=== PATIENT | male | born 1955 | race Caucasian/White ===

== ENCOUNTER 2016-11-15 16:51 | Emergency (ER) | payer BC ==
[~2016-11-15] VITALS: Ht 175.3 cm; Wt 104.4 kg
[~2016-11-15 16:51] MED LIST: ALPR0.25 PO; ASPI81TA28 PO; CLOP1TAB5 PO; DICY10CA12 PO; DILT120C99 PO; METO25TA3 PO; MULT-506 PO; PANT40TA PO; PRVC/40 PO; SERT25TA PO
[2016-11-15 16:53] VITALS: TEMP 36.8
--- NOTE | 2016-11-15 17:10 | EMERGENCY ROOM VISIT NOTE ---
History Report prepared by Natalie: Virgie Tao Under the Supervision of: Dr. Shaw Vásquez M.D. First contact with patient: 16:55 Chief Complaint: COUGH Stated Complaint: COUGH,CHEST PAIN,TROUBLE BREATHING Nursing Triage Summary: Pt c/o cold symptoms and trouble with breathing over the last few days. Patient states he's been coughing and he now has chest pain from cough. Left chest pain when he coughs. Productive History of Present Illness The patient is a 61 year old male who presents to the Emergency Room with complaints of a persistent productive cough over the last three days. The patient states that over the last year he has intermittently been experiencing breathing problems. He states that he is not on any current inhalers or antibiotics, noting that he was last on antibiotics 1 month ago. The patient associates left sided chest pain with his symptoms secondary to his cough. He additionally notes that he has been short of breath. The patient notes a history of two cardiac stents. He states that he had the stents placed one year ago. Source of History: patient Onset: last three days Position: other (global) Quality: other (cough) Timing: other (persistent) Associated Symptoms: + SOB, + chest pain (left sided) Review of Systems See HPI for pertinent positives & negatives. A total of 10 systems reviewed and were otherwise negative. Past Medical & Surgical Medical Problems: (1) Anxiety (2) CAD S/P percutaneous coronary angioplasty (3) Dyslipidemia (4) GERD (gastroesophageal reflux disease) (5) Steatohepatitis Surgical Problems: (1) History of angioplasty Family History Cancer Heart disease FATHER (IN s/p cabg) MOTHER (IN in 50's) Hypertension Social History Smoking Status: Never Smoker Alcohol Use: none Marital Status: Housing Status: lives with family Occupation Status: employed Current/Historical Medications Scheduled Alirocumab (Praluent), 75 MG SC Q2 WEEK Alprazolam (Xanax), 0.25 MG PO QAM Aspirin (Aspirin Ec), 81 MG PO HS Clopidogrel Bisulfate (Plavix), 75 MG PO HS Diltiazem Hcl Coated Beads (Diltiazem Cd), 120 MG PO HS Doxycycline Monohydrate (Monodox), 100 MG PO BID Multivitamin (Multivitamin), 1 TAB PO QAM Pantoprazole (Protonix), 40 MG PO QAM Prednisone (Prednisone Tab), 0 PO DAILY Sertraline (Zoloft), 25 MG PO HS Scheduled PRN Hydrocodone W/ Homatropine (Hycodan 5/1.5MG 5 Ml), 5 ML PO HS PRN for Cough Allergies Coded Allergies: Rosuvastatin (Verified Allergy, Intermediate, ELEVATED ALT, 11/10/15) Simvastatin (Verified Allergy, Unknown, QUESTIONABLE ALLERGY PER DR CHRISTOPHER , 11/10/15) Physical Exam Vital Signs Date Time Temp Pulse Resp B/P Pulse Ox O2 Delivery O2 Flow Rate FiO2 11/15/16 18:56 107 20 133/77 96 Room Air 11/15/16 17:56 104 20 136/85 100 Nebulizer 11/15/16 17:39 97 11/15/16 17:14 100 Diffusion Mask 10.0 11/15/16 17:14 100 Room Air 10.0 11/15/16 16:56 97 Room Air 11/15/16 16:53 36.8 94 18 142/83 97 Physical Exam GENERAL: Patient is a healthy-appearing well-nourished HEAD: Normocephalic atraumatic EYES: Ocular movements intact pupils equal and react to light OROPHARYNX mucous membranes are moist no exudates present no erythema or edema present NECK: Supple no nuchal rigidity CHEST: Good equal expansion LUNGS: Clear and equal to auscultation CARDIAC: Normal S1 and S2 ABDOMEN: Soft nontender no guarding BACK: No CVA tenderness EXTREMITIES: No pain upon palpation normal muscle strength in all groups no clubbing cyanosis or edema NEURO: Patient is following commands is answering questions appropriately. Alert and oriented x3 Cranial Nerves 2-12 grossly intact Medical Decision & Procedures ER Provider Diagnostic Interpretation: X-ray results as stated below per interpretation by me and the radiologist: SINGLE VIEW CHEST CLINICAL HISTORY: Cough. FINDINGS: An AP, portable, upright chest radiograph is compared to study dated 11/12/2015 and correlated with chest CT dated 11/10/2015. The examination is degraded by portable technique and patient rotation. The cardiomediastinal silhouette is unremarkable. The lungs and pleural spaces are clear. No pneumothorax is seen. The bony thorax is grossly intact. IMPRESSION: No active disease in the chest. Electronically signed by: Jaime Raza M.D. 11/15/2016 5:55 PM Dictated Date/Time: 11/15/2016 5:54 PM Laboratory Results 11/15/16 17:20 Red Blood Count 5.03, Mean Corpuscular Volume 90.1, Mean Corpuscular Hemoglobin 33.4, Mean Corpuscular Hemoglobin Concent 37.1, Mean Platelet Volume 8.8, Neutrophils (%) (Auto) 62.1, Lymphocytes (%) (Auto) 24.6, Monocytes (%) (Auto) 11.3, Eosinophils (%) (Auto) 1.1, Basophils (%) (Auto) 0.1, Neutrophils # (Auto ) 4.40, Lymphocytes # (Auto) 1.75, Monocytes # (Auto) 0.80, Eosinophils # (Auto ) 0.08, Basophils # (Auto) 0.01 11/15/16 17:20 Test 11/15/16 17:20 11/15/16 17:21 11/15/16 17:45 White Blood Count 7.10 K/uL (4.8-10.8) Red Blood Count 5.03 M/uL (4.7-6.1) Hemoglobin 16.8 g/dL (14.0-18.0) Hematocrit 45.3 % (42-52) Mean Corpuscular Volume 90.1 fL (80-100) Mean Corpuscular Hemoglobin 33.4 pg (25-34) Mean Corpuscular Hemoglobin Concent 37.1 g/dl (32-36) Platelet Count 180 K/uL (130-400) Mean Platelet Volume 8.8 fL (7.4-10.4) Neutrophils (%) (Auto) 62.1 % Lymphocytes (%) (Auto) 24.6 % Monocytes (%) (Auto) 11.3 % Eosinophils (%) (Auto) 1.1 % Basophils (%) (Auto) 0.1 % Neutrophils # (Auto) 4.40 K/uL (1.4-6.5) Lymphocytes # (Auto) 1.75 K/uL (1.2-3.4) Monocytes # (Auto) 0.80 K/uL (0.11-0.59) Eosinophils # (Auto) 0.08 K/uL (0-0.5) Basophils # (Auto) 0.01 K/uL (0-0.2) RDW Standard Deviation 41.0 fL (36.4-46.3) RDW Coefficient of Variation 12.6 % (11.5-14.5) Immature Granulocyte % (Auto) 0.8 % Immature Granulocyte # (Auto) 0.06 K/uL (0.00-0.02) Anion Gap 6.0 mmol/L (3-11) Est Creatinine Clear Calc Drug Dose 78.9 ml/min Estimated GFR () 76.3 Estimated GFR (Non- 65.8 BUN/Creatinine Ratio 13.1 (10-20) Calcium Level 8.7 mg/dl (8.5-10.1) Total Bilirubin 0.8 mg/dl (0.2-1) Aspartate Amino Transf (AST/SGOT) 77 U/L (15-37) Alanine Aminotransferase (ALT/SGPT) 140 U/L (12-78) Alkaline Phosphatase 84 U/L (45-117) Total Creatine Kinase 98 U/L (39-308) Creatine Kinase MB < 0.5 ng/ml (0.5-3.6) Creatine Kinase MB Ratio (0-3.0) Troponin I < 0.015 ng/ml (0-0.045) Total Protein 7.4 gm/dl (6.4-8.2) Albumin 4.2 gm/dl (3.4-5.0) Globulin 3.2 gm/dl (2.5-4.0) Albumin/Globulin Ratio 1.3 (0.9-2) Influenza Type A (RT-PCR) Neg for Influ A (NEG) Influenza Type A Antigen Neg for Influ A (NEG) Influenza Type B Antigen Neg for Influ B (NEG) Influenza Type B (RT-PCR) Neg for Influ B (NEG) Urine Color DK YELLOW Urine Appearance CLEAR (CLEAR) Urine pH 6.5 (4.5-7.5) Urine Specific [place] 1.025 (1.000-1.030) Urine Protein NEG (NEG) Urine Glucose (UA) NEG (NEG) Urine Ketones TRACE (NEG) Urine Occult Blood NEG (NEG) Urine Nitrite NEG (NEG) Urine Bilirubin NEG (NEG) Urine Urobilinogen NEG (NEG) Urine Leukocyte Esterase NEG (NEG) Labs reviewed by ED physician. Medications Administered Medications (Trade) Dose Ordered Sig/Ankur Route Start Time Stop Time Status Last Admin Dose Admin Albuterol/ Ipratropium (Duoneb) 12 ml ONE ONCE INH 11/15/16 17:15 11/15/16 17:16 DC 11/15/16 17:13 12 ML Methylprednisolone Sodium Succinate (Solu-Medrol IV) 60 mg NOW STAT IV 11/15/16 17:59 11/15/16 18:01 DC 11/15/16 17:59 60 MG Doxycycline Hyclate 100 mg 100 mg ONE STAT PO 11/15/16 17:59 11/15/16 18:01 DC 11/15/16 17:59 100 MG Sodium Chloride (Nss 1000ml) 1,000 ml @ 999 mls/hr Q1H1M STAT IV 11/15/16 17:59 11/15/16 18:59 DC 11/15/16 17:59 999 MLS/HR Hydrocodone Bit/ Homatropine Methylb (Hycodan Syrup) 5 ml NOW ONCE PO 11/15/16 18:15 11/15/16 18:16 DC 11/15/16 18:15 5 ML Albuterol (Ventolin Hfa Inhaler) 2 puffs NOW STAT INH 11/15/16 19:12 11/15/16 19:13 DC 11/15/16 19:12 2 PUFFS ECG Indication: chest pain, SOB/dyspnea Rate (beats per minute): 89 Rhythm: normal sinus Findings: no acute ischemic change, no ectopy ED Course 1700: Past medical records reviewed. The patient was evaluated in room C3. A complete history and physical examination was performed. 1715: Ordered Duoneb 12 ml INH. 175: Ordered Sodium Chloride 1000 ml @ 999 mls/hr IV, Vibramycin Cap 100 mg PO , Solu-Medrol IV 60 mg IV. 1814: Ordered Hycodan Syrup 5 ml PO. 1900: I reevaluate the patient and he is resting comfortably. I discussed the exam findings with him and I discussed the treatment plan. He verbalized complete understanding and agreement. He is ready to go home. 1911: Albuterol 2 puffs INH. Medical Decision Differential diagnosis: Etiologies such as infections, reactive airway disease, pneumonia, pneumothorax , COPD, CHF, cardiac ischemia, pulmonary embolism, musculoskeletal, gastrointestinal, as well as others were entertained. This is a 61-year-old male who presents emergency department complaining of cough. The patient is not hypoxic upon arrival to emergency department and does not appear to be in any acute distress. He does have a history of cardiac issues however his EKG here is normal and the patient reports this chest pain is different from his chest pain when he had cardiac ischemia. He has a normal CK-MB troponin function. He was given an hour-long breathing treatment in the emergency department along with Solu-Medrol and doxycycline. Chest x-ray does not show any evidence of pneumonia however I will place patient on doxycycline as this about has been ongoing for the past month. I recommended that the patient follow-up with a historian dramatic arts and I referred him to one in the [facility] system. Patient was in agreement with the treatment plan. Impression Primary Impression: Acute bronchitis Scribe Attestation The scribe's documentation has been prepared under my direction and personally reviewed by me in its entirety. I confirm that the note above accurately reflects all work, treatment, procedures, and medical decision making performed by me. Departure Information Dispostion Home / Self-Care Prescriptions Hydrocodone W/ Homatropine (HYCODAN 5/1.5MG 5 ML) 1 Syp Syp 5 ML PO HS Y for Cough, #120 ML Prov: Shaw Vásquez MD 11/15/16 Doxycycline Monohydrate (Monodox) 100 Mg Cap 100 MG PO BID for 10 Days, #20 CAP Prov: Shaw Vásquez MD 11/15/16 Prednisone (Prednisone Tab) 20 Mg Tab 0 PO DAILY, #7 TAB 2 TABS DAILY FOR 2 DAYS, THEN 1 TAB DAILY FOR 2 DAYS, THEN 1/2 TAB DAILY FOR 2 DAYS. Prov: Shaw Vásquez MD 11/15/16 Referrals No Doctor, Assigned (PCP) Yovani Fountain M.D. Sulman, Scott A., D.Monica. Forms HOME CARE DOCUMENTATION FORM, IMPORTANT VISIT INFORMATION, School Instructions, Work Instructions Patient Instructions ED Bronchitis Abx Tx, My [facility] Additional Instructions Follow up with DR Fountain's office Take 2 puffs every 6 hours of albuterol You have been examined and treated today on an emergency basis only. This is not a substitute for, or an effort to provide, complete comprehensive medical care. It is impossible to recognize and treat all injuries or illnesses in a single emergency department visit. It is therefore important that you follow up closely with Dr Clancy. Call as soon as possible for an appointment. Thank you for your time and consideration. I look forward to speaking with you again soon. Please don't hesitate to call us if you have any questions. Problem Qualifiers Primary Impression: Acute bronchitis Bronchitis organism: unspecified organism Qualified Codes: J20.9 - Acute bronchitis, unspecified
[2016-11-15 17:14] VITALS: O2SAT 100; Ht 175.3 cm; Wt 104.4 kg
[2016-11-15] MEDS ORDERED: ALBUT/IPRATROP 3MG/0.5MG NEB 3 ML VIAL INH ONE (17:15)
[2016-11-15 17:31] LABS: BASO % 0.1 %; BASO ABS # 0.01 K/uL (0-0.2); COMPLETE YES; EOS % 1.1 %; HEMATOCRIT 45.3 % (42-52); IG% 0.8 %; LYMPH % 24.6 %; LYMPH ABS # 1.75 K/uL (1.2-3.4); MEAN CELL VOLUME 90.1 fL (80-100); MEAN CORPUSCULAR HEMOGLOBIN 33.4 pg (25-34); MEAN CORPUSCULAR HGB CONC 37.1 g/dl (32-36); MEAN PLATELET VOLUME 8.8 fL (7.4-10.4); MONO % 11.3 %; NEUT % 62.1 %; PLATELET COUNT 180 K/uL (130-400); RED BLOOD COUNT 5.03 M/uL (4.7-6.1)
[2016-11-15] MEDS ORDERED: ALIR1INJ SC (17:39)
--- NOTE | 2016-11-15 17:56 | DIAGNOSTIC IMAGING REPORT ---
SINGLE VIEW CHEST CLINICAL HISTORY: Cough. FINDINGS: An AP, portable, upright chest radiograph is compared to study dated 11/12/2015 and correlated with chest CT dated 11/10/2015. The examination is degraded by portable technique and patient rotation. The cardiomediastinal silhouette is unremarkable. The lungs and pleural spaces are clear. No pneumothorax is seen. The bony thorax is grossly intact. IMPRESSION: No active disease in the chest. Electronically signed by: Jaime Raza M.D. 11/15/2016 5:55 PM Dictated Date/Time: 11/15/2016 5:54 PM
[2016-11-15] MEDS ORDERED: METHYLPREDNISOLONE 125 MG VIAL IV STA (17:59)
[2016-11-15] MEDS ORDERED: SODIUM CHLORIDE 0.9% 1000ML 1,000 ML IV STA (17:59)
[2016-11-15] MEDS ORDERED: DOXYCYCLINE HYCLATE 100 MG CAP PO STA (17:59)
[2016-11-15] MEDS ORDERED: HYDROCODONE/HOMATROPINE 1.5/5MG TAB PO STA (17:59)
[2016-11-15 18:05] LABS: MANUAL MICROSCOPIC REQUIRED? NO; REVIEW REQ? NO; URINE APPEARANCE CLEAR (CLEAR); URINE BILIRUBIN NEG (NEG); URINE COLOR DK YELLOW; URINE NITRITE NEG (NEG); URINE PH 6.5 (4.5-7.5); URINE SPECIFIC GRAVITY 1.025 (1.000-1.030); UROBILINOGEN NEG (NEG)
[2016-11-15 18:12] LABS: POTASSIUM 4.1 mmol/L (3.5-5.1); SODIUM 142 mmol/L (136-145)
[2016-11-15] MEDS ORDERED: HYDROCODONE/HOMATROPINE SYRUP 5MG/1.5MG 5ML UDP PO ONE (18:15)
[2016-11-15 18:21] LABS: AST/SGOT 77 U/L (15-37)
[2016-11-15 18:39] LABS: ALB/GLOB RATIO 1.3 (0.9-2); ALKALINE PHOSPHATASE 84 U/L (45-117); ALT/SGPT 140 U/L (12-78); BLOOD UREA NITROGEN 16 mg/dl (7-18); BUN/CREATININE RATIO 13.1 (10-20); CALCIUM 8.7 mg/dl (8.5-10.1); CARBON DIOXIDE 27 mmol/L (21-32); CHLORIDE 109 mmol/L (98-107); GLUCOSE 96 mg/dl (70-99)
[2016-11-15 18:56] VITALS: BP 133/77; PULSE 107; O2SAT 96
[2016-11-15] MEDS ORDERED: ALBUTEROL HFA 8 GM INHALER INH STA (19:12)
[2016-11-15] MEDS ORDERED: PRED20TA2 PO (19:15)
[2016-11-15] MEDS ORDERED: DOXY100C76 PO (19:17)
[2016-11-15] MEDS ORDERED: HYDR5SYP11 PO (19:21)
[2016-11-15 19:37] LABS: INFLUENZA A PCR Neg for Influ A (NEG); INFLUENZA B PCR Neg for Influ B (NEG)
== END 2016-11-15 19:30 | disposition home or self-care (01) ==
LOC: C.EDB 16:52 → C.EDC 19:30
DX: J20.9 Acute bronchitis, unspecified (principal); Z95.5 Presence of coronary angioplasty implant and graft; F41.9 Anxiety disorder, unspecified; I25.10 Atherosclerotic heart disease of native coronary artery without angina pectoris; E78.5 Hyperlipidemia, unspecified; K21.9 Gastro-esophageal reflux disease without esophagitis; Z80.9 Family history of malignant neoplasm, unspecified; Z82.49 Family history of ischemic heart disease and other diseases of the circulatory system; Z79.82 Long term (current) use of aspirin; Z79.899 Other long term (current) drug therapy

== ENCOUNTER → 2018-02-02 | Day surgery (SDC) | payer BC ==
[2018-01-26 10:41] VITALS: Ht 176.5 cm; Wt 100.0 kg
[~2018-02-02] VITALS: Ht 176.5 cm; Wt 100.0 kg
[~2018-02-02] MED LIST changes: +ALIR1INJ SC; -DICY10CA12 PO; +DICY10CA55 PO; +ISOS30TA3 PO; +LIDOCAINE HCL 2% 2 ML VIAL (20MG/ML) ONE; -METO25TA3 PO; +NTRGSL/4 UT; +PROPOFOL IV EMULSION 10 MG/ML 20 ML VIAL ONE; -PRVC/40 PO; +SODIUM CHLORIDE 0.9% 500ML 500 ML IV ONE; +UMEC1AER INH
--- NOTE | 2018-02-02 09:15 | Endo History and Physical ---
History & Physical Date of Service: Feb 02, 2018. Chief Complaint: History of polyps, dark stools Referring Physician: Dr. Clancy History of Present Illness Dark stools, history of colon polyps, on Plavix and ASA Past Medical History Angioplasty/Stent, Anxiety, Reflux Past Surgical History Hx Cardiac Surgery: Yes (HEART CATH X4, 2 STENTS) Hx Internal Defibrillator: No Hx Pacemaker: No Hx Abdominal Surgery: No Hx of Implantable Prosthesis: No Hx Post-Op Nausea and Vomiting: No Hx Cancer Surgery: No Hx Thoracic Surgery: No Hx Orthopedic: Yes (R KNEE ARTHROSCOPY X2) Hx Urinary Tract Surgery: No Family History None Social History Smoking Status: Never Smoker Hx Substance Use: No Hx Alcohol Use: No Allergies Coded Allergies: Rosuvastatin (Verified Allergy, Intermediate, ELEVATED ALT, 02/02/18) Simvastatin (Verified Allergy, Unknown, QUESTIONABLE ALLERGY PER DR CHRISTOPHER , 02/02/18) Current Medications Reported Home Medications Medications Dose Route/Sig Max Daily Dose Days Date Category Dose Instructions Nitrostat (Nitroglycerin) 0.4 Mg Tab 0.4 Mg UT PRN 01/26/18 Reported Anoro Ellipta 62.5-25 Mcg/INH (Umeclidinium-Vilanterol) 1 Aer Aer 1 Puff INH QAM 01/26/18 Reported Imdur Ext Rel (Isosorbide Mononitrate) 30 Mg Ertab 30 Mg PO QAM 01/26/18 Reported Bentyl (Dicyclomine Hcl) 10 Mg Cap 10 Mg PO QAM 01/26/18 Reported Praluent (Alirocumab) 75 Mg/Ml Inj 75 Mg SC Q2 WEEK 11/15/16 Reported ADMINISTER THIS MEDICATION EVERY OTHER WEEK ON TUESDAY Zoloft (Sertraline HCl) 25 Mg Tab 25 Mg PO HS 11/10/15 Reported Aspirin Ec (Aspirin) 81 Mg Tab 81 Mg PO HS 11/10/15 Reported Plavix (Clopidogrel Bisulfate) 75 Mg Tab 75 Mg PO HS 06/12/12 Reported Xanax (Alprazolam) 0.25 Mg Tab 0.25 Mg PO QAM 06/12/12 Reported Diltiazem Cd (Diltiazem Hcl Coated Beads) 120 Mg Cap 120 Mg PO QAM 06/12/12 Reported Protonix (Pantoprazole Sodium) 40 Mg Tab 40 Mg PO QAM 11/20/07 Reported Multivitamin (Multivitamins) Tab 1 Tab PO QAM 01/21/07 Reported Vital Signs Weight (Kilograms): 100 Height (Feet): 5 Height (Inches): 9.5 Physical Exam General Appearance: WD/WN, no apparent distress Respiratory/Chest: Auscultation: breath sounds normal, no wheezing Cardiovascular: Heart Auscultation: RRR, no murmurs Abdomen: Bowel Sounds: normal Inspection & Palpation: no tenderness, guarding & rebound Assessment and Plan EGD and colonoscopy today.
[2018-02-02 09:22] VITALS: TEMP 36.6
--- NOTE | 2018-02-02 09:47 | GI REPORT ---
Patient Name: Mario Burnett Procedure Date: 02/02/2018 9:20 AM Date of : 1955 Admit Type: Outpatient Age: 62 Gender: Male Attending MD: Mario Gutierrez MD Procedure: Upper GI endoscopy Providers: Mario Gutierrez MD Referring MD: Renee Daniels NP, Jean Clancy Indications: Epigastric abdominal pain, Suspected upper gastrointestinal bleeding Medicines: Propofol per Anesthesia Complications: No immediate complications. Estimated blood loss: None. Estimated Blood Loss: Estimated blood loss: none. Procedure: Pre-Anesthesia Assessment: - Prior to the procedure, a History and Physical was performed, and patient medications, allergies and sensitivities were reviewed. The patient's tolerance of previous anesthesia was reviewed. - ASA Grade Assessment: III - A patient with severe systemic disease. After obtaining informed consent, the endoscope was passed under direct vision. Throughout the procedure, the patient's blood pressure, pulse, and oxygen saturations were monitored continuously. The scope was introduced through the mouth, and advanced to the third part of duodenum. The upper GI endoscopy was accomplished with ease. The patient tolerated the procedure well. Findings: The upper third of the esophagus, middle third of the esophagus and lower third of the esophagus were normal. The Z-line was regular and was found 39 cm from the incisors. Striped moderately erythematous mucosa without bleeding was found in the gastric antrum. Biopsies were taken with a cold forceps for Helicobacter pylori testing. The examined duodenum was normal. Impression: - Normal upper third of esophagus, middle third of esophagus and lower third of esophagus. - Z-line regular, 39 cm from the incisors. - Erythematous mucosa in the antrum. Biopsied. - Normal examined duodenum. Recommendation: - Await pathology results. - Perform a colonoscopy today. Mario Gutierrez M.D. Mario Gutierrez MD 02/02/2018 9:47:19 AM This report has been signed electronically. Note Initiated On: 02/02/2018 9:20 AM Number of Addenda: 0 I attest to the content of the Intraoperative Record and orders documented therein, exceptions below {[id number]}
--- NOTE | 2018-02-02 10:20 | GI REPORT ---
Patient Name: Mario Burnett Procedure Date: 02/02/2018 9:20 AM Date of : 1955 Admit Type: Outpatient Age: 62 Gender: Male Attending MD: Mario Gutierrez MD Procedure: Colonoscopy Providers: Mario Gutierrez MD Referring MD: Renee Daniels NP, Jean Clancy Indications: High risk colon cancer surveillance: Personal history of colonic polyps, Last colonoscopy: September 2014 Medicines: Propofol per Anesthesia Complications: No immediate complications. Estimated blood loss: None. Estimated Blood Loss: Estimated blood loss: none. Procedure: Pre-Anesthesia Assessment: - Prior to the procedure, a History and Physical was performed, and patient medications, allergies and sensitivities were reviewed. The patient's tolerance of previous anesthesia was reviewed. - ASA Grade Assessment: III - A patient with severe systemic disease. After I obtained informed consent, the scope was passed under direct vision. Throughout the procedure, the patient's blood pressure, pulse, and oxygen saturations were monitored continuously. The Scope was introduced through the anus and advanced to the cecum, identified by appendiceal orifice and ileocecal valve. The colonoscopy was performed without difficulty. The patient tolerated the procedure well. The quality of the bowel preparation was excellent. The bowel preparation used was split dose MIralax. Findings: A few diverticula were found in the sigmoid colon. Impression: - Diverticulosis in the sigmoid colon. - No specimens collected. - The colon was otherwise normal to the cecum with retroflexed views of the ascending colon and rectum. Recommendation: - Repeat colonoscopy in 5 years for surveillance. - Discharge patient to home (with escort). Mario Gutierrez M.D. Mario Gutierrez MD 02/02/2018 10:20:15 AM This report has been signed electronically. Note Initiated On: 02/02/2018 9:20 AM Number of Addenda: 0 I attest to the content of the Intraoperative Record and orders documented therein, exceptions below {[id number]}
--- NOTE | 2018-02-02 10:23 | Discharge Instructions ---
Endoscopy Patient Instructions Date / Procedure(s) Performed Feb 02, 2018. Colonoscopy, EGD Allergy Information Coded Allergies: Rosuvastatin (Verified Allergy, Intermediate, ELEVATED ALT, 02/02/18) Simvastatin (Verified Allergy, Unknown, QUESTIONABLE ALLERGY PER DR CHRISTOPHER , 02/02/18) Discharge Date / Findings Feb 02, 2018. Mild irritation in the stomach without ulcers; diverticulosis. Medication Instructions Stopped Medication(s): ASA PLAVIX Restart Stopped Medication(s): Restart all medications today including aspirin and Plavix. Provider Instructions Activity Restrictions - No exercising or heavy lifting for 24 hours. - Do not drink alcohol the day of the procedure. - Do not drive a car or operate machinery until the day after the procedure. - Do not make any important decisions or sign important papers in 24 hours after the procedure. Following Day: - Return to full activity which may include returning to work/school. Diet Start your diet with liquids and light foods (jello, soup, juice, toast). Then eat your usual diet if not nauseated. Treatment For Common After Affects For mild abdominal pain, bloating, or excessive gas: - Rest - Eat lightly - Lie on right side Follow-Up Information Follow-up with DR. STOVALL as scheduled Anesthesia Information What You Should Know You have had a procedure that required some medicine to reduce anxiety and discomfort. This treatment is called moderate sedation. After receiving the treatment, you may be sleepy, but you will be able to breathe on your own. The effects of the treatment may last for several hours. Follow these instructions along with Activity/Diet recommendations noted above: * Do NOT do anything where dizziness or clumsiness would be dangerous. * Rest quietly at home today, then you can be up and about tomorrow. * Have a responsible person stay with you the rest of today. * You may have had an I.V. today. If so, you may take the dressing off later today. Recommendations Call your doctor if: * Trouble breathing * Continuous vomiting for more than 24 hours * Temperature above 101 degrees * Severe abdominal pain or bloating * Pain not relieved by pain medicine ordered * There is increased drainage or redness from any incision * A large amount of rectal bleeding greater than 2-3 tablespoons. (If you had a polyp/s removed or have hemorrhoids, a small amount of blood - from the rectum is to be expected.) * You have any unanswered questions or concerns. IN THE EVENT OF A SERIOUS EMERGENCY, GO TO THE NEAREST EMERGENCY ROOM Your discharge instructions were prepared by provider Mario Gutierrez. Patient Instructions Signature Page Mario Burnett Patient (or Guardian) Signature/Date: I have read and understand the instructions given to me by my caregivers. Caregiver/RN/Doctor Signature/Date: The above-named patient and/or guardian has received patient instructions on this date. + Original Patient Signature Page (only) stays with chart. Please make copy for patient.
[2018-02-02 10:48] VITALS: BP 123/80; PULSE 68; O2SAT 96
--- NOTE | 2018-02-02 10:53 | Anesthesiology Progress Note ---
Anesthesia Post Op Note Date & Time Feb 02, 2018 at 10:52 Vital Signs Pain Intensity: 0 Vital Signs Past 12 Hours Date Time Temp Pulse Resp B/P (MAP) Pulse Ox O2 Delivery O2 Flow Rate FiO2 02/02/18 10:33 67 18 123/70 (87) 94 Room Air 02/02/18 10:18 70 16 117/84 (95) 93 Room Air 02/02/18 09:22 36.6 84 16 135/78 (97) 97 Room Air Notes Mental Status: alert / awake / arousable, participated in evaluation Pt Amnestic to Procedure: Yes Nausea / Vomiting: adequately controlled Pain: adequately controlled Airway Patency, RR, SpO2: stable & adequate BP & HR: stable & adequate Hydration State: stable & adequate Anesthetic Complications: no major complications apparent
== END | disposition home or self-care (01) ==
LOC: C.GI 08:12
PROVIDERS: ATTEND Internal Medicine Gastroenterology
DX: Z12.11 Encounter for screening for malignant neoplasm of colon (principal); K57.30 Diverticulosis of large intestine without perforation or abscess without bleeding; Z86.010 Personal history of colon polyps; J44.9 Chronic obstructive pulmonary disease, unspecified; G47.33 Obstructive sleep apnea (adult) (pediatric); I10 Essential (primary) hypertension; I25.10 Atherosclerotic heart disease of native coronary artery without angina pectoris

== ENCOUNTER 2022-10-13 19:05 | Observation (INO) ==
--- NOTE | 2022-10-13 19:25 | Emergency Department Note ---
Impression & Plan Hypertensive urgency, CAD S/P percutaneous coronary angioplasty, Atypical chest pain ED Provider Note NAME: RAFITA LOVE AGE: 67 SEX: M : 1955 ARRIVES VIA: Walk-In INFORMANT: Patient, ED PROVIDER(S): Logan Cowart MD CHIEF COMPLAINT: Chest pain MEDICAL DECISION MAKING: Patient presents due to concern for chest pain. IV was established blood work was obtained along with an EKG troponin chest x- ray. The patient was ordered 324 of aspirin as well as Nitropaste. Patient has normal white count H&H and platelet count. Kidney function is unremarkable. Glucose is 93. The patient does have mild transaminitis with a bilirubin 1.2 AST 59 and ALT 101. Other LFTs unremarkable. COVID-negative. Chest x-ray does not show any active disease. Patient does have a moderate risk heart score. Given the patient's atypical chest pain, moderate risk heart score, and cardiac history do the patient would benefit from continued observation and treatment. Do believe the patient may have associated hypertensive urgency. I did speak with the on-call hospital service Dr. Estrada and the patient was admitted to the medicine service Prior /Outside records reviewed: I did review Dr. Troy's note from [facility] cardiology from May 2022. Patient does have a known history of atherosclerotic CAD s/p prior PTCA and stenting of left anterior descending in January 2008 with a drug-eluting stent. Patient will did also did have a drug- eluting stent in November 2015 to the right RCA. Patient also had stent to the proxi mal left anterior descending for 95% lesion in May 2018. Patient has a known history of hypertension sleep apnea on CPAP stage IIIa CKD. Patient's most recent stress echo reported in this note was August 20, 2020 which was negative for inducible ischemia at the LVEF is 55 to 59% LV diastolic function mildly abnormal grade 1. No significant valvular disease noted. Differential diagnosis: Cardiac ischemia, aortic dissection, pulmonary embolism, pneumothorax, pneumonia, pericarditis, myocarditis, esophageal rupture, GERD, cholecystitis, pancreatitis, musculoskeletal, as well as other pathologies. Diagnostics, as interpreted by me: ECG: Normal sinus rhythm, rate of 89, normal intervals, left axis deviation, no ST elevations T wave flattening noted in lead III but not in contiguous leads. Cardiac monitoring: An order was placed for continuous cardiac monitoring. The monitor shows a rate of 88 with sinus rhythm. Patient was placed on pulse oximetry Medical decision rules: HEART score Imaging studies: See below I informally interpreted the patient's chest x-ray no evidence of obvious pleural effusion or pneumothorax HPI: Patient presents due to concern for chest pain. The patient states that his pain began around 5:00 as he was sitting at the computer. The patient states that it was left-sided pressure and did radiate down his left arm. The patient states it was somewhat similar to when he required prior stents as he NIzza has a known history of CAD. No cough or fever. Total duration of the episode was approximate 30 minutes. Patient does not take anything for it. Patient Nuys any cough fever shortness of breath leg swelling or calf pain. The patient believes he took his morning meds but states that he recently retired and that his routine has been different. The patient does note that he took his medications yesterday. No falls or trauma. No recent surgeries procedures hospitalizations. No recent prolonged car plane travel. Patient states he has no active chest pain currently. The patient did walk up stairs and states that he not have significant change in his chest pain. The patient denies any diaphoresis or nausea. Patient states that when he went up into the kitchen area his checked his blood pressure was noted to be elevated. PAST MEDICAL HISTORY: See Below PAST SURGICAL HISTORY: See Below SOCIAL HISTORY: See Below HOME MEDICATIONS: See Below ALLERGIES: See Below VITALS: See Below PHYSICAL EXAMINATION: GENERAL: NAD, wearing a mask, non-toxic. Wearing glasses. EYE EXAM: Normal conjunctiva. PERRL, no anisocoria and EOM's grossly intact w/o pain. NECK: Supple, no nuchal rigidity, no adenopathy, non-tender. No signs of meningismus. FROM of the neck with good chin to chest and neck extension. No str idor. Chest: No reproducible chest wall pain. LUNGS: Clear to auscultation. Normal chest wall mechanics. HEART: NSR, no MRG. ABDOMEN: Abdomen soft, non-tender, no masses, no rebound or guarding. BACK: No CVA TTP. SKIN: No rashes and no bruising. UPPER EXTREMITIES: Upper extremities are grossly normal. LOWER EXTREMITIES: Grossly normal, no edema. Negative Homans' sign bilaterally. NEURO EXAM: A&O x3, cranial nerves II-XII grossly intact, normal speech, moves all 4 extremities. Past Med/Surg History Medical History (Updated 10/13/22 @ 21:57 by Logan Cowart MD) Anxiety CAD S/P percutaneous coronary angioplasty Dyslipidemia GERD (gastroesophageal reflux disease) Steatohepatitis Surgical History H/O colonoscopy History of angioplasty S/P tonsillectomy and adenoidectomy Social History Smoking Status: Never smoker Preferred Language: Danish Feels Safe at Home: Yes Allergies Allergies Allergy/AdvReac Type Severity Reaction Status Date / Time nitroglycerin AdvReac Intermediate TACHYCARDIA Verified 10/13/22 20:38 [From Nitrostat] WITH PILLS ONLY, PASTE IS OKAY. rosuvastatin AdvReac Intermediate ELEVATED Verified 10/13/22 20:38 ALT simvastatin AdvReac Intermediate ELEVATED Verified 10/13/22 20:38 ALT Home Meds Home Medications Medication Instructions Recorded Confirmed alprazolam 0.25 mg tablet 0.25 mg PO TID PRN Anxiety 11/05/18 10/13/22 aspirin 81 mg tablet,delayed 81 mg PO QAM 11/05/18 10/13/22 release clopidogrel 75 mg tablet 75 mg PO QPM 11/05/18 10/13/22 dicyclomine 10 mg capsule 10 mg PO BID PRN ABD PAIN/CRAMPING 11/05/18 10/13/22 diltiazem HCl 180 mg 180 mg PO QAM 11/05/18 10/13/22 capsule,extended release 24 hr isosorbide mononitrate 30 mg 30 mg PO QAM 11/05/18 10/13/22 tablet,extended release 24 hr pantoprazole 40 mg tablet,delayed 40 mg PO QAM 11/05/18 10/13/22 release Bifidobacterium infantis 4 mg 4 mg PO Q OTHER DAY 10/13/22 10/13/22 capsule (Align) albuterol sulfate 2.5 mg/3 mL 2.5 mg inhalation DIRECTED PRN 10/13/22 10/13/22 (0.083 %) solution for nebulization Shortness Of Breath Or Wheezing evolocumab 140 mg/mL subcutaneous 140 mg subcut .BIMONTHLY 10/13/22 10/13/22 pen injector (Chet Goyal) gabapentin 300 mg capsule 300 mg PO HS 10/13/22 10/13/22 hydrocortisone 2.5 % topical cream 1 applic topical BID PRN Rash 10/13/22 10/13/22 levothyroxine 50 mcg tablet 50 mcg PO DAILYBB 10/13/22 10/13/22 Results & Data (ED) Vital Signs Vital Signs - 24 hr 10/13/22 19:15 10/13/22 19:27 10/13/22 19:48 Temperature 36.5 C Temperature Source Temporal Artery Scan Pulse Rate 92 H 91 H Pulse Rate [Finger] 84 Respiratory Rate 18 20 Respiratory Effort / Characteristics Non-Labored Spontaneous Respiratory Depth Normal Normal Blood Pressure 152/100 H Blood Pressure [Left Arm] 188/118 H Blood Pressure Mean 117 Blood Pressure Mean [Left Arm] 141 Pulse Oximetry 97 98 Oxygen Delivery Method Room Air Sepsis Recent Fever Within 48 Hours No Sepsis New/Unexplained Change in Mental Status No Sepsis Action Taken by Nursing No Action Required 10/13/22 19:49 10/13/22 21:12 Temperature Temperature Source Pulse Rate Pulse Rate [Finger] 80 Respiratory Rate 16 Respiratory Effort / Characteristics Non-Labored Spontaneous Respiratory Depth Normal Blood Pressure Blood Pressure [Left Arm] 166/99 H Blood Pressure Mean Blood Pressure Mean [Left Arm] 121 Pulse Oximetry 98 97 Oxygen Delivery Method Room Air Room Air Sepsis Recent Fever Within 48 Hours Sepsis New/Unexplained Change in Mental Status Sepsis Action Taken by [facility] Medications Current Medication List: was personally reviewed by me Laboratory Data Attestation: I reviewed the patient's lab results. 10/13/22 19:48 10/13/22 19:48 Lab Results 10/13/22 10/13/22 10/13/22 Range/Units 19:48 19:48 19:48 WBC 6.41 (4.8-10.8) K/ul RBC 5.34 (4.70-6.10) M/uL Hgb 17.4 (14.0-18.0) g/dl Hct 47.2 (42.0-52.0) % MCV 88.4 (80.0-100.0) fL MCH 32.6 (25.0-34.0) pg MCHC 36.9 H (32.0-36.0) g/dL RDW Std Deviation 40.2 (36.4-46.3) fL RDW Coeff of [place] 12.4 (11.5-14.5) % Plt Count 176 (130-400) K/uL MPV 8.7 L (9.4-12.4) fL Immature Gran % (Auto) 0.8 % Neut % (Auto) 54.9 % Lymph % (Auto) 33.9 % Tyrrell % (Auto) 8.6 % Eos % (Auto) 1.2 % Baso % (Auto) 0.6 % Neut # (Auto) 3.52 (1.40-6.50) K/uL Lymph # (Auto) 2.17 (1.2-3.4) K/uL Tyrrell # (Auto) 0.55 (0.11-0.59) K/uL Eos # (Auto) 0.08 (0-0.50) K/uL Baso # (Auto) 0.04 (0-0.2) K/uL Immature Gran # (Auto) 0.05 (0.01-0.20) K/uL PT 11.1 (9.0-12.0) Seconds INR 1.0 (0.9-1.1) APTT 27.3 (21.0-31.0) Seconds PTT Ratio 1.0 Sodium 138 (136-145) mmol/L Potassium 4.2 (3.5-5.1) mmol/L Chloride 107 (98-107) mmol/L Carbon Dioxide 22 (21-32) mmol/L Anion Gap 9 (3-11) BUN 16 (6-23) mg/dl Creatinine 1.28 (0.6-1.4) mg/dl Est Cr Clr Drug Dosing 72.3 ml/min Est GFR ( Amer) 67.6 ml/min Est GFR (Non-Af Amer) 58.3 ml/min BUN/Creatinine Ratio 12.5 (10-20) Glucose 93 (70-99(Fasting)) mg/dl Calcium 9.3 (8.6-10.3) mg/dl Total Bilirubin 1.2 H (0.2-1.0) mg/dl AST 59 H (13-39) U/L ALT 101 H (7-52) U/L Alkaline Phosphatase 95 (34-104) U/L Troponin I High Sens 4.5 (0-20) pg/ml Total Protein 7.6 (6.0-8.3) gm/dl Albumin 4.7 (3.4-5.0) gm/dl Globulin 2.9 (2.5-4.0) gm/dl Albumin/Globulin Ratio 1.6 (0.9-2) Lipase 28 (11-82) U/L SARS-CoV-2, RNA, NAAT (NEGATIVE) 10/13/22 Range/Units 19:56 WBC (4.8-10.8) K/ul RBC (4.70-6.10) M/uL Hgb (14.0-18.0) g/dl Hct (42.0-52.0) % MCV (80.0-100.0) fL MCH (25.0-34.0) pg MCHC (32.0-36.0) g/dL RDW Std Deviation (36.4-46.3) fL RDW Coeff of [place] (11.5-14.5) % Plt Count (130-400) K/uL MPV (9.4-12.4) fL Immature Gran % (Auto) % Neut % (Auto) % Lymph % (Auto) % Tyrrell % (Auto) % Eos % (Auto) % Baso % (Auto) % Neut # (Auto) (1.40-6.50) K/uL Lymph # (Auto) (1.2-3.4) K/uL Tyrrell # (Auto) (0.11-0.59) K/uL Eos # (Auto) (0-0.50) K/uL Baso # (Auto) (0-0.2) K/uL Immature Gran # (Auto) (0.01-0.20) K/uL PT (9.0-12.0) Seconds INR (0.9-1.1) APTT (21.0-31.0) Seconds PTT Ratio Sodium (136-145) mmol/L Potassium (3.5-5.1) mmol/L Chloride (98-107) mmol/L Carbon Dioxide (21-32) mmol/L Anion Gap (3-11) BUN (6-23) mg/dl Creatinine (0.6-1.4) mg/dl Est Cr Clr Drug Dosing ml/min Est GFR ( Amer) ml/min Est GFR (Non-Af Amer) ml/min BUN/Creatinine Ratio (10-20) Glucose (70-99(Fasting)) mg/dl Calcium (8.6-10.3) mg/dl Total Bilirubin (0.2-1.0) mg/dl AST (13-39) U/L ALT (7-52) U/L Alkaline Phosphatase (34-104) U/L Troponin I High Sens (0-20) pg/ml Total Protein (6.0-8.3) gm/dl Albumin (3.4-5.0) gm/dl Globulin (2.5-4.0) gm/dl Albumin/Globulin Ratio (0.9-2) Lipase (11-82) U/L SARS-CoV-2, RNA, NAAT NEGATIVE (NEGATIVE) Administered Medications Discontinued Medications Aspirin (Aspirin Chew 324 Mg) 324 mg PO NOW STA Stop: 10/13/22 19:32 Last Admin: 10/13/22 19:43 Dose: 324 mg Documented By: Heparin Sodium (Porcine) (Heparin Sod (Porcine) 1000 Unit/Ml) Confirm Administered Dose 1,000 units .ROUTE .SpotRight ONE Stop: 10/13/22 21:22 Last Admin: 10/13/22 21:23 Dose: Not Given Documented By: ASW Heparin Sodium/Dextrose (Heparin Iv Adult Wt-Based Low-Dose With Bolus Protocol) 1 each IV NOW STA; Protocol Stop: 10/13/22 21:12 Last Admin: 10/13/22 21:23 Dose: Not Given Documented By: ASW Nitroglycerin (Nitroglycerin 2% Ointment 30gm Tube) 0.5 inch EXT NOW STA Stop: 10/13/22 19:32 Last Admin: 10/13/22 19:42 Dose: 0.5 inch Documented By: Imaging Data Radiologist's Impression: Chest X-Ray 10/13/22 19:31 SINGLE VIEW CHEST CLINICAL HISTORY: Atypical chest pain FINDINGS: An AP, portable, upright chest radiograph is compared to study dated 11/05/2018. The examination is degraded by portable technique and apical lordotic positioning. The cardiomediastinal silhouette is unremarkable. The lungs and pleural spaces are clear. No pneumothorax is seen. The bony thorax is grossly intact. IMPRESSION: No active disease in the chest. ACT 112: Negative or not required by law. Electronically signed by: Jaime Raza M.D. 10/13/2022 7:43 PM Discharge Plan Visit Data Chief Complaint: Chest Pain Stated Complaint: CHEST PAIN,HBP,ARM PAIN,HEARTBURN ED Provider: Logan Cowart Discharge Problem: Hypertensive urgency, CAD S/P percutaneous coronary angioplasty, Atypical chest pain Forms Stand Alone Forms: [facility] [employer] Prescriptions Prescriptions: No Action diltiazem HCl 180 mg capsule,extended release 24hr 180 mg PO QAM isosorbide mononitrate 30 mg tablet extended release 24 hr 30 mg PO QAM clopidogrel 75 mg tablet 75 mg PO QPM aspirin 81 mg Tablet,Delayed Release (Dr/Ec) 81 mg PO QAM alprazolam 0.25 mg tablet 0.25 mg PO TID PRN (Reason: Anxiety) pantoprazole 40 mg tablet,delayed release (DR/EC) 40 mg PO QAM dicyclomine 10 mg Capsule 10 mg PO BID PRN (Reason: ABD PAIN/CRAMPING) albuterol sulfate [Proventil] 2.5 mg /3 mL (0.083 %) Solution For Nebulization 2.5 mg INHALATION DIRECTED PRN (Reason: Shortness Of Breath Or Wheezing) levothyroxine 50 mcg tablet 50 mcg PO DAILYBB gabapentin 300 mg capsule 300 mg PO HS hydrocortisone 2.5 % Cream 1 applic TOPICAL BID PRN (Reason: Rash) Align 4 mg Capsule 4 mg PO Q OTHER DAY Repatha SureClick 140 mg/mL pen injector 140 mg SUBCUT .BIMONTHLY Rx Instructions: TAKES ON THE & OF THE MONTH Referrals Referrals: Jean Clancy DO [Physician] -
[2022-10-13] MEDS ORDERED: NITROGLYCERIN 2% OINTMENT 30GM TUBE EXT STA (19:31)
[2022-10-13] MEDS ORDERED: ASPIRIN CHEW 324 MG PO STA (19:31)
--- NOTE | 2022-10-13 19:45 | XRay Report ---
SINGLE VIEW CHEST CLINICAL HISTORY: Atypical chest pain FINDINGS: An AP, portable, upright chest radiograph is compared to study dated 11/05/2018. The examinat ion is degraded by portable technique and apical lordotic positioning. The cardiomediastinal silhouet te is unremarkable. The lungs and pleural spaces are clear. No pneumothorax is seen. The bony thorax is grossly intact. IMPRESSION: No active disease in the chest. ACT 112: Negative or not required by law. Electronically signed by: Jaime Raaz M.D. 10/13/2022 7:43 PM
[2022-10-13 20:09] LABS: Basophils # (auto) 0.04 K/uL (0-0.2); Basophils % (auto) 0.6 %; Eosinophils # (auto) 0.08 K/uL (0-0.50); Eosinophils % (auto) 1.2 %; Hematocrit (blood only) 47.2 % (42.0-52.0); Hemoglobin 17.4 g/dl (14.0-18.0); Immature Granulocytes # (auto) 0.05 K/uL (0.01-0.20); Immature Granulocytes % (auto) 0.8 %; Lymphocytes # (auto) 2.17 K/uL (1.2-3.4); Lymphocytes % (auto) 33.9 %; Mean Corpuscular Hemoglobin 32.6 pg (25.0-34.0); Mean Corpuscular Hgb Conc 36.9 g/dL (32.0-36.0); Mean Corpuscular Volume 88.4 fL (80.0-100.0); Mean Platelet Volume 8.7 fL (9.4-12.4); Monocytes # (auto) 0.55 K/uL (0.11-0.59); Monocytes % (auto) 8.6 %; Neutrophils # (auto) 3.52 K/uL (1.40-6.50); Neutrophils % (auto) 54.9 %; Platelet Count 176 K/uL (130-400); RDW Coefficient of Variation 12.4 % (11.5-14.5); RDW Standard Deviation 40.2 fL (36.4-46.3); Red Blood Count 5.34 M/uL (4.70-6.10); White Blood Count 6.41 K/ul (4.8-10.8)
[2022-10-13 20:24] LABS: Albumin Globulin Ratio 1.6 (0.9-2); Albumin Level 4.7 gm/dl (3.4-5.0); BUN Creatinine Ratio 12.5 (10-20); Bilirubin,Total 1.2 mg/dl (0.2-1.0); Calcium 9.3 mg/dl (8.6-10.3); Creatinine Clr Calc Pharmacy 72.3 ml/min; Est GFR (African American) 67.6 ml/min; Est GFR (Non-African American) 58.3 ml/min; Globulin 2.9 gm/dl (2.5-4.0); Potassium 4.2 mmol/L (3.5-5.1); Total Protein 7.6 gm/dl (6.0-8.3)
[2022-10-13 20:29] LABS: Troponin I High Sensitivity 4.5 pg/ml (0-20)
[2022-10-13 20:38] LABS: Partial Thromboplastin Time 27.3 Seconds (21.0-31.0); Prothrombin Time 11.1 Seconds (9.0-12.0)
[2022-10-13] MEDS ORDERED: Heparin IV Adult Wt-Based Low-Dose WITH Bolus Protocol IV STA (21:11)
[2022-10-13] MEDS ORDERED: HEPARIN SOD (PORCINE) 1000 UNIT/ML ONE (21:21)
[2022-10-13] MEDS ORDERED: HEPARIN SODIUM/DEXTROSE 25,000 UNITS/500 ML BAG IV SCH (21:30)
[2022-10-13] MEDS ORDERED: LABETALOL HCL IV 5 MG/ML 20ML IV ONE (23:16)
[2022-10-14] MEDS ORDERED: ACETAMINOPHEN 325 MG TAB PO PRN (00:44)
[2022-10-14] MEDS ORDERED: HYDROCORTISONE 2.5% CR 30 GM TUBE EXT PRN (00:44)
[2022-10-14] MEDS ORDERED: POLYETHYLENE (MIRALAX) 17 GM PACK PO PRN (00:44)
[2022-10-14] MEDS ORDERED: NITROGLYCERIN SL 0.4 MG/TAB TAB SL PRN (00:44)
[2022-10-14] MEDS ORDERED: ALBUTEROL 0.083% NEBU SOLN 3 ML VIAL INH PRN (00:44)
[2022-10-14] MEDS ORDERED: DICYCLOMINE HCL 10 MG CAP PO PRN (00:44)
[2022-10-14] MEDS ORDERED: LABETALOL HCL IV 5 MG/ML 20ML IV PRN (00:44)
[2022-10-14] MEDS: ALPRAZolam 0.25 MG TABLET PO PRN ×2 (01:14→09:24)
[2022-10-14] MEDS: NITROGLYCERIN 2% OINTMENT 30GM TUBE EXT SCH ×3 (01:14→15:26)
--- NOTE | 2022-10-14 04:46 | History and Physical Report ---
DATE OF ADMISSION: 10/13/2022. CHIEF COMPLAINT: Chest pain, hypertensive urgency. 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 Presents with chest pain. The patient says since last one year, he is having on and off chest pains. It mostly comes in the evening and when he sleeps and wakes up in the morning, the chest pain is gone, but today when he was at the computer, he felt chest discomfort radiating to the left arm as usual, but when he checked the blood pressure, blood pressure was running high, that is the reason he came here. In ER blood pressure was running high, sometimes in the 200s. He was placed on Nitro paste. Currently, he is resting and does not have any chest pain. Has mild headache, thinks from the nitro. He says he does not feel good but no chest pain .. Denies any dizziness, no sweating. He has chronic cough. He says he has chronic shortness of breath. While walking or any activities, he does not feel short of breath, only he is short of breath is when he starts to work with his hands. Appetite is okay. No fevers, no blurred visions, no earache, no runny nose. ALLERGIES: NITROSTAT, HE HAS TACHYCARDIA WITH PILLS, HE IS OKAY WITH PASTE, ROSUVASTATIN, SIMVASTATIN. PAST MEDICAL HISTORY: As mentioned above. PAST SURGICAL HISTORY: Cardiac catheterization and stent placements, colonoscopy with biopsy, EGDs, cyst drained of lumbar area in the ER, right knee scope, tonsillectomy and adenoidectomy. MEDICATIONS: The patient is on albuterol 2.5 mg inhalation q. 4 hours p.r.n., alprazolam 0.5 mg p.o. t.i.d. p.r.n., aspirin 81 mg p.o. daily, Plavix 75 mg p.o. daily, dicyclomine 10 mg p.o. b.i.d. p.r.n. for abdominal cramping, diltiazem 180 mg p.o. a.m., Repatha 140 mg subcutaneous bimonthly, gabapentin 300 mg p.o. at bedtime, hydrocortisone topical b.i.d. p.r.n., isosorbide mononitrate 30 mg p.o. daily, levothyroxine 50 mcg p.o. daily, Protonix 40 mg p.o. daily. FAMILY HISTORY: Significant for father had colon polyps, heart bypass surgery; mother had bypass surgery at age 44; sister has heart disorder; paternal grandfather had mental disorder. SOCIAL HISTORY: , no smoking, no alcohol, no drug use. REVIEW OF SYSTEMS: As per HPI. Rest of the review of systems is negative. PHYSICAL EXAMINATION: GENERAL: The patient is of moderate build, not in acute distress. VITAL SIGNS: Temperature 36.5, pulse 72, respiratory rate 19, blood pressure 183/92, oxygen 96% on room air. HEENT: Pupils equal, round, and reactive to light. Oral mucosa moist. NECK: No JVD, no neck masses. CARDIOVASCULAR: S1 and S2 heard. Regular rate and rhythm. No murmur, no gallop. RESPIRATORY SYSTEM: Normal AP diameter. No accessory muscle use. No wheezing, no crackles. ABDOMEN: Soft, bowel sounds present, nontender, no distention. CENTRAL NERVOUS SYSTEM: Cranial nerves II-XII grossly intact, nonfocal. EXTREMITIES: No edema, no erythema. LABORATORY DATA: WBC 6.4, hemoglobin 17.4, hematocrit 47.2, platelets 176. PT 11.1, INR 1, APTT 27.3. Sodium 138, potassium 4.2, chloride 107, bicarbonate 22, BUN 16, creatinine 1.2, serum glucose 93, calcium 9.3, total bilirubin 1.2, AST 59, ALT 101, alkaline phosphatase 95. Troponin I high sensitivity 4.5, lipase 28. SARS-CoV-2 rapid test negative. IMAGING DATA: Chest x-ray, no active disease in the chest. EKG: Normal sinus rhythm at a rate of 78, no significant change was found. ASSESSMENT AND PLAN: This 67-year-old male presents with chest pain, also hypertensive urgency. 1. Chest pain: Rule out acute coronary syndrome. The patient had three cardiac stents, the last one was in 2018. He says since last 1 year , he is getting chest pains on and off in the evenings and while resting it resolves, but today his blood pressure was still also high, that is the reason he came in here. Initial workup is negative. Will follow serial cardiac enzymes, repeat EKG. Keep n.p.o. Monitor in the tele floor. Consult cardiology in the a.m. 2. Hypertensive urgency: Continue his home medications of Imdur and diltiazem. Placed him on nitropatch and IV labetalol p.r.n. Will monitor the blood pressure. Follow his echocardiogram. Monitor in the tele floor. 3. Hyperlipidemia: Seems to be not tolerant to statins.On repatha 4. History of persistent asthma, granulomatous lung disease: Inhalers as needed. 5. Anxiety: On Ativan p.r.n. 6. Hypothyroidism: On Synthroid. 7. Gastroesophageal reflux disease: On omeprazole. 8. Deep venous thrombosis prophylaxis: Sequential compression devices for now. DISPOSITION: Closely monitor in the tele floor. Level 1 full code. Expect to discharge home and follow with family doctor. Job ID[facility] [id number] [facility]
[2022-10-14 06:06] LABS: Bilirubin Direct 0.2 mg/dl (0-0.2); Bilirubin,Total 1.1 mg/dl (0.2-1.0); Calcium 8.6 mg/dl (8.6-10.3); Creatinine Clr Calc Pharmacy 80.1 ml/min; Est GFR (African American) 77.8 ml/min; Est GFR (Non-African American) 67.1 ml/min; Magnesium 1.9 mg/dl (1.7-2.4); Potassium 3.8 mmol/L (3.5-5.1); Total Protein 6.3 gm/dl (6.0-8.3)
[2022-10-14 06:13] LABS: Troponin I High Sensitivity 6.6 pg/ml (0-20)
[2022-10-14] MEDS ORDERED: LEVOTHYROXINE SODIUM 50 MCG TABLET PO SCH (06:30)
[2022-10-14 07:21] LABS: Hematocrit (blood only) 42.1 % (42.0-52.0); Hemoglobin 15.5 g/dl (14.0-18.0); Mean Corpuscular Hemoglobin 32.6 pg (25.0-34.0); Mean Corpuscular Hgb Conc 36.8 g/dL (32.0-36.0); Mean Corpuscular Volume 88.4 fL (80.0-100.0); Platelet Count 154 K/uL (130-400); RDW Coefficient of Variation 12.3 % (11.5-14.5); RDW Standard Deviation 39.8 fL (36.4-46.3); Red Blood Count 4.76 M/uL (4.70-6.10); White Blood Count 6.83 K/ul (4.8-10.8)
[2022-10-14 07:26] LABS: Basophils # (auto) 0.03 K/uL (0-0.2); Basophils % (auto) 0.4 %; Eosinophils # (auto) 0.12 K/uL (0-0.50); Eosinophils % (auto) 1.8 %; Immature Granulocytes # (auto) 0.05 K/uL (0.01-0.20); Immature Granulocytes % (auto) 0.7 %; Lymphocytes # (auto) 2.84 K/uL (1.2-3.4); Lymphocytes % (auto) 41.6 %; Monocytes # (auto) 0.67 K/uL (0.11-0.59); Monocytes % (auto) 9.8 %; Neutrophils # (auto) 3.12 K/uL (1.40-6.50); Neutrophils % (auto) 45.7 %; RBC Morphology Unremarkable
[2022-10-14] MEDS ORDERED: ASPIRIN 81 MG ECTAB PO SCH (09:00)
[2022-10-14] MEDS ORDERED: PANTOprazole 40 MG TAB PO SCH (09:00)
[2022-10-14] MEDS ORDERED: dilTIAZem HCL 180 MG CAPCR PO SCH (09:00)
[2022-10-14] MEDS ORDERED: ADVANCED PROBIOTIC 1250 MG CAPSULE PO SCH (09:00)
[2022-10-14] MEDS ORDERED: ISOSORBIDE MONO EXTENDED REL 30 MG TABCR PO SCH (09:00)
--- NOTE | 2022-10-14 11:06 | Cardiology Consultation ---
Date of Consultation October 14, 2022 Assessment & Plan (1) Atypical chest pain: (2) Hypertensive urgency: (3) CAD S/P percutaneous coronary angioplasty: (4) Dyslipidemia: Plan 67-year-old patient presents the emergency department with atypical chest discomfort and hypertensive urgency. Blood pressure improved this morning. Cardiac enzymes undetectable, normal ECG. Preliminary review of bedside 2D transthoracic echocardiogram reveals preserved LV systolic function with normal wall motion. No significant valvular pathology. Recommend exercise stress echocardiography for further evaluation. Consider titration of Cardizem ER to 240 mg daily pending review of stress test. History of Present Illness Reason for Consultation: chest pain, hypertensive urgency Requesting Physician: Dr. Estrada Attending Physician: Lopez Stone MD History of Present Illness 57-year-old patient presented emergency department with chest pain. Describes discomfort at rest radiating to his left arm. Discomfort has waxed and waned over the past 6 to 12 months. Symptoms typically occur in the evening while resting. Last night, blood pressure elevated which prompted him to proceed to the emergency room. Denies any exertional chest pain or unusual shortness of breath. No orthopnea, PND, or lower extremity edema. Denies palpitations, lightheadedness, dizziness, syncope, or near syncope. Patient is followed in the cardiology clinic and treated for stable, class I-II angina with calcium channel celso therapy and long-acting nitrates. Complex cardiac history noted below. Cardiac history: 1. Atherosclerotic coronary disease, chronic, status post prior PTCA and stenting of the left anterior descending January 2008 with drug-eluting stent. 2. Coronary intervention November 2015 receiving drug-eluting stent to the mid right coronary artery with residual moderate narrowing of 50% in the mid left anterior descending, not obstructively significant by FFR. 3. Coronary intervention on June 02, 2018, receiving 1 drug-eluting stent to the proximal left anterior descending coronary artery for 95% lesion, widely patent right coronary artery 4. Lower HDL dyslipidemia. 5. Poor statin tolerance of multiple statin trials. Praluent therapy. 6. Hypertension. Allergies Allergy/AdvReac Type Severity Reaction Status Date / Time nitroglycerin AdvReac Intermediate TACHYCARDIA Verified 10/13/22 20:38 [From Nitrostat] WITH PILLS ONLY, PASTE IS OKAY. rosuvastatin AdvReac Intermediate ELEVATED Verified 10/13/22 20:38 ALT simvastatin AdvReac Intermediate ELEVATED Verified 10/13/22 20:38 ALT Home Medications Medication Instructions Recorded Confirmed Type alprazolam 0.25 mg tablet 0.25 mg PO TID PRN Anxiety 11/05/18 10/13/22 History aspirin 81 mg tablet,delayed 81 mg PO QAM 11/05/18 10/13/22 History release clopidogrel 75 mg tablet 75 mg PO QPM 11/05/18 10/13/22 History dicyclomine 10 mg capsule 10 mg PO BID PRN ABD PAIN/CRAMPING 11/05/18 10/13/22 History diltiazem HCl 180 mg 180 mg PO QAM 11/05/18 10/13/22 History capsule,extended release 24 hr pantoprazole 40 mg tablet,delayed 40 mg PO QAM 11/05/18 10/13/22 History release Bifidobacterium infantis 4 mg 4 mg PO Q OTHER DAY 10/13/22 10/13/22 History capsule (Align) albuterol sulfate 2.5 mg/3 mL 2.5 mg inhalation DIRECTED PRN 10/13/22 10/13/22 History (0.083 %) solution for nebulization Shortness Of Breath Or Wheezing evolocumab 140 mg/mL subcutaneous 140 mg subcut .BIMONTHLY 10/13/22 10/13/22 History pen injector (Chet Goyal) gabapentin 300 mg capsule 300 mg PO HS 10/13/22 10/13/22 History hydrocortisone 2.5 % topical cream 1 applic topical BID PRN Rash 10/13/22 10/13/22 History levothyroxine 50 mcg tablet 50 mcg PO DAILYBB 10/13/22 10/13/22 History isosorbide mononitrate 60 mg 60 mg PO QAM #30 tabs 10/14/22 Rx tablet,extended release 24 hr Patient History Medical History Anxiety CAD S/P percutaneous coronary angioplasty Dyslipidemia GERD (gastroesophageal reflux disease) Steatohepatitis Surgical History H/O colonoscopy History of angioplasty S/P tonsillectomy and adenoidectomy Social History Smoking Status: Never smoker Second Hand Exposure: No; Do You Dip or Chew Tobacco: No; Tobacco Cessation Education Requested by Patient: No Hx Alcohol Use: Yes Alcohol type: wine Hx Substance Use: No Preferred Language: Polish Communication Ability: Effective 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 Beliefs That Will Affect Care: None Current Living Situation: Spouse Other Information That Helps Us Care for You: No Feels Safe at Home: Yes Safety Concerns: Feels Safe At This Time Assistive Devices: CPAP Review of Systems Review of Systems: All systems reviewed & are unremarkable except as noted in Subjective Physical Exam Constitutional: + obese; no acute distress Respiratory: no respiratory distress, no labored breathing and no retractions Auscultation: no crackles, no rales, no rhonchi and no wheezes Cardiovascular: Rate/Rhythm: regular rate and regular rhythm Heart Sounds: normal S1 and normal S2; no murmur Vessels: no JVD, no carotid bruit and + radial pulses abnormal Gastrointestinal (Abdomen): Inspection/Auscultation: normal bowel sounds; abdomen not distended Neurologic: CN's II-XI intact bilaterally and moves all extremities; no focal motor deficits Psychiatric: A+Ox3, euthymic affect Results & Data Vital Signs (Past 12 Hours) Vital Signs Temp Pulse Pulse Resp BP Pulse Ox O2 Del Method 10/14/22 09:15 Room Air 10/14/22 05:59 74 10/14/22 07:43 36.4 C L 73 18 130/84 95 Room Air 10/14/22 02:25 75 16 98 10/14/22 01:40 CPAP 10/14/22 01:07 90 157/94 H 10/14/22 01:04 85 10/14/22 00:54 36.7 C 78 15 160/94 H 98 Room Air 10/14/22 00:27 71 19 141/99 H 96 Room Air 10/13/22 23:30 76 10/13/22 23:34 72 183/92 H 96 Room Air 10/13/22 23:20 70 155/100 H 98 Room Air
--- NOTE | 2022-10-14 15:24 | Cardiology Progress Note ---
Date of Service October 14, 2022 Assessment & Plan (1) Atypical chest pain: (2) Hypertensive urgency: (3) CAD S/P percutaneous coronary angioplasty: (4) Dyslipidemia: Plan -Serial EKG tracings performed yesterday and this morning without ischemic changes. -High-sensitivity troponin within normal limits x3 measurements. -Chest discomfort symptoms somewhat atypical for angina, not occurring with aerobic exertion, but often at rest with noted left chest/left arm pain. -Patient went on to have an exercise stress echocardiogram supervised in person by the undersigned. The heart rate response was adequate, but mildly attenuated due to chronic treatment with diltiazem. -The test was terminated due to fatigue, shortness of breath, and specifically leg fatigue. Presenting symptoms of chest discomfort and left arm pain were not reproduced. -After the test, the patient stated that overall he felt better than before the test place. -The stress EKG response was negative for ischemia. Echocardiographic response to exercise was normal with normal increase in the overall left ventricular systolic function, and no stress-induced regional wall motion abnormalities. -Options discussed with patient. He notes having had a negative stress test in January,, and then having cardiac catheterization in May, with complex LAD intervention performed at that time. I am not certain if the stress test failed to detect ischemia, or if there had been actual progression of his coronary heart disease in the interim time as there was over a year between the stress test and the cardiac catheterization. -Per review of his outpatient chart, blood pressure has been relatively well controlled. -- At present I recommend transfer back to the telemetry unit with plans to increase his isosorbide mononitrate from 30 mg daily to 60 mg daily. -Depend upon how he feels after having lunch, will determine with treatment. Admission and Anticipated Discharge Date Admission Date: October 13, 2022 Subjective Patient seen in cardiology follow-up with initial consultation having been performed by Dr. Wayne. Patient has been feeling well throughout the day. Blood pressure improved compared to last evening. Results & Data Vital Signs (Past 12 Hours) Vital Signs Temp Pulse Pulse Resp BP Pulse Ox O2 Del Method 10/14/22 11:33 36.5 C 74 18 119/81 97 Room Air 10/14/22 09:15 Room Air 10/14/22 05:59 74 10/14/22 07:43 36.4 C L 73 18 130/84 95 Room Air
--- NOTE | 2022-10-14 16:53 | Communication Note ---
Date of Service: October 14, 2022 Pt seen in reassessment. Feels well. Discussed test results with pt and his spouse. Stable for discharge on Imdur 60 rather than 30 mg daily. Keep cardio follow up visit as scheduled in a month.
--- NOTE | 2022-10-14 18:06 | Discharge Summary ---
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 Presents with chest pain. The patient says since last one year, he is having on and off chest p ains. It mostly comes in the evening and when he sleeps and wakes up in the morning, the chest pain is gone, but today when he was at the computer, he felt chest discomfort radiating to the left arm as usual, but when he checked the blood pressure, blood pressure was running high, that is the reason he came here. In ER blood pressure was running high, sometimes in the 200s. He was placed on Nitro paste. Currently, he is resting and does not have any chest pain. Has mild headache, thinks from the nitro. He says he does not feel good but no chest pain .. Denies any dizziness, no sweating. He has chronic cough. He says he has chronic shortness of breath. While walking or any activities, he does not feel short of breath, only he is short of breath is when he starts to work with his hands. Appetite is okay. No fevers, no blurred visions, no earache, no runny nose. Admission Exam Per Admitting Provider GENERAL: The patient is of moderate build, not in acute distress. VITAL SIGNS: Temperature 36.5, pulse 72, respiratory rate 19, blood pressure 183/92, oxygen 96% on room air. HEENT: Pupils equal, round, and reactive to light. Oral mucosa moist. NECK: No JVD, no neck masses. CARDIOVASCULAR: S1 and S2 heard. Regular rate and rhythm. No murmur, no gallop. RESPIRATORY SYSTEM: Normal AP diameter. No accessory muscle use. No wheezing, no crackles. ABDOMEN: Soft, bowel sounds present, nontender, no distention. CENTRAL NERVOUS SYSTEM: Cranial nerves II-XII grossly intact, nonfocal. EXTREMITIES: No edema, no erythema. Principal Diagnosis Atypical chest pain Hypertensive urgency Hx of CAD Discharge Exam GENERAL: The patient is of moderate build, not in acute distress. HEENT: NC/AT. EOMI. Pupils equal, round, and reactive to light. Oral mucosa moist. NECK: No JVD, no neck masses. CARDIOVASCULAR: S1 and S2 heard. Regular rate and rhythm. No murmur. RESPIRATORY: Normal AP diameter. No accessory muscle use. No wheezing, no crackles. ABDOMEN: Soft, bowel sounds present, nontender, no distention, obese NEURO: awake, alert, oriented, answers appropriately, speech fluent, moves extremities EXTREMITIES: No edema, no erythema Discharge Data Allergies Allergy/AdvReac Type Severity Reaction Status Date / Time nitroglycerin AdvReac Intermediate TACHYCARDIA Verified 10/13/22 20:38 [From Nitrostat] WITH PILLS ONLY, PASTE IS OKAY. rosuvastatin AdvReac Intermediate ELEVATED Verified 10/13/22 20:38 ALT simvastatin AdvReac Intermediate ELEVATED Verified 10/13/22 20:38 ALT Consultations 10/13/22 21:20 ED Decision to Admit Stat 10/14/22 08:00 Consult Cardiology Routine Hospital Course (1) Atypical chest pain: (2) Hypertensive urgency: (3) CAD S/P percutaneous coronary angioplasty: Plan 67-year-old male presents with chest pain, and hypertensive urgency. 1. Chest pain: Hx of CAD - The patient had three cardiac stents, the last one was in 2018. He says since last 1 year , he is getting chest pains on and off in the evenings and while resting it resolves, but today his blood pressure was still also high, that is the reason he came in here. Initial workup negative. - serial cardiac enzymes obtained, repeat EKG.Monitored on tele floor. Cardiology consulted Echo and stress echo obtained Echo -LV systolic function is normal. EF 60 to 65%. Mild concentric LVH. Grade 1 diastolic dysfunction. There is trace mitral regurg Stress echo -normal exercise stress echo. No echo or EKG evidence of myocardial ischemia having achieved heart rate adequate for diagnostic purposes Plan to increase imdur to 60 mg from 30mg. Follow up w/ PCP and with cardiology. 2. Hypertensive urgency: Continue his home medications of Imdur and diltiazem, however increase Imdur to 60 mg daily, as above. 3. Hyperlipidemia: Seems to be not tolerant to statins.On repatha 4. History of persistent asthma, granulomatous lung disease: Inhalers as needed. 5. Anxiety: On Ativan p.r.n. 6. Hypothyroidism: On Synthroid. 7. Gastroesophageal reflux disease: On omeprazole. Total Time Total Time Spent Total Time Spent (In Minutes): 40 Discharge Plan Discharge Items Patient Disposition: Home - Self-Care Reason For Visit: CHEST PAIN, HT URGENCY Discharge Diagnosis: Atypical chest pain Hypertensive urgency Hx of CAD Activity: Per Instructions section Non-emergency contact: Primary Care Provider and Job Site Superintendent Call non-emergency contact if: you have any medication questions and your symp toms worsen Follow-up/Referrals: Blanca Luciano, [Primary Care Provider] - Diet: Heart Healthy Addtl Attending Provider Instructions: Follow-up with primary care doctor within 1 week. Monitor blood pressure at home if you can, and write down your numbers. 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 Follow-up with cardiology in a month as scheduled. Your Imdur dose was increased to 60 mg from 30 mg daily. Pending Studies at Discharge: No Stand-Alone Forms: My [facility] [employer], Smoking Cessation Medications and DC Order Prescriptions: New isosorbide mononitrate 60 mg Tablet Extended Release 24 Hr 60 mg PO QAM Qty: 30 0RF Continued diltiazem HCl 180 mg capsule,extended release 24hr 180 mg PO QAM clopidogrel 75 mg tablet 75 mg PO QPM aspirin 81 mg Tablet,Delayed Release (Dr/Ec) 81 mg PO QAM alprazolam 0.25 mg tablet 0.25 mg PO TID PRN (Reason: Anxiety) pantoprazole 40 mg tablet,delayed release (DR/EC) 40 mg PO QAM dicyclomine 10 mg Capsule 10 mg PO BID PRN (Reason: ABD PAIN/CRAMPING) albuterol sulfate [Proventil] 2.5 mg /3 mL (0.083 %) Solution For Nebulization 2.5 mg INHALATION DIRECTED PRN (Reason: Shortness Of Breath Or Wheezing) levothyroxine 50 mcg tablet 50 mcg PO DAILYBB gabapentin 300 mg capsule 300 mg PO HS hydrocortisone 2.5 % Cream 1 applic TOPICAL BID PRN (Reason: Rash) Align 4 mg Capsule 4 mg PO Q OTHER DAY Repatha SureClick 140 mg/mL pen injector 140 mg SUBCUT .BIMONTHLY Rx Instructions: TAKES ON THE 15 & 30 OF THE MONTH Discontinued isosorbide mononitrate 30 mg tablet extended release 24 hr 30 mg PO QAM Discharge Orders: Discharge Order (Routine); Ordered 10/14/22 Ordered By: Lopez Stone Admission Data Admit Date/Time: 10/13/22 23:31 Attending Provider: Lopez Stone Admit Provider: Aniceto Estrada Primary Care Provider: Blanca Luciano Other Providers: Aster Clark ; Oliver Reagan ; Joselito Mace ; Baldev Troy ; Lenny Wayne ; Gabriel Marino ; Chai Houston ; Ngoc Huitron ; Betzy Sutherland ; Aster Archibald ; Javad Vaz ; Tamara Zarate ; Aniceto Estrada
[2022-10-14] MEDS ORDERED: CLOPIDOGREL BISULFATE 75 MG TAB PO SCH (21:00)
[2022-10-14] MEDS ORDERED: GABAPENTIN 300 MG CAP PO SCH (21:00)
[2022-10-15] MEDS ORDERED: ISOSORBIDE MONO EXTENDED REL 60 MG TABCR PO SCH (09:00)
--- NOTE | 2022-10-15 19:11 | Electrocardiogram Report ---
Test Reason : Blood Pressure : / mmHG Vent. Rate : 089 BPM Atrial Rate : 089 BPM P-R Int : 160 ms QRS Dur : 086 ms QT Int : 360 ms P-R-T Axes : 044 -18 034 degrees QTc Int : 438 ms Normal sinus rhythm Normal ECG When compared with ECG of 05-NOV-2018 14:26, No significant change was found Confirmed by Rafael Rincon ([id number]) on 10/15/2022 7:11:15 PM Referred By: REFERRED SELF Confirmed By:Rafael Rincon
--- NOTE | 2022-10-15 19:17 | Electrocardiogram Report ---
Test Reason : Blood Pressure : / mmHG Vent. Rate : 078 BPM Atrial Rate : 078 BPM P-R Int : 164 ms QRS Dur : 086 ms QT Int : 378 ms P-R-T Axes : 043 -13 039 degrees QTc Int : 430 ms Normal sinus rhythm Normal ECG When compared with ECG of 13-OCT-2022 19:25, No significant change was found Confirmed by Rafael Rincon ([id number]) on 10/15/2022 7:17:43 PM Referred By: REFERRED SELF Confirmed By:Rafael Rincon
--- NOTE | 2022-10-15 21:25 | Electrocardiogram Report ---
Test Reason : Blood Pressure : / mmHG Vent. Rate : 073 BPM Atrial Rate : 073 BPM P-R Int : 170 ms QRS Dur : 096 ms QT Int : 402 ms P-R-T Axes : 047 -16 033 degrees QTc Int : 442 ms Normal sinus rhythm with sinus arrhythmia Normal ECG When compared with ECG of 13-OCT-2022 23:11, No significant change was found Confirmed by Rafael iRncon ([id number]) on 10/15/2022 9:25:22 PM Referred By: REFERRED SELF Confirmed By:Rafael Rincon
== END 2022-10-14 18:29 | disposition home or self-care (01) ==
LOC: ED 19:05 → INTOOBSV 23:31 → 2S 23:31

== ENCOUNTER 2023-08-18 17:53 | Observation (INO) ==
[2023-08-18 18:32] LABS: Basophils # (auto) 0.03 K/uL (0.00-0.20); Basophils % (auto) 0.4 %; Eosinophils # (auto) 0.12 K/uL (0.00-0.50); Eosinophils % (auto) 1.7 %; Hematocrit (blood only) 46.4 % (42.0-52.0); Hemoglobin 16.6 g/dl (14.0-18.0); Immature Granulocytes # (auto) 0.05 K/uL (0.01-0.20); Immature Granulocytes % (auto) 0.7 %; Lymphocytes # (auto) 2.58 K/uL (1.20-3.40); Lymphocytes % (auto) 35.6 %; Mean Corpuscular Hemoglobin 31.8 pg (25.0-34.0); Mean Corpuscular Hgb Conc 35.8 g/dL (32.0-36.0); Mean Corpuscular Volume 88.9 fL (80.0-100.0); Mean Platelet Volume 8.5 fL (9.4-12.4); Monocytes # (auto) 0.65 K/uL (0.11-0.59); Neutrophils # (auto) 3.82 K/uL (1.40-6.50); Neutrophils % (auto) 52.6 %; Platelet Count 165 K/uL (130-400); RDW Coefficient of Variation 12.7 % (11.5-14.5); RDW Standard Deviation 41.1 fL (36.4-46.3); Red Blood Count 5.22 M/uL (4.70-6.10); White Blood Count 7.25 K/ul (4.8-10.8)
[2023-08-18 18:57] LABS: Albumin Globulin Ratio 1.7 (0.9-2); Albumin Level 4.5 gm/dl (3.4-5.0); BUN Creatinine Ratio 14.8 (10-20); Bilirubin,Total 1.1 mg/dl (0.2-1.0); Calcium 9.2 mg/dl (8.6-10.3); Creatinine Clr Calc Pharmacy 59.3 ml/min; Est GFR (African American) 55.9 ml/min; Est GFR (Non-African American) 48.2 ml/min; Globulin 2.7 gm/dl (2.5-4.0); Potassium 4.2 mmol/L (3.5-5.1); Total Protein 7.2 gm/dl (6.0-8.3)
[2023-08-18 19:03] LABS: Troponin I High Sensitivity 4.8 pg/ml (0-20)
[2023-08-18 19:05] LABS: Partial Thromboplastin Time 29 Seconds (21-31); Prothrombin Time 11.3 Seconds (9.0-12.0)
--- NOTE | 2023-08-18 19:27 | XRay Report ---
SINGLE VIEW CHEST CLINICAL HISTORY: Atypical chest pain FINDINGS: A PA chest radiograph is compared to study dated 10/13/2022. The cardiomediastinal silhouett e is unremarkable. The lungs and pleural spaces are clear. No pneumothorax is seen. The bony thorax i s grossly intact. IMPRESSION: No active disease in the chest. ACT 112: Negative or not required by law. Electronically signed by: Jaime Raza M.D. 08/18/2023 7:26 PM
--- NOTE | 2023-08-18 23:35 | History & Physical Report ---
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 Patient is having on and off chest pain radiating to left arm for sometime mostly happens before going to sleep and when he wakes up the pain is generally resolved. He is having his roof repaired. He was helping the contractor with carrying stuff up stairs. When he noticed chest pain dull aching type radiating to left arm 6/10 in severity today afternoon around 2 PM which lasted for 2 hours. Today's pain was more than his usual on and off chest pains. Also had some nausea and shortness of breath. Currently pain is resolved. Resting comfortably. Denies any headache. Has some dry cough. No fevers. No abdominal pain. Having dark stools but attributes to his irritable bowel syndrome. Afebrile. Hemodynamics are stable. Chest pain History of CAD s/p stents 3 times Initial EKG and troponin unremarkable Currently chest pain-free Will follow serial cardiac enzymes and repeat EKG and echo Monitoring telemetry floor Consult cardiology in a.m. for further recommendations History of CAD S/p stents 3 times On aspirin, Plavix and Imdur History of paroxysmal supraventricular tachycardia On diltiazem History of sleep apnea CPAP nightly Stage III chronic kidney disease Baseline creatinine 1.3-1.4 Will follow the labs Hyperlipidemia On Repatha Hypertension On diltiazem, Imdur and losartan Will monitor Anxiety On Ativan as needed DVT prophylaxis SCDs Disposition Observe in med/tele Full code History of Present Illness Chief Complaint: Chest pain Primary Care Provider: Albert Ballard 68-year-old male with past medical history significant for hyperlipidemia, 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 Patient is having on and off chest pain radiating to left arm for sometime mostly happens before going to sleep and when he wakes up the pain is generally resolved. He is having his roof repaired. He was helping the contractor with carrying stuff up stairs. When he noticed chest pain dull aching type radiating to left arm 6/10 in severity today afternoon around 2 PM which lasted for 2 hours. Today's pain was more than his usual on and off chest pains. Also had some nausea and shortness of breath. Currently pain is resolved. Resting comfortably. Denies any headache. Has some dry cough. No fevers. No abdominal pain. Having dark stools but attributes to his irritable bowel syndrome. Afebrile. Hemodynamics are stable. Past medical history. As mentioned above Past surgical history. Cardiac cath and stent placement. Colonoscopy with biopsy. EGD. Right knee arthroscopy. Cyst drained of lumbar area. Tonsillectomy and adenoidectomy. Social history. No smoking. No alcohol use. No drug use. Family history. Father had colon polyps. Bypass surgery in his 60s. Mother had coronary bypass at age 44. Sister had PTCA and stenting of age 41 Allergies Allergy/AdvReac Type Severity Reaction Status Date / Time nitroglycerin AdvReac Intermediate TACHYCARDIA Verified 10/13/22 20:38 [From Nitrostat] WITH PILLS ONLY, PASTE IS OKAY. rosuvastatin AdvReac Intermediate ELEVATED Verified 10/13/22 20:38 ALT simvastatin AdvReac Intermediate ELEVATED Verified 10/13/22 20:38 ALT Home Medications Medication Instructions Recorded Confirmed Type alprazolam 0.25 mg tablet 0.25 mg PO TID PRN Anxiety 08/18/23 08/18/23 History aspirin 81 mg tablet,delayed 81 mg PO DAILY 08/18/23 08/18/23 History release clopidogrel 75 mg tablet 75 mg PO DAILY 08/18/23 08/18/23 History dicyclomine 10 mg capsule 10 mg PO BID PRN Abdominal Pain 08/18/23 08/18/23 History diltiazem HCl 180 mg 180 mg PO DAILY 08/18/23 08/18/23 History capsule,extended release 24 hr evolocumab 140 mg/mL subcutaneous 140 mg subcut UD 08/18/23 08/18/23 History pen injector (Repatha MarioClick) gabapentin 300 mg capsule 300 mg PO HS 08/18/23 08/18/23 History isosorbide mononitrate 30 mg 30 mg PO DAILY 08/18/23 08/18/23 History tablet,extended release 24 hr levothyroxine 50 mcg tablet 50 mcg PO DAILY 08/18/23 08/18/23 History losartan 25 mg tablet 12.5 mg PO DAILY 08/18/23 08/18/23 History pantoprazole 40 mg tablet,delayed 40 mg PO DAILY 08/18/23 08/18/23 History release sodium bicarbonate 650 mg tablet 650 mg PO DAILY 08/18/23 08/18/23 History Past Med/Surg History Medical History (Updated 08/19/23 @ 00:23 by Willard Cooper MD) GERD (gastroesophageal reflux disease) Steatohepatitis Dyslipidemia Anxiety CAD S/P percutaneous coronary angioplasty Surgical History H/O colonoscopy S/P tonsillectomy and adenoidectomy History of angioplasty Family History (Updated 08/19/23 @ 01:35 by Cherelle Figueroa RN) Mother Hx of CABG Father Hx of CABG Pancreatic cancer Other Pancreatic cancer metastasized to intra-abdominal lymph node Social History Smoking Status: Never smoker Second Hand Exposure: No; Do You Dip or Chew Tobacco: No; Tobacco Cessation Education Requested by Patient: No Hx Alcohol Use: No Hx Substance Use: No Preferred Language: Maori Communication Ability: Effective Traffic Worker Required: No Beliefs That Will Affect Care: None Current Living Situation: Spouse and Family Other Information That Helps Us Care for You: No Feels Safe at Home: Yes Safety Concerns: Feels Safe At This Time Assistive Devices: Glasses Review of Systems Review of Systems: All systems reviewed & are unremarkable except as noted in HPI & below Physical Exam Physical Exam: General- Not in distress Head- atraumatic Eyes- PERRL. ENT- oropharynx clear Neck- supple, no JVD. Lungs- clear to auscultation no wheezing or crackles. Heart- regular rhythm; no murmur, no gallop. Abdomen- normal bowel sounds, soft, nontender, no distension. Extremities- no pretibial edema, no erythema seen. Neuro- alert, oriented x 3; PERRL, no facial palsy; no dysarthria; moves extremities. Skin- warm & dry Results & Data Results & Data Vital Signs (Past 12 Hours) Vital Signs Temp Pulse Pulse Resp BP BP Pulse Ox 08/18/23 21:56 96 08/18/23 21:30 72 20 148/94 H 96 08/18/23 21:13 84 18 97 08/18/23 21:12 73 16 08/18/23 21:12 70 08/18/23 20:15 78 18 132/86 95 08/18/23 17:59 36.7 C 79 18 149/97 H 96 O2 Del Method 08/18/23 21:56 Room Air 08/18/23 21:30 08/18/23 21:13 08/18/23 21:12 08/18/23 21:12 08/18/23 20:15 Room Air 08/18/23 17:59 Room Air Diagnostic Findings Laboratory Results WBC 7.25 K/ul (4.8-10.8) 08/18/23 18:10 RBC 5.22 M/uL (4.70-6.10) 08/18/23 18:10 Hgb 16.6 g/dl (14.0-18.0) 08/18/23 18:10 Hct 46.4 % (42.0-52.0) 08/18/23 18:10 MCV 88.9 fL (80.0-100.0) 08/18/23 18:10 MCH 31.8 pg (25.0-34.0) 08/18/23 18:10 MCHC 35.8 g/dL (32.0-36.0) 08/18/23 18:10 RDW Std Deviation 41.1 fL (36.4-46.3) 08/18/23 18:10 RDW Coeff of [place] 12.7 % (11.5-14.5) 08/18/23 18:10 Plt Count 165 K/uL (130-400) 08/18/23 18:10 MPV 8.5 fL (9.4-12.4) L 08/18/23 18:10 Immature Gran % (Auto) 0.7 % 08/18/23 18:10 Neut % (Auto) 52.6 % 08/18/23 18:10 Lymph % (Auto) 35.6 % 08/18/23 18:10 [place] % (Auto) 9.0 % 08/18/23 18:10 Eos % (Auto) 1.7 % 08/18/23 18:10 Baso % (Auto) 0.4 % 08/18/23 18:10 Neut # (Auto) 3.82 K/uL (1.40-6.50) 08/18/23 18:10 Lymph # (Auto) 2.58 K/uL (1.20-3.40) 08/18/23 18:10 [place] # (Auto) 0.65 K/uL (0.11-0.59) H 08/18/23 18:10 Eos # (Auto) 0.12 K/uL (0.00-0.50) 08/18/23 18:10 Baso # (Auto) 0.03 K/uL (0.00-0.20) 08/18/23 18:10 Immature Gran # (Auto) 0.05 K/uL (0.01-0.20) 08/18/23 18:10 PT 11.3 Seconds (9.0-12.0) 08/18/23 18:10 INR 1.0 (0.9-1.1) 08/18/23 18:10 APTT 29 Seconds (21-31) 08/18/23 18:10 PTT Ratio 1.0 08/18/23 18:10 Sodium 138 mmol/L (136-145) 08/18/23 18:10 Potassium 4.2 mmol/L (3.5-5.1) 08/18/23 18:10 Chloride 105 mmol/L (98-107) 08/18/23 18:10 Carbon Dioxide 25 mmol/L (21-32) 08/18/23 18:10 Anion Gap 8 (3-11) 08/18/23 18:10 BUN 22 mg/dl (6-23) 08/18/23 18:10 Creatinine 1.49 mg/dl (0.6-1.4) H 08/18/23 18:10 Est Cr Clr Drug Dosing 59.3 ml/min 08/18/23 18:10 Est GFR ( Amer) 55.9 ml/min 08/18/23 18:10 Est GFR (Non-Af Amer) 48.2 ml/min 08/18/23 18:10 BUN/Creatinine Ratio 14.8 (10-20) 08/18/23 18:10 Glucose 89 mg/dl (70-99(Fasting)) 08/18/23 18:10 Calcium 9.2 mg/dl (8.6-10.3) 08/18/23 18:10 Total Bilirubin 1.1 mg/dl (0.2-1.0) H 08/18/23 18:10 AST 37 U/L (13-39) 08/18/23 18:10 ALT 69 U/L (7-52) H 08/18/23 18:10 Alkaline Phosphatase 95 U/L (34-104) 08/18/23 18:10 Troponin I High Sens 4.8 pg/ml (0-20) 08/18/23 18:10 Total Protein 7.2 gm/dl (6.0-8.3) 08/18/23 18:10 Albumin 4.5 gm/dl (3.4-5.0) 08/18/23 18:10 Globulin 2.7 gm/dl (2.5-4.0) 08/18/23 18:10 Albumin/Globulin Ratio 1.7 (0.9-2) 08/18/23 18:10 Impressions Chest X-Ray 08/18/23 18:03 SINGLE VIEW CHEST CLINICAL HISTORY: Atypical chest pain FINDINGS: A PA chest radiograph is compared to study dated 10/13/2022. The cardiomediastinal silhouette is unremarkable. The lungs and pleural spaces are clear. No pneumothorax is seen. The bony thorax is grossly intact. IMPRESSION: No active disease in the chest. ACT 112: Negative or not required by law. Electronically signed by: Jaime Raza M.D. 08/18/2023 7:26 PM ECG Additional Comments: ECG. Normal sinus rhythm with rate of 77. No significant change was found. Code Status & VTE Plan VTE Prophylaxis Plan VTE Prophylaxis will be ordered: Yes
--- NOTE | 2023-08-19 00:21 | Emergency Department Note ---
History of Present Illness General Chief Complaint: Cardiac Assessment Stated Complaint: CHEST PAIN, LT ARM PAIN , SOB, HEADACHE, NAUSEA Time Seen by Provider: 08/18/23 20:34 History of Present Illness Provider Complaint: chest pain Time: 14:00 Duration: now resolved Onset: during exertion (After walking upstairs with [place]) Pain Location: substernal and left chest Pain Radiation: LUE Severity: moderate Maximum Pain Intensity: 7 Current Pain Intensity: 0 Quality: + tightness and + dull Relieved By: + rest Exacerbated By: + exertion Context: no recent illness, no recent surgery, no recent immobilization, no recent travel, no trauma/injury, no new medications or no history of DVT/PE Associated symptoms: no nausea, no vomiting, no diaphoresis, no dyspnea, no syncope, no palpitations, no fever, no cough or no leg swelling Home Medications Medication Instructions Recorded Confirmed Type alprazolam 0.25 mg tablet 0.25 mg PO TID PRN Anxiety 08/18/23 08/18/23 History aspirin 81 mg tablet,delayed 81 mg PO DAILY 08/18/23 08/18/23 History release clopidogrel 75 mg tablet 75 mg PO DAILY 08/18/23 08/18/23 History dicyclomine 10 mg capsule 10 mg PO BID PRN Abdominal Pain 08/18/23 08/18/23 History diltiazem HCl 180 mg 180 mg PO DAILY 08/18/23 08/18/23 History capsule,extended release 24 hr evolocumab 140 mg/mL subcutaneous 140 mg subcut UD 08/18/23 08/18/23 History pen injector (Chet Goyal) gabapentin 300 mg capsule 300 mg PO HS 08/18/23 08/18/23 History isosorbide mononitrate 30 mg 30 mg PO DAILY 08/18/23 08/18/23 History tablet,extended release 24 hr levothyroxine 50 mcg tablet 50 mcg PO DAILY 08/18/23 08/18/23 History losartan 25 mg tablet 12.5 mg PO DAILY 08/18/23 08/18/23 History pantoprazole 40 mg tablet,delayed 40 mg PO DAILY 08/18/23 08/18/23 History release sodium bicarbonate 650 mg tablet 650 mg PO DAILY 08/18/23 08/18/23 History Allergies Allergy/AdvReac Type Severity Reaction Status Date / Time nitroglycerin AdvReac Intermediate TACHYCARDIA Verified 10/13/22 20:38 [From Nitrostat] WITH PILLS ONLY, PASTE IS OKAY. rosuvastatin AdvReac Intermediate ELEVATED Verified 10/13/22 20:38 ALT simvastatin AdvReac Intermediate ELEVATED Verified 10/13/22 20:38 ALT Past Med/Surg History Medical History (Updated 08/19/23 @ 00:23 by Willard Cooper MD) GERD (gastroesophageal reflux disease) Steatohepatitis Dyslipidemia Anxiety CAD S/P percutaneous coronary angioplasty Surgical History H/O colonoscopy S/P tonsillectomy and adenoidectomy History of angioplasty Social History Smoking Status: Never smoker Second Hand Exposure: No; Do You Dip or Chew Tobacco: No; Hx Alcohol Use: Yes Alcohol type: wine Hx Substance Use: No Preferred Language: Arabic Communication Ability: Effective Nut Tightener Required: No Beliefs That Will Affect Care: None Current Living Situation: Spouse Feels Safe at Home: Yes Assistive Devices: CPAP Physical Exam Vital Signs Vital Signs - 24 hr 08/18/23 17:59 08/18/23 18:02 08/18/23 20:15 Temperature 36.7 C Temperature Source Temporal Artery Scan Pulse Rate 79 Pulse Rate [Finger] 78 Pulse Rate from SpO2 Sensor Respiratory Rate 18 18 Respiratory Effort / Characteristics Non-Labored Spontaneous Short of Breath SOB on Exertion Respiratory Depth Normal Respiratory Pattern Regular Blood Pressure 149/97 H Blood Pressure [Right Arm] 132/86 Blood Pressure Mean 114 Blood Pressure Mean [Right Arm] 101 Blood Pressure Position Sitting Pulse Oximetry 96 95 Oxygen Delivery Method Room Air Room Air Sepsis Recent Fever Within 48 Hours No Sepsis New/Unexplained Change in Mental Status N/A Sepsis Action Taken by Nursing No Action Required 08/18/23 21:12 08/18/23 21:12 08/18/23 21:13 Temperature Temperature Source Pulse Rate 70 73 84 Pulse Rate [Finger] Pulse Rate from SpO2 Sensor 75 Respiratory Rate 16 18 Respiratory Effort / Characteristics Respiratory Depth Respiratory Pattern Blood Pressure Blood Pressure [Right Arm] Blood Pressure Mean Blood Pressure Mean [Right Arm] Blood Pressure Position Pulse Oximetry 97 Oxygen Delivery Method Sepsis Recent Fever Within 48 Hours Sepsis New/Unexplained Change in Mental Status Sepsis Action Taken by Nursing 08/18/23 21:30 08/18/23 21:56 Temperature Temperature Source Pulse Rate 72 Pulse Rate [Finger] Pulse Rate from SpO2 Sensor 72 Respiratory Rate 20 Respiratory Effort / Characteristics Respiratory Depth Respiratory Pattern Blood Pressure 148/94 H Blood Pressure [Right Arm] Blood Pressure Mean 112 Blood Pressure Mean [Right Arm] Blood Pressure Position Pulse Oximetry 96 96 Oxygen Delivery Method Room Air Sepsis Recent Fever Within 48 Hours Sepsis New/Unexplained Change in Mental Status Sepsis Action Taken by Nursing Physical Exam GENERAL: oriented to person, place, and time. appears well-developed and well- nourished. HENT: Exam performed. - Head: Normocephalic and atraumatic. EYES: Conjunctivae and EOM are normal. Right eye exhibits no discharge. Left eye exhibits no discharge. No scleral icterus. NECK: Normal range of motion. Neck supple. No JVD present. CV: Normal rate, regular rhythm, normal heart sounds and intact distal pulses. There is no peripheral edema. Palpable radial pulses bue. PULM/CHEST: Effort normal and breath sounds normal. No respiratory distress. No stridor. no wheezes. no rales. ABD: The abdomen is soft. There is no tenderness. NEURO: Motor and sensation grossly intact. SKIN: Skin is warm and dry. He is not diaphoretic. PSYCH: normal mood and affect. Behavior is normal. Judgment and thought content normal. Course Course 2033: The patient was evaluated in room B12. A complete history and physical exam was performed Medical Decision Making Laboratory Data Attestation: I reviewed the patient's lab results. 08/18/23 18:10 08/18/23 18:10 Labs: Lab Results 08/18/23 Range/Units 18:10 WBC 7.25 (4.8-10.8) K/ul RBC 5.22 (4.70-6.10) M/uL Hgb 16.6 (14.0-18.0) g/dl Hct 46.4 (42.0-52.0) % MCV 88.9 (80.0-100.0) fL MCH 31.8 (25.0-34.0) pg MCHC 35.8 (32.0-36.0) g/dL RDW Std Deviation 41.1 (36.4-46.3) fL RDW Coeff of [place] 12.7 (11.5-14.5) % Plt Count 165 (130-400) K/uL MPV 8.5 L (9.4-12.4) fL Immature Gran % (Auto) 0.7 % Neut % (Auto) 52.6 % Lymph % (Auto) 35.6 % [place] % (Auto) 9.0 % Eos % (Auto) 1.7 % Baso % (Auto) 0.4 % Neut # (Auto) 3.82 (1.40-6.50) K/uL Lymph # (Auto) 2.58 (1.20-3.40) K/uL [place] # (Auto) 0.65 H (0.11-0.59) K/uL Eos # (Auto) 0.12 (0.00-0.50) K/uL Baso # (Auto) 0.03 (0.00-0.20) K/uL Immature Gran # (Auto) 0.05 (0.01-0.20) K/uL PT 11.3 (9.0-12.0) Seconds INR 1.0 (0.9-1.1) APTT 29 (21-31) Seconds PTT Ratio 1.0 Sodium 138 (136-145) mmol/L Potassium 4.2 (3.5-5.1) mmol/L Chloride 105 (98-107) mmol/L Carbon Dioxide 25 (21-32) mmol/L Anion Gap 8 (3-11) BUN 22 (6-23) mg/dl Creatinine 1.49 H (0.6-1.4) mg/dl Est Cr Clr Drug Dosing 59.3 ml/min Est GFR ( Amer) 55.9 ml/min Est GFR (Non-Af Amer) 48.2 ml/min BUN/Creatinine Ratio 14.8 (10-20) Glucose 89 (70-99(Fasting)) mg/dl Calcium 9.2 (8.6-10.3) mg/dl Total Bilirubin 1.1 H (0.2-1.0) mg/dl AST 37 (13-39) U/L ALT 69 H (7-52) U/L Alkaline Phosphatase 95 (34-104) U/L Troponin I High Sens 4.8 (0-20) pg/ml Total Protein 7.2 (6.0-8.3) gm/dl Albumin 4.5 (3.4-5.0) gm/dl Globulin 2.7 (2.5-4.0) gm/dl Albumin/Globulin Ratio 1.7 (0.9-2) Imaging Data Chest x-ray: Attestation: I personally reviewed and interpreted this imaging study as follows: My impression: Chest x-ray negative. Airway clear. No pneumothorax. No consolidation. No cardiomegaly or cephalization.. No free air under the diaphragm. No fractures of the skeletal structures. Radiologist's impression: Chest X-Ray 08/18/23 18:03 SINGLE VIEW CHEST CLINICAL HISTORY: Atypical chest pain FINDINGS: A PA chest radiograph is compared to study dated 10/13/2022. The cardiomediastinal silhouette is unremarkable. The lungs and pleural spaces are clear. No pneumothorax is seen. The bony thorax is grossly intact. IMPRESSION: No active disease in the chest. ACT 112: Negative or not required by law. Electronically signed by: Jaime Raza M.D. 08/18/2023 7:26 PM ECG Data Attestation: I personally reviewed and interpreted this ECG as follows: Indication: chest pain Rate (beats per minute): 77 Rhythm: normal sinus Findings: no ST depression, no ST elevation or no prolonged QT MDM Narrative Cardiac monitoring: An order was placed for continuous cardiac monitoring. The monitor shows a rate of 80 with sinus rhythm interpreted by me Patient was seen during a time of extreme volume and extreme acuity. Nursing triage protocols were initiated labs and imaging was conducted by protocol in the triage area. Labs and imaging within normal limits. Patient has significant cardiac history and given his exertional chest pain patient will be admitted for chest pain rule out ACS. [facility] who states he will evaluate the patient for admission. Impression & Plan Chest pain Discharge Plan Visit Data Chief Complaint: Cardiac Assessment Stated Complaint: CHEST PAIN, LT ARM PAIN , SOB, HEADACHE, NAUSEA ED Provider: Willard Cooper Discharge Problem: Chest pain Patient Disposition: Admitted As Inpatient Forms Stand Alone Forms: [facility] Prescriptions Prescriptions: No Action diltiazem HCl 180 mg capsule,extended release 24hr 180 mg PO DAILY isosorbide mononitrate 30 mg tablet extended release 24 hr 30 mg PO DAILY clopidogrel 75 mg tablet 75 mg PO DAILY alprazolam 0.25 mg tablet 0.25 mg PO TID PRN (Reason: Anxiety) sodium bicarbonate 650 mg tablet 650 mg PO DAILY levothyroxine 50 mcg tablet 50 mcg PO DAILY pantoprazole 40 mg tablet,delayed release (DR/EC) 40 mg PO DAILY losartan 25 mg tablet 12.5 mg PO DAILY gabapentin 300 mg capsule 300 mg PO HS dicyclomine 10 mg capsule 10 mg PO BID PRN (Reason: Abdominal Pain) Repatha SureClick 140 mg/mL pen injector 140 mg SUBCUT UD Rx Instructions: every 14days aspirin 81 mg Tablet,Delayed Release (Dr/Ec) 81 mg PO DAILY Referrals Referrals: Albert Ballard M.D. [Primary Care Provider] - Discharge Problem: Chest pain Qualifiers: Chest pain type: unspecified Qualified Code(s): R07.9 - Chest pain, unspecified
[2023-08-19] MEDS ORDERED: POLYETHYLENE (MIRALAX) 17 GM PACK PO PRN (02:15)
[2023-08-19] MEDS ORDERED: DICYCLOMINE HCL 10 MG CAP PO PRN (02:15)
[2023-08-19] MEDS ORDERED: NITROGLYCERIN SL 0.4 MG/TAB TAB SL PRN (02:15)
[2023-08-19] MEDS: LEVOTHYROXINE SODIUM 50 MCG TABLET PO SCH (05:49)
[2023-08-19 05:58] LABS: Basophils # (auto) 0.06 K/uL (0.00-0.20); Basophils % (auto) 0.8 %; Eosinophils # (auto) 0.17 K/uL (0.00-0.50); Eosinophils % (auto) 2.3 %; Hematocrit (blood only) 43.8 % (42.0-52.0); Immature Granulocytes # (auto) 0.05 K/uL (0.01-0.20); Immature Granulocytes % (auto) 0.7 %; Lymphocytes # (auto) 3.34 K/uL (1.20-3.40); Lymphocytes % (auto) 44.8 %; Mean Corpuscular Hemoglobin 32.4 pg (25.0-34.0); Mean Corpuscular Hgb Conc 36.5 g/dL (32.0-36.0); Mean Corpuscular Volume 88.7 fL (80.0-100.0); Mean Platelet Volume 8.7 fL (9.4-12.4); Monocytes # (auto) 0.58 K/uL (0.11-0.59); Monocytes % (auto) 7.8 %; Neutrophils # (auto) 3.26 K/uL (1.40-6.50); Neutrophils % (auto) 43.6 %; Platelet Count 149 K/uL (130-400); RDW Coefficient of Variation 12.6 % (11.5-14.5); RDW Standard Deviation 41.1 fL (36.4-46.3); Red Blood Count 4.94 M/uL (4.70-6.10); White Blood Count 7.46 K/ul (4.8-10.8)
[2023-08-19 06:06] LABS: Calcium 9.4 mg/dl (8.6-10.3); Magnesium 2.1 mg/dl (1.7-2.4); Potassium 4.2 mmol/L (3.5-5.1)
[2023-08-19 06:11] LABS: BUN Creatinine Ratio 14.8 (10-20); Creatinine Clr Calc Pharmacy 65.8 ml/min; Est GFR (Non-African American) 54.3 ml/min
[2023-08-19 06:17] LABS: Troponin I High Sensitivity 3.6 pg/ml (0-20)
[2023-08-19] MEDS: ASPIRIN 81 MG ECTAB PO SCH (08:24)
[2023-08-19] MEDS: ISOSORBIDE MONO EXTENDED REL 30 MG TABCR PO SCH (08:25)
[2023-08-19] MEDS: LOSARTAN POTASSIUM 25 MG TAB PO SCH (08:25)
[2023-08-19] MEDS: dilTIAZem HCL 180 MG CAPCR PO SCH (08:25)
[2023-08-19] MEDS: PANTOprazole 40 MG TAB PO SCH (08:26)
[2023-08-19] MEDS: CLOPIDOGREL BISULFATE 75 MG TAB PO SCH (08:26)
[2023-08-19] MEDS: SODIUM BICARBONATE 650 MG TAB PO SCH (08:26)
[2023-08-19] MEDS: ALPRAZolam 0.25 MG TABLET PO PRN (08:32)
--- NOTE | 2023-08-19 08:54 | Cardiology Consultation ---
Date of Consultation August 19, 2023 Assessment & Plan (1) Chest pain: (2) CAD S/P percutaneous coronary angioplasty: (3) Dyslipidemia: Plan Patient is a 68-year-old male with known coronary artery disease prior coronary interventions, 2015, 2017 for significant coronary artery disease. Last intervention performed on high-grade 95% proximal LAD stenosis for symptoms. Stress nuclear imaging normal prior to event Patient presents now noting change in overall exercise capacity x 1 to 2 months with recent worsening symptoms yesterday with at moderate level work load. Blood pressures were mildly elevated on presentation. Initial EKGs and enzymes unrevealing. Heart function preserved on echocardiogram Discussed options of management in detail with patient. Concerning symptoms present but without overt ischemia. Prior stress testing falsely normal. Will proceed with diagnostic cardiac catheterization later today. Procedure and risks explained in detail with the patient History of Present Illness Reason for Consultation: Chest pain Attending Physician: Sagar Edwards MD History of Present Illness Patient is a 68-year-old male with underlying cardiac issues 1. Atherosclerotic coronary disease, chronic, status post prior PTCA and stenting of the left anterior descending January 2008 with drug-eluting stent. 2. Coronary intervention November 2015 receiving drug-eluting stent to the mid right coronary artery with residual moderate narrowing of 50% in the mid left anterior descending, not obstructively significant by FFR. 3. Coronary intervention on June 02, 2018, receiving 1 drug-eluting stent to the proximal left anterior descending coronary artery for 95% lesion, widely pa tent right coronary artery 4. Lower HDL dyslipidemia. 5. Poor statin tolerance of multiple statin trials. Praluent therapy. 6. Hypertension. 7. Obstructive sleep apnea with CPAP supplementation Patient presents this admission noting decline in overall exercise tolerance and increasing chest tightness and left shoulder pain over the past several months. 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 Mild breathlessness with exertion. No tachypalpitations syncope or near syncope. No fevers chills or unexplained infections. No bleeding difficulties. Weight stable. Does have some sleep disruption but uses CPAP at night No difficulties with current medications. Allergies Allergy/AdvReac Type Severity Reaction Status Date / Time nitroglycerin AdvReac Intermediate TACHYCARDIA Verified 10/13/22 20:38 [From Nitrostat] WITH PILLS ONLY, PASTE IS OKAY. rosuvastatin AdvReac Intermediate ELEVATED Verified 10/13/22 20:38 ALT simvastatin AdvReac Intermediate ELEVATED Verified 10/13/22 20:38 ALT Home Medications Medication Instructions Recorded Confirmed Type alprazolam 0.25 mg tablet 0.25 mg PO TID PRN Anxiety 08/18/23 08/18/23 History aspirin 81 mg tablet,delayed 81 mg PO DAILY 08/18/23 08/18/23 History release clopidogrel 75 mg tablet 75 mg PO DAILY 08/18/23 08/18/23 History dicyclomine 10 mg capsule 10 mg PO BID PRN Abdominal Pain 08/18/23 08/18/23 History diltiazem HCl 180 mg 180 mg PO DAILY 08/18/23 08/18/23 History capsule,extended release 24 hr evolocumab 140 mg/mL subcutaneous 140 mg subcut UD 08/18/23 08/18/23 History pen injector (Chet Goyal) gabapentin 300 mg capsule 300 mg PO HS 08/18/23 08/18/23 History isosorbide mononitrate 30 mg 30 mg PO DAILY 08/18/23 08/18/23 History tablet,extended release 24 hr levothyroxine 50 mcg tablet 50 mcg PO DAILY 08/18/23 08/18/23 History losartan 25 mg tablet 12.5 mg PO DAILY 08/18/23 08/18/23 History pantoprazole 40 mg tablet,delayed 40 mg PO DAILY 08/18/23 08/18/23 History release sodium bicarbonate 650 mg tablet 650 mg PO DAILY 08/18/23 08/18/23 History Patient History Medical History (Updated 08/19/23 @ 00:23 by Willard Cooper MD) GERD (gastroesophageal reflux disease) Steatohepatitis Dyslipidemia Anxiety CAD S/P percutaneous coronary angioplasty Surgical History H/O colonoscopy S/P tonsillectomy and adenoidectomy History of angioplasty Family History (Updated 08/19/23 @ 01:35 by Cherelle Figueroa RN) Mother Hx of CABG Father Hx of CABG Pancreatic cancer Other Pancreatic cancer metastasized to intra-abdominal lymph node Social History Smoking Status: Never smoker Second Hand Exposure: No; Do You Dip or Chew Tobacco: No; Tobacco Cessation Education Requested by Patient: No Hx Alcohol Use: No Hx Substance Use: No Preferred Language: [place] Islander Communication Ability: Effective Maintenance Trainer Required: No Beliefs That Will Affect Care: None Current Living Situation: Spouse and Family Other Information That Helps Us Care for You: No Feels Safe at Home: Yes Safety Concerns: Feels Safe At This Time Assistive Devices: CPAP Review of Systems Review of Systems: All systems reviewed & are unremarkable except as noted in HPI & below Physical Exam Constitutional: WD/WN, vitals as above + obese; no acute distress Eyes: PERRL, conjunctivae normal, anicteric sclerae ENMT: external ear and nose normal, oropharynx normal Neck: trachea midline, no thyromegaly Respiratory: normal respiratory effort, lungs clear to auscultation Cardiovascular: Rate/Rhythm: regular rate and regular rhythm Heart Sounds: normal S1 and normal S2; no gallop and no murmur Palpation: normal PMI Vessels: normal carotid upstroke and radial pulses present; no JVD and no carotid bruit Extremities: no edema Gastrointestinal (Abdomen): normal bowel sounds, soft, nontender, no hepatosplenomegaly Musculoskeletal: no cyanosis or clubbing, extremities motor strength 5/5 Skin: no rashes, warm and dry Neurologic: PERRL, EOMI, accommodation nl, no face palsy, no dysarthria Psychiatric: A+Ox3, euthymic affect Results & Data Vital Signs (Past 12 Hours) Vital Signs Temp Pulse Pulse Resp BP BP Pulse Ox 08/19/23 08:09 36.4 C L 69 16 138/77 97 08/19/23 07:14 58 L 08/19/23 04:44 36.9 C 59 L 18 143/81 H 96 08/19/23 02:15 37 C 71 17 147/91 H 96 08/19/23 01:36 70 08/19/23 01:23 37 C 67 17 147/91 H 97 08/19/23 01:08 47 L 08/19/23 00:00 55 L 16 138/86 94 08/18/23 21:56 96 08/18/23 21:30 72 20 148/94 H 96 08/18/23 21:13 84 18 97 08/18/23 21:12 73 16 08/18/23 21:12 70 O2 Del Method 08/19/23 08:09 Room Air 08/19/23 07:14 02/16/24 04:44 Room Air 08/19/23 02:15 Room Air 08/19/23 01:36 08/19/23 01:23 Room Air 08/19/23 01:08 08/19/23 00:00 Room Air 08/18/23 21:56 Room Air 08/18/23 21:30 08/18/23 21:13 08/18/23 21:12 08/18/23 21:12 Laboratory Results Laboratory Results - last 24 hr 08/18/23 08/19/23 18:10 05:21 WBC 7.25 7.46 RBC 5.22 4.94 Hgb 16.6 16.0 Hct 46.4 43.8 MCV 88.9 88.7 MCH 31.8 32.4 MCHC 35.8 36.5 H RDW Std Deviation 41.1 41.1 RDW Coeff of [place] 12.7 12.6 Plt Count 165 149 MPV 8.5 L 8.7 L Immature Gran % (Auto) 0.7 0.7 Neut % (Auto) 52.6 43.6 Lymph % (Auto) 35.6 44.8 [place] % (Auto) 9.0 7.8 Eos % (Auto) 1.7 2.3 Baso % (Auto) 0.4 0.8 Neut # (Auto) 3.82 3.26 Lymph # (Auto) 2.58 3.34 [place] # (Auto) 0.65 H 0.58 Eos # (Auto) 0.12 0.17 Baso # (Auto) 0.03 0.06 Immature Gran # (Auto) 0.05 0.05 PT 11.3 INR 1.0 APTT 29 PTT Ratio 1.0 Sodium 138 138 Potassium 4.2 4.2 Chloride 105 107 Carbon Dioxide 25 23 Anion Gap 8 8 BUN 22 20 Creatinine 1.49 H 1.35 Est Cr Clr Drug Dosing 59.3 65.8 Est GFR ( Amer) 55.9 63.0 Est GFR (Non-Af Amer) 48.2 54.3 BUN/Creatinine Ratio 14.8 14.8 Glucose 89 100 H Calcium 9.2 9.4 Magnesium 2.1 Total Bilirubin 1.1 H AST 37 ALT 69 H Alkaline Phosphatase 95 Troponin I High Sens 4.8 3.6 Total Protein 7.2 Albumin 4.5 Globulin 2.7 Albumin/Globulin Ratio 1.7 (1) Chest pain Chest pain type: unspecified Qualified Code(s): R07.9 - Chest pain, unspecified
--- OUTSIDE RECORDS SUMMARY | 2023-08-19 10:15 | External Medical Summary | Summary of Care ---
Author Name Unknown Organization [facility] Address [address] [facility] [address] Phone [phone] Care Team Providers Care Lawn Service Manager Name Role Phone Unavailable Primary Care Provider Unavailabl e Reason for Visit * Reason Onset Date Comments Medication Refill 08/16/2023 Encounter Details Date Type Department Care Team (Late st Contact Info) Description 08/16/2023 Refill Cardiology, [facility] [address] [facility] [place] [address] Oliver Reagan, DO [address] [address] Dyslipidemia, goal LDL below 70* Allergies Active Allergy Reactions Criticality Noted Date Comments Nitroglycerin Tachycardia 11/12/2020 Applies to NTG SL tablets only. Not Nitro paste. Not Imdur. Rosuvastatin Medium 11/05/2018 Other reaction(s): ELEVATED ALT Simvastatin 11/05/2018 Other reaction(s): Unknown Simvastatin 02/02/2007 Elevated ALT documented as of this encounter (statuses as of 08/16/2023) Medications Medication Sig Dispensed Refills Start Date End Date Status ASPIRIN 81 MG PO CHEW Take 1 Tablet by mouth in the morning. 0 10/20/2007 Active CPAP 7 cm every night at bedtime . 0 Active Hydrocortisone 2.5 % External Cream Apply topically to affected area 2 times a day. Apply to armpit until clear then as needed. 20 g 2 01/19/2021 Active Additional Information Patient not taking.Reported on 02/09/2023 Align 4 MG Oral Capsule Take 1 Capsule by mouth every other day. 0 Active Ketoconazole 2 % External Cream APPLY TOPICALLY TO AFFECTED AREA TWO TIMES A DAY FOR 42 DAYS - APPLY TO ARMPIT RASH 30 g 1 02/10/2021 Active Additional Information Patient not taking.Reported on 06/03/2023 Gabapentin 300 MG Oral Capsule (Neurontin) Take 1 Capsule by mouth at bedtime. 0 Active Isosorbide Mononitrate ER 30 MG Oral Tablet Extended Release 24 Hour (Imdur)Indication s:S/P right coronary artery (RCA) stent placement,Coronar y artery disease involving tribe heart without angina pectoris, unspecified vessel or lesion type Take 1 Tablet by mouth in the morning. 90 Tablet 3 11/22/2022 Active Sodium Bicarbonate 650 MG Oral Tablet Take 1 Tablet by mouth daily. 90 Tablet 3 02/21/2023 Active Additional Information Patient not taking.Reported on 05/25/2023 Clopidogrel Bisulfate 75 MG Oral Tablet (pLAVix)Indicatio ns:S/P angioplasty with stent TAKE ONE TABLET BY MOUTH EVERY DAY 90 Tablet 3 05/02/2023 Active Dicyclomine HCl 10 MG Oral Capsule (Bentyl)Indicatio ns:LLQ abdominal pain TAKE ONE CAPSULE BY MOUTH TWICE A DAY NEEDED FOR LOWER ABDOMEN PAIN /CRAMPING 180 Capsule 1 2023 Active dilTIAZem HCl ER Coated Beads 180 MG Oral Capsule Extended Release 24 Hour (Cardizem CD)Indications:Co ronary artery disease of tribe artery of tribe heart with stable angina pectoris (HCC),Chronic ischemic heart disease TAKE ONE CAPSULE BY MOUTH EVERY DAY 90 Capsule 3 06/16/2023 Active Pantoprazole Sodium 40 MG Oral Tablet Delayed Release (Protonix) TAKE ONE TABLET BY MOUTH EVERY MORNING 90 Tablet 1 2023 Active Losartan Potassium 25 MG Oral Tablet (Cozaar) Take 0.5 Tablets by mouth in the morning. 45 Tablet 3 06/16/2023 Active ALPRAZolam 0.25 MG Oral Tablet (xaNAX)Indication s:Anxiety state Only take for panic. Reduce dose for safety. TAKE ONE TABLET BY MOUTH THREE TIMES A DAY (MORNING, NOON, EVENING) NEEDED FOR ANXIETY 90 Tablet 0 06/22/2023 Active Levothyroxine Sodium 50 MCG Oral Tablet (Levoxyl)Indicati ons:Hypothyroidis m, unspecified type TAKE ONE TABLET BY MOUTH EVERY MORNING AT LEAST 30 MINUTES PRIOR TO BREAKFAST OR OTHER MEDS 90 Tablet 2 08/08/2023 Active Repatha SureClick 140 MG/ML Subcutaneous Solution Auto-injector (evolocumab)Indic ations:Dyslipidem ia, goal LDL below 70 Inject 140 mg under the skin every 14 days. Remove from refrigerator 30 minutes prior to injection. 2 Each 11 08/16/2023 Active Repatha SureClick 140 MG/ML Subcutaneous Solution Auto-injector (evolocumab) Inject 140 mg under the skin every 14 days. Remove from refrigerator 30 minutes prior to injection. 2 Each 07/01/2022 4 Discontinu ed(Refill) Hospital, Clinic, or Other Facility Administered Medication Ordered Dose Route Frequency Start Date End Date Status albuterol sulfate (PROVENTIL) (2.5 MG/3ML) 0.083% inhalation solution 2.5 mgIndications:COPD, mild (HCC) 2.5 mg NEBULIZER Q4H PRN 03/22/2019 Active documented as of this encounter (statuses as of 08/16/2023) Active Problems Problem Noted Date Diagnosed Date COPD, group B, by GOLD 2017 classification 01/26 Granulomatous lung disease 01/20/2022 CAD S/P percutaneous coronary angioplasty 2020 Stage 3a chronic kidney disease 05/12/2020 Overview: Per CKD protocol - Per CKD protocol Sensorineural hearing loss ( SNHL) of left ear with unrestricted hearing of right ear 12/18/2018 Moderate persistent asthma without complication 12/11/2018 JUAN ANTONIO (generalized anxiety disorder) 11/02/2018 History of placement of stent in LAD coronary ar kalyan 06/14/2018 Overview: 06/05/2018 [place] 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 Encouraged to take nice deep breaths and rinse after steroid inhaler. Test performed by Vicky DIRECTOR PHONE CPFT S/P right coronary artery (RCA) stent placement 11/16/2015 Coronary artery disease of n ative artery of tribe heart with stable angina pectoris 11/12/2015 IBS (irritable bowel syndrome) 05/16/2014 NAFLD (nonalcoholic fatty liver disease) 014 History of basal cell carcinoma 03/20/2014 Osteoarthritis of right knee 11/12/2013 Severe obesity with body mas s index (BMI) of 35.0 to 39.9 with serious comorbidity 05/15/2012 Gastroesophageal reflux disease with esophagitis 07/07/2011 Dyslipidemia 06/18/2009 Overview: Per Lipid Taxonomy. Displacement of lumbar inter vertebral disc without myelopathy 12/25/2008 Benign neoplasm of colon 08/24/2007 Overview: await pathology, repeat in 2 years due to prep. documented as of this encounter (statuses as of 08/16/2023) Resolved Problems Problem Noted Date Diagnosed Date Resolved Date Kidney disease, chronic, sta ge III (GFR 30-59 ml/min) 02/11/2020 05/15/2020 Overview: Per CKD protocol COPD, mild 03/15/2017 12/13/2018 Overview: Per COPD GOLD Classification Pulmonary air trapping 01/31/201711/23 Unstable angina 11/14/2015 01/31/2017 Chest pain 11/12/2015 11/14/2015 GERD (gastroesophageal reflux disease) 05/16/2014 09/29/2015 Inflamed seborrheic keratosis 03/20/2014 08/15/2017 Asthma with severity to be determined 12/25/2009 05/10/2011 Overview: Per Asthma Taxonomy ICD-10 update of inactive term NAFLD 12/25/2008 09/29/2015 EXAMINATION OF PARTICIPANT I N CLINICAL TRIAL - SPIRIT IV 02/08/2008 10/17/2009 Overview: Renamed Per Clinical Trials Billing Project. SPIRIT IV clinical trial: Xience V Everolimus ALICIA vs. TAXUS ALICIA PI: Jess More MD Research Coordinator: Dipti Sanches SPIRIT IV Clinical Trial*[id number] 02/08/2008 11/27/2013 Overview: Renamed Per Clinical Trials Billing Project. SPIRIT IV clinical trial: Xience V Everolimus ALICIA vs. TAXUS ALICIA PI: Jess More MD Research Coordinator: Dipti Sanches [employer] Other*[id number] 01/11/2008 08/10/2016 Overview: Study Title: Genomic Markers for Patients with Cardiovascular Disease Project # [id number] Windows Security Analyst: Jess More MD [phone] Other specified congenital a nomaly of esophagus 02/13/2003 11/02/2018 Asthma, allergic 02/13/2003 12/25/2009 Actinic keratosis 05/21/2002 08/15/2017 Condyloma acuminatum 05/19/2002 018 Viral warts 05/19/2002 11/12/2013 Overview: ICD-10 update of inactive term intertrigo 05/19/2002 11/12/2013 Respiratory abnormality 12/07/200111/01 Overview: ICD-10 update of inactive term Dyslipidemia, goal to be determined 06/18/2009 Overview: Per Lipid Taxonomy. Other allergic rhinitis 11/02 Overview: ICD-10 update of inactive term documented as of this encounter (statuses as of 08/16/2023) Immunizations Name Administration Dates Next Due Pneumococcal Polysaccharide PPV23 (Pneumovax) 01/20/2022,04/24/2007 Seasonal Influenza Virus Vac cine, Unspecified Formulation 04/06/2021,06/16/2020,05/23/2019,05/29,08/15/2017,08/02/2016,05/13/2014 ,05/14/2013,05/13/2012,05/10/2011,10/2009,04/07/2009,04/29/2008, 7,06/21/2005,06/06/2003 Seasonal Influenza, PF, 6 M & above, IM , (FluLaval or Fluzone) 04/06/2021,06/16/2020,05/23/2019,05/29,08/15/2017 Seasonal Influenza, Quadriva lent, No Preserve, IM 08/02/2016,06/16/2015 Seasonal Influenza, Split, I IV3, With Preserve, Inj 05/13/2014,05/14/2013,05/13/2012,05/10,04/06/2010,04/07/2009,04/29/2008 ,04/24/2007 TDAP (age 10 and older)(Boostrix) 05/14/2013,12/2002 Zoster Vaccine Recombinant (Shingrix) 03/24/2020 ,12/20/2019 documented as of this encounter Social History Tobacco Use Types Packs/Day Years Used Date Smoking Tobacco: Never Smokeless Tobacco: Never Alcohol Use Standard Drinks/Week Comments No 0 (1 standard drink = 0.6 oz pur e alcohol) PHQ-2 Answer Date Recorded PHQ Adult Total Score 0 01/08/2022 Hunger Vital Sign Answer Date Recorded Within the past 12 months, y ou worried that your food would run out before you got the money to buy more. Never true 01/09/20 22 Within the past 12 months, t he food you bought just didn't last and you didn't have money to get more. Never true 01/08/2022 Sex and Gender Information Value Date Recorded Sex Assigned at Male 11/02/2018 11:08 AM EDT Gender Identity Male 11/02/2018 11:08 AM EDT Sexual Orientation Straight 11/02/2018 11 :08 AM EDT Job Start Date Occupation Industry Not on file Not on file Not on file documented as of this encounter Functional Status Functional Status Response Date of Assess ment Are you deaf or do you have serious difficulty h earing? No 11/12/2015 Are you blind or do you have serious difficulty seeing, even when wearing glasses? No 11/12/2015 Do you have serious difficul ty walking or climbing stairs? (5 years old or older) No 11/12/2015 Do you have difficulty dress ing or bathing? (5 years old or older) No 11/12/2015 Because of a physical, menta l, or emotional condition, do you have difficulty doing errands alone such as visiting a doctor s office or shopping? (15 years old or older) No 11/12/19 16 Cognitive Status Response Date of Assessm ent Because of a physical, menta l, or emotional condition, do you have serious difficulty concentrating, remembering, or making decisions? (5 years old or older) No 11/12/2015 documented as of this encounter Miscellaneous Notes * Telephone Encounter - Noa Blakely PA-C - 08/16/2023 2:05 PM EST Signed Prescriptions: Disp Refills Repatha SureClick 140 MG/ML Subcutaneous S*2 Each 11 Sig: [id number] mg under the skin every 14 days. Remove from refrigerator 30 minutes prior to injection.Authorizing Provider: NOA BLAKELY * Telephone Encounter - Alyce Albert COT - 08/16/2023 2:03 PM ESTPending Prescriptions: Disp Refills Repatha SureClick 140 MG/ML Subcutaneous S*2 Each 11 Sig: Inject 140 mg under the skin every 14 days. Remove from refrigerator 30 minutes prior to injection. * Telephone Encounter - Amelia Warner OSA - 08/16/2023 1:55 PM EST Did you pend patient's preferred pharmacy and medication before forwarding?no Pharmacy: [facility] [id number] [facility] [place] Pending Prescriptions: Disp Refills Repatha SureClick 140 MG/ML Subcutaneous *2 Each 11 Sig: Inject 140 mg under the skin every 14 days. Remove from refrigerator 30 minutes prior to injection. Last Visit: 06/03/2023 (in office), Visit date not found (telemedicine) Next Visit: Visit date not found If no future appointments scheduled, and last appointment is greater than a year ago, please schedule patient for a follow-up appointment Last date the medication was ordered: 07/01/2022 Is this request for a controlled substance?No Urine Drug Screen:No results found. However, due to the size of the patient record, not all encounters were searched. Please check Results Review for a complete set of results. Patient Phone Numbers Labs: Lab Results Component Value Date/Time CREAT 1.4 (H) 04/25/2023 01:50 PM CREAT 1.4 (H) 07/09/2020 10:56 AM POTASSIUM 4.7 04/25/2023 01:50 PM POTASSIUM 4.2 07/09/2020 10:56 AM TSH 2.24 02/09/2023 11:35 AM TSH 3.81 04/23/2019 11:14 AM LDLCALC 56 02/09/2023 11:35 AM LDLCALC 04/23/2019 11:14 AM Uninterpretable, recommend direct LDL cholesterol testing. LDLDIRECT 66 06/09/2022 10:28 AM LDLDIRECT 73 01/30/2020 10:21 AM LDLDIRECT 73 05/07/2009 02:23 PM ALT 96 (H) 04/25/2023 01:50 PM ALT 194 (H) 07/09/2020 10:56 AM HGBA1C 4.6 10/12/2018 12:00 AM HGBA1C 4.3 11/13/2015 01:02 PM documented in this encounter Plan of Treatment Upcoming Encounters Date Type Department Care Team (Late st Contact Info) Description 08/29/2023 2:20 PM EST Office Visit Family [facility] [address] [place] [address] Christopher Quinones PA-C [address] [place] [address] 09/02/2023 11:30 AM EST Office Visit [facility] [address] [place] [address] Sallie Wong CRNP [address] [place] [address] 10/05/2023 11:00 AM EDT Office Visit Nephrology, [place] [address] [facility] [place] [address] Evangelist Lyle MD [address] [place] [address] [place] [address] 01/31/2024 10:40 AM EDT Office Visit Dermatology [facility], [place] [address] [place] [address] Lucero Mercado PA-C [address] [facility] [place] [address] Scheduled Procedures Name Priority Associated Diagnoses Date/Ti me COLONOSCOPY FLEXIBLE PROXIMAL DIAGNOSTIC Recall History of colon polyps Health Maintenance Due Date Last Done Comments COVID-19 Vaccine (#1) 1955 Alpha-1 Antitrypsin 1975 Depression Screening 01/08/2023 01/08/2022 Pneumococcal Vaccine: 65+ Years (2 - PCV) 01/20/2023 01/20/2022, 04/24/2007 Influenza Vaccine (FLU shot) (#1) 2023 04/06/2021, 04/06/2021, 06/16/2020, Additional history exists DTaP,Tdap,and Td Vaccines (4 - Td or Tdap) 05/14/2023 05/14/2013, 02/06/2003, 02/06/2003 Albumin/Creatinine Ratio 06/09/2023 06/09/2022 CKD PHOS USE SMARTSET 18124 06/09/2023 06/09/2022, 1 08/17/2019 GFR 10/25/2023 04/25/2023, 08/0 03/2023, 06/09/2022, Additional history exists CKD HGB USE SMARTSET 51620 02/10/202402/09, 02/09/2023, 06/09/2022, Additional history exists TSH 02/10/2024 02/09/2023, 12/0 01/2022, 03/22/2022, Additional history exists O2 ASSESSMENT COMPLETED IN PAST YEAR FOR COPD 05/25/2024 05/25/2023 COLONOSCOPY-EVERY 5 YRS AGES 18-100 08/07/2025 08/07/2020, 08/07/2020, 08/07/2020, Additional history exists Diabetes Screening 04/25/2026 04/25/2023, 0 02/09/2023, 06/09/2022, Additional history exists Zoster Vaccines Completed 03/24/2020, 12/20/2019 GARDASIL-HPV IMMUNIZATION SERIES Aged Out No longer eligible based on patient's age to complete this topic Hepatitis B Aged Out No longer eligi ble based on patient's age to complete this topic MENINGOCOCCAL (MENACTRA/MENVEO) Aged Out No longer eligible based on patient's age to complete this topic documented as of this encounter Medical Devices Not on filedocumented as of this encounter Visit Diagnoses Diagnosis Dyslipidemia, goal LDL below 70- Primary Other and unspecified hyperlipidemia documented in this encounter Advance Directives Latest Code Status on File Code Status Date Activated Date Inactivated Comments Full Code 06/02/2018 10:45 AM 06/03/2018 1:14 PM Thi s order reflects the patients wishes and were consensually agreed upon. Question Answer Comments Discussion of Advance Directives occurred with: Not Discussed Does the patient have a Living Will? No Does the patient have Health Care Power of [place]? No Code Status History Code Status Date Activated Date Inactivated Comments Full Code 11/12/2015 7:57 PM 11/14/2015 3:07 PM This order reflects the patients wishes and were consensually agreed upon. Question Answer Comments Discussion of Advance Directives occurred with: Patient Does the patient have a Living Will? No Does the patient have Health Care Power of [place]? No Full Code 01/11/2008 9:52 AM 01/12/2008 1:19 PM
--- OUTSIDE RECORDS SUMMARY | 2023-08-19 10:16 | External Medical Summary | Summary of Care ---
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 Not Nitro paste. Not Imdur. Rosuvastatin Medium 11/05/2018 Other reaction(s): ELEVATED ALT Simvastatin 11/05/2018 Other reaction(s): Unknown Simvastatin 02/02/2007 Elevated ALT documented as of this encounter (statuses as of 06/16/2023) Medications Medication Sig Dispensed Refills Start Date End Date Status ASPIRIN 81 MG PO CHEW Take 1 Tablet by mouth in the morning. 0 8 Active CPAP 7 cm every night at bedtime . 0 Active Hydrocortisone 2.5 % External Cream Apply topically to affected area 2 times a day. Apply to armpit until clear then as needed. 20 g 2 1 Active Additional Information Patient not taking.Reported on 02/09/2023 Align 4 MG Oral Capsule Take 1 Capsule by mouth every other day. 0 Active Ketoconazole 2 % External Cream APPLY TOPICALLY TO AFFECTED AREA TWO TIMES A DAY FOR 42 DAYS - APPLY TO ARMPIT RASH 30 g 1 1 Active Additional Information Patient not taking.Reported on 06/03/2023 Gabapentin 300 MG Oral Capsule (Neurontin) Take 1 Capsule by mouth at bedtime. 0 Active Dicyclomine HCl 10 MG Oral Capsule (Bentyl)Indicatio ns:LLQ abdominal pain One tab twice daily as needed for lower abdomen pain/cramping 180 Capsule 3 2 Active Additional Information Patient taking differently: One tab twice daily as needed for lower abdomen pain/cramping. Takes one per day, Reported on 06/03/2023 Pantoprazole Sodium 40 MG Oral Tablet Delayed Release (Protonix) Take 1 Tablet (40 mg) by mouth in the morning. 90 Tablet 3 2 Active Repatha SureClick 140 MG/ML Subcutaneous Solution Auto-injector (evolocumab) Inject 140 mg under the skin every 14 days. Remove from refrigerator 30 minutes prior to injection. 2 Each 11 2 Active Levothyroxine Sodium 50 MCG Oral Tablet (Levoxyl)Indicati ons:Hypothyroidis m, unspecified type TAKE ONE TABLET BY MOUTH EVERY MORNING AT LEAST 30 MINUTES PRIOR TO BREAKFAST OR OTHER MEDS 90 Tablet 2 3 Active Isosorbide Mononitrate ER 30 MG Oral Tablet Extended Release 24 Hour (Imdur)Indication s:S/P right coronary artery (RCA) stent placement,Coronar y artery disease involving wiyot heart without angina pectoris, unspecified vessel or lesion type Take 1 Tablet by mouth in the morning. 90 Tablet 3 3 Active Losartan Potassium 25 MG Oral Tablet (Cozaar) Take 0.5 Tablets by mouth in the morning. 45 Tablet 3 3 Active Sodium Bicarbonate 650 MG Oral Tablet Take 1 Tablet by mouth daily. 90 Tablet 3 3 Active Additional Information Patient not taking.Reported on 05/25/2023 Clopidogrel Bisulfate 75 MG Oral Tablet (pLAVix)Indicatio ns:S/P angioplasty with stent TAKE ONE TABLET BY MOUTH EVERY DAY 90 Tablet 3 3 Active ALPRAZolam 0.25 MG Oral Tablet (xaNAX)Indication s:Anxiety state Only take for panic. Reduce dose for safety. TAKE ONE TABLET BY MOUTH THREE TIMES A DAY (MORNING, NOON, EVENING) NEEDED FOR ANXIETY 90 Tablet 0 3 Active dilTIAZem HCl ER Coated Beads 180 MG Oral Capsule Extended Release 24 Hour (Cardizem CD)Indications:Co ronary artery disease of wiyot artery of wiyot heart with stable angina pectoris (HCC),Chronic ischemic heart disease TAKE ONE CAPSULE BY MOUTH EVERY DAY 90 Capsule 3 3 Active dilTIAZem HCl ER Coated Beads 180 MG Oral Capsule Extended Release 24 Hour (Cardizem CD)Indications:Co ronary artery disease of wiyot artery of wiyot heart with stable angina pectoris (HCC),Chronic ischemic heart disease TAKE ONE CAPSULE BY MOUTH EVERY DAY 90 Capsule 3 2 06/16/20 23 Discontinued Hospital, Clinic, or Other Facility Administered Medication Ordered Dose Route Frequency Start Date End Date Status albuterol sulfate (PROVENTIL) (2.5 MG/3ML) 0.083% inhalation solution 2.5 mgIndications:COPD, mild (HCC) 2.5 mg NEBULIZER Q4H PRN 03/22/2019 Active documented as of this encounter (statuses as of 06/16/2023) Active Problems Problem Noted Date Diagnosed Date [...] LAD coronary ar kalyan 06/14/2018 Overview: 06/05/2018 [place] 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 Encouraged to take nice deep breaths and rinse after steroid inhaler. Test performed by [employer]icky [employer] RIGGING [employer] CONTROLS MECHANIC CPFT S/P right coronary artery (RCA) stent placement 11/16/2015 Coronary artery disease of n ative artery of wiyot heart with stable angina pectoris 11/12/2015 IBS [...] as of this encounter (statuses as of 06/16/2023) Resolved Problems Problem Noted Date Diagnosed Date [...] Research Coordinator: Dipti Sanches SPIRIT IV Clinical Trial*[id number] 02/08/2008 11/27/2013 Overview: Renamed Per Clinical Trials Billing Project. SPIRIT IV clinical trial: Xience V Everolimus ALICIA vs. TAXUS ALICIA PI: Jess More MD Research Coordinator: Dipti Sanches [employer] Other*[id number] 01/11/2008 08/10/2016 Overview: Study Title: Genomic Markers for Patients with Cardiovascular Disease Project # [id number] Tower Attendant: Jess More MD [phone] Other specified congenital a nomaly of esophagus [...] as of this encounter (statuses as of 06/16/2023) Immunizations Name Administration Dates Next Due Pneumococcal [...] encounter Miscellaneous Notes * Telephone Encounter - Hortensia Bradford CRNP - 06/16/2023 10:56 AM ESTSigned Prescriptions: Disp Refills dilTIAZem HCl ER Coated Beads 180 MG Oral *90 Cap*3 Sig: TAKE ONE CAPSULE BY MOUTH EVERY DAY Authorizing Provider: HORTENSIA BRADFORD * Telephone Encounter - Alyce Albert COT - 06/16/2023 9:47 AM ESTPending Prescriptions: Disp Refills dilTIAZem HCl ER Coated Beads 180 MG Oral *90 Cap*3 Sig: TAKE ONE CAPSULE BY MOUTH EVERY DAY * Telephone Encounter - Alyce Albert COT - 06/16/2023 9:46 AM EST Did you pend patient's preferred pharmacy and medication before forwarding?yes Pharmacy: [facility] [id number] [address] [facility] [place] Pending Prescriptions: Disp Refills dilTIAZem HCl ER Coated Beads 180 MG Oral*90 Cap*3 Sig: TAKE ONE CAPSULE BY MOUTH EVERY DAY Last Visit: 06/03/2023 (in office), Visit date not found (telemedicine) Next Visit: Visit date not found If no future appointments scheduled, and last appointment is greater than a year ago, please schedule patient for a follow-up appointment Last date the medication was ordered: 05-10-2022 Is this request for a controlled substance?No [...] Care Team (Late st Contact Info) Description 08/23/2023 11:20 AM EST Office Visit Family Practice [address] [place] [address] Blanca Luciano DO 09/02/2023 11:30 AM EST Office Visit [facility] [address] [place] [address] Sallie Wong CRNP [address] [place] [address] 09/05/2023 1:30 PM EST Office Visit Gastroenterology, [facility] [address] [place] [address] Renee Daniels CRNP [address] [place] [address] 10/05/2023 11:00 AM EDT Office Visit Nephrology, [place] [address] [facility] [place] [address] Evangelist Lyle MD [address] [place], [place] [address] [address] 01/31/2024 10:40 AM EDT Office Visit Dermatology [facility], [place] [address] [place] [address] Lucero Mercado PA-C [address] [place] [address] Scheduled Procedures Name Priority Associated Diagnoses Date/Ti me COLONOSCOPY FLEXIBLE PROXIMAL DIAGNOSTIC Recall History of colon polyps Health Maintenance Due Date Last Done Comments COVID-19 Vaccine (#1) 1957 HIV Screening 1972 Alpha-1 Antitrypsin 1975 Depression Screening 01/08/2023 01/08/2022 Pneumococcal Vaccine: 65+ Years (2 - PCV) 01/20/2023 01/20/2022, 04/24/2007 Influenza Vaccine (FLU shot) (#1) 2023 04/06/2021, 04/06/2021, 06/16/2020, Additional history exists DTaP,Tdap,and Td Vaccines (4 - Td or Tdap) 05/14/2023 05/14/2013, 02/06/2003, 02/06/2003 Albumin/Creatinine Ratio 06/09/2023 06/09/2022 CKD PHOS USE SMARTSET 35342 06/09/2023 06/09/2022, 1 08/17/2019 GFR 10/25/2023 04/25/2023, 08/0 03/2023, 06/09/2022, Additional history exists CKD HGB USE SMARTSET 02107 02/10/202402/09, 02/09/2023, 06/09/2022, Additional history exists TSH 02/10/2024 02/09/2023, 120 01/2022, 03/22/2022, Additional history exists O2 ASSESSMENT [...] as of this encounter Visit Diagnoses Diagnosis 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 No Code Status History Code Status Date Activated Date Inactivated Comments Full Code 11/12/2015 7:57 PM 11/14/2015 3:07 PM This order reflects the patients wishes and were consensually agreed upon. Question Answer Comments Discussion of Advance Directives occurred with: Patient Does the patient have a Living Will? No Does the patient have Health Care Power of Vibratory Pile Driver? No Full Code 01/11/2008 9:52 AM 01/12/2008 1:19 PM Care Teams Catering Sous Chef Relationship Specialty Start Date End Date Blanca Luciano DO PCP - General Family Medicine 04/06/21 documented as of this encounter
--- OUTSIDE RECORDS SUMMARY | 2023-08-19 10:16 | External Medical Summary | Summary of Care ---
Author Name Unknown Organization [facility] Address [address] [place] [address] Phone [phone] Care Team Providers Care Surveying Crew Rodman Name Role Phone LucianoBlanca amado Lizetteashtyn Primary Care Provider [phone] Reason for Visit * Reason Onset Date Comments Medication Refill 06/16/2023 Encounter Details Date Type Department Care Team (Late st Contact Info) Description 06/16/2023 Refill [facility] [address] [facility] [place] [id number] Rashel Hernandez MD [address] [place] [address] Anxiety state Allergies Active Allergy Reactions Criticality Noted Date Comments Nitroglycerin Tachycardia 11/12/2020 Applies to NTG SL tablets only. Not Nitro paste. Not Imdur. Rosuvastatin Medium 11/05/2018 Other reaction(s): ELEVATED ALT Simvastatin 11/05/2018 Other reaction(s): Unknown Simvastatin 02/02/2007 Elevated ALT documented as of this encounter (statuses as of 06/22/2023) Medications Medication Sig Dispensed Refills Start Date [...] Capsule by mouth at bedtime. 0 Active Repatha SureClick 140 MG/ML Subcutaneous Solution Auto-injector (evolocumab) Inject 140 mg under the skin every 14 days. Remove from refrigerator 30 minutes prior to injection. 2 Each 11 07/01/2022 Active Levothyroxine Sodium 50 MCG Oral Tablet (Levoxyl)Indicati ons:Hypothyroidis m, unspecified type TAKE ONE TABLET BY MOUTH EVERY MORNING AT LEAST 30 MINUTES PRIOR TO BREAKFAST OR OTHER MEDS 90 Tablet 2 09/20/2022 Active Isosorbide Mononitrate ER 30 MG Oral Tablet Extended Release 24 Hour (Imdur)Indication s:S/P right coronary artery (RCA) stent placement,Coronar y artery disease involving [place] heart without angina pectoris, unspecified vessel or [...] EVERY DAY 90 Tablet 3 05/02/2023 Active dilTIAZem HCl ER Coated Beads 180 MG Oral Capsule Extended Release 24 Hour (Cardizem CD)Indications:Co ronary artery disease of [place] artery of [place] heart with stable angina pectoris (HCC),Chronic ischemic heart disease TAKE ONE CAPSULE BY MOUTH EVERY DAY 90 Capsule 3 06/16/2023 Active Losartan Potassium 25 MG Oral Tablet (Cozaar) Take 0.5 Tablets by mouth in the morning. 45 Tablet 3 06/16/2023 Active ALPRAZolam 0.25 MG Oral Tablet (xaNAX)Indication s:Anxiety state Only take for panic. Reduce dose for safety. TAKE ONE TABLET BY MOUTH THREE TIMES A DAY (MORNING, NOON, EVENING) NEEDED FOR ANXIETY 90 Tablet 0 06/22/2023 Active ALPRAZolam 0.25 MG Oral Tablet (xaNAX)Indication s:Anxiety state Only take for panic. Reduce dose for safety. 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 Encouraged to take nice deep breaths and rinse after steroid inhaler. Test performed by Vicky BUTCHER ASSISTANT CPFT S/P right coronary artery (RCA) stent placement 11/16/2015 Coronary artery disease of n ative artery of [place] heart with stable angina pectoris 11/12/2015 IBS [...] as of this encounter (statuses as of 06/22/2023) Resolved Problems Problem Noted Date Diagnosed Date [...] SPIRIT IV clinical trial: Xience V Everolimus LAICIA vs. TAXUS ALICIA PI: Jess More MD Research Coordinator: Dipti Sanches SPIRIT IV Clinical Trial*[id number] 02/08/2008 11/27/2013 Overview: Renamed Per Clinical Trials Billing Project. SPIRIT IV clinical trial: Xience V Everolimus ALICIA vs. TAXUS ALICIA PI: Jess More MD Research Coordinator: Dipti Sanches [employer] Other*[id number] 01/11/2008 08/10/2016 Overview: Study Title: Genomic Markers for Patients with Cardiovascular Disease Project # [id number] Distribution Spec: Jess More MD [phone] Other specified congenital a nomaly of esophagus [...] as of this encounter (statuses as of 06/22/2023) Immunizations Name Administration Dates Next Due Pneumococcal [...] encounter Miscellaneous Notes * Telephone Encounter - Christopher Holm PA-C - 06/22/2023 2:08 PM EST Signed Prescriptions: Disp Refills ALPRAZolam 0.25 MG Oral Tablet (xaNAX) 90 Tab*0 Sig: Only take for panic. Reduce dose for safety. TAKE ONE TABLET BY MOUTH THREE TIMES A DAY (MORNING, NOON, EVENING) NEEDED FOR ANXIETYAuthorizing Provider: CHRISTOPHER HOLM * Telephone Encounter - Francy Qureshi [facility] - 06/22/2023 5:30 AM EST Pending Prescriptions: Disp Refills ALPRAZolam 0.25 MG Oral Tablet (xaNAX) 90 Tab*0 Sig: Only take for panic. Reduce dose for safety. TAKE ONE TABLET BY MOUTH THREE TIMES A DAY (MORNING, NOON, EVENING) NEEDED FOR ANXIETY * [facility] - [facility] 4[facility]53 PM EST Postponed until 06/22/23 I have reviewed the patients controlled substance dispensing history in the Prescription Drug Monitoring Program in compliance with the [facility] regulations before prescribing a controlled substance. PDMP checked on 06/16/2023. Pending Prescriptions: Disp Refills ALPRAZolam 0.25 MG Oral Tablet (xaNAX) 90 Tab*0 Sig: Only take for panic. Reduce dose for safety. TAKE ONE TABLET BY MOUTH THREE TIMES A DAY (MORNING, NOON, EVENING) NEEDED FOR ANXIETY Last Visit: 01/26/2023 (in office), Visit date not found (telemedicine) Next Visit: 08/23/2023 Date medication was last filled: 05/27/23 Date medication is due for refill: 06/25/23 Pharmacy: [facility] [address] [place] [address] [id number] [facility] Is this request for a controlled substance? Yes and Urine Drug Screen Not completed Toxicology results: No results found. However, due to the size of the patient record, not all encounters were searched.Please check Results Review for a complete set of results. Please approve if appropriate. Thank You, Gabriel Vincent [facility] Clinical Pharmacist Central[facility] Pharmacy Services ([facility]PS) (formerly Telepharmacy) 06/16/2023, 4:53 PM documented in this encounter Plan of Treatment Upcoming Encounters Date Type Department Care Team (Late st Contact Info) Description 08/23/2023 11:20 AM EST [facility] [address] [facility] [place] [address] Blanca Luciano, DO [address] [place] [address] 09/02/2023 11:30 AM EST Office Visit [facility] Disorders [facility]tr [facility] [address] [place] [address] Sallie Wong CRNP [address] [facility] [place] [address] 09/05/2023 1:30 PM EST Office Visit Gastroenterology, [facility] [address] [place] [address] Renee Daniels CRNP [address] [place] [address] 10/05/2023 11:00 AM EDT Office Visit Nephrology [place] [address] [place] [address] Evangelist Lyle MD [address] [place] [address] 01/31/2024 10:40 AM EDT Office Visit Dermatology [facility], [place] [address] [place] [address] Lucero Mercado PA-C [address] [place] [address] Scheduled Procedures Name Priority Associated Diagnoses Date/Ti [...] Ratio 06/09/2023 06/09/2022 CKD PHOS USE SMARTSET 70589 06/09/2023 06/09/2022, 1 08/17/2019 GFR 10/25/2023 04/25/2023, 0803/2023, 06/09/2022, Additional history exists CKD HGB USE SMARTSET 92025 02/10/202402/09, 02/09/2023, 06/09/2022, Additional history exists TSH 02/10/2024 02/09/2023, 1201/2022, 03/22/2022, Additional history exists O2 ASSESSMENT COMPLETED [...] as of this encounter Visit Diagnoses Diagnosis Anxiety state Anxiety state, unspecified documented in this encounter Advance Directives [...] the patient have Health Care Power of Peanut Sorter? No Code Status History Code Status Date Activated Date Inactivated Comments Full Code 11/12/2015 7:57 PM 11/14/2015 3:07 PM This order reflects the patients wishes and were consensually agreed upon. Question Answer Comments Discussion of Advance Directives occurred with: Patient Does the patient have a Living Will? No Does the patient have Health Care Power of Peanut Sorter? No Full Code 01/11/2008 9:52 AM 01/12/2008 1:19 PM Care Teams Surveying Crew Rodman Relationship Specialty Start Date End Date Blanca Luciano DO PCP - General Family Medicine 04/06/21 documented as of this encounter
--- OUTSIDE RECORDS SUMMARY | 2023-08-19 10:16 | External Medical Summary | Summary of Care ---
Author Name Unknown Organization [facility] Address [address] [place] [address] Phone [phone] Care Team Providers Care Channel Layer Name Role Phone Blanca Luciano DO Primary Care Provider Un available Reason for Visit * Reason Onset Date Comments Medication Refill 06/16/2023 Encounter Details Date Type Department Care Team (Late st Contact Info) Description 06/16/2023 Refill Nephrology, [place] [address] [place] [address] Alberta Wilson MD [address] [facility] [place] [address] Allergies Active Allergy Reactions Criticality Noted Date [...] for lower abdomen pain/cramping 180 Capsule 3 2022 Active Additional Information Patient taking differently: One tab twice daily as needed for lower abdomen pain/cramping. Takes one per day, Reported on 06/03/2023 Pantoprazole Sodium 40 MG Oral Tablet Delayed Release (Protonix) Take 1 Tablet (40 mg) by mouth in the morning. 90 Tablet 3 2022 Active Repatha SureClick 140 MG/ML Subcutaneous Solution [...] (RCA) stent placement,Coronar y artery disease involving [place] heart without angina pectoris, unspecified vessel or [...] EVERY DAY 90 Tablet 3 05/02/2023 Active ALPRAZolam 0.25 MG Oral Tablet (xaNAX)Indication s:Anxiety state Only take for panic. Reduce dose for safety. TAKE ONE TABLET BY MOUTH THREE TIMES A DAY (MORNING, NOON, EVENING) NEEDED FOR ANXIETY 90 Tablet 0 05/27/2023 Active dilTIAZem HCl ER Coated Beads 180 MG Oral Capsule Extended Release 24 Hour (Cardizem CD)Indications:Co ronary artery disease of [place] artery of [place] heart with stable angina pectoris (HCC),Chronic ischemic heart disease TAKE ONE CAPSULE BY MOUTH EVERY DAY 90 Capsule 3 06/16/2023 Active Losartan Potassium 25 MG Oral Tablet (Cozaar) Take 0.5 Tablets by mouth in the morning. 45 Tablet 3 06/16/2023 Active Losartan Potassium 25 MG Oral Tablet (Cozaar) Take 0.5 Tablets by mouth in the morning. 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 Encouraged to take nice deep breaths and rinse after steroid inhaler. Test performed by Vicky CHIEF WELLNESS OFFICER CPFT S/P right coronary artery (RCA) stent placement 11/16/2015 Coronary artery disease of n ative artery of [place] heart with stable angina pectoris 11/12/2015 IBS [...] Research Coordinator: Dipti Sanches SPIRIT IV Clinical Trial*[id number] 02/08/2008 11/27/2013 Overview: Renamed Per Clinical Trials Billing Project. SPIRIT IV clinical trial: Xience V Everolimus ALICIA vs. TAXUS ALICIA PI: Jess More MD Research Coordinator: Dipti Sanches [employer] Other*[id number] 01/11/2008 08/10/2016 Overview: Study Title: Genomic Markers for Patients with Cardiovascular Disease Project # [id number] Clinical Data Assistant: Jess More MD [phone] Other specified congenital a nomaly of esophagus [...] encounter Miscellaneous Notes * Telephone Encounter - Alberta [place] MD - 06/16/2023 2:13 PM ESTSigned Prescriptions: Disp Refills Losartan Potassium 25 MG Oral Tablet (Coza*45 Tab*3 Sig: Take 0.5 Tablets by mouth in the morning. Authorizing Provider: ALBERTA WILSON * Telephone Encounter - Love Castillo RN - 06/16/2023 2:08 PM ESTPending Prescriptions: Disp Refills Losartan Potassium 25 MG Oral Tablet (Coza*45 Tab*3 Sig: Take 0.5 Tablets by mouth in the morning. * Telephone Encounter - Love Castillo RN - 06/16/2023 2:07 PM EST Prescription request received from pharmacy pending. Please authorize. Last OV 02/09/23 Next OV 10/05/23 documented in this encounter Plan of Treatment Upcoming Encounters Date Type Department Care Team (Late st Contact Info) Description 08/23/2023 11:20 AM EST Office Visit [facility], [place] [address] [place] [address] Blanca Luciano DO 09/02/2023 11:30 AM EST Office Visit Sleep Disorders Ctr [facility] [address] [facility] [place] [phone] Sallie Wong CRNP [address] [place] [address] 09/05/2023 1:30 PM EST Office Visit Gastroenterology, [facility] [address] [facility] [place] [address] Renee Daniels CRNP [address] [facility] [place] [address] 10/05/2023 11:00 AM EDT Office Visit Nephrology, [place] [address] [facility] [place] [address] Alberta Wilson MD [address] [place] [address] [place] [address] 01/31/2024 10:40 AM EDT Office Visit Dermatology [facility], [place] [address] [place] [address] Lucero Mercado PA-C [address] [facility] [place] [address] Scheduled Procedures Name Priority Associated Diagnoses Date/Ti [...] Ratio 06/09/2023 06/09/2022 CKD PHOS USE SMARTSET 81339 06/09/2023 06/09/2022, 1 08/17/2019 GFR 10/25/2023 04/25/2023, 08/0 03/2023, 06/09/2022, Additional history exists CKD HGB USE SMARTSET 61664 02/10/202402/09, 02/09/2023, 06/09/2022, Additional history exists TSH [...] Not on filedocumented as of this encounter Advance Directives Latest Code Status on File Code Status Date Activated Date Inactivated Comments Full Code 06/02/2018 10:45 AM 06/03/2018 1:14 PM Thi s order reflects the patients wishes and were consensually agreed upon. Question Answer Comments Discussion of Advance Directives occurred with: Not Discussed Does the patient have a Living Will? No Does the patient have Health Care Power of Senior Principal Process Engineer? No Code Status History Code Status Date Activated Date Inactivated Comments Full Code 11/12/2015 7:57 PM 11/14/2015 3:07 PM This order reflects the patients wishes and were consensually agreed upon. Question Answer Comments Discussion of Advance Directives occurred with: Patient Does the patient have a Living Will? No Does the patient have Health Care Power of Senior Principal Process Engineer? No Full Code 01/11/2008 9:52 AM 01/12/2008 1:19 PM Care Teams Channel Layer Relationship Specialty Start Date End Date Blanca Luciano DO PCP - General Family Medicine 04/06/21 documented as of this encounter
--- OUTSIDE RECORDS SUMMARY | 2023-08-19 10:16 | External Medical Summary | Summary of Care ---
Author Name Unknown Organization [facility] Address [address] [place] [address] Phone [phone] Care Team Providers Care Assembler Sandal Parts Name Role Phone Unavailable Primary Care Provider Unavailabl e Reason for Visit * Reason Onset Date Comments Medication Refill 08/08/2023 Encounter Details Date Type Department Care Team (Late st Contact Info) Description 08/08[facility] [address] [facility] [place] [address] Blanca Luciano, DO [address] [place] [address] Hypothyroidism, unspecified type* Allergies Active Allergy Reactions Criticality Noted Date Comments Nitroglycerin Tachycardia 11/12/2020 Applies to NTG SL tablets only. Not Nitro paste. Not Imdur. Rosuvastatin Medium 11/05/2018 Other reaction(s): ELEVATED ALT Simvastatin 11/05/2018 Other reaction(s): Unknown Simvastatin 02/02/2007 Elevated ALT documented as of this encounter (statuses as of 08/08/2023) Medications Medication Sig Dispensed Refills Start Date [...] to injection. 2 Each 11 07/01/2022 Active Isosorbide Mononitrate ER 30 MG Oral Tablet Extended Release 24 Hour (Imdur)Indication s:S/P right coronary artery (RCA) stent placement,Coronar y artery disease involving [place] heart without angina pectoris, unspecified vessel or [...] Hour (Cardizem CD)Indications:Co ronary artery disease of [place] artery of [place] heart with stable angina pectoris (HCC),Chronic ischemic [...] OTHER MEDS 90 Tablet 2 08/08/2023 Active Levothyroxine Sodium 50 MCG Oral Tablet (Levoxyl)Indicati ons:Hypothyroidis m, unspecified type TAKE ONE TABLET BY MOUTH EVERY MORNING AT LEAST 30 MINUTES PRIOR TO BREAKFAST OR OTHER MEDS 90 Tablet 2 09/20/2022 4 Discontinu ed(Refill) Hospital, Clinic, or Other Facility Administered Medication Ordered Dose Route Frequency Start Date End Date Status albuterol sulfate (PROVENTIL) (2.5 MG/3ML) 0.083% inhalation solution 2.5 mgIndications:COPD, mild (HCC) 2.5 mg NEBULIZER Q4H PRN 03/22/2019 Active documented as of this encounter (statuses as of 08/08/2023) Active Problems Problem Noted Date Diagnosed Date [...] LAD coronary ar kalyan 06/14/2018 Overview: 06/05/2018 [place] 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 Encouraged to take nice deep breaths and rinse after steroid inhaler. Test performed by Vicky BUILDING CODE ADMINISTRATOR CPFT S/P right coronary artery (RCA) stent placement 11/16/2015 Coronary artery disease of n ative artery of [place] heart with stable angina pectoris 11/12/2015 IBS [...] as of this encounter (statuses as of 08/08/2023) Resolved Problems Problem Noted Date Diagnosed Date [...] Research Coordinator: Dipti Sanches SPIRIT IV Clinical Trial*[id number] 02/08/2008 11/27/2013 Overview: Renamed Per Clinical Trials Billing Project. SPIRIT IV clinical trial: Xience V Everolimus ALICIA vs. TAXUS ALICIA PI: Jess More MD Research Coordinator: Dipti Sanches [employer] Other*[id number] 01/11/2008 08/10/2016 Overview: Study Title: Genomic Markers for Patients with Cardiovascular Disease Project # [id number] House Parent: Jess More MD [phone] Other specified congenital a nomaly of esophagus [...] as of this encounter (statuses as of 08/08/2023) Immunizations Name Administration Dates Next Due Pneumococcal [...] Miscellaneous Notes * Telephone Encounter - Christopher Quinones PA-C - 08/08/2023 11:11 AM EST Signed Prescriptions: Disp Refills Levothyroxine Sodium 50 MCG Oral Tablet (L*90 Tab*2 Sig: TAKE ONE TABLET BY MOUTH EVERY MORNING AT LEAST 30 MINUTES PRIOR TO BREAKFAST OR OTHER MEDSAuthorizing Provider: CHRISTOPHER QUINONES * Telephone Encounter - Isaura Bond LPN - 08/08/2023 10:45 AM EST No prescriptions requested or ordered in this encounter Last Visit: 01/26/2023 (in office), Visit date not found (telemedicine) Next Visit: 01/19/2024 Last date the medication was ordered: 09/20/22 Patient Active Problem List Diagnosis Code Benign neoplasm of colon D12.6 Displacement of lumbar intervertebral disc without myelopathy M51.26 Dyslipidemia E78.5 Gastroesophageal reflux disease with esophagitis K21.00 Severe obesity with body mass index (BMI) of 35.0 to 39.9 with serious comorbidity ([facility]) E66.01 Osteoarthritis of right knee M17.11 History of basal cell carcinoma Z85.828 IBS (irritable bowel syndrome) K58.9 NAFLD (nonalcoholic fatty liver disease) K76.0 Coronary artery disease of [place] artery of [place] heart with stable angina pectoris (HCC) I25.118 S/P right coronary artery (RCA) stent placement Z95.5 [place] miners' lung (HCC) J60 History of placement of stent in LAD coronary artery Z95.5 JUAN ANTONIO (generalized anxiety disorder) F41.1 Moderate persistent asthma without complication J45.40 Sensorineural hearing loss (SNHL) of left ear with unrestricted hearing of right ear H90.42 Stage 3a chronic kidney disease N18.31 CAD S/P percutaneous coronary angioplasty I25.10, Z98.61 Granulomatous lung disease ([facility]) J84.10 COPD, group B, by GOLD 2017 classification ([facility]) J44.9 Labs: Lab Results Component Value Date/Time CREATININE - [facility] 1.4 (H) 04/25/2023 01:50 PM CREATININE - [facility] 1.4 (H) 07/09/2020 10:56 AM CREATININE, RANDOM URINE - [facility] 145 06/09/2022 10:28 AM CREATININE, RANDOM URINE - [facility] 253 06/16/2020 11:32 AM CREATININE-OUTSIDE LAB 1.3 07/08/2019 12:00 AM Lab Results Component Value Date/Time POTASSIUM - [facility] 4.7 04/25/2023 01:50 PM POTASSIUM - [facility] 4.2 07/09/2020 10:56 AM POTASSIUM-OUTSIDE LAB 3.4 (A) 07/08/2019 12:00 AM Lab Results Component Value Date/Time TSH - [facility] 2.24 02/09/2023 11:35 AM TSH - [facility] 3.81 04/23/2019 11:14 AM Lab Results Component Value Date/Time LDL (DIRECT MEASURE)-OUTSIDE LAB 146 (A) 10/12/2018 12:00 AM LDL CHOLESTEROL (CALCULATED) - [facility] 56 02/09/2023 11:35 AM LDL CHOLESTEROL (CALCULATED) - [facility] 27 12/07/2021 10:22 AM LDL CHOLESTEROL (CALCULATED) - [facility] 04/23/2019 11:14 AM Uninterpretable, recommend direct LDL cholesterol testing. LDL CHOLESTEROL (CALCULATED) - [facility] 107 05/29/2018 11:39 AM LDL CHOLESTEROL (DIRECT MEASURE) - [facility] 66 06/09/2022 10:28 AM LDL CHOLESTEROL (DIRECT MEASURE) - [facility] 73 01/30/2020 10:21 AM LDL CHOLESTEROL (DIRECT MEASURE) - [facility] NOT APPLICABLE 05/29/2018 11:39 AM LDL CHOLESTEROL (DIRECT MEASURE) - [facility] 73 05/07/2009 02:23 PM LDL CHOLESTEROL (DIRECT MEASURE) - [facility] 96 01/08/2009 03:19 PM Lab Results Component Value Date/Time ALT - [facility] 96 (H) 04/25/2023 01:50 PM ALT - [facility] 194 (H) 07/09/2020 10:56 AM Hemoglobin AIC Results: Lab Results Component Value Date/Time HEMOGLOBIN A1C - [facility] 4.3 11/13/2015 01:02 PM HEMOGLOBIN A1C - [facility] 4.2 01/11/2008 09:34 AM HEMOGLOBIN A1C - [facility] 4.1 09/04/2007 11:34 AM documented in this encounter Plan of Treatment Upcoming Encounters Date Type Department Care Team (Late st Contact Info) Description 09/02/2023 11:30 AM EST Office Visit Sleep Disorders Ctr [facility] [address] [facility] [place] [phone] Sallie Wong CRNP [address] [facility] [place] [address] 10/05/2023 11:00 AM EDT Office Visit Nephrology, [place] [address] [place] [address] [place] [address] Evangelist Lyle MD [address] [place], [place] [address] [address] 01/19/2024 4:00 PM EDT Office [facility] [address] [address] [facility] [place] [address] Christopher Quinones PA-C [address] [facility] [place] [address] 01/31/2024 10:40 AM EDT Office Visit Dermatology [address] [facility] [place] [address] Lucero Mercado PA-C [address] [facility] [place] [address] Scheduled Procedures Name Priority Associated Diagnoses Date/Ti [...] Ratio 06/09/2023 06/09/2022 CKD PHOS USE SMARTSET 29214 06/09/2023 06/09/2022, 1 08/17/2019 GFR 10/25/2023 04/25/2023, 08/0 03/2023, 06/09/2022, Additional history exists CKD HGB USE SMARTSET 15629 02/10/202402/09, 02/09/2023, 06/09/2022, Additional history exists TSH [...] as of this encounter Visit Diagnoses Diagnosis Hypothyroidism, unspecified type- Primary documented in this encounter Advance Directives Latest [...] the patient have Health Care Power of Medical Office Administrator? No Code Status History Code Status Date Activated Date Inactivated Comments Full Code 11/12/2015 7:57 PM 11/14/2015 3:07 PM This order reflects the patients wishes and were consensually agreed upon. Question Answer Comments Discussion of Advance Directives occurred with: Patient Does the patient have a Living Will? No Does the patient have Health Care Power of Medical Office Administrator? No Full Code 01/11/2008 9:52 AM 01/12/2008 1:19 PM
--- OUTSIDE RECORDS SUMMARY | 2023-08-19 10:16 | External Medical Summary | Summary of Care ---
Author Name Unknown Organization [facility] Address [address] [place] [address] Phone [phone] Care Team Providers Care Claims Service Representative Name Role Phone Unavailable Primary Care Provider Unavailabl e Encounter Details Date Type Department Care Team (Late st Contact Info) Description 08/02/2023 Telephone Access Center, [place] [address] [facility] *DO NOT REMOVE THIS DEPARTMENT* [place] [address] Services, Scheduling [address] [place] [address] Allergies Active Allergy Reactions Criticality Noted Date Comments Nitroglycerin Tachycardia 11/12/2020 Applies to NTG SL tablets only. Not Nitro paste. Not Imdur. Rosuvastatin Medium 11/05/2018 Other reaction(s): ELEVATED ALT Simvastatin 11/05/2018 Other reaction(s): Unknown Simvastatin 02/02/2007 Elevated ALT documented as of this encounter (statuses as of 08/04/2023) Medications Medication Sig Dispensed Refills Start Date [...] minutes prior to injection. 2 Each 07/01/2022 Active Levothyroxine Sodium 50 MCG Oral Tablet (Levoxyl)Indicatio ns:Hypothyroidism, unspecified type TAKE ONE TABLET BY MOUTH EVERY MORNING AT LEAST 30 MINUTES PRIOR TO BREAKFAST OR OTHER MEDS 90 Tablet 2 09/20/2022 Active Isosorbide Mononitrate ER 30 MG Oral Tablet Extended Release 24 Hour (Imdur)Indications :S/P right coronary artery (RCA) stent placement,Coronary artery disease involving [place] heart without angina pectoris, unspecified vessel or lesion type Take 1 Tablet by mouth in the morning. 90 Tablet 3 11/22/2022 Active Sodium Bicarbonate 650 MG Oral Tablet Take 1 Tablet by mouth daily. 90 Tablet 3 02/21/2023 Active Additional Information Patient not taking.Reported on 05/25/2023 Clopidogrel Bisulfate 75 MG Oral Tablet (pLAVix)Indication s:S/P angioplasty with stent TAKE ONE TABLET BY MOUTH EVERY DAY 90 Tablet 3 05/02/2023 Active Dicyclomine HCl 10 MG Oral Capsule (Bentyl)Indication s:LLQ abdominal pain TAKE ONE CAPSULE BY MOUTH TWICE A DAY NEEDED FOR LOWER ABDOMEN PAIN /CRAMPING 180 Capsule 1 2023 Active dilTIAZem HCl ER Coated Beads 180 MG Oral Capsule Extended Release 24 Hour (Cardizem CD)Indications:Cor onary artery disease of [place] artery of [place] heart with stable angina pectoris (HCC),Chronic ischemic [...] 06/16/2023 Active ALPRAZolam 0.25 MG Oral Tablet (xaNAX)Indications :Anxiety state Only take for panic. Reduce dose for safety. TAKE ONE TABLET BY MOUTH THREE TIMES A DAY (MORNING, NOON, EVENING) NEEDED FOR ANXIETY 90 Tablet 0 06/22/2023 Active Hospital, Clinic, or Other Facility Administered Medication Ordered Dose Route Frequency Start Date End Date Status albuterol sulfate (PROVENTIL) (2.5 MG/3ML) 0.083% inhalation solution 2.5 mgIndications:COPD, mild (HCC) 2.5 mg NEBULIZER Q4H PRN 03/22/2019 Active documented as of this encounter (statuses as of 08/04/2023) Active Problems Problem Noted Date Diagnosed Date [...] LAD coronary ar kalyan 06/14/2018 Overview: 06/05/2018 [place] 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 Encouraged to take nice deep breaths and rinse after steroid inhaler. Test performed by Vicky ORACLE PROGRAMMER ANALYST CPFT S/P right coronary artery (RCA) stent placement 11/16/2015 Coronary artery disease of n ative artery of [place] heart with stable angina pectoris 11/12/2015 IBS [...] as of this encounter (statuses as of 08/04/2023) Resolved Problems Problem Noted Date Diagnosed Date [...] Research Coordinator: Dipti Sanches SPIRIT IV Clinical Trial*[id number] 02/08/2008 11/27/2013 Overview: Renamed Per Clinical Trials Billing Project. SPIRIT IV clinical trial: Xience V Everolimus ALICIA vs. TAXUS ALICIA PI: Jess More MD Research Coordinator: Dipti Sanches [employer] Other*[id number] 01/11/2008 08/10/2016 Overview: Study Title: Genomic Markers for Patients with Cardiovascular Disease Project # [id number] Prefitter: Jess More MD [phone] Other specified congenital a nomaly of esophagus [...] as of this encounter (statuses as of 08/04/2023) Immunizations Name Administration Dates Next Due Pneumococcal [...] encounter Miscellaneous Notes * Telephone Encounter - Colleen Webster OSA - 08/02/2023 9:09 AM EST Called patient to make aware appt cancelled on 09/04 and with Renee Singh patient will need to be rescheduled. Thank you documented in this encounter Plan of Treatment Upcoming Encounters Date Type Department Care Team (Late st Contact Info) Description 09/02/2023 11:30 AM EST Office Visit Sleep Disorders Ctr [facility] [address] [place] [phone] Sallie Wong CRNP [address] [place] [address] 10/05/2023 11:00 AM EDT Office Visit Nephrology, [place] [address] [facility] [place] [address] Evangelist Lyle MD [address] [place] [address] [place] [address] 01/19/2024 4:00 PM EDT Office Visit Family Practice [address], [place] [address] [facility] [place] [address] Christopher Quinones PA-C [facility] [facility] [address] 01/31/2024 10:40 AM EDT Office Visit Dermatology [address], [place] [address] [place] [address] Lucero Mercado PA-C [address] [place] [address] Scheduled Procedures Name Priority Associated Diagnoses Date/Ti [...] Ratio 06/09/2023 06/09/2022 CKD PHOS USE SMARTSET 16258 06/09/2023 06/09/2022, 1 08/17/2019 GFR 10/25/2023 04/25/2023, 08/0 03/2023, 06/09/2022, Additional history exists CKD HGB USE SMARTSET 50224 02/10/202402/09, 02/09/2023, 06/09/2022, Additional history exists TSH [...] the patient have Health Care Power of Member Services Representative? No Code Status History Code Status Date Activated Date Inactivated Comments Full Code 11/12/2015 7:57 PM 11/14/2015 3:07 PM This order reflects the patients wishes and were consensually agreed upon. Question Answer Comments Discussion of Advance Directives occurred with: Patient Does the patient have a Living Will? No Does the patient have Health Care Power of Member Services Representative? No Full Code 01/11/2008 9:52 AM 01/12/2008 1:19 PM
--- OUTSIDE RECORDS SUMMARY | 2023-08-19 10:16 | External Medical Summary | Summary of Care ---
Author Name Unknown Organization [facility] Address [address] [facility] [place] [address] Phone [phone] Care Team Providers Care Warehouse Stocker Name Role Phone Blanca Luciano DO Primary Care Provider Un available Reason for Visit * Reason Comments eRx-Medication Refill Encounter Details Date Type Department Care Team (Late st Contact Info) Description 06/16/2023 Refill Gastroenterology, [facility] [address] [place] [address] Lindsey Olmos CRNP [address] [place] [address] LLQ abdominal pain Allergies Active Allergy Reactions Criticality Noted Date Comments Nitroglycerin Tachycardia 11/12/2020 Applies to NTG SL tablets only. Not Nitro paste. Not Imdur. Rosuvastatin Medium 11/05/2018 Other reaction(s): ELEVATED ALT Simvastatin 11/05/2018 Other reaction(s): Unknown Simvastatin 02/02/2007 Elevated ALT documented as of this encounter (statuses as of 2023) Medications Medication Sig Dispensed Refills Start Date End Date Status ASPIRIN 81 MG PO CHEW Take 1 Tablet by mouth in the morning. 0 8 Active CPAP 7 cm every night at bedtime . 0 Active Hydrocortisone 2.5 % External Cream Apply topically to affected area 2 times a day. Apply to armpit until clear then as needed. 20 g 2 Active Additional Information Patient not taking.Reported on [...] 30 minutes prior to injection. 2 Each 2 Active Levothyroxine Sodium 50 MCG Oral Tablet (Levoxyl)Indicati ons:Hypothyroidis m, unspecified type TAKE ONE TABLET BY MOUTH EVERY MORNING AT LEAST 30 MINUTES PRIOR TO BREAKFAST OR OTHER MEDS 90 Tablet 2 3 Active Isosorbide Mononitrate ER 30 MG Oral Tablet Extended Release 24 Hour (Imdur)Indication s:S/P right coronary artery (RCA) stent placement,Coronar y artery disease involving stebbins heart without angina pectoris, unspecified vessel or lesion type Take 1 Tablet by mouth in the morning. 90 Tablet 3 3 Active Sodium Bicarbonate 650 [...] FOR ANXIETY 90 Tablet 0 3 Active Dicyclomine HCl 10 MG Oral Capsule (Bentyl)Indicatio ns:LLQ abdominal pain TAKE ONE CAPSULE BY MOUTH TWICE A DAY NEEDED FOR LOWER ABDOMEN PAIN /CRAMPING 180 Capsule 1 3 Active dilTIAZem HCl ER Coated Beads 180 MG Oral Capsule Extended Release 24 Hour (Cardizem CD)Indications:Co ronary artery disease of stebbins artery of stebbins heart with stable angina pectoris (HCC),Chronic ischemic heart disease TAKE ONE CAPSULE BY MOUTH EVERY DAY 90 Capsule 3 3 Active Pantoprazole Sodium 40 MG Oral Tablet Delayed Release (Protonix) TAKE ONE TABLET BY MOUTH EVERY MORNING 90 Tablet 1 3 Active Losartan Potassium 25 MG Oral Tablet (Cozaar) Take 0.5 Tablets by mouth in the morning. 45 Tablet 3 3 Active Dicyclomine HCl 10 MG Oral Capsule (Bentyl)Indicatio ns:LLQ abdominal pain One tab twice daily as needed for lower abdomen pain/cramping 180 Capsule 3 2 06/17/20 23 Discontinued Pantoprazole Sodium 40 MG Oral Tablet Delayed Release (Protonix) Take 1 Tablet (40 mg) by mouth in the morning. 90 Tablet 3 2 06/17/20 23 Discontinued Hospital, Clinic, or Other Facility Administered Medication Ordered Dose Route Frequency Start Date End Date Status albuterol sulfate (PROVENTIL) (2.5 MG/3ML) 0.083% inhalation solution 2.5 mgIndications:COPD, mild (HCC) 2.5 mg NEBULIZER Q4H PRN 03/22/2019 Active documented as of this encounter (statuses as of 2023) Active Problems Problem Noted Date Diagnosed Date [...] LAD coronary ar kalyan 06/14/2018 Overview: 06/05/2018 [place] 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 Encouraged to take nice deep breaths and rinse after steroid inhaler. Test performed by Vicky OPERATIONS SUPPORT SPECIALIST CPFT S/P right coronary artery (RCA) stent placement 11/16/2015 Coronary artery disease of n ative artery of stebbins heart with stable angina pectoris 11/12/2015 IBS [...] as of this encounter (statuses as of 2023) Resolved Problems Problem Noted Date Diagnosed Date [...] Research Coordinator: Dipti Sanches SPIRIT IV Clinical Trial*[id number] 02/08/2008 11/27/2013 Overview: Renamed Per Clinical Trials Billing Project. SPIRIT IV clinical trial: Xience V Everolimus ALICIA vs. TAXUS ALICIA PI: Jess More MD Research Coordinator: Dipti Sanches [employer] Other*[id number] 01/11/2008 08/10/2016 Overview: Study Title: Genomic Markers for Patients with Cardiovascular Disease Project # [id number] Animal Surgeon: Jess More MD [phone] Other specified congenital a nomaly of esophagus [...] as of this encounter (statuses as of 2023) Immunizations Name Administration Dates Next Due Pneumococcal [...] encounter Miscellaneous Notes * Telephone Encounter - Lionel Nettles RPh - 2023 8:53 AM ESTSigned Prescriptions: Disp Refills Dicyclomine HCl 10 MG Oral Capsule (Bentyl)180 Ca*1 Sig: TAKE ONE CAPSULE BY MOUTH TWICE A DAY NEEDED FOR LOWER ABDOMEN PAIN /CRAMPINGAuthorizing Provider: LINDSEY OLMOS User: LIONEL NETTLES Pantoprazole Sodium 40 MG Oral Tablet Arianna*90 Tab*1 Sig: TAKE ONE TABLET BY MOUTH EVERY MORNINGAuthorizing Provider: LINDSEY OLMOS User: LIONEL NETTLES documented in this encounter Plan of Treatment Upcoming Encounters Date Type Department Care Team (Late st Contact Info) Description 08/23/2023 11:20 AM EST [facility] [address] [place] [address] Blanca Luciano DO 09/02/2023 11:30 AM EST Office Visit Sleep Disorders Ctr [facility] [address] [address] Sallie Wong CRNP [address] [place] [address] 09/05/2023 1:30 PM EST Office Visit Gastroenterology, [facility] [address] [place] [address] Renee Daniels CRNP [address] [place] [address] 10/05/2023 11:00 AM EDT Office Visit Nephrology, [place] [address] [place] [address] Evangelist Lyle MD [address] [facility] [place] [address] 01/31/2024 10:40 AM EDT Office Visit Dermatology [address], [place] [address] [place] [address] Lucero Mercado PA-C [address] [facility] [place] [address] Scheduled Procedures Name Priority Associated Diagnoses Date/Ti [...] Ratio 06/09/2023 06/09/2022 CKD PHOS USE SMARTSET 53511 06/09/2023 06/09/2022, 1 08/17/2019 GFR 10/25/2023 04/25/2023, 08/0 03/2023, 06/09/2022, Additional history exists CKD HGB USE SMARTSET 66784 02/10/202402/09, 02/09/2023, 06/09/2022, Additional history exists TSH [...] as of this encounter Visit Diagnoses Diagnosis LLQ abdominal pain Abdominal pain, left lower quadrant documented in this encounter Advance Directives Latest [...] the patient have Health Care Power of Patient Service Technician Pst? No Code Status History Code Status Date Activated Date Inactivated Comments Full Code 11/12/2015 7:57 PM 11/14/2015 3:07 PM This order reflects the patients wishes and were consensually agreed upon. Question Answer Comments Discussion of Advance Directives occurred with: Patient Does the patient have a Living Will? No Does the patient have Health Care Power of Patient Service Technician Pst? No Full Code 01/11/2008 9:52 AM 01/12/2008 1:19 PM Care Teams Warehouse Stocker Relationship Specialty Start Date End Date Blanca Luciano DO PCP - General Family Medicine 04/06/21 documented as of this encounter
--- OUTSIDE RECORDS SUMMARY | 2023-08-19 10:16 | External Medical Summary | Summary of Care ---
Author Name Unknown Organization [facility] Address [address] [facility] [place] [address] Phone [phone] Care Team Providers Care Big Data Software Engineer Name Role Phone Blanca Luciano DO Primary Care Provider Un available Reason for Visit * Reason Onset Date Comments Test Results 06/03/2023 Encounter Details Date Type Department Care Team (Late st Contact Info) Description 06/03/2023 Telephone Gastroenterology, [facility] [address] [place] [address] Renee Daniels CRNP [address] [place] [address] Test Results Allergies Active Allergy Reactions Criticality Noted Date Comments Nitroglycerin Tachycardia 11/12/2020 Applies to NTG SL tablets only. Not Nitro paste. Not Imdur. 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 0 Active Dicyclomine HCl 10 MG Oral Capsule (Bentyl)Indication s:LLQ abdominal pain One tab twice daily as [...] artery (RCA) stent placement,Coronary artery disease involving chitina heart without angina pectoris, unspecified vessel or lesion type Take 1 Tablet by mouth in the morning. 90 Tablet 3 11/22/2022 Active Losartan Potassium 25 MG Oral Tablet (Cozaar) Take 0.5 Tablets by mouth in the morning. 45 Tablet 3 02/09/2023 Active Sodium Bicarbonate 650 MG Oral Tablet Take 1 Tablet by mouth daily. 90 Tablet 3 02/21/2023 Active Additional Information Patient not taking.Reported on 05/25/2023 Clopidogrel Bisulfate 75 MG Oral Tablet (pLAVix)Indication s:S/P angioplasty with stent TAKE ONE TABLET BY MOUTH EVERY DAY 90 Tablet 3 05/02/2023 Active ALPRAZolam 0.25 MG Oral Tablet (xaNAX)Indications :Anxiety state Only take for panic. Reduce dose for safety. TAKE ONE TABLET BY MOUTH THREE TIMES A DAY (MORNING, NOON, EVENING) NEEDED FOR ANXIETY 90 Tablet 0 05/27/2023 Active Hospital, Clinic, or Other Facility Administered Medication Ordered Dose Route Frequency Start Date End Date Status albuterol sulfate (PROVENTIL) (2.5 MG/3ML) 0.083% inhalation solution 2.5 mgIndications:COPD, mild (HCC) 2.5 mg NEBULIZER Q4H PRN 03/22/2019 Active documented as of this encounter (statuses as of 06/06/2023) Active Problems Problem Noted Date Diagnosed Date [...] LAD coronary ar kalyan 06/14/2018 Overview: 06/05/2018 [place] 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 Encouraged to take nice deep breaths and rinse after steroid inhaler. 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 SPIRIT IV clinical trial: Xience V Everolimus ALICIA vs. TAXUS ALICIA PI: Jess More MD Research Coordinator: Dipti [facility] Cardio Research Other*[id number] 01/11/2008 08/10/2016 Overview: Study Title: Genomic Markers for Patients with Cardiovascular Disease Project # [id number] Student: Jess More MD [phone] Other specified congenital a nomaly of esophagus [...] as of this encounter (statuses as of 06/06/2023) Immunizations Name Administration Dates Next Due Pneumococcal Polysaccharide PPV23 (Pneumovax) 01/20/2022,04/24/2007 SEASONAL INFLUENZA, PF, 6 M & Above, IM , (FLULAVAL or FLUZONE) 04/06/2021,06/16/2020,05/23/2019,05/29,08/15/2017 Seasonal Influenza Virus Vac cine, Unspecified Formulation 04/06/2021,06/16/2020,05/23/2019,05/29,08/15/2017,08/02/2016,05/13/2014 ,05/14/2013,05/13/2012,05/10/2011,10/2009,04/07/2009,04/29/2008, 7,06/21/2005,06/06/2003 Seasonal Influenza, Quadriva lent, No Preserve, IM 08/02/2016,06/16/2015 Seasonal Influenza, Split, I IV3, With Preserve, Inj 05/13/2014,05/14/2013,05/13/2012,05/10,04/06/2010,04/07/2009,04/29/2008 ,04/24/2007,06/21/2005,06/06/2003 TD - Tetanus/Diptheria (ADULT) 02/06/2003 TDAP (age 10 and older)(Boostrix) 05/14/2013,12/2002 Zoster [...] encounter Miscellaneous Notes * Telephone Encounter - Bess Deal RN - 06/06/2023 1:45 PM EST This has been fully explained to the patient, who indicates understanding. * Telephone Encounter - Sherrie Sanchez RN - 06/03/2023 1:29 PM EST LMOM with call back number. * Telephone Encounter - Renee Daniels CRNP - 06/03/2023 1:14 PM EST Please let him know the fibroscan was reviewed, Non fibrotic liver (F0-F1) , we can discuss in further detail at this appt DARLYN Correa 06/03/2023 1:14 PM documented in this encounter Plan of Treatment Upcoming Encounters Date Type Department Care Team (Late st Contact Info) Description 08/23/2023 11:20 AM EST Office Visit [facility] [place], [place] [address] [place] [address] Blanca Luciano DO 09/02/2023 11:30 AM EST Office Visit Sleep Disorders Ctr [facility] [address] [place] [phone] Sallie Wong CRNP [address] [place] [address] 09/05/2023 1:30 PM EST Office Visit Gastroenterology, [facility] [address] [place] [address] Renee Daniels CRNP [address] [place] [address] 10/05/2023 11:00 AM EDT Office Visit Nephrology, [place] [address] [place] [address] Evangelist Lyle MD [address] [place] [address] [place] [address] 01/31/2024 10:40 AM EDT Office Visit Dermatology [address], [place] [address] [place] [address] Lucero Mercado PA-C [address] [facility] [place] [address] Scheduled Procedures Name Priority Associated Diagnoses Date/Ti [...] Ratio 06/09/2023 06/09/2022 CKD PHOS USE SMARTSET 83052 06/09/2023 06/09/2022, 1 08/17/2019 GFR 10/25/2023 04/25/2023, 08/0 03/2023, 06/09/2022, Additional history exists CKD HGB USE SMARTSET 81041 02/10/202402/09, 02/09/2023, 06/09/2022, Additional history exists TSH [...] the patient have Health Care Power of Construction Code Administrator? No Code Status History Code Status Date Activated Date Inactivated Comments Full Code 11/12/2015 7:57 PM 11/14/2015 3:07 PM This order reflects the patients wishes and were consensually agreed upon. Question Answer Comments Discussion of Advance Directives occurred with: Patient Does the patient have a Living Will? No Does the patient have Health Care Power of Construction Code Administrator? No Full Code 01/11/2008 9:52 AM 01/12/2008 1:19 PM Care Teams Big Data Software Engineer Relationship Specialty Start Date End Date Blanca Luciano DO PCP - General Family Medicine 04/06/21 documented as of this encounter
--- OUTSIDE RECORDS SUMMARY | 2023-08-19 10:16 | External Medical Summary | Summary of Care ---
Author Name Unknown Organization [facility] Address [address] [facility] [place] [address] Phone [phone] Care Team Providers Care Inspector Bicycle Name Role Phone Unavailable Primary Care Provider Unavailabl e Reason for Visit * Reason Comments eRx-Medication Refill Encounter Details Date Type Department Care Team (Late st Contact Info) Description 07/25/2023 Refill Family Practice [place] [address] [facility] [place] [address] Christopher Quinones PA-C [address] [facility] [place] [address] Anxiety state Allergies Active Allergy Reactions Criticality Noted Date Comments Nitroglycerin Tachycardia 11/12/2020 Applies to NTG SL tablets only. Not Nitro paste. Not Imdur. Rosuvastatin Medium 11/05/2018 Other reaction(s): ELEVATED ALT Simvastatin 11/05/2018 Other reaction(s): Unknown Simvastatin 02/02/2007 Elevated ALT documented as of this encounter (statuses as of 07/26/2023) Medications Medication Sig Dispensed Refills Start Date [...] artery (RCA) stent placement,Coronary artery disease involving hop[place] heart without angina pectoris, unspecified vessel or [...] Hour (Cardizem CD)Indications:Cor onary artery disease of [place] artery of [place] heart with stable angina pectoris (HCC),Chronic ischemic [...] as of this encounter (statuses as of 07/26/2023) Active Problems Problem Noted Date Diagnosed Date [...] LAD coronary ar kalyan 06/14/2018 Overview: 06/05/2018 [place] 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 Encouraged to take nice deep breaths and rinse after steroid inhaler. Test performed by Vicky MEDICAL DOSIMETRIST CPFT S/P right coronary artery (RCA) stent placement 11/16/2015 Coronary artery disease of n ative artery of hop[place] heart with stable angina pectoris 11/12/2015 IBS [...] as of this encounter (statuses as of 07/26/2023) Resolved Problems Problem Noted Date Diagnosed Date [...] Research Coordinator: Dipti Sanches SPIRIT IV Clinical Trial*[id number] 02/08/2008 11/27/2013 Overview: Renamed Per Clinical Trials Billing Project. SPIRIT IV clinical trial: Xience V Everolimus ALICIA vs. TAXUS ALICIA PI: Jess More MD Research Coordinator: Dipti Sanches [employer] Research Other*[id number] 01/11/2008 08/10/2016 Overview: Study Title: Genomic Markers for Patients with Cardiovascular Disease Project # [id number] Professor Of Oceanography: Jess More MD [phone] Other specified congenital a nomaly of esophagus [...] as of this encounter (statuses as of 07/26/2023) Immunizations Name Administration Dates Next Due Pneumococcal [...] encounter Miscellaneous Notes * Telephone Encounter - Francy Xavier, [facility] - 07/26/2023 9:20 AM EST Refused Prescriptions: Disp Refills ALPRAZolam 0.25 MG Oral Tablet (xaNAX) 90 Tab*0 Sig: TAKE ONE TABLET BY MOUTH THREE TIMES A DAY NEEDED FOR ANXIETY (MORNING, NOON AND EVENING) ONLY TAKE FOR PANICRefused By: FRANCY XAVIER for Refusal: Too soon * Telephone Encounter - Francy Xavier RPh - 07/26/2023 9:20 AM EST I have reviewed the patients controlled substance dispensing history in the Prescription Drug Monitoring Program in compliance with the [facility] regulations before prescribing a controlled substance. PDMP checked on 07/26/2023. Pending Prescriptions: Disp Refills ALPRAZolam 0.25 MG Oral Tablet (xaNAX) [P*90 Tab*0 Sig: TAKE ONE TABLET BY MOUTH THREE TIMES A DAY NEEDED FOR ANXIETY (MORNING, NOON AND EVENING) ONLY TAKE FOR PANIC Last Visit: 01/26/2023 (in office), Visit date not found (telemedicine) Next Visit: 01/19/2024 Date medication was last filled: 07/22 Date medication is due for refill: 08/20 Pharmacy: [address]- [place] Is this request for a controlled substance? Yes and Urine Drug Screen Not completed Toxicology results: No results found. However, due to the size of the patient record, not all encounters were searched.Please check Results Review for a complete set of results. Please approve if appropriate. Thank you, Francy Xavier, PharmD. Clinical Pharmacist [facility] ([facility]) (formerly Telepharmacy) 07/26/2023, 9:20 AM documented in this encounter Plan of Treatment Upcoming Encounters Date Type Department Care Team (Late st Contact Info) Description 09/02/2023 11:30 AM EST Office Visit Sleep Disorders Ctr [facility] [address] [facility] [place] [phone] Sallie Wong CRNP [address] [facility] [place] [address] 09/05/2023 1:30 PM EST Office Visit Gastroenterology, [facility] [address] [facility] [place] [address] Renee Daniels CRNP [address] [facility] [place] [address] 10/05/2023 11:00 AM EDT Office Visit Nephrology, [place] [address] [facility] [place] [address] Evangelist Lyle MD [address] [place] [address] [place] [address] 01/19/2024 4:00 PM EDT Office Visit Family Practice [facility], [place] [address] [facility] [place] [address] Christopher Quinones PA-C [address] [facility] [place] [address] 01/31/2024 10:40 AM EDT Office Visit Dermatology [facility], [place] [address] [place] [facility] [place] [address] Lucero Mercado PA-C [address] [place] [address] Scheduled Procedures Name Priority Associated Diagnoses Date/Ti [...] Ratio 06/09/2023 06/09/2022 CKD PHOS USE SMARTSET 03711 06/09/2023 06/09/2022, 1 08/17/2019 GFR 10/25/2023 04/25/2023, 08/0 03/2023, 06/09/2022, Additional history exists CKD HGB USE SMARTSET 28428 02/10/202402/09, 02/09/2023, 06/09/2022, Additional history exists TSH 02/10/2024 02/09/2023, 12/01/2022, 03/22/2022, Additional history exists O2 ASSESSMENT COMPLETED [...] the patient have Health Care Power of Audit Machine Operator? No Code Status History Code Status Date Activated Date Inactivated Comments Full Code 11/12/2015 7:57 PM 11/14/2015 3:07 PM This order reflects the patients wishes and were consensually agreed upon. Question Answer Comments Discussion of Advance Directives occurred with: Patient Does the patient have a Living Will? No Does the patient have Health Care Power of Audit Machine Operator? No Full Code 01/11/2008 9:52 AM 01/12/2008 1:19 PM
--- OUTSIDE RECORDS SUMMARY | 2023-08-19 10:16 | External Medical Summary | Summary of Care ---
Author Name Unknown Organization [facility] Address [address] [facility] [place] [address] Phone [phone] Care Team Providers Care Security Operations Specialist Name Role Phone Unavailable Primary Care Provider Unavailabl e Reason for Visit * Reason Onset Date Comments Medication Refill 07/20/2023 Encounter Details Date Type Department Care Team (Late st Contact Info) Description 07/20/2023 [facility] [address] [facility] [place] [address] Blanca Luciano, DO [address] [place] [address] Allergies Active Allergy Reactions Criticality Noted Date Comments Nitroglycerin Tachycardia 11/12/2020 Applies to NTG SL tablets only. Not Nitro paste. Not Imdur. Rosuvastatin Medium 11/05/2018 Other reaction(s): ELEVATED ALT Simvastatin 11/05/2018 Other reaction(s): Unknown Simvastatin 02/02/2007 Elevated ALT documented as of this encounter (statuses as of 07/20/2023) Medications Medication Sig Dispensed Refills Start Date [...] artery (RCA) stent placement,Coronary artery disease involving [place] heart without angina pectoris, unspecified vessel or [...] Hour (Cardizem CD)Indications:Cor onary artery disease of [place] artery of [place] heart with stable angina pectoris (HCC),Chronic ischemic [...] as of this encounter (statuses as of 07/20/2023) Active Problems Problem Noted Date Diagnosed Date [...] LAD coronary ar kalyan 06/14/2018 Overview: 06/05/2018 [place] 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 Encouraged to take nice deep breaths and rinse after steroid inhaler. Test performed by Vicky APPRENTICE PAINTER HAND CPFT S/P right coronary artery (RCA) stent placement 11/16/2015 Coronary artery disease of n ative artery of kot[place] heart with stable angina pectoris 11/12/2015 IBS [...] as of this encounter (statuses as of 07/20/2023) Resolved Problems Problem Noted Date Diagnosed Date [...] Research Coordinator: Dipti Sanches SPIRIT IV Clinical Trial*[id number] 02/08/2008 11/27/2013 Overview: Renamed Per Clinical Trials Billing Project. SPIRIT IV clinical trial: Xience V Everolimus ALICIA vs. TAXUS ALICIA PI: Jess More MD Research Coordinator: Dipti Sanches [employer] Other*[id number] 01/11/2008 08/10/2016 Overview: Study Title: Genomic Markers for Patients with Cardiovascular Disease Project # [id number] Grinding Wheel Dresser: Jess More MD [phone] Other specified congenital a nomaly of esophagus [...] as of this encounter (statuses as of 07/20/2023) Immunizations Name Administration Dates Next Due Pneumococcal [...] encounter Miscellaneous Notes * Telephone Encounter - Isaura Bond LPN - 07/20/2023 8:54 AM EST No prescriptions requested or ordered in this encounter Last Visit: 01/26/2023 (in office), Visit date not found (telemedicine) Next Visit: 01/19/2024 Last date the medication was ordered: 07/01/22 Patient Active Problem List Diagnosis Code Benign [...] liver disease) K76.0 Coronary artery disease of [place] artery of [place] heart with stable angina pectoris ([facility]) I25.118 S/P right coronary artery (RCA) stent placement Z95.5 [place] miners' lung ([facility]) J60 History of placement of stent in [...] AM EST Office Visit [facility] Ctr [address] [place] [phone] Sallie Wong CRNP [address] [facility] [place] [address] 09/05/2023 1:30 PM EST Office Visit Gastroenterology, [facility] [address] [facility] [place] [address] Renee Daniels CRNP [address] [facility] [place] [address] 10/05/2023 11:00 AM EDT Office Visit Nephrology, [place] [address] [place] [address] Evangelist Lyle MD [address] [place] [address] [place] [address] 01/19/2024 4:00 PM EDT Office Visit Family Practice [facility], [place] [address] [facility] [place] [address] Christopher Quinones PA-C [address] [place] [address] 01/31/2024 10:40 AM EDT Office Visit Dermatology [address], [place] [address] [place] [address] Lucero Mercado PA-C [address] [place] [address] Scheduled Procedures Name Priority Associated Diagnoses Date/Ti [...] Ratio 06/09/2023 06/09/2022 CKD PHOS USE SMARTSET 76942 06/09/2023 06/09/2022, 1 08/17/2019 GFR 10/25/2023 04/25/2023, 08/0 03/2023, 06/09/2022, Additional history exists CKD HGB USE SMARTSET 43793 02/10/202402/09, 02/09/2023, 06/09/2022, Additional history exists TSH [...] the patient have Health Care Power of Fresh Meat Grader? No Code Status History Code Status Date Activated Date Inactivated Comments Full Code 11/12/2015 7:57 PM 11/14/2015 3:07 PM This order reflects the patients wishes and were consensually agreed upon. Question Answer Comments Discussion of Advance Directives occurred with: Patient Does the patient have a Living Will? No Does the patient have Health Care Power of Fresh Meat Grader? No Full Code 01/11/2008 9:52 AM 01/12/2008 1:19 PM
--- OUTSIDE RECORDS SUMMARY | 2023-08-19 10:17 | External Medical Summary | Summary of Care ---
Author Name Unknown Organization [facility] Address [address] [place] [address] Phone [phone] Care Team Providers Care Revolving Field Assembler Name Role Phone Blanca Luciano DO Primary Care Provider Un available Reason for Visit * Reason Comments Office Procedure Fibroscan Encounter Details Date Type Department Care Team (Late st Contact Info) Description 06/03/2023 1:00 PM EST Nurse Only Gastroenterology, [address], [place] [address] [place] [address] [place], Nurse Gastro [address] [place], [place] [id number] Office Procedure (Fibroscan) Allergies Active Allergy Reactions Criticality Noted Date Comments Nitroglycerin Tachycardia 11/12/2020 Applies to NTG SL tablets only. Not Nitro paste. Not Imdur. 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 Encouraged to take nice deep breaths and rinse after steroid inhaler. Test performed by Vicky LICENSING AND REGISTRATION DIRECTOR CPFT S/P right coronary artery (RCA) stent placement 11/16/2015 Coronary artery disease of n ative artery of [place] heart with stable angina pectoris 11/12/2015 IBS [...] as of this encounter (statuses as of 06/03/2023) Resolved Problems Problem Noted Date Diagnosed Date [...] Research Coordinator: Dipti Sanches SPIRIT IV Clinical Trial*[id number] 02/08/2008 11/27/2013 Overview: Renamed Per Clinical Trials Billing Project. SPIRIT IV clinical trial: Xience V Everolimus ALICIA vs. TAXUS ALICIA PI: Jess More MD Research Coordinator: Dipti Sanches [employer] Card[employer] Research Other*[id number] 01/11/2008 08/10/2016 Overview: Study Title: Genomic Markers for Patients with Cardiovascular Disease Project # [id number] Database Dba: Jess More MD [phone] Other specified congenital a nomaly of esophagus [...] as of this encounter (statuses as of 06/03/2023) Immunizations Name Administration Dates Next Due Pneumococcal [...] on file documented as of this encounter Last Filed Vital Signs Vital Sign Reading Time Taken Comments Blood Pressure 121/64 06/03/2023 12:39 PM EST Pulse 69 06/03/2023 12:39 PM EST Temperature 36.3 C (97.3 F) 06/03/2023 1 2:39 PM EST Respiratory Rate 18 06/03/2023 12:3 9 PM EST Oxygen Saturation - - Inhaled Oxygen Concentration - - Weight 108.9 kg (240 lb 1.6 oz) 023 12:39 PM EST Height - - Body Mass Index 34.95 02/25/2023 11:18 AM EDT documented in this encounter Functional Status Functional Status Response [...] No 11/12/2015 documented as of this encounter Progress Notes * Cherelle Emmanuel RN - 06/03/2023 1:01 PM EST [facility] Department of Gastroenterology & Hepatology Fibroscan/Vibration Controlled Transient Elastography (VCTE) Procedure Report Date: 06/03/2023 Patient: Mario Burntet Referring Provider: DARLYN Lopez Interpreting Provider: Dr Johnson Indication: Fatty liver NPO 3-Hours: Yes Probe: XL Procedure: After providing oral explanation of the procedure to the patient, patient was placed in a supine position with right arm extended over the head to allow optimal exposure of the right lateral abdomen. Ultrasound location was identified by locating the terminus of the xiphoid process and finding intercostal spacing located midline and lateral to this point. 50 Hz Shear Wave pulses were applied and the resulting Shear Wave and Propagation Speed detected with 3.5 MHz ultrasonic signal, using the FibroScan probe. Skin to liver capsule distance and liver parenchyma were accessed during the entire examination using the FibroScan probe. Eleven Shear wave impulses were produced; individual measurements of each Shear Wave were calculated. Patient tolerated procedure well. Findings: Results for orders placed or performed in visit on 06/03/23 LIVER ELASTOGRAPHY W/O IMAGING Result Value Ref Range Median Shear Wave Speed 1.43 meters/second Median Liver Stiffness 6.1 kilopascal (kPa) IQR/med 25 Range < 30% Fibrosis Staging CAP SCORE 322 dB/m The Interquartile Range to Median ration (IQR/med) for all measurements was 25% , indicating a goodquality study was performed. (Acceptable range of IQR/med less than 30%) Interpretation: Table 1. Non fibrotic liver (F0-F1) Signature: Aster Johnson DO References: Kym Nuñez (2014) Utilization of FibroScan in Clinical Practice. Curr Gastroenterol Rep. DOI 10.1007/y94066-823-6822-0 Table 1 Recommended values for different stage of fibrosis Disease F0-F1 (kPA) F2 (kPA) F3 (kPA) F4 (kPA) Hepatitis B < 6.0 > 6.0 > 9.0 >12.0 Hepatitis C < 7.0 > 7.0 > 9.5 > 12.0 HCV-HIV coinfection < 7.0 < 10.0 > 11.0 >14.0 Cholestatic liver disease < 7.0 > 7.5 > 10.0 > 17.0 NAFLD/BEAUCHAMP < 7.0 > 7.5 < 10.0 > 14.0 Thank you for referring your patient for Fibroscan. Please do not hesitate to contact us for further information. documented in this encounter Nursing Notes * Cherelle Emmanuel RN - 06/03/2023 12:40 PM EST Chief Complaint Patient presents with Office Procedure Fibroscan Verified NPO status. documented in this encounter Plan of Treatment Upcoming Encounters Date Type Department Care Team (Late st Contact Info) Description 06/03/2023 1:18 PM EST Hospital Encounter Radiology, [place] [address] [facility] [address] [place] [address] Arrived 08/23/2023 11:20 AM EST Office Visit [facility] [place] [address] [place] [address] Blanca Luciano DO 09/02/2023 11:30 AM EST Office Visit Sleep Disorders Ctr [facility] [address] [facility] [place] [address] Sallie Wong CRNP [address] [place] [address] 09/05/2023 1:30 PM EST Office Visit Gastroenterology, [facility] [address] [place] [address] Renee Daniels CRNP [address] [place] [address] 10/05/2023 11:00 AM EDT Office Visit Nephrology, [place] [address] [facility] [place] [address] Evangelist Lyle MD [address] [place] [address] 01/31/2024 10:40 AM EDT Office Visit Dermatology [facility], [place] [address] [place] [address] Lucero Mercado PA-C [address] [place] [address] Pending Results Name Type Priority Associated Diagnoses Date /Time LIVER ELASTOGRAPHY W/O IMAGING Procedures Routine Fatty liver 06/03/2023 1:00 PM EST Scheduled Procedures Name Priority Associated Diagnoses Date/Ti [...] Ratio 06/09/2023 06/09/2022 CKD PHOS USE SMARTSET 87443 06/09/2023 06/09/2022, 1 08/17/2019 GFR 10/25/2023 04/25/2023, 08/0 03/2023, 06/09/2022, Additional history exists CKD HGB USE SMARTSET 18988 02/10/202402/09, 02/09/2023, 06/09/2022, Additional history exists TSH [...] Not on filedocumented as of this encounter Procedures Procedure Name Priority Date/Time Associated Diagnosis Comments LIVER ELASTOGRAPHY W/O IMAGING Routine 06/03/2023 1:00 PM EST Fatty liver documented in this encounter Visit Diagnoses Diagnosis Fatty liver- Primary Other chronic nonalcoholic liver disease Fatty liver Other chronic nonalcoholic liver disease documented in this encounter Advance Directives Latest [...] the patient have Health Care Power of Coding Support Specialist? No Code Status History Code Status Date Activated Date Inactivated Comments Full Code 11/12/2015 7:57 PM 11/14/2015 3:07 PM This order reflects the patients wishes and were consensually agreed upon. Question Answer Comments Discussion of Advance Directives occurred with: Patient Does the patient have a Living Will? No Does the patient have Health Care Power of Coding Support Specialist? No Full Code 01/11/2008 9:52 AM 01/12/2008 1:19 PM Care Teams Revolving Field Assembler Relationship Specialty Start Date End Date Blanca Luciano DO PCP - General Family Medicine 04/06/21 documented as of this encounter
--- OUTSIDE RECORDS SUMMARY | 2023-08-19 10:17 | External Medical Summary | Summary of Care ---
Author Name Unknown Organization [facility] Address [address] [facility] [place] [address] Phone [phone] Care Team Providers Care Concrete Rod Buster Name Role Phone Blanca Luciano DO Primary Care Provider Un available Reason for Visit * Reason Onset Date Comments Test Results 06/06/2023 Encounter Details Date Type Department Care Team (Late st Contact Info) Description 06/06/2023 Telephone Gastroenterology, [facility] [address] [place] [address] Renee Daniels CRNP [address] [place] [address] Test Results Allergies Active Allergy Reactions Criticality [...] Hour (Cardizem CD)Indications: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 Encouraged to take nice deep breaths and rinse after steroid inhaler. Test performed by Vicky BLOW MOLD OPERATOR CPFT S/P right coronary artery (RCA) stent placement 11/16/2015 Coronary artery disease of n ative artery of [place] heart with stable angina pectoris 11/12/2015 IBS [...] Research Coordinator: Dipti Sanches SPIRIT IV Clinical Trial*[id number] 02/08/2008 11/27/2013 Overview: Renamed Per Clinical Trials Billing Project. SPIRIT IV clinical trial: Xience V Everolimus ALICIA vs. TAXUS ALICIA PI: Jess More MD Research Coordinator: Dipti [facility] Cardio Research Other*[id number] 01/11/2008 08/10/2016 Overview: Study Title: Genomic Markers for Patients with Cardiovascular Disease Project # [id number] Infantry Unit Leader: Jess More MD [phone] Other specified congenital a nomaly of esophagus [...] encounter Miscellaneous Notes * Telephone Encounter - Mely Tinsley LPN - 06/06/2023 12:21 PM EST ----- Message from DARLYN Lopez sent at 06/06/2023 10:48 AM EST ----- Please let him know I reviewed abd us This shows fatty liver. No masses/lesions or scarring. ?Tiny GB polyp but no recommendation for follow up. Can have yearly abd us for fatty liver. Orders can be placed at next clinic appt DARLYN Correa 06/06/2023 10:48 AM documented in this encounter Plan of Treatment Upcoming Encounters Date Type Department Care Team (Late st Contact Info) Description 08/23/2023 11:20 AM EST [facility] [facility] [place] [address] Blanca Luciano DO 09/02/2023 11:30 AM EST Office Visit Sleep Disorders Ctr [facility] [address] [place] [phone] Sallie Wong CRNP [address] [place] [address] 09/05/2023 1:30 PM EST Office Visit Gastroenterology, [facility] [address] [place] [address] Renee Daniels CRNP [address] [place] [address] 10/05/2023 11:00 AM EDT Office Visit Nephrology, [place] [address] [place] [address] Evangelist Lyle MD [address] [place] [address] [place] [address] 01/31/2024 10:40 AM EDT Office Visit Dermatology [facility], [place] [address] [place] [address] Lucero Mercado PA-C [address] [facility] [place] [address] Scheduled Procedures Name Priority Associated Diagnoses Date/Ti [...] Ratio 06/09/2023 06/09/2022 CKD PHOS USE SMARTSET 36206 06/09/2023 06/09/2022, 1 08/17/2019 GFR 10/25/2023 04/25/2023, 08/0 03/2023, 06/09/2022, Additional history exists CKD HGB USE SMARTSET 01008 02/10/202402/09, 02/09/2023, 06/09/2022, Additional history exists TSH [...] the patient have Health Care Power of Gas Load Dispatcher? No Code Status History Code Status Date Activated Date Inactivated Comments Full Code 11/12/2015 7:57 PM 11/14/2015 3:07 PM This order reflects the patients wishes and were consensually agreed upon. Question Answer Comments Discussion of Advance Directives occurred with: Patient Does the patient have a Living Will? No Does the patient have Health Care Power of Gas Load Dispatcher? No Full Code 01/11/2008 9:52 AM 01/12/2008 1:19 PM Care Teams Concrete Rod Buster Relationship Specialty Start Date End Date Blanca Luciano DO PCP - General Family Medicine 04/06/21 documented as of this encounter
--- OUTSIDE RECORDS SUMMARY | 2023-08-19 10:17 | External Medical Summary | Summary of Care ---
Author Name Unknown Organization [facility] Address [address] [place] [address] Phone [phone] Care Team Providers Care Mental Health Coordinator Name Role Phone Blanca Luciano DO Primary Care Provider Un available Reason for Visit * Reason Comments Office Procedure Fibroscan Encounter Details Date Type Department Care Team (Late st Contact Info) Description 06/03/2023 1:00 PM EST Nurse Only Gastroenterology, [address], [place] [address] [place] [address] [place], Nurse Gastro [address] [place], [place] [phone] Office Procedure (Fibroscan) Allergies Active Allergy Reactions [...] Hour (Cardizem CD)Indications:Cor onary artery disease of zuni artery of [place] heart with stable angina pectoris (HCC),Chronic ischemic [...] artery (RCA) stent placement,Coronary artery disease involving [place] heart without angina pectoris, unspecified vessel or [...] LAD coronary ar kalyan 06/14/2018 Overview: 06/05/2018 [place] 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 Encouraged to take nice deep breaths and rinse after steroid inhaler. Test performed by Vicky LOSS MITIGATION SPECIALIST CPFT S/P right coronary artery (RCA) stent placement 11/16/2015 Coronary artery disease of n ative artery of zuni heart with stable angina pectoris 11/12/2015 IBS [...] Research Coordinator: Dipti Sanches SPIRIT IV Clinical Trial*[id number] 02/08/2008 11/27/2013 Overview: Renamed Per Clinical Trials Billing Project. SPIRIT IV clinical trial: Xience V Everolimus ALICIA vs. TAXUS ALICIA PI: Jess More MD Research Coordinator: Dipti Sanches [employer] Other*[id number] 01/11/2008 08/10/2016 Overview: Study Title: Genomic Markers for Patients with Cardiovascular Disease Project # [id number] Stroke Program Coordinator: Jess More MD [phone] Other specified congenital a nomaly of esophagus [...] Emmanuel RN - 06/03/2023 1:[address] [facility] Department of Gastroenterology & Hepatology Fibroscan/Vibration Controlled Transient Elastography (VCTE) Procedure Report Date: 06/03/2023 Patient: Mario Burnett Referring Provider: DARLYN Lopez Interpreting Provider: Dr [...] liver (F0-F1) Signature: Aster Johnson DO References: Amanda Haile, Kym Vázquez. (2014) Utilization of FibroScan in Clinical Practice. Curr Gastroenterol Rep. DOI 10.1007/[id number] Table 1 Recommended values for different stage [...] 06/03/2023 1:18 PM EST Hospital Encounter Radiology, [place] [address] [place] [address] Arrived 08/23/2023 11:20 AM EST Office Visit [facility] [place] [place] [place] [address] Blanca Luciano DO 09/02/2023 11:30 AM EST Office Visit Sleep Disorders Ctr [facility] [address] [place] [address] Sallie Wong CRNP [address] [place] [address] 09/05/2023 1:30 PM EST Office Visit Gastroenterology, [facility] [address] [place] [address] Renee Daniels CRNP [address] [place] [address] 10/05/2023 11:00 AM EDT Office Visit Nephrology, [place] [address] [facility] [place] [address] Evangelist Lyle MD [address] [place], [place] [address] [id number] 01/31/2024 10:40 AM EDT Office Visit Dermatology [facility], [place] [address] [place] [address] Lucero Mercado PA-C [address] [facility] [place] [address] Pending Results Name Type Priority Associated Diagnoses [...] Ratio 06/09/2023 06/09/2022 CKD PHOS USE SMARTSET 78594 06/09/2023 06/09/2022, 1 08/17/2019 GFR 10/25/2023 04/25/2023, 08/0 03/2023, 06/09/2022, Additional history exists CKD HGB USE SMARTSET 12436 02/10/202402/09, 02/09/2023, 06/09/2022, Additional history exists TSH [...] the patient have Health Care Power of Incident Engineer? No Code Status History Code Status Date Activated Date Inactivated Comments Full Code 11/12/2015 7:57 PM 11/14/2015 3:07 PM This order reflects the patients wishes and were consensually agreed upon. Question Answer Comments Discussion of Advance Directives occurred with: Patient Does the patient have a Living Will? No Does the patient have Health Care Power of Incident Engineer? No Full Code 01/11/2008 9:52 AM 01/12/2008 1:19 PM Care Teams Mental Health Coordinator Relationship Specialty Start Date End Date Blanca Luciano DO PCP - General Family Medicine 04/06/21 documented as of this encounter
--- OUTSIDE RECORDS SUMMARY | 2023-08-19 10:17 | External Medical Summary | Summary of Care ---
Author Name Unknown Organization [facility] Address [address] [facility] [place] [address] Phone [phone] Care Team Providers Care Grading Clerk Name Role Phone Blanca Luciano DO Primary Care Provider Un available Reason for Visit * Reason Onset Date Comments Test Results 06/06/2023 Encounter Details Date Type Department Care Team (Late st Contact Info) Description 06/06/2023 Telephone Gastroenterology, [facility] [address] [place] [address] Renee Daniels CRNP [address] [place] [address] Test Results Allergies Active Allergy Reactions Criticality [...] Hour (Cardizem CD)Indications:Cor onary artery disease of prairie band artery of prairie band heart with stable angina pectoris (HCC),Chronic ischemic [...] artery (RCA) stent placement,Coronary artery disease involving prairie band heart without angina pectoris, unspecified vessel or [...] LAD coronary ar kalyan 06/14/2018 Overview: 06/05/2018 Josephine 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 Encouraged to take nice deep breaths and rinse after steroid inhaler. Test performed by Vicky COMM[employer]ITY HEALTH PROGRAM REPRESENTATIVE CPFT S/P right coronary artery (RCA) stent placement 11/16/2015 Coronary artery disease of n ative artery of prairie band heart with stable angina pectoris 11/12/2015 IBS [...] Research Coordinator: Dipti Sanches SPIRIT IV Clinical Trial*[id number] 02/08/2008 11/27/2013 Overview: Renamed Per Clinical Trials Billing Project. SPIRIT IV clinical trial: Xience V Everolimus ALICIA vs. TAXUS ALICIA PI: Jess More MD Research Coordinator: Dipti [facility] Cardio Research Other*[id number] 01/11/2008 08/10/2016 Overview: Study Title: Genomic Markers for Patients with Cardiovascular Disease Project # [id number] Narcotics Investigator: Jess More MD [phone] Other specified congenital a nomaly of esophagus [...] Encounter - Bess Deal RN - 06/06/2023 1:44 PM EST This has been fully explained to the patient, who indicates understanding. * Telephone Encounter - Mely Tinsley LPN [...] Description 08/23/2023 11:20 AM EST Office Visit [facility], [place] [address] [facility], [place] [address] Blanca Luciano DO 09/02/2023 11:30 AM EST Office Visit Sleep Disorders Ctr [facility] [address] [place] [phone] Sallie Wong CRNP [address] [address] 09/05/2023 1:30 PM EST Office Visit Gastroenterology, [facility] [address] [place] [address] Renee Daniels CRNP [address] [place] [address] 10/05/2023 11:00 AM EDT Office Visit Nephrology, [place] [address] [facility] [place] [address] Evangelist Lyle MD [address] [place] [address] 01/31/2024 10:40 AM EDT Office Visit Dermatology [facility], [place] [address] [facility] [place] [address] Lucero Mercado PA-C [address] [facility] [place] [address] Scheduled Procedures Name Priority Associated Diagnoses Date/Ti [...] Ratio 06/09/2023 06/09/2022 CKD PHOS USE SMARTSET 53865 06/09/2023 06/09/2022, 1 08/17/2019 GFR 10/25/2023 04/25/2023, 03/2023, 06/09/2022, Additional history exists CKD HGB USE SMARTSET 22195 02/10/202402/09, 02/09/2023, 06/09/2022, Additional history exists TSH 02/10/2024 02/09/2023, 01/2022, 03/22/2022, Additional history exists O2 ASSESSMENT [...] the patient have Health Care Power of Gold Leaf Gilder? No Code Status History Code Status Date Activated Date Inactivated Comments Full Code 11/12/2015 7:57 PM 11/14/2015 3:07 PM This order reflects the patients wishes and were consensually agreed upon. Question Answer Comments Discussion of Advance Directives occurred with: Patient Does the patient have a Living Will? No Does the patient have Health Care Power of Gold Leaf Gilder? No Full Code 01/11/2008 9:52 AM 01/12/2008 1:19 PM Care Teams Grading Clerk Relationship Specialty Start Date End Date Blanca Luciano DO PCP - General Family Medicine 04/06/21 documented as of this encounter
--- OUTSIDE RECORDS SUMMARY | 2023-08-19 10:17 | External Medical Summary | Summary of Care ---
Author Name Unknown Organization [facility] Address [address] 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)*; HTN, goal below 130/80; Dyslipidemia, goal LDL below 70; SVT (supraventricular tachycardia) Allergies Active Allergy Reactions Criticality Noted Date [...] Hour (Cardizem CD)Indications:Cor onary artery disease of cloverdale artery of cloverdale heart with stable angina pectoris (HCC),Chronic ischemic [...] artery (RCA) stent placement,Coronary artery disease involving cloverdale heart without angina pectoris, unspecified vessel or [...] LAD coronary ar kalyan 06/14/2018 Overview: 06/05/2018 Hendry 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 Encouraged to take nice deep breaths and rinse after steroid inhaler. Test performed by Vicky TERMITE CONTROL SERVICER CPFT S/P right coronary artery (RCA) stent placement 11/16/2015 Coronary artery disease of n ative artery of cloverdale heart with stable angina pectoris 11/12/2015 IBS [...] Research Coordinator: Dipti Sanches SPIRIT IV Clinical Trial*[id number] 02/08/2008 11/27/2013 Overview: Renamed Per Clinical Trials Billing Project. SPIRIT IV clinical trial: Xience V Everolimus ALICIA vs. TAXUS ALICIA PI: Jess More MD Research Coordinator: Dipti Sanches [employer] Cardio Research Other*[id number] 01/11/2008 08/10/2016 Overview: Study Title: Genomic Markers for Patients with Cardiovascular Disease Project # [id number] Senior Merchandiser: Jess More MD [phone] Other specified congenital a nomaly of esophagus [...] Sign Reading Time Taken Comments Blood Pressure 114/76 06/03/2023 11:27 AM EST Pulse 66 06/03/2023 11:27 AM EST Temperature - - Respiratory Rate 16 06/03/2023 11:27 AM EST Oxygen Saturation - - Inhaled Oxygen Concentration - - Weight 108.4 kg (239 lb) 06/03/2023 11:27 AM EST Height - - Body Mass Index 34.79 02/25/2023 11:18 AM EDT documented in this [...] as of this encounter Progress Notes * Noa Pineda PA-C - 06/03/2023 11:30 AM EST 06/03/2023 Cardiology Follow Up Primary Orthodontic Treatment Coordinator: Dr. Troy Past Medical History: Atherosclerotic coronary disease Status post prior PTCA and stenting of the left anterior descending January 2008 with drug-eluting stent. Coronary intervention November 2015 receiving drug-eluting stent to the mid right coronary artery with residual moderate narrowing of 50% in the mid left anterior descending, not obstructively significantby FFR. Coronary intervention on June 02, 2018, receiving 1 drug-eluting stent to the proximal left anterior descending coronary artery. Lower HDL dyslipidemia. Poor statin tolerance of multiple statin trials. History of steatohepatitis with chronic hepatic enzyme elevation. Hypertension. Paroxysmal supraventricular tachycardia Sleep apnea, CPAP therapy. 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 Stage IIIA chronic kidney disease HPI: Mario Burnett is a 67 year old male who presents for cardiology follow up. Last evaluatedin clinic approximately 6 months ago with Chai Houston PA-C. Presents today feeling well. No acute cardiac complaints. Occasional typical anginal pain, has beenpresent for over a year, hasn't changed. Denies palpitations, shortness of breath, edema, PND, orthopnea, lightheadedness, syncope. Retired. Was going to the gym, but stopped due to back pain. Bowling twice a week. Compliant with all medications. REVIEW OF SYSTEMS: See HPI for pertinent positives. All others negative other than those noted in the HPI. CONSTITUTIONAL: No change in weight, No weakness, No fatigue and No fevers, No sweats or chills. PULMONARY: No cough, sputum, or hemoptysis, No wheezing, No shortness of breath and No recent change in breathing. CARDIOVASCULAR: No chest pain, No dyspnea on exertion, No edema, No palpitations and No syncope. GASTROINTESTINAL: No abdominal pain, No change in bowel habits, No significant heartburn, No nausea, No vomiting, No diarrhea, No constipation, No blood in stools or black tarry stools. No dysphagia. HEMATOLOGIC: No abnormal bleeding and No bruising. NEUROLOGICAL: Normal balance, No headaches and No weakness. Review of patient's allergies indicates: Allergen Reactions Rosuvastatin Other reaction(s): ELEVATED ALT Nitroglycerin Tachycardia Applies to NTG SL tablets only. Not Nitro paste. Not Imdur. Simvastatin Other reaction(s): Unknown Zocor [Simvastatin] Elevated ALT Current Outpatient Medications Medication Sig Dispense Refill ASPIRIN 81 MG PO CHEW Take 1 Tablet by mouth in the morning. CPAP 7 cm every night at bedtime . Align 4 MG Oral Capsule Take 1 Capsule by mouth every other day. dilTIAZem HCl ER Coated Beads 180 MG Oral Capsule Extended Release 24 Hour (Cardizem CD) TAKE ONE CAPSULE BY MOUTH EVERY DAY 90 Capsule 3 Gabapentin 300 MG Oral Capsule (Neurontin) Take 1 Capsule by mouth at bedtime. Dicyclomine HCl 10 MG Oral Capsule (Bentyl) One tab twice daily as needed for lower abdomen pain/cramping (Patient taking differently: One tab twice daily as needed for lower abdomen pain/cramping. Takes one per day) 180 Capsule 3 Pantoprazole Sodium 40 MG Oral Tablet Delayed Release (Protonix) Take 1 Tablet (40 mg) by mouth in the morning. 90 Tablet 3 Repatha SureClick 140 MG/ML Subcutaneous Solution Auto-injector (evolocumab) Inject 140 mg under the skin every 14 days. Remove from refrigerator 30 minutes prior to injection. 2 Each 11 Levothyroxine Sodium 50 MCG Oral Tablet (Levoxyl) TAKE ONE TABLET BY MOUTH EVERY MORNING AT LEAST 30 MINUTES PRIOR TO BREAKFAST OR OTHER MEDS 90 Tablet 2 Isosorbide Mononitrate ER 30 MG Oral Tablet Extended Release 24 Hour (Imdur) Take 1 Tablet by mouthin the morning. 90 Tablet 3 Losartan Potassium 25 MG Oral Tablet (Cozaar) Take 0.5 Tablets by mouth in the morning. 45 Tablet 3 Clopidogrel Bisulfate 75 MG Oral Tablet (pLAVix) TAKE ONE TABLET BY MOUTH EVERY DAY 90 Tablet 3 ALPRAZolam 0.25 MG Oral Tablet (xaNAX) Only take for panic. Reduce dose for safety. TAKE ONE TABLETBY MOUTH THREE TIMES A DAY (MORNING, NOON, EVENING) NEEDED FOR ANXIETY 90 Tablet 0 Hydrocortisone 2.5 % External Cream Apply topically to affected area 2 times a day. Apply to armpituntil clear then as needed. (Patient not taking: Reported on 02/09/2023) 20 g 2 Ketoconazole 2 % External Cream APPLY TOPICALLY TO AFFECTED AREA TWO TIMES A DAY FOR 42 DAYS - APPLY TO ARMPIT RASH (Patient not taking: Reported on 06/03/2023) 30 g 1 Sodium Bicarbonate 650 MG Oral Tablet Take 1 Tablet by mouth daily. (Patient not taking: Reported on 05/25/2023) 90 Tablet 3 Current Facility-Administered Medications Medication Dose Route Frequency Provider Last Rate Last Admin albuterol sulfate (PROVENTIL) (2.5 MG/3ML) 0.083% inhalation solution 2.5 mg 2.5 mg Nebulizer Q4H PRN RhedLinnea Raquel, INTERNATIONAL LOGISTICS ANALYST 2.5 mg at 05/09/19 1108 Past Medical History: Diagnosis Date Actinic keratosis Acute tonsillitis Tonsilitis ASCVD (arteriosclerotic cardiovascular disease) Benign neoplasm of colon 08/24/2007 await pathology, repeat in 2 years due to prep. 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, mild (HCC) 03/15/2017 Diaphragmatic hernia Dyslipidemia, goal to be determined Dyspnea and respiratory abnormalities 01/31/2017 Gastroparesis 09/2004 prolonged gastric emptying on emptying study GERD (gastroesophageal reflux disease) Irritable bowel syndrome Paroxysmal SVT (supraventricular tachycardia) Pulmonary air trapping 01/31/2017 S/P angioplasty with stent 01/11/2008 LAD drug eluting Stent stop Plavix 01/14/09 S/P right coronary artery (RCA) stent placement 11/16/2015 Sleep apnea, obstructive Viral warts, unspecified Viral Warts Family History Problem Relation Age of Onset No Known Problems Son No Known Problems Daughter Heart Disorder Mother coronary bypass grafting at age 44 Heart Disorder Father bypass surgery in his 60's, at 82 Heart Disorder Sister PTCA and stenting at age 41 Mental Disorder Grandfather (Paternal) Gastro-intestinal disorder Father Colon polyps Other (Other) Father denies any family history of skin diseases or skin cancer Social History Socioeconomic History Marital status: Spouse name: Meme Number of children: 1 Occupational History 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 A+Ox3. HEENT: Normocephalic. Atraumatic. PERRL. EOMI. Conjunctiva and sclera clear. NECK: No carotid bruits. No JVD. Carotid upstrokes are brisk. Heart: RRR. S1 and S2 noted. No murmur. No rubs or gallops. PMI non displaced. Lungs: Clear to auscultation. No wheezes. No rhonchi. No rales. Abdomen: Normal bowel sounds. Soft. Nontender. No masses or organomegaly. No abdominal bruits. Extremities: No edema. No clubbing or cyanosis. Pulses: radial=2/4, posterior tibial=2/4, dorsalis pedis = 2/4. NEURO: No focal deficits. PSYCH: Appropriate affect and insight. DATA Labs & Imaging Reviewed Below: EKG 06/03/23 Normal sinus rhythm, 65 bpm Zio 01/2021 Patient had a min HR of 49 bpm, max HR of 136 bpm, and avg HR of 75 bpm. Predominant underlying rhythm was Sinus Rhythm. 3 Supraventricular Tachycardia runs occurred, the run with the fastest interval lasting 7 beats with a max rate of 136 bpm (avg 133 bpm); the run with the fastest interval was also the longest. Isolated SVEs were rare (<1.0%), SVE Couplets were rare (<1.0%), and SVE Triplets were rare (<1.0%). Isolated VEs were rare (<1.0%), VE Couplets were rare (<1.0%), and no VE Triplets were present. Agree with the above interpretation findings. The patient's triggered events and diary entries correlated to sinus rhythm or sense PACs and PVCs. Exercise Stress Echo 08/20/20 The stress echo is negative for inducible ischemia. Exercise capacity is average. Resting Study: The qualitative LV ejection fraction is 55-59% (normal). The left ventricular diastolic function is mildly abnormal (grade I). No significant valvular disease is present. Compared to prior study of 07/21/2016, there is no significant change. ASSESSMENT/PLAN: 67 year old year old male 1. 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 - continue aspirin, plavix, Imdur, diltiazem 2. HTN, goal below 130/80 - controlled - continue losartan, diltiazem 3. Dyslipidemia, goal LDL below 70 - LDL 56 mg/dL on 02/09/23 - Intolerant to multiple statin trials - Continue PCSK9 inhibitor therapy - History of steatohepatitis and chronic hepatic enzyme elevation 4. SVT (supraventricular tachycardia) - Quiescent, on diltiazem. DISPOSITION: Follow up 6 months or sooner if symptoms worsen/fail to improve. All questions were answered to the patients satisfaction. Patient advised to report to ED with any and all emergencies. The patient agrees to the above plan and will call with additional questions or concerns. Noa Pineda PA-C Cardiology, [address] [place] [address] I spent a total of 30 minutes on the date of service in preparation, delivery, and documentation ofthe care provided to Mario Burnett excluding any time spent in the performance of separately billed services. This chart was completed in part utilizing [employer] Speech Voice Recognition Software. Grammatical errors, random word insertions, pronoun errors, and incomplete sentences are an occasional consequence of this system due to software limitations, ambient noise, and hardware issues. Any formal questions or concerns about the content, text, or information contained within the body of this dictation should be directly addressed to the provider for clarification. documented in this encounter Procedure Notes * Joselito Mace DO - 06/03/2023 11:24 AM ESTAssociated Order(s): EKG COMPLETE (TRACING AND INTERP) REASON FOR STUDY: chronic ischemic heart diesase; CAD with st CONCLUSIONS: Normal sinus rhythm Normal ECG When compared with ECG of 24-MAY-2022 11:37, No significant change was found Ventricular Rate: 65 Atrial Rate: 65 SC Interval: 168 QRS Duration: 88 QT/QTc: 406/422 ms P-R-T Mcrae: 54 : 0 : 45 degrees documented in this encounter Nursing Notes * John Cazares RN - 06/03/2023 11:22 AM EST Examination Room: room 3 Name: Mario Burnett Date of : (1955). Reason for Visit: for follow up Interim Hospitalization(s): denies Problems/Concerns: denies Chest Pain/SOB: occ gets chest discomfort with shoulder discomfort. He states it has been going on for years. [facility] Discussed: Not applicable My tuta.coer is a way you can talk to your provider online through e-mail. Would you like to sign up? I can activate it for you? ALREADY ACTIVE Patient was instructed to not get up on the exam table until directed and assisted by their provider; patient is to remain seated in the chair/ wheelchair/ exam table for fall prevention and safety reasons. Patient is aware to have assistance to step down off exam table with personnel. Patient voiced full comprehension of instructions. documented in this encounter Plan of Treatment Upcoming Encounters Date Type Department Care Team (Late st Contact Info) Description 06/03/2023 1:00 PM EST Nurse Only Gastroenterology, [place] [address] [place] [phone] [place], Nurse [address]astro [address] [place] [address] 06/03/2023 2:00 PM EST Appointment Radiology, [place] [address] [facility] [place] [address] 08/23/2023 11:20 AM EST [facility] [address] [facility] [place] [address] Blanca Luciano DO 09/02/2023 11:30 AM EST Office Visit Sleep Disorders Ctr [facility] [address] [facility] [place] [phone] Sallie Wong CRNP [address] [facility] [place] [address] 09/05/2023 1:30 PM EST Office Visit Gastroenterology, [facility] [address] [facility] [place] [address] Renee Daniels CRNP [address] [place] [address] 10/05/2023 11:00 AM EDT [place] [address] [place] [address] Evangelist Lyle MD [address] [place] [address] [place] [address] 01/31/2024 10:40 AM EDT Office Visit Dermatology [address], [place] [address] [place] [address] Lucero Mercado PA-C [address] [facility] [place] [address] Scheduled Procedures Name Priority Associated Diagnoses Date/Ti [...] Ratio 06/09/2023 06/09/2022 CKD PHOS USE SMARTSET 69021 06/09/2023 06/09/2022, 1 08/17/2019 GFR 10/25/2023 04/25/2023, 08/0 03/2023, 06/09/2022, Additional history exists CKD HGB USE SMARTSET 25815 02/10/202402/09, 02/09/2023, 06/09/2022, Additional history exists TSH [...] Procedure Name Priority Date/Time Associated Diagnosis Comments SC ECG ROUTINE ECG W/LEAST 12 LDS I&R ONLY Routine 06/03/2023 11:24 AM EST 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) SVT (supraventricular tachycardia) Dyslipidemia, goal LDL below 70 HTN, goal below 130/80 documented in this encounter Results * EKG COMPLETE (TRACING AND INTERP) (06/03/2023 11:24 AM EST) 06/03/2023 11:2 4 AM EST Narrative Procedure Note Joselito Mace, DO - 06/03/2023 11:24 AM EST REASON FOR STUDY: chronic ischemic heart diesase; CAD with st CONCLUSIONS: Normal sinus rhythm Normal ECG When compared with ECG of 24-MAY-2022 11:37, No significant change was found Ventricular Rate: 65 Atrial Rate: 65 SC Interval: 168 QRS Duration: 88 QT/QTc: 406/422 ms P-R-T Mcrae: 54 : 0 : 45 degrees Noa Pineda PA-C [facility] documented in this encounter Visit Diagnoses Diagnosis 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 No Code Status History Code Status Date Activated Date Inactivated Comments Full Code 11/12/2015 7:57 PM 11/14/2015 3:07 PM This order reflects the patients wishes and were consensually agreed upon. Question Answer Comments Discussion of Advance Directives occurred with: Patient Does the patient have a Living Will? No Does the patient have Health Care Power of Director Of Casino Marketing? No Full Code 01/11/2008 9:52 AM 01/12/2008 1:19 PM Care Teams Middle School Tutor Relationship Specialty Start Date End Date Blanca Luciano DO PCP - General Family Medicine 04/06/21 documented as of this encounter"
--- OUTSIDE RECORDS SUMMARY | 2023-08-19 10:17 | External Medical Summary | Summary of Care ---
Author Name Unknown Organization [facility] Address [address] [facility] [place] [address] Phone [phone] Care Team Providers Care Staff Certified Nurse Midwife Name Role Phone Blanca Luciano DO Primary Care Provider Un available Encounter Details Date Type Department Care Team (Latest Contact Info) Description 06/03/2023 1:18 PM EST - 06/03/2023 11:59 PM EST Hospital Encounter Radiology, [address] [place] [address] Arrived Discharge Disposition: Home - Self Care Allergies Active Allergy Reactions Criticality Noted Date Comments Nitroglycerin Tachycardia 11/12/2020 Applies to NTG SL tablets only. Not Nitro paste. Not Imdur. Rosuvastatin Medium 11/05/2018 Other reaction(s): ELEVATED ALT Simvastatin 11/05/2018 Other reaction(s): Unknown Simvastatin 02/02/2007 Elevated ALT documented as of this encounter (statuses as of 06/04/2023) Medications Medication Sig Dispensed Refills Start Date [...] Hour (Cardizem CD)Indications:Cor onary artery disease of [place] artery [...] artery (RCA) stent placement,Coronary artery disease involving [place] heart [...] as of this encounter (statuses as of 06/04/2023) Active Problems Problem Noted Date Diagnosed Date [...] LAD coronary ar kalyan 06/14/2018 Overview: 06/05/2018 [place] 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 Encouraged to take nice deep breaths and rinse after steroid inhaler. Test performed by Vicky CARTON INSPECTOR CPFT S/P right coronary artery (RCA) stent [...] as of this encounter (statuses as of 06/04/2023) Resolved Problems Problem Noted Date Diagnosed Date [...] Research Coordinator: Dipti Sanches SPIRIT IV Clinical Trial*[id number] 02/08/2008 11/27/2013 Overview: Renamed Per Clinical Trials Billing Project. SPIRIT IV clinical trial: Xience V Everolimus ALICIA vs. TAXUS ALICIA PI: Jess More MD Research Coordinator: Dipti Sanches [employer] Other*[id number] 01/11/2008 08/10/2016 Overview: Study Title: Genomic Markers for Patients with Cardiovascular Disease Project # [id number] Clothing Trades Workers: Jess More MD [phone] Other specified congenital a nomaly of esophagus [...] as of this encounter (statuses as of 06/04/2023) Immunizations Name Administration Dates Next Due Pneumococcal [...] No 11/12/2015 documented as of this encounter Plan of Treatment Upcoming Encounters Date Type Department Care Team (Late st Contact Info) Description 08/23/2023 11:20 AM EST Office Visit Family [facility] [address], [address] [place] [address] Blanca Luciano DO 09/02/2023 11:30 AM EST Office Visit Sleep Disorders Ctr [facility] [address] [facility] [place] [address] Sallie Wong CRNP [facility] [place] [address] 09/05/2023 1:30 PM EST Office Visit Gastroenterology, [facility] [address] [facility] [place] [address] Renee Daniels CRNP [address] [facility] [place] [address] 10/05/2023 11:00 AM EDT Office Visit Nephrology, [address] [place] [address] Evangelist Lyle MD [address] [place], [place] [address] [place] [address] 01/31/2024 10:40 AM EDT Office Visit Dermatology [facility], [place] [address] [place] [address] Lucero Mercado PA-C [address] [place] [address] [place] [address] Scheduled Procedures Name Priority Associated Diagnoses Date/Ti [...] Ratio 06/09/2023 06/09/2022 CKD PHOS USE SMARTSET 73527 06/09/2023 06/09/2022, 1 08/17/2019 GFR 10/25/2023 04/25/2023, 08/0 03/2023, 06/09/2022, Additional history exists CKD HGB USE SMARTSET 75692 02/10/202402/09, 02/09/2023, 06/09/2022, Additional history exists TSH [...] Procedure Name Priority Date/Time Associated Diagnosis Comments US ABDOMEN LIMITED Routine 06/03/2023 2: 29 PM EST Fatty liver documented in this encounter Results * US ABDOMEN LIMITED (06/03/2023 2:29 PM EST) Anatomical Region Laterality Modality Abdomen, Body Ultrasound 06/03/2023 4:09 PM EST Impressions 06/03/2023 5:59 PM EST IMPRESSION Hepatic steatosis. I have personally reviewed this examination and agree with the resident/fellow physician's interpretation. Narrative 06/03/2023 5:59 PM EST EXAM US ABDOMEN LIMITED-06/03/2023 2:29 pm HISTORY [place] ,fatty liver with fibrosis TECHNIQUE Sonogram of the right upper quadrant. COMPARISON Abdominal ultrasound dated 04/20/2021, CT abdomen pelvis dated 07/16/2020. FINDINGS LIVER: Increased echogenicity with focal sparing along the gallbladder fossa. No focal lesion. BILE DUCTS: No intrahepatic or extrahepatic duct dilatation. The common bile duct measures 5 mm. GALLBLADDER: No cholelithiasis, gallbladder wall thickening, or pericholecystic fluid. Tiny polyps not well seen below the threshold for further follow-up. PANCREAS: Limited visualized portions are unremarkable. RIGHT KIDNEY: 11.3 cm in length. No hydronephrosis, shadowing calculi, or focal lesion. OTHER: No ascites. Procedure Note Rikki Ramos MD - 06/03/2023 EXAM US ABDOMEN LIMITED-06/03/2023 2:29 pm HISTORY [place] ,fatty liver with fibrosis TECHNIQUE Sonogram of the right upper quadrant. COMPARISON Abdominal ultrasound dated 04/20/2021, CT abdomen pelvis dated07/16/2020. FINDINGS LIVER: Increased echogenicity with focal sparing along the gallbladderfossa. No focal lesion. BILE DUCTS: No intrahepatic or extrahepatic duct dilatation. The commonbile duct measures 5 mm. GALLBLADDER: No cholelithiasis, gallbladder wall thickening, orpericholecystic fluid. Tiny polyps not well seen below the threshold forfurther follow-up. PANCREAS: Limited visualized portions are unremarkable. RIGHT KIDNEY: 11.3 cm in length. No hydronephrosis, shadowing calculi, orfocal lesion. OTHER: No ascites. IMPRESSION IMPRESSION Hepatic steatosis. I have personally reviewed this examination and agree with the resident/fellow physician's interpretation. Renee SANTIZO RAD ULTR ASOUND documented in this encounter Visit Diagnoses Diagnosis Fatty liver Other chronic nonalcoholic liver disease [...] the patient have Health Care Power of National Account Executive? No Code Status History Code Status Date Activated Date Inactivated Comments Full Code 11/12/2015 7:57 PM 11/14/2015 3:07 PM This order reflects the patients wishes and were consensually agreed upon. Question Answer Comments Discussion of Advance Directives occurred with: Patient Does the patient have a Living Will? No Does the patient have Health Care Power of National Account Executive? No Full Code 01/11/2008 9:52 AM 01/12/2008 1:19 PM Care Teams Staff Certified Nurse Midwife Relationship Specialty Start Date End Date Blanca Luciano DO PCP - General Family Medicine 04/06/21 documented as of this encounter
--- OUTSIDE RECORDS SUMMARY | 2023-08-19 10:17 | External Medical Summary | Summary of Care ---
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 Encouraged to take nice deep breaths and rinse after steroid inhaler. Test performed by Vicky APPLICATIONS DEVELOPMENT ANALYST CPFT S/P right coronary artery (RCA) stent placement 11/16/2015 Coronary artery disease of n ative artery of [place] heart with stable angina pectoris 11/12/2015 IBS [...] Research Coordinator: Dipti Sanches SPIRIT IV Clinical Trial*[id number] 02/08/2008 11/27/2013 Overview: Renamed Per Clinical Trials Billing Project. SPIRIT IV clinical trial: Xience V Everolimus ALICIA vs. TAXUS ALICIA PI: Jess More MD Research Coordinator: Dipti Sanches [employer] Other*[id number] 01/11/2008 08/10/2016 Overview: Study Title: Genomic Markers for Patients with Cardiovascular Disease Project # [id number] Drop Count Associate: Jess More MD [phone] Other specified congenital a nomaly of esophagus [...] encounter Miscellaneous Notes * Telephone Encounter - Sherrie Sanchez RN [...] 06/03/2023 1:18 PM EST Hospital Encounter Radiology, [place] [address] [facility] [place] [address] Arrived 08/23/2023 11:20 AM EST [facility] [facility] [place] [address] Blanca Luciano DO 09/02/2023 11:30 AM EST Office Visit Sleep Disorders Ctr [facility] [address] [place] [address] Sallie Wong CRNP [address] [facility] [place] [address] 09/05/2023 1:30 PM EST Office Visit Gastroenterology, [facility] [address] [place] [address] Renee Daniels CRNP [address] [place] [address] 10/05/2023 11:00 AM EDT Office Visit Nephrology, [place] [address] [place] [address] Evangelist Lyle MD [address] [place] [address] 01/31/2024 10:40 AM EDT Office Visit Dermatology [facility], [place] [address] [place] [address] Lucero Mercado PA-C [address] [place] [address] Scheduled Procedures Name Priority Associated Diagnoses Date/Ti [...] Ratio 06/09/2023 06/09/2022 CKD PHOS USE SMARTSET 30809 06/09/2023 06/09/2022, 1 08/17/2019 GFR 10/25/2023 04/25/2023, 08/0 03/2023, 06/09/2022, Additional history exists CKD HGB USE SMARTSET 70239 02/10/202402/09, 02/09/2023, 06/09/2022, Additional history exists TSH [...] patient have Health Care Power of Senior Hydrogeologist? No Code Status History Code Status Date Activated Date Inactivated Comments Full Code 11/12/2015 7:57 PM 11/14/2015 3:07 PM This order reflects the patients wishes and were consensually agreed upon. Question Answer Comments Discussion of Advance Directives occurred with: Patient Does the patient have a Living Will? No Does the patient have Health Care Power of Senior Hydrogeologist? No Full Code 01/11/2008 9:52 AM 01/12/2008 1:19 PM Care Teams Bookkeeper Receptionist Relationship Specialty Start Date End Date Blanca Luciano DO PCP - General Family Medicine 04/06/21 documented as of this encounter
--- OUTSIDE RECORDS SUMMARY | 2023-08-19 10:17 | External Medical Summary | Summary of Care ---
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 Encouraged to take nice deep breaths and rinse after steroid inhaler. Test performed by Vicky SLIDE MACHINE TENDER CPFT S/P right coronary artery (RCA) stent placement 11/16/2015 Coronary artery disease of n ative artery of eagle heart with stable angina pectoris 11/12/2015 IBS [...] Research Coordinator: Dipti Sanches SPIRIT IV Clinical Trial*[id number] 02/08/2008 11/27/2013 Overview: Renamed Per Clinical Trials Billing Project. SPIRIT IV clinical trial: Xience V Everolimus ALICIA vs. TAXUS ALICIA PI: Jess More MD Research Coordinator: Dipti Sanches [employer] Other*[id number] 01/11/2008 08/10/2016 Overview: Study Title: Genomic Markers for Patients with Cardiovascular Disease Project # [id number] Language And Literature Division Chair: Jess More MD [phone] Other specified congenital a nomaly of esophagus [...] encounter Miscellaneous Notes * Telephone Encounter - Renee Daniels CRNP [...] 06/03/2023 1:18 PM EST Hospital Encounter Radiology, [place] [address] [place] [address] Arrived 08/23/2023 11:20 AM EST Office Visit Family [facility] [place] [address] [facility] [place] [address] Blanca Luciano DO 09/02/2023 11:30 AM EST Office Visit Sleep Disorders Ctr [facility] [address] [facility] [place] [phone] Sallie Wong CRNP 132 [facility] [place] [address] 09/05/2023 1:30 PM EST Office Visit Gastroenterology, [facility] [address] [facility] [place] [address] Renee Daniels CRNP [address] [place] [address] 10/05/2023 11:00 AM EDT Office Visit Nephrology, [place] [address] [facility] [place] [address] Evangelist Lyle MD [address] [place], [place] [address] [address] 01/31/2024 10:40 AM EDT Office Visit Dermatology [facility], [place] [address] [place] [address] Lucero Mercado PA-C [address] [facility] [place] [address] Scheduled Procedures Name Priority Associated Diagnoses Date/Ti [...] Ratio 06/09/2023 06/09/2022 CKD PHOS USE SMARTSET 63441 06/09/2023 06/09/2022, 1 08/17/2019 GFR 10/25/2023 04/25/2023, 08/0 03/2023, 06/09/2022, Additional history exists CKD HGB USE SMARTSET 37838 02/10/202402/09, 02/09/2023, 06/09/2022, Additional history exists TSH [...] the patient have Health Care Power of [place] Dry Dock Manager? No Code Status History Code Status Date Activated Date Inactivated Comments Full Code 11/12/2015 7:57 PM 11/14/2015 3:07 PM This order reflects the patients wishes and were consensually agreed upon. Question Answer Comments Discussion of Advance Directives occurred with: Patient Does the patient have a Living Will? No Does the patient have Health Care Power of Marina Dry Dock Manager? No Full Code 01/11/2008 9:52 AM 01/12/2008 1:19 PM Care Teams Data Communications Software Consultant Relationship Specialty Start Date End Date Blanca Luciano DO PCP - General Family Medicine 04/06/21 documented as of this encounter
--- OUTSIDE RECORDS SUMMARY | 2023-08-19 10:18 | External Medical Summary | Summary of Care ---
Author Name Unknown Organization [facility] Address [address] [place] [address] Phone [phone] Care Team Providers Care Special Librarian Name Role Phone Blanca Luciano DO Primary Care Provider [phone] Reason for Visit * Reason Comments eRx-Medication Refill Encounter Details Date Type Department Care Team Description 03/24[facility]2023 [facility] [address] [facility] [place] [address] Blanca Luciano DO [address] [place] [address] Anxiety state Allergies Active Allergy Reactions Severity Noted Date Comments Nitroglycerin Tachycardia 11/12/2020 Applies to NTG SL tablets only. Not Nitro paste. Not Imdur. Rosuvastatin Medium 11/05/2018 Other reaction(s): ELEVATED ALT Simvastatin 11/05/2018 Other reaction(s): Unknown Simvastatin 02/02/2007 Elevated ALT documented as of this encounter (statuses as of 03/24/2023) Medications Medication Sig Dispensed Refills Start Date [...] ARMPIT RASH 30 g 1 1 Active dilTIAZem HCl ER Coated Beads 180 MG Oral Capsule Extended Release 24 Hour (Cardizem CD)Indications:Co ronary artery disease of [place] artery of [place] heart with stable angina pectoris (HCC),Chronic ischemic heart disease TAKE ONE CAPSULE BY MOUTH EVERY DAY 90 Capsule 3 2 Active Clopidogrel Bisulfate 75 MG Oral Tablet (pLAVix)Indicatio ns:S/P angioplasty with stent TAKE ONE TABLET BY MOUTH EVERY DAY 90 Tablet 3 2 Active Gabapentin 300 MG Oral Capsule (Neurontin) Take 1 Capsule by mouth at bedtime. 0 Active Dicyclomine HCl 10 MG Oral Capsule (Bentyl)Indicatio ns:LLQ abdominal pain One tab twice daily as needed for lower abdomen pain/cramping 180 Capsule 3 2 Active Pantoprazole Sodium 40 MG Oral Tablet [...] (RCA) stent placement,Coronar y artery disease involving [place] heart without angina pectoris, unspecified vessel or lesion type Take 1 Tablet by mouth in the morning. 90 Tablet 3 3 Active Losartan Potassium 25 MG Oral Tablet (Cozaar) Take 0.5 Tablets by mouth in the morning. 45 Tablet 3 3 Active Sodium Bicarbonate 650 MG Oral Tablet Take 1 Tablet by mouth daily. 90 Tablet 3 3 Active ALPRAZolam 0.25 MG Oral Tablet (xaNAX)Indication s:Anxiety state TAKE ONE TABLET BY MOUTH THREE TIMES A DAY (MORNING,NOON AND EVENING) NEEDED FOR ANXIETY 90 Tablet 0 3 Active ALPRAZolam 0.25 MG Oral Tablet (xaNAX)Indication s:Anxiety state TAKE ONE TABLET BY MOUTH THREE TIMES A DAY (MORNING, NOON AND EVENING) NEEDED FOR ANXIETY 90 Tablet 0 3 03/24/20 23 Discontinued Hospital, Clinic, or Other Facility Administered Medication Ordered Dose Route Frequency Start Date End Date Status albuterol sulfate (PROVENTIL) (2.5 MG/3ML) 0.083% inhalation solution 2.5 mgIndications:COPD, mild (HCC) 2.5 mg NEBULIZER Q4H PRN 03/22/2019 Active documented as of this encounter (statuses as of 03/24/2023) Active Problems Problem Noted Date COPD, group B, by GOLD 2017 classificati on 01/26/2023 Granulomatous lung disease 01/20/2022 CAD S/P percutaneous coronary angioplast y 06/08/2021 Stage 3a chronic kidney disease 05/12/20 20 Overview: Per CKD protocol - Per CKD protocol Sensorineural hearing loss ( SNHL) of left ear with unrestricted hearing of right ear 12/18/2018 Moderate persistent asthma without compl ication 12/11/2018 JUAN ANTONIO (generalized anxiety disorder) 11/02 History of placement of stent in LAD cor onary artery 06/14/2018 Overview: 06/05/2018 [place] 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 Encouraged to take nice deep breaths and rinse after steroid inhaler. Test performed by Vicky MANUFACTURING SUPERVISOR 2ND SHIFT CPFT S/P right coronary artery (RCA) stent pl acement 11/16/2015 Coronary artery disease of n ative artery of [place] heart with stable angina pectoris 11/12/2015 IBS (irritable bowel syndrome) 4 NAFLD (nonalcoholic fatty liver disease) 05/16/2014 History of basal cell carcinoma 03/20/20 14 Osteoarthritis of right knee 11/12/2013 Severe obesity with body mas s index (BMI) of 35.0 to 39.9 with serious comorbidity 05/15/2012 Gastroesophageal reflux disease with eso phagitis 07/07/2011 Dyslipidemia 06/18/2009 Overview: Per Lipid Taxonomy. Displacement of lumbar intervertebral di sc without myelopathy 12/25/2008 Benign neoplasm of colon 08/24/2007 Overview: await pathology, repeat in 2 years due to prep. documented as of this encounter (statuses as of 03/24/2023) Resolved Problems Problem Noted Date Resolved Date Kidney disease, chronic, stage III (GFR 30-59 ml /min) 02/11/2020 05/15/2020 Overview: Per CKD protocol COPD, mild 03/15/2017 12/13/2018 Overview: Per COPD GOLD Classification Pulmonary air trapping 01/31/2017 8 Unstable angina 11/14/2015 01/31/2017 Chest pain 11/12/2015 11/14/2015 GERD (gastroesophageal reflux disease) 4 09/29/2015 Inflamed seborrheic keratosis 03/20/2014 Asthma with severity to be determined 12/25/2009 05/10/2011 Overview: Per Asthma Taxonomy ICD-10 update of inactive term NAFLD 12/25/2008 09/29/2015 EXAMINATION OF PARTICIPANT IN CLINICAL TRIAL - S PIRIT IV 02/08/2008 10/17/2009 Overview: Renamed Per Clinical Trials Billing Project. SPIRIT IV clinical trial: Xience V Everolimus ALICIA vs. TAXUS ALICIA PI: Jess More MD Research Coordinator: Dipti Sanches SPIRIT IV Clinical Trial*[id number] 02/08/2008 11/27/2013 Overview: Renamed Per Clinical Trials Billing Project. SPIRIT IV clinical trial: Xience V Everolimus ALICIA vs. 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 Other allergic rhinitis 11/24/19 18 Overview: ICD-10 update of inactive term documented as of this encounter (statuses as of 03/24/2023) Immunizations Name Administration Dates Next Due Pneumococcal Polysaccharide PPV23 (Pneumovax) 01/20/2022,04/24/2007 Seasonal Influenza Virus Vac cine, Unspecified Formulation 04/06/2021,06/16/2020,05/23/2019,05/29,08/15/2017,08/02/2016,05/13/2014 ,05/14/2013,05/13/2012,05/10/2011,10/2009,04/07/2009,04/29/2008, 7,06/21/2005,06/06/2003 Seasonal Influenza, PF, 6 mo ns & Above, IM , (Flulaval) 04/06/2021,06/16/2020,05/23/2019,05/29,08/15/2017 Seasonal Influenza, Quadriva lent, No Preserve, [...] drink = 0.6 oz pur e alcohol) Food Insecurity Answer Date Recorded Within the past 12 months, y ou worried that your food would run out before you got money to buy more. Never true 01/08/2022 Within the past 12 months, t he food you bought just didn't last and you didn't have money to get more. Never true 01/08/2022 Sex Assigned at Date Recorded Male 11/02/2018 11:08 AM EDT Job Start Date Occupation Industry [...] or making decisions? (5 years old or older No 11/12/2015 documented as of this encounter Miscellaneous Notes * Telephone Encounter - Blanca Luciano, - 03/24/2023 2:45 PM EDTSigned Prescriptions: Disp Refills ALPRAZolam 0.25 MG Oral Tablet (xaNAX) 90 Tab*0 Sig: TAKE ONE TABLET BY MOUTH THREE TIMES A DAY (MORNING,NOON AND EVENING) NEEDED FOR ANXIETY Authorizing Provider: BLANCA LUCIANO * Telephone Encounter - Chip Alvarez, [facility] - 03/24/2023 2:20 PM EDT Pending Prescriptions: Disp Refills ALPRAZolam 0.25 MG Oral Tablet [Pharmacy M*90 Tab*0 Sig: TAKE ONE TABLET BY MOUTH THREE TIMES A DAY (MORNING,NOON AND EVENING) NEEDED FOR ANXIETY * Telephone Encounter - Chip Alvarez [facility] - 03/24/2023 2:19 PM EDT I have reviewed the patients controlled substance dispensing history in the Prescription Drug Monitoring Program in compliance with the [facility] regulations before prescribing a controlled substance. PDMP checked on 03/24/2023. Pending Prescriptions: Disp Refills ALPRAZolam 0.25 MG Oral Tablet (xaNAX) [P*90 Tab*0 Sig: TAKE ONE TABLET BY MOUTH THREE TIMES A DAY (MORNING,NOON AND EVENING) NEEDED FOR ANXIETY Last Visit: 01/26/2023 (in office), Visit date not found (telemedicine) Next Visit: 08/23/2023 Date medication was last filled: 02/21/23 Date medication is due for refill: 03/21/23 Pharmacy: [facility] [address] [place] [address]- [place] Is this request for a controlled substance? Yes and Urine Drug Screen Not completed Toxicology results: No results found. However, due to the size of the patient record, not all encounters were searched.Please check Results Review for a complete set of results. Please approve if appropriate. Thanks, Chip Alvarez, [facility] Clinical Pharmacist [facility] ([facility]) (formerly Telepharmacy) [phone] 03/24/2023, 2:19 PM documented in this encounter Plan of Treatment Upcoming Encounters Date Type Specialty Care Team Description 05/25/2023 Office Visit Gastroenterology Renee Daniels CRNP [address] [place] [address] 06/03/2023 Pharmacy Cardiology [facility] Cardiology [facility] [address] [place] [address] 06/03/2023 Office Visit Cardiology Chai Houston PA-C [address] [place] [address] 08/23/2023 Office Visit Family Medicine Blanca Luciano DO [address] [place] [address] 09/02/2023 Office Visit Sleep Disorders Sallie Wong CRNP [address] [place] [address] 10/26/2023 Office Visit Nephrology Evangelist Lyle MD [address] [place] [address] [place] [address] 01/31/2024 Office Visit Dermatology Lucero Mercado PA-C [address] [place] [address] Scheduled Procedures Name Priority Associated Diagnoses Date/Ti [...] Ratio 06/09/2023 06/09/2022 CKD PHOS USE SMARTSET 72408 06/09/2023 06/09/2022, 1 08/17/2019 GFR 08/12/2023 02/09/2023, 120 01/2022, 03/22/2022, Additional history exists CKD HGB USE SMARTSET 21975 02/10/202402/09, 02/09/2023, 06/09/2022, Additional history exists TSH 02/10/2024 02/09/2023, 120 01/2022, 03/22/2022, Additional history exists O2 ASSESSMENT COMPLETED IN PAST YEAR FOR COPD 02/26/2024 02/25/2023 COLONOSCOPY-EVERY 5 YRS AGES 18-100 08/07/2025 08/07/2020, 08/07/2020, 08/07/2020, Additional history exists Diabetes Screening 02/09/2026 02/09/2023, 1 08/10/2021, 03/22/2022, Additional history exists Zoster Vaccines Completed 03/24/2020, [...] the patient have Health Care Power of Javascript Application Developer? No Code Status History Code Status Date Activated Date Inactivated Comments Full Code 11/12/2015 7:57 PM 11/14/2015 3:07 PM This order reflects the patients wishes and were consensually agreed upon. Question Answer Comments Discussion of Advance Directives occurred with: Patient Does the patient have a Living Will? No Does the patient have Health Care Power of Javascript Application Developer? No Full Code 01/11/2008 9:52 AM 01/12/2008 1:19 PM Care Teams Special Librarian Relationship Specialty Start Date End Date Blanca Luciano DO [address] [facility] [place] [address] PCP - General Family Medicine 04/06/21 documented as of this encounter
--- OUTSIDE RECORDS SUMMARY | 2023-08-19 10:18 | External Medical Summary | Summary of Care ---
Author Name Unknown Organization [facility] Address [address] [facility] [place] [address] Phone [phone] Care Team Providers Care Monogram Technician Name Role Phone Blanca Luciano DO Primary Care Provider [phone] Encounter Details Date Type Department Care Team Description 02/28/2023 Telephone Pulmonary Medicine, [facility] [address] [place] [address] Sallie Wong CRNP [address] [place] [address] Allergies Active Allergy Reactions Severity Noted Date Comments Nitroglycerin Tachycardia 11/12/2020 Applies to NTG SL tablets only. Not Nitro paste. Not Imdur. Rosuvastatin Medium 11/05/2018 Other reaction(s): ELEVATED ALT Simvastatin 11/05/2018 Other reaction(s): Unknown Simvastatin 02/02/2007 Elevated ALT documented as of this encounter (statuses as of 02/28/2023) Medications Medication Sig Dispensed Refills Start Date [...] ARMPIT RASH 30 g 1 02/10/2021 Active dilTIAZem HCl ER Coated Beads 180 MG Oral Capsule Extended Release 24 Hour (Cardizem CD)Indications:Cor onary artery disease of [place] artery of [place] heart with stable angina pectoris (HCC),Chronic ischemic heart disease TAKE ONE CAPSULE BY MOUTH EVERY DAY 90 Capsule 3 05/10/2022 Active Clopidogrel Bisulfate 75 MG Oral Tablet (pLAVix)Indication s:S/P angioplasty with stent TAKE ONE TABLET BY MOUTH EVERY DAY 90 Tablet 3 05/11/2022 Active Gabapentin 300 MG Oral Capsule (Neurontin) Take 1 Capsule by mouth at bedtime. 0 Active Dicyclomine HCl 10 MG Oral Capsule (Bentyl)Indication s:LLQ abdominal pain One tab twice daily as needed for lower abdomen pain/cramping 180 Capsule 3 2022 Active Pantoprazole Sodium 40 MG Oral Tablet [...] artery (RCA) stent placement,Coronary artery disease involving [place] heart without angina pectoris, unspecified vessel or lesion type Take 1 Tablet by mouth in the morning. 90 Tablet 3 11/22/2022 Active Losartan Potassium 25 MG Oral Tablet (Cozaar) Take 0.5 Tablets by mouth in the morning. 45 Tablet 3 02/09/2023 Active Sodium Bicarbonate 650 MG Oral Tablet Take 1 Tablet by mouth daily. 90 Tablet 3 02/21/2023 Active ALPRAZolam 0.25 MG Oral Tablet (xaNAX)Indications :Anxiety state TAKE ONE TABLET BY MOUTH THREE TIMES A DAY (MORNING, NOON AND EVENING) NEEDED FOR ANXIETY 90 Tablet 0 02/21/2023 Active Hospital, Clinic, or Other Facility Administered Medication Ordered Dose Route Frequency Start Date End Date Status albuterol sulfate (PROVENTIL) (2.5 MG/3ML) 0.083% inhalation solution 2.5 mgIndications:COPD, mild (HCC) 2.5 mg NEBULIZER Q4H PRN 03/22/2019 Active documented as of this encounter (statuses as of 02/28/2023) Active Problems Problem Noted Date COPD, group B, by GOLD 2017 classificati on 01/26/2023 Granulomatous lung disease 01/20/2022 CAD S/P percutaneous coronary angioplast y 06/08/2021 Stage 3a chronic kidney disease 05/12/20 Overview: Per CKD protocol - Per CKD protocol Sensorineural hearing loss ( SNHL) of left ear with unrestricted hearing of right ear 12/18/2018 Moderate persistent asthma without compl ication 12/11/2018 JUAN ANTONIO (generalized anxiety disorder) 11/02 History of placement of stent in LAD cor onary artery 06/14/2018 Overview: 06/05/2018 [place] 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 Encouraged to take nice deep breaths and rinse after steroid inhaler. Test performed by Vicky DIRECTOR [employer]BI[employer] CPFT S/P right coronary artery (RCA) stent pl acement 11/16/2015 Coronary artery disease of n ative artery of [place] heart with stable angina pectoris 11/12/2015 IBS [...] as of this encounter (statuses as of 02/28/2023) Resolved Problems Problem Noted Date Resolved Date [...] Research Coordinator: Dipti Sanches SPIRIT IV Clinical Trial*[id number] 02/08/2008 11/27/2013 Overview: Renamed Per Clinical Trials Billing Project. SPIRIT IV clinical trial: Xience V Everolimus ALICIA vs. 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 [...] as of this encounter (statuses as of 02/28/2023) Immunizations Name Administration Dates Next Due Pneumococcal [...] encounter Miscellaneous Notes * Telephone Encounter - Sai Giordano - 02/28/2023 10:42 AM EDT Orders in 02/28 documented in this encounter Plan of Treatment Upcoming Encounters Date Type Specialty Care Team Description 05/25/2023 Office Visit Gastroenterology Renee Daniels CRNP [address] [place] [address] 06/03/2023 Pharmacy Cardiology [facility] Cardiology Faby [address] [place] [address] 06/03/2023 Office Visit Cardiology Chai Houston PA-C [address] [place] [address] 08/23/2023 Office Visit Family Medicine Blanca Luciano DO [address] [facility] [place] [address] 09/02/2023 Office Visit Sleep Disorders Sallie Wong CRNP [address] [place] [address] 10/26/2023 Office Visit Nephrology Evangelist Lyle MD [address] [place] [address] [place] [id number] 01/31/2024 Office Visit Dermatology Lucero Mercado PA-C [address] [facility] [place] [address] Scheduled Procedures Name Priority Associated Diagnoses Date/Ti me COLONOSCOPY FLEXIBLE PROXIMAL DIAGNOSTIC Recall History of colon polyps Health Maintenance Due Date Last Done Comments COVID-19 Vaccine (#1) 1955 HIV Screening 1972 Alpha-1 Antitrypsin 1975 Depression Screening, Annual for Pts 12 and Over 01/08/2023 01/08/2022 Pneumococcal Vaccine: 65+ Years (2 - PCV) 01/20/2023 01/20/2022, 04/24/2007 Influenza Vaccine (FLU shot) (#1) 2023 04/06/2021, 04/06/2021, 06/16/2020, Additional history exists DTaP,Tdap,and Td Vaccines (4 - Td or Tdap) 05/14/2023 05/14/2013, 02/06/2003, 02/06/2003 Albumin/Creatinine Ratio 06/09/2023 06/09/2022 CKD PHOS USE SMARTSET 12154 06/09/2023 06/09/2022, 1 08/17/2019 GFR 08/12/2023 02/09/2023, 01/2022, 03/22/2022, Additional history exists CKD HGB USE SMARTSET 28182 02/10/202402/09, 02/09/2023, 06/09/2022, Additional history exists TSH [...] the patient have Health Care Power of Heel Lift Gouger? No Code Status History Code Status Date Activated Date Inactivated Comments Full Code 11/12/2015 7:57 PM 11/14/2015 3:07 PM This order reflects the patients wishes and were consensually agreed upon. Question Answer Comments Discussion of Advance Directives occurred with: Patient Does the patient have a Living Will? No Does the patient have Health Care Power of Heel Lift Gouger? No Full Code 01/11/2008 9:52 AM 01/12/2008 1:19 PM Care Teams Monogram Technician Relationship Specialty Start Date End Date Blanca Luciano DO [address] [facility] [place] [address] PCP - General Family Medicine 04/06/21 documented as of this encounter
--- OUTSIDE RECORDS SUMMARY | 2023-08-19 10:18 | External Medical Summary | Summary of Care ---
Author Name Unknown Organization [facility] Address [address] [address] Phone [phone] Care Team Providers Care Slimer Name Role Phone Blanca Luciano DO Primary Care Provider [phone] Reason for Visit * Reason Comments Outpatient Testing Encounter Details Date Type Department Care Team (Late st Contact Info) Description 04/25/2023 1:50 PM EDT [facility] [address] [facility] [place] [address] [place] [facility] [address] [facility] [place] [id number] Stage 3a chronic kidney disease (HCC) Allergies Active Allergy Reactions Criticality Noted Date Comments Nitroglycerin Tachycardia 11/12/2020 Applies to NTG SL tablets only. Not Nitro paste. Not Imdur. Rosuvastatin Medium 11/05/2018 Other reaction(s): ELEVATED ALT Simvastatin 11/05/2018 Other reaction(s): Unknown Simvastatin 02/02/2007 Elevated ALT documented as of this encounter (statuses as of 04/25/2023) Medications Medication Sig Dispensed Refills Start Date [...] Hour (Cardizem CD)Indications:Cor onary artery disease of hoh artery of hoh heart with stable angina pectoris (HCC),Chronic ischemic [...] artery (RCA) stent placement,Coronary artery disease involving hoh heart without angina pectoris, unspecified vessel or [...] EVENING) NEEDED FOR ANXIETY 90 Tablet 0 03/24/2023 Active Hospital, Clinic, or Other Facility Administered Medication Ordered Dose Route Frequency Start Date End Date Status albuterol sulfate (PROVENTIL) (2.5 MG/3ML) 0.083% inhalation solution 2.5 mgIndications:COPD, mild (HCC) 2.5 mg NEBULIZER Q4H PRN 03/22/2019 Active documented as of this encounter (statuses as of 04/25/2023) Active Problems Problem Noted Date Diagnosed Date [...] LAD coronary ar kalyan 06/14/2018 Overview: 06/05/2018 [place] 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 Encouraged to take nice deep breaths and rinse after steroid inhaler. Test performed by Vicky STATION USHER CPFT S/P right coronary artery (RCA) stent placement 11/16/2015 Coronary artery disease of n ative artery of hoh heart with stable angina pectoris 11/12/2015 IBS [...] as of this encounter (statuses as of 04/25/2023) Resolved Problems Problem Noted Date Diagnosed Date [...] Research Coordinator: Dipti Sanches SPIRIT IV Clinical Trial*[id number] 02/08/2008 11/27/2013 Overview: Renamed Per Clinical Trials Billing Project. SPIRIT IV clinical trial: Xience V Everolimus ALICIA vs. TAXUS ALICIA PI: Jess More MD Research Coordinator: Dipti Sanches [employer] Cardio Research Other*[id number] 01/11/2008 08/10/2016 Overview: Study Title: Genomic Markers for Patients with Cardiovascular Disease Project # [id number] Space Technologist: Jess More MD [phone] Other specified congenital a nomaly of esophagus [...] as of this encounter (statuses as of 04/25/2023) Immunizations Name Administration Dates Next Due Pneumococcal [...] drink = 0.6 oz pur e alcohol) Sex and Gender Information Value Date Recorded [...] Care Team (Late st Contact Info) Description 05/25/2023 12:30 PM EST Office Visit Gastroenterology, [facility] [address] [place] [address] Renee Daniels CRNP [address] [place] [address] 06/03/2023 7:00 AM EST Pharmacy Cardiology, [facility] [address] [address] [place], [facility] Cardiology [facility] [address] [facility] [place] [address] 06/03/2023 11:00 AM EST Office Visit Cardiology, [facility] [address] [facility] [place] [address] Chai Houston PA-C [address] [place] [address] 08/23/2023 11:20 AM EST Office Visit [facility] [place] [address] [facility] [place] [address] Blanca Luciano DO [address] [facility] [place] [address] 09/02/2023 11:30 AM EST Office Visit Sleep Disorders [facility] [address] [facility] [place] [phone] Sallie Wong CRNP [address] [facility] [place] [address] 10/26/2023 10:40 AM EDT Office Visit Nephrology, [place] [address] [facility] [place] [address] Evangelist Lyle MD [address] [place] [address] [place] [address] 01/31/2024 10:40 AM EDT Office Visit Dermatology [facility] [place] [address] [facility] [place] [address] Lucero Mercado PA-C [address] [facility] [place] [address] Pending Results Name Type Priority Associated Diagnoses Date /Time COMPREHENSIVE METABOLIC PANEL Lab Routine Stage 3a chronic kidney disease (HCC) 04/25/2023 1:50 PM EDT Scheduled Procedures Name Priority Associated Diagnoses Date/Ti [...] Ratio 06/09/2023 06/09/2022 CKD PHOS USE SMARTSET 75711 06/09/2023 06/09/2022, 1 08/17/2019 GFR 08/12/2023 02/09/2023, 01/2022, 03/22/2022, Additional history exists CKD HGB USE SMARTSET 07131 02/10/202402/09, 02/09/2023, 06/09/2022, Additional history exists TSH [...] as of this encounter Visit Diagnoses Diagnosis Stage 3a chronic kidney disease (HCC) documented in this encounter Advance Directives Latest [...] the patient have Health Care Power of Crisis Therapist? No Code Status History Code Status Date Activated Date Inactivated Comments Full Code 11/12/2015 7:57 PM 11/14/2015 3:07 PM This order reflects the patients wishes and were consensually agreed upon. Question Answer Comments Discussion of Advance Directives occurred with: Patient Does the patient have a Living Will? No Does the patient have Health Care Power of Crisis Therapist? No Full Code 01/11/2008 9:52 AM 01/12/2008 1:19 PM Care Teams Slimer Relationship Specialty Start Date End Date Blanca Luciano DO [address] [facility] [place] [address] PCP - General Family Medicine 04/06/21 documented as of this encounter
--- OUTSIDE RECORDS SUMMARY | 2023-08-19 10:18 | External Medical Summary | Summary of Care ---
Author Name Unknown Organization [facility] Address [address] [place] [address] Phone [phone] Care Team Providers Care Physical Therapy Supervisor Name Role Phone Blanca Luciano DO Primary Care Provider [phone] Reason for Visit * Reason Comments eRx-Medication Refill Encounter Details Date Type Department Care Team (Late st Contact Info) Description 05/02/2023 Refill General Internal Medicine [facility] [address] [place] [address] Blanca Luciano DO [address] [place] [id number] S/P ANGIOPLASTY WITH STENT LAD drug eluting Stent stop Plavix 01/14/09 Allergies Active Allergy Reactions Criticality Noted Date Comments Nitroglycerin Tachycardia 11/12/2020 Applies to NTG SL tablets only. Not Nitro paste. Not Imdur. 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 (HCC),Chronic ischemic heart disease TAKE ONE CAPSULE BY MOUTH EVERY DAY 90 Capsule 3 2 Active Gabapentin 300 MG Oral [...] (RCA) stent placement,Coronar y artery disease involving turtle mountain heart without angina pectoris, unspecified vessel or [...] FOR ANXIETY 90 Tablet 0 3 Active Clopidogrel Bisulfate 75 MG Oral Tablet (pLAVix)Indicatio ns:S/P angioplasty with stent TAKE ONE TABLET BY MOUTH EVERY DAY 90 Tablet 3 3 Active Clopidogrel Bisulfate 75 MG Oral Tablet (pLAVix)Indicatio ns:S/P angioplasty with stent TAKE ONE TABLET BY MOUTH EVERY DAY 90 Tablet 3 2 05/02/20 23 Discontinued Hospital, Clinic, or Other Facility Administered Medication Ordered Dose Route Frequency Start Date End Date Status albuterol sulfate (PROVENTIL) (2.5 MG/3ML) 0.083% inhalation solution 2.5 mgIndications:COPD, mild (HCC) 2.5 mg NEBULIZER Q4H PRN 03/22/2019 Active documented as of this encounter (statuses as of 05/02/2023) Active Problems Problem Noted Date Diagnosed Date [...] LAD coronary ar kalyan 06/14/2018 Overview: 06/05/2018 [place] 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 Encouraged to take nice deep breaths and rinse after steroid inhaler. 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 SPIRIT IV clinical trial: Xience V Everolimus ALICIA vs. TAXUS ALICIA PI: Jess More MD Research Coordinator: Dipti Sanches [employer] Cardio Research Other*[id number] 01/11/2008 08/10/2016 Overview: Study Title: Genomic Markers for Patients with Cardiovascular Disease Project # [id number] Polisher And Sander: Jess More MD [phone] Other specified congenital a nomaly of esophagus [...] as of this encounter (statuses as of 05/02/2023) Immunizations Name Administration Dates Next Due Pneumococcal [...] encounter Miscellaneous Notes * Telephone Encounter - Benjamin Schultz [facility] - 05/02/2023 3:56 PM EDTSigned Prescriptions: Disp Refills Clopidogrel Bisulfate 75 MG Oral Tablet (p*90 Tab*3 Sig: TAKE ONE TABLET BY MOUTH EVERY DAYAuthorizing Provider: BLANCA LUCIANO User: BENJAMIN SCHULTZ documented in this encounter Plan of Treatment Upcoming Encounters Date Type Department Care Team (Late st Contact Info) Description 05/25/2023 12:30 PM EST Office Visit Gastroenterology, [facility] [address] [place] [address] Renee Daniels CRNP [address] [place] [address] 06/03/2023 7:00 AM EST Pharmacy Cardiology, [facility] [address] [place] [address] [facility] Cardiology [facility] [address] [place] [address] 06/03/2023 11:00 AM EST Office Visit Cardiology, [facility] [address] [place] [address] Chai Houston PA-C [address] [place] [address] 08/23/2023 11:20 AM EST Office Visit Family Practice [address], [place] [address] [place] [address] Blanca Luciano, [address] [place] [address] 09/02/2023 11:30 AM EST Office Visit [facility] [place] [phone] Sallie Wong CRNP [address] [place] [address] 10/05/2023 11:00 AM EDT Office Visit Nephrology, [place] [address] [place] [address] Evangelist Lyle MD [address] [place] [phone] 01/31/2024 10:40 AM EDT Office Visit Dermatology [facility] [place] [address] [place] [address] Lucero Mercado PA-C [address] [facility] [place] [address] Scheduled Procedures Name Priority Associated Diagnoses Date/Ti [...] Ratio 06/09/2023 06/09/2022 CKD PHOS USE SMARTSET 20305 06/09/2023 06/09/2022, 1 08/17/2019 GFR 10/25/2023 04/25/2023, 08/03/2023, 06/09/2022, Additional history exists CKD HGB USE SMARTSET 75524 02/10/202402/09, 02/09/2023, 06/09/2022, Additional history exists TSH [...] as of this encounter Visit Diagnoses Diagnosis S/P ANGIOPLASTY WITH STENT LAD drug eluting Stent stop Plavix 01/14/09 Postsurgical percutaneous transluminal coronary angioplasty status documented in this encounter Advance Directives Latest [...] the patient have Health Care Power of Conduit Reamer Operator? No Code Status History Code Status Date Activated Date Inactivated Comments Full Code 11/12/2015 7:57 PM 11/14/2015 3:07 PM This order reflects the patients wishes and were consensually agreed upon. Question Answer Comments Discussion of Advance Directives occurred with: Patient Does the patient have a Living Will? No Does the patient have Health Care Power of Conduit Reamer Operator? No Full Code 01/11/2008 9:52 AM 01/12/2008 1:19 PM Care Teams Physical Therapy Supervisor Relationship Specialty Start Date End Date Blanca Luciano DO [address] [facility] [place] [address] PCP - General Family Medicine 04/06/21 documented as of this encounter
--- OUTSIDE RECORDS SUMMARY | 2023-08-19 10:18 | External Medical Summary ---
Author Name Unknown Address Unknown Organization K01:[facility] - [address] [facility] [place] [address] Laboratory Report Ordering Provider Test Date Status STEVE PINZON 04/25/2023 13:50:03 Final Observation Date Value Abnormality Reference (Units ) Status BUN 04/25/2023 13:50:03 16 6-20 (mg/dL) Final Creatinine 04/25/2023 13:50:03 1.4 Above high normal 0.6-1.2 (mg/dL) Final Glomerular filtration rate/1.73 sq M.predicted [Volume Rate/Area] in Serum, Plasma or Blood by Creatinine-based formula (CKD-EPI) 04/25/2023 13:50:03 57 Below low normal >=60 (mL/min) Final eGFR is calculated based on the CKD-EPI 2020 equation SODIUM 04/25/2023 13:50:03 141 135-146 (m mol/L) Final Potassium 04/25/2023 13:50:03 4.7 3.5-5.1 (m mol/L) Final Cl 04/25/2023 13:50:03 105 98-107 (mm ol/L) Final CO2 04/25/2023 13:50:03 22 22-32 (mmo l/L) Final Anion gap 04/25/2023 13:50:03 14 7-15 (mmol /L) Final Glucose 04/25/2023 13:50:03 94 70-120 (mg /dL) Final Albumin 04/25/2023 13:50:03 4.5 3.8-5.0 (g /dL) Final AST (Aspartate aminotransferase) 04/25/2023 13:50:03 49 10-50 (U/L) Fin al Alk Phos 04/25/2023 13:50:03 112 35-130 (U/ L) Final Bilirubin, Total 04/25/2023 13:50:03 0.9 <=1 .2 (mg/dL) Final Calcium 04/25/2023 13:50:03 9.5 8.4-10.2 ( mg/dL) Final Protein 04/25/2023 13:50:03 6.6 6.0-8.3 (g /dL) Final ALT (Alanine aminotransferase) 04/25/2023 13:50:03 96 Above high normal 10-50 (U/L) Final Performing Location [facility] [place] - [address] [place] [address]
--- OUTSIDE RECORDS SUMMARY | 2023-08-19 10:18 | External Medical Summary | Summary of Care ---
Author Name Unknown Organization [facility] Address [address] [place] [facility] [place] [address] Phone [phone] Care Team Providers Care Healthcare Translator Name Role Phone Blanca Luciano DO Primary Care Provider Un available Reason for Visit * Reason Onset Date Comments Medication Refill 05/27/2023 Encounter Details Date Type Department Care Team (Late st Contact Info) Description 05/27/2023 Refill [facility] [place] [address] [facility] [place] [address] Blanca Luciano DO Anxiety state* Allergies Active Allergy Reactions Criticality Noted Date Comments Nitroglycerin Tachycardia 11/12/2020 Applies to NTG SL tablets only. Not Nitro paste. Not Imdur. Rosuvastatin Medium 11/05/2018 Other reaction(s): ELEVATED ALT Simvastatin 11/05/2018 Other reaction(s): Unknown Simvastatin 02/02/2007 Elevated ALT documented as of this encounter (statuses as of 05/27/2023) Medications Medication Sig Dispensed Refills Start Date [...] Hour (Cardizem CD)Indications:Co ronary artery disease of northway artery of northway heart with stable angina pectoris (HCC),Chronic ischemic [...] (RCA) stent placement,Coronar y artery disease involving northway heart without angina pectoris, unspecified vessel or [...] FOR ANXIETY 90 Tablet 0 05/27/2023 Active ALPRAZolam 0.25 MG Oral Tablet (xaNAX)Indication s:Anxiety state TAKE ONE TABLET BY MOUTH THREE TIMES A DAY (MORNING, NOON, EVENING) NEEDED FOR ANXIETY 90 Tablet 0 04/26/2023 3 Discontinu ed(Refill) Hospital, Clinic, or Other Facility Administered Medication Ordered Dose Route Frequency Start Date End Date Status albuterol sulfate (PROVENTIL) (2.5 MG/3ML) 0.083% inhalation solution 2.5 mgIndications:COPD, mild (HCC) 2.5 mg NEBULIZER Q4H PRN 03/22/2019 Active documented as of this encounter (statuses as of 05/27/2023) Active Problems Problem Noted Date Diagnosed Date [...] LAD coronary ar kalyan 06/14/2018 Overview: 06/05/2018 [place] 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 Encouraged to take nice deep breaths and rinse after steroid inhaler. 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 SPIRIT IV clinical trial: Xience V Everolimus ALICIA vs. TAXUS ALICIA PI: Jess More MD Research Coordinator: Dipti Sanches [facility] Cardio Research Other*[id number] 01/11/2008 08/10/2016 Overview: Study Title: Genomic Markers for Patients with Cardiovascular Disease Project # [id number] Wharf Tender Helper: Jess More MD [phone] Other specified congenital a nomaly of esophagus [...] as of this encounter (statuses as of 05/27/2023) Immunizations Name Administration Dates Next Due Pneumococcal [...] encounter Miscellaneous Notes * Telephone Encounter - Caro Edmondson MD - 05/27/2023 1:57 PM ESTSigned Prescriptions: Disp Refills ALPRAZolam 0.25 MG Oral Tablet (xaNAX) 90 Tab*0 Sig: Only take for panic. Reduce dose for safety. TAKE ONE TABLET BY MOUTH THREE TIMES A DAY (MORNING, NOON, EVENING) NEEDED FOR ANXIETY Authorizing Provider: CARO EDMONDSON * Telephone Encounter - Isaura Bond LPN - 05/27/2023 1:05 PM EST No prescriptions requested or ordered in this encounter Last Visit: 01/26/2023 (in office), Visit date not found (telemedicine) Next Visit: 08/23/2023 Last date the medication was ordered: 04/26/23 Patient Active Problem List Diagnosis Code Benign neoplasm of colon D12.6 Displacement of lumbar intervertebral disc without myelopathy M51.26 Dyslipidemia E78.5 Gastroesophageal reflux disease with esophagitis K21.00 Severe obesity with body mass index (BMI) of 35.0 to 39.9 with serious comorbidity ([facility]) E66.01 Osteoarthritis of right knee M17.11 History of basal cell carcinoma Z85.828 IBS (irritable bowel syndrome) K58.9 NAFLD (nonalcoholic fatty liver disease) K76.0 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) I25.118 S/P right coronary artery (RCA) stent placement Z95.5 [place] miners' lung (HCC) J60 History of placement of stent in LAD coronary artery Z95.5 JUAN ANTONIO (generalized anxiety disorder) F41.1 Moderate persistent asthma without complication J45.40 Sensorineural hearing loss (SNHL) of left ear with unrestricted hearing of right ear H90.42 Stage 3a chronic kidney disease N18.31 CAD S/P percutaneous coronary angioplasty I25.10, Z98.61 Granulomatous lung disease (HCC) J84.10 COPD, group B, by GOLD 2017 classification ([facility]) J44.9 Labs: Lab Results Component Value Date/Time [...] Team (Late st Contact Info) Description 06/03/2023 7:00 AM EST Pharmacy Cardiology, [address] [place] [address] [facility] Cardiology [address] [place] [address] 06/03/2023 11:30 AM EST Office Visit Cardiology, [facility] [address] [facility] [place] [address] Noa Pineda PA-C [address] [facility] [place] [address] 06/03/2023 1:00 PM EST Nurse Only [facility], [address] [place] [address] [place], Nurse [address]astro [address] [place] [address] 06/03/2023 2:00 PM EST Appointment Radiology, [place] [address] [place] [address] 08/23/2023 11:20 AM EST Office Visit [facility] [place] [address] [place] [address] Blanca Luciano DO 09/02/2023 11:30 AM EST Office Visit Sleep Disorders Ctr [facility] [address] [facility] [place] [phone] Sallie Wong CRNP [address] [place] [address] 09/05/2023 1:30 PM EST Office Visit Gastroenterology, [facility] [address] [place] [address] Renee Daniels CRNP [address] [place] [address] 10/05/2023 11:00 AM EDT Office Visit Nephrology, [place] [address] [place], [place] [address] [place] [address] Evangelist Lyle MD [address] [place], [place] [address] [place] [address] 01/31/2024 10:40 AM EDT Office Visit Dermatology [facility] [place] [address] [place] [address] Lucero Mercado PA-C [address] [place] [address] Scheduled Procedures Name Priority Associated Diagnoses Date/Ti [...] Ratio 06/09/2023 06/09/2022 CKD PHOS USE SMARTSET 23006 06/09/2023 06/09/2022, 1 08/17/2019 GFR 10/25/2023 04/25/2023, 08/0 03/2023, 06/09/2022, Additional history exists CKD HGB USE SMARTSET 79423 02/10/202402/09, 02/09/2023, 06/09/2022, Additional history exists TSH [...] of this encounter Visit Diagnoses Diagnosis Anxiety state- Primary Anxiety state, unspecified documented in this encounter [...] the patient have Health Care Power of Tool And Production Planner? No Code Status History Code Status Date Activated Date Inactivated Comments Full Code 11/12/2015 7:57 PM 11/14/2015 3:07 PM This order reflects the patients wishes and were consensually agreed upon. Question Answer Comments Discussion of Advance Directives occurred with: Patient Does the patient have a Living Will? No Does the patient have Health Care Power of Tool And Production Planner? No Full Code 01/11/2008 9:52 AM 01/12/2008 1:19 PM Care Teams Healthcare Translator Relationship Specialty Start Date End Date Blanca Luciano DO PCP - General Family Medicine 04/06/21 documented as of this encounter
--- OUTSIDE RECORDS SUMMARY | 2023-08-19 10:18 | External Medical Summary | Summary of Care ---
Author Name Unknown Organization [facility] Address [address] [place] [address] Phone [phone] Care Team Providers Care Wire Setter Name Role Phone Blanca Luciano DO Primary Care Provider Un available Reason for Visit * Reason Comments Follow Up IBS, polyps, gallbla dder issues, NAFLD * Evaluate & Treat - Unlimited Visits (Within 10 days (routine)) - Pending Review Specialty Diagnoses / Procedures Referred By Marty ba Referred To Contact Gastroenterology Diagnoses Cyst of gallbladder Change in bowel habits Functional diarrhea Lower abdominal pain Christopher Quinones PA-C [address] [place] [address] Referral ID Status Reason Start Date Expiration Date Visits Requested Visits Authorized [id number] Pending Review Specialty Services Required 01/26/[phone] Encounter Details Date Type Department Care Team (Late st Contact Info) Description 05/25/2023 12:30 PM EST Office Visit Gastroenterology, [facility] [address] [place] [address] Renee Daniels CRNP [address] [place] [address] Fatty liver* Allergies Active Allergy Reactions Criticality Noted Date Comments Nitroglycerin Tachycardia 11/12/2020 Applies to NTG SL tablets only. Not Nitro paste. Not Imdur. 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 (HCC),Chronic ischemic [...] artery (RCA) stent placement,Coronary artery disease involving [place] heart without angina pectoris, unspecified vessel or [...] Additional Information Patient not taking.Reported on 05/25/2023 ALPRAZolam 0.25 MG Oral Tablet (xaNAX)Indications :Anxiety state TAKE ONE TABLET BY MOUTH THREE TIMES A DAY (MORNING, NOON, EVENING) NEEDED FOR ANXIETY 90 Tablet 0 04/26/2023 Active Clopidogrel Bisulfate 75 MG Oral Tablet (pLAVix)Indication s:S/P angioplasty with stent TAKE ONE TABLET BY MOUTH EVERY DAY 90 Tablet 3 05/02/2023 Active Hospital, Clinic, or Other Facility Administered Medication Ordered Dose Route Frequency Start Date End Date Status albuterol sulfate (PROVENTIL) (2.5 MG/3ML) 0.083% inhalation solution 2.5 mgIndications:COPD, mild (HCC) 2.5 mg NEBULIZER Q4H PRN 03/22/2019 Active documented as of this encounter (statuses as of 05/25/2023) Active Problems Problem Noted Date Diagnosed Date [...] LAD coronary ar kalyan 06/14/2018 Overview: 06/05/2018 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 Encouraged to take nice deep breaths and rinse after steroid inhaler. 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 SPIRIT IV clinical trial: Xience V Everolimus ALICIA vs. TAXUS ALICIA PI: Jess More MD Research Coordinator: Dipti Sanches [employer] Card[employer] Research Other*[id number] 01/11/2008 08/10/2016 Overview: Study Title: Genomic Markers for Patients with Cardiovascular Disease Project # [id number] Net Trainer: Jess More MD [phone] Other specified congenital a nomaly of esophagus [...] as of this encounter (statuses as of 05/25/2023) Immunizations Name Administration Dates Next Due Pneumococcal [...] Date Smoking Tobacco: Never Smokeless Tobacco: Never Tobacco Cessation:Counseling Given: Not Answered Alcohol Use Standard Drinks/Week Comments No 0 [...] Sign Reading Time Taken Comments Blood Pressure 125/71 05/25/2023 12:22 PM EST Pulse 65 05/25/2023 12:22 PM EST Temperature 36.5 C (97.7 F) 05/25/2023 12:[address] Respiratory Rate - - Oxygen Saturation 97% 05/25/2023 12:22 PM EST Inhaled Oxygen Concentration - - Weight 109 kg (240 lb 6.4 oz) 05/25/2023 12:22 P M EST Height - - Body Mass Index 34.99 02/25/2023 11:18 AM EDT documented in this [...] as of this encounter Progress Notes * Renee Daniels CRNP - 05/25/2023 12:30 PM EST DATE OF SERVICE: 05/25/2023 REFERRING PHYSICIAN: Christopher Quinones PA-C CC: cyst of GB, change in bowel habits, abd pain, diarrhea Office Visit 05/25/2023 : Referred back to GI for above. Retired in September - picked up his activity going to the gym. Has slowed down some due to back pain. Following up with PCP for this. He notes hehad some issues with his stools. Looser, darker BMs. Notes they have somewhat improved over the last few months.Stools are semi-formed. Stools are brown. No black or bloody stools. He has intermittent lwoer abd pain/cramping. Gets this before BM and with the BM. Moving the stools can make the ain better. No fever, chills, CP, SOB. Latest Reference Range & Units 04/25/23 13:50 Albumin 3.8 - 5.0 g/dL 4.5 AST 10 - 50 U/L 49 ALT 10 - 50 U/L 96 (H) Alkaline Phosphatase 35 - 130 U/L 112 Bilirubin, Total <=1.2 mg/dL 0.9 (H): Data is abnormally high ABD US 2020: Hepatic steatosis with focal sparing along the gallbladder fossa.Tiny polyps versus sludge balls along the gallbladder wall. CTAP 2020: no acute findings ABD US 2018: Hepatic steatosis. Gallbladder polyp measuring 4 mm. Nonvisualization of the pancreas ABD US 2017: Diffusely increased echogenicity of the liver. Nonspecific finding. Fatty infiltrationis a consideration among other diffuse hepatocellular processes. Probable multiple gallbladder polyps measuring up to 4 mm in diameter. Follow-up ultrasound could be performed in [address] ability. Small gallstones not excluded. No sonographic evidence of cholecystitis or biliary ductal dilatation. Limited evaluation of pancreas.. No acute findings in the right kidney. Fibroscan 2017: F0-F1 Liver Bx 2011: Mild steatohepatitis with moderate macrovesicular steatosis Colonscopy 2020:The examined portion of the ileum was normal. - One 2 mm polyp in the sigmoid colon, removed with a jumbo cold forceps. Resected and retrieved. - Diverticulosis in the sigmoid colon. - Internal hemorrhoids. - The examination was otherwise normal on direct and retroflexion views EGD 2020: Normal esophagus. - Gastritis. Biopsied. - Normal examined duodenum. Biopsied. Colonoscopy 2017: diverticulosis, otherwise negative EGD 2017: erythema of the antrum, bx negative. Otherwise unremarkable Colonoscopy 2014: One 2 mm polyp at the hepatic flexure. Resected and retrieved. The exam was otherwise normal to the cecum. EGD 2013: Normal upper third of esophagus, middle third of esophagus and lower third of esophagus. Z-line regular, 40 cm from the incisors. Biopsied. Hiatus hernia. Normal stomach. Biopsied. Normal examined duodenum. Biopsied Family history of GI malignancy: dad w/ panc CA in 80's Past Medical History: Diagnosis Date Actinic keratosis Acute tonsillitis Tonsilitis ASCVD (arteriosclerotic cardiovascular disease) Benign neoplasm of colon 08/24/2007 await pathology, repeat in 2 years due to prep. Cardiac catheterization as the cause of abnormal reaction of patient, or of later complication, without mention of misadventure at time of procedure 10/1997 cardiac cath for partially blocked coronary arteries [place] lung (HCC) 01/31/2017 COPD, mild (HCC) [...] history of skin diseases or skin cancer Past Surgical History: Procedure Laterality Date CARDIAC ANGIOPLASTY, PERCUTANEOUS, 1 ARTERY Right 11/13/2015 PTCA, CARDIAC ANGIOPLASTY, PERCUTANEOUS, 1 ARTERY performed by Mona Tinsley MD at [facility] [place]COPY W/ BIOPSY (RECTUM) 08/24/2007 await pathology, repeat in 2 years due to prep. COLONOSCOPY, DIAGNOSTIC (RECTUM) 08/25/2009 repeat in 5 yrs COLONOSCOPY, DIAGNOSTIC (RECTUM) 09/02/2014 adenomatous polyp, repeat 5 yrs/COLONOSCOPY FLEXIBLE PROXIMAL DIAGNOSTIC performed by Mario Gutierrez MD at ENDOSCOPY [facility] COLONOSCOPY, DIAGNOSTIC (RECTUM) 02/02/2018 diverticulosis, repeat 5 yrs/[facility] COLONOSCOPY, DIAGNOSTIC (RECTUM) 08/07/2020 inflammatory tissue on bx, diverticulosis, repeat 5 yrs / COLONOSCOPY FLEXIBLE PROXIMAL DIAGNOSTIC performed by You Spain MD at ENDOSCOPY [facility] CORONARY ANGIOGRAPHY W/RIGHT+LEFT CATH Right 06/02/2018 CORONARY ANGIOGRAPHY W/RIGHT+LEFT CATH performed by Mona Tinsley MD at [facility] [place]GD, FLEXIBLE, DIAGNOSTIC 12/17/2013 acid reflux, HH/ESOPHAGOGASTRODUODENOSCOPY (EGD), FLEXIBLE, TRANSORAL, DIAGNOSTIC performed by Mario Gutierrez MD at ENDOSCOPY [facility] EGD, FLEXIBLE, DIAGNOSTIC 02/02/2018 normal bx/[facility] EGD, FLEXIBLE, DIAGNOSTIC 08/07/2020 gastritis / ESOPHAGOGASTRODUODENOSCOPY (EGD), FLEXIBLE, TRANSORAL, DIAGNOSTIC performed by You Spain MD at ENDOSCOPY [facility] INFORMATION left finger (minor surgery) IOF CT GUIDED NEEDLE BIOPSY 04/24/2012 CT GUIDED NEEDLE ASPIRATION BIOPSY performed by Chip Tripathi PA-C at [place] [facility] KNEE ARTHROSCOPY/DEBRIDEMENT Right 2008, 2013 MISCELLANEOUS ORDER 10/1998 heart cath NONE 11/2004 Cyst drained of lumbar area in ER OTHER 01/14/2009 right knee scoped PATIENT HAS A CORONARY ARTERY STENT 11/13/[address] INTRACORONARY STENT, FIRST VS 2007 REMOVE TONSILS & ADENOIDS, UNDER 12 Tonsillectomy/Adenoids,<12 Y/O Social History Tobacco Use Smoking status: Never Smokeless tobacco: Never Vaping Use Vaping Use: Never used Substance Use Topics Alcohol use: No Drug use: No Review of patient's allergies indicates: Allergen Reactions Rosuvastatin Other reaction(s): ELEVATED ALT Nitroglycerin Tachycardia Applies to NTG SL tablets only. Not Nitro paste. Not Imdur. Simvastatin Other reaction(s): Unknown Zocor [Simvastatin] Elevated ALT Current Outpatient Medications Medication Sig Dispense Refill ASPIRIN 81 MG PO CHEW Take 1 Tablet by mouth in the morning. CPAP 7 cm every night at bedtime . Hydrocortisone 2.5 % External Cream Apply topically to affected area 2 times a day. Apply to armpituntil clear then as needed. (Patient not taking: Reported on 02/09/2023) 20 g 2 Align 4 MG Oral Capsule Take 1 Capsule by mouth every other day. Ketoconazole 2 % External Cream APPLY TOPICALLY TO AFFECTED AREA TWO TIMES A DAY FOR 42 DAYS - APPLY TO ARMPIT RASH 30 g 1 dilTIAZem HCl ER Coated Beads 180 MG Oral Capsule Extended Release 24 Hour (Cardizem CD) TAKE ONE CAPSULE BY MOUTH EVERY DAY 90 Capsule 3 Gabapentin 300 MG Oral Capsule (Neurontin) Take 1 Capsule by mouth at bedtime. Dicyclomine HCl 10 MG Oral Capsule (Bentyl) One tab twice daily as needed for lower abdomen pain/cramping 180 Capsule 3 Pantoprazole Sodium 40 MG [...] mouth in the morning. 45 Tablet 3 Sodium Bicarbonate 650 MG Oral Tablet Take 1 Tablet by mouth daily. 90 Tablet 3 ALPRAZolam 0.25 MG Oral Tablet (xaNAX) TAKE ONE TABLET BY MOUTH THREE TIMES A DAY (MORNING, NOON, EVENING) NEEDED FOR ANXIETY 90 Tablet 0 Clopidogrel Bisulfate 75 MG Oral Tablet (pLAVix) TAKE ONE TABLET BY MOUTH EVERY DAY 90 Tablet 3 Current Facility-Administered Medications Medication Dose Route Frequency Provider Last Rate Last Admin albuterol sulfate (PROVENTIL) (2.5 MG/3ML) 0.083% inhalation solution 2.5 mg 2.5 mg Nebulizer Q4H PRN Rhed, Linnea Raquel, PSYCHIATRIC ARNP 2.5 mg at 05/09/19 1108 REVIEW OF SYSTEMS: All other findings negative except as noted in HPI. EXAM: BP 125/71 | Pulse 65 | Temp 36.5 C (97.7 F) | Wt 109 kg (240 lb 6.4 oz) | SpO2 97% | BMI 34.99 kg/m | BSA 2.31 m GENERAL: Well developed and well nourished in no acute distress. SKIN: No rashes, ulcers, jaundice or spider angiomata. HEENT: Normocephalic, sclera clear, pharynx normal. NECK: Supple, no lymphadenopathy. LUNGS: Clear to auscultation bilaterally, no respiratory distress or accessory muscles used. HEART: Regular rate & rhythm, no murmurs and no gallops. ABDOMEN: Normal bowel sounds, soft and nontender, no masses or hepatosplenomegaly. EXTREMITIES: No palmar erythema, no ankle edema, no skin discoloration, no clubbing, no cyanosis. NEURO: No lateralizing findings. Sensory/Motor grossly normal. DIAGNOSTIC TEST: Hepatic function panel Plt Pt inr Us abdomen limited Us elastography parenchyma/organ ASSESSMENT AND PLAN: 67 year old male with history of CAD s/p stenting 06/02/2018 on ASA, Plavix, bx proven steatohepatitis w/ F2 fibrosis - Fatty liver, BE[place], F2 fibrosis on LB - LFTs, Fibroscan, ABD US yearly - Less than 2G of tylenol if using - No alcohol - GI nutrition referral deferred by patient - Possible progression of liver disease discussed - GERD - Continue Protonix 40 mg in the AM - IBS - Bentyl 10 mg daily as needed - FODMAPs diet - Daily probiotic - Daily fiber - Gas-Ex as needed - GB polyp vs others - Referred to general surgery in 2019 - Elective CCY deferred at that time - Re-educated patient on this, he will consider pending results of ABD US - Colon cancer screening in 2025 - ED for emergencies - Please call with any questions or concerns RETURN TO CLINIC: 9 months I spent a total of 30 minutes on the date of service in review of patient's record, and previously obtained information in person and appropriate medical visit, discussion and education of plan, withpatient and/or caregiver, placing orders for tests/referral/procedures as medically necessary and documentation of pertinent clinical information in patient's medical records for their visit today. DARLYN Correa 05/25/2023 12:37 PM documented in this encounter Nursing Notes * Mely Tinsley LPN - 05/25/2023 12:23 PM EST Patient identified by name and date of . Chief Complaint Patient presents with Follow Up IBS, polyps, gallbladder issues, NAFLD Pt stating that he is not having any issues, more muscular issues, stating that he has intermittentstomach issues, for approx 6 month was having dark stools. documented in this encounter Plan of Treatment Upcoming Encounters Date Type Department Care Team (Late st Contact Info) Description 06/03/2023 7:00 AM EST Pharmacy Cardiology, [facility] [address] [place] [address] [facility] Cardiology [facility] [address] [place] [address] 06/03/2023 11:30 AM EST Office Visit Cardiology, [facility] [address] [place] [address] Noa Pineda PA-C [address] [place] [address] 06/03/2023 1:00 PM EST Nurse Only Gastroenterology, [address], [place] [address] [place] [id number] [place], Nurse Gastro [address] [place] [address] 06/03/2023 2:00 PM EST Appointment Radiology, [place] [address] [place] [address] 08/23/2023 11:20 AM EST Office Visit Family [facility], [place] [address] [facility] [place] [address] Blanca Luciano DO 09/02/2023 11:30 AM EST Office Visit [facility] Disorders [facility]tr [facility] [address] [place] [phone] Sallie Wong CRNP [address] [place] [address] 09/05/2023 1:30 PM EST Office Visit Gastroenterology, [facility] [address] [place] [address] Renee Daniels CRNP [address] [place] [address] 10/05/2023 11:00 AM EDT Office Visit Nephrology, [place] [address] [facility] [place] [address] Evangelist Lyle MD [address] [facility] [place] [address] 01/31/2024 10:40 AM EDT Office Visit Dermatology [address], [place] [address] [place] [address] Lucero Mercado PA-C [address] [facility] [place] [address] Scheduled Orders Name Type Priority Associated Diagnoses Orde r Schedule HEPATIC FUNCTION PANEL Lab Routine Fatty liver Expected: 05/25/2023, Expires: 05/25/2024 PLT Lab Routine Fatty liver Expected: 05/25/2023, Expires: 05/25/2024 PT INR Lab Routine Fatty liver Expected: 05/25/2023, Expires: 05/25/2024 US ABDOMEN LIMITED Medical Imaging Routine Fatty liver Expected: 05/25/2023, Expires: 06/24/2024 US ELASTOGRAPHY PARENCHYMA/ORGAN Medical Imaging Routine Fatty liver Expected: 05/25/2023, Expires: 06/24/2024 Scheduled Procedures Name Priority Associated Diagnoses Date/Ti [...] Ratio 06/09/2023 06/09/2022 CKD PHOS USE SMARTSET 82519 06/09/2023 06/09/2022, 1 08/17/2019 GFR 10/25/2023 04/25/2023, 08/0 03/2023, 06/09/2022, Additional history exists CKD HGB USE SMARTSET 70204 02/10/202402/09, 02/09/2023, 06/09/2022, Additional history exists TSH [...] as of this encounter Visit Diagnoses Diagnosis Fatty liver- Primary Other chronic nonalcoholic liver disease documented in [...] the patient have Health Care Power of Dean Of Students? No Code Status History Code Status Date Activated Date Inactivated Comments Full Code 11/12/2015 7:57 PM 11/14/2015 3:07 PM This order reflects the patients wishes and were consensually agreed upon. Question Answer Comments Discussion of Advance Directives occurred with: Patient Does the patient have a Living Will? No Does the patient have Health Care Power of Dean Of Students? No Full Code 01/11/2008 9:52 AM 01/12/2008 1:19 PM Care Teams Wire Setter Relationship Specialty Start Date End Date Blanca Luciano DO PCP - General Family Medicine 04/06/21 documented as of this encounter"
--- OUTSIDE RECORDS SUMMARY | 2023-08-19 10:18 | External Medical Summary | Summary of Care ---
Author Name Unknown Organization [facility] Address [address] [place] [place] [address] Phone [phone] Care Team Providers Care Teacher Of The Deaf Name Role Phone Blanca Luciano DO Primary Care Provider [phone] Reason for Visit * Reason Comments eRx-Medication Refill Encounter Details Date Type Department Care Team (Late st Contact Info) Description 04/26/2023 [facility] [address] [facility] [place] [address] Blanca Luciano DO [address] [facility] [address] Anxiety state Allergies Active Allergy Reactions Criticality Noted Date Comments Nitroglycerin Tachycardia 11/12/2020 Applies to NTG SL tablets only. Not Nitro paste. Not Imdur. Rosuvastatin Medium 11/05/2018 Other reaction(s): ELEVATED ALT Simvastatin 11/05/2018 Other reaction(s): Unknown Simvastatin 02/02/2007 Elevated ALT documented as of this encounter (statuses as of 04/26/2023) Medications Medication Sig Dispensed Refills Start Date [...] Hour (Cardizem CD)Indications:Co ronary artery disease of [place] artery of [place] heart with stable angina pectoris (HCC),Chronic ischemic [...] (RCA) stent placement,Coronar y artery disease involving [place] heart without angina pectoris, unspecified vessel or [...] NEEDED FOR ANXIETY 90 Tablet 0 3 04/26/20 23 Discontinued Hospital, Clinic, or Other Facility Administered Medication Ordered Dose Route Frequency Start Date End Date Status albuterol sulfate (PROVENTIL) (2.5 MG/3ML) 0.083% inhalation solution 2.5 mgIndications:COPD, mild (HCC) 2.5 mg NEBULIZER Q4H PRN 03/22/2019 Active documented as of this encounter (statuses as of 04/26/2023) Active Problems Problem Noted Date Diagnosed Date [...] LAD coronary ar kalyan 06/14/2018 Overview: 06/05/2018 [place] 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 Encouraged to take nice deep breaths and rinse after steroid inhaler. Test performed by Vicky ENTRY PROCESSOR CPFT S/P right coronary artery (RCA) stent placement 11/16/2015 Coronary artery disease of n ative artery of [place] heart with stable angina pectoris 11/12/2015 IBS [...] as of this encounter (statuses as of 04/26/2023) Resolved Problems Problem Noted Date Diagnosed Date [...] Research Coordinator: Dipti Sanches SPIRIT IV Clinical Trial*[id number] 02/08/2008 11/27/2013 Overview: Renamed Per Clinical Trials Billing Project. SPIRIT IV clinical trial: Xience V Everolimus ALICIA vs. TAXUS ALICIA PI: Jess More MD Research Coordinator: Dipti Sanches [employer] Other*[id number] 01/11/2008 08/10/2016 Overview: Study Title: Genomic Markers for Patients with Cardiovascular Disease Project # [id number] Spindle Repairer: Jess More MD [phone] Other specified congenital a nomaly of esophagus [...] as of this encounter (statuses as of 04/26/2023) Immunizations Name Administration Dates Next Due Pneumococcal [...] Miscellaneous Notes * Telephone Encounter - Blanca Luciano DO - 04/26/2023 7:43 PM EDTSigned Prescriptions: Disp Refills ALPRAZolam 0.25 MG Oral Tablet (xaNAX) 90 Tab*0 Sig: TAKE ONE TABLET BY MOUTH THREE TIMES A DAY (MORNING, NOON, EVENING) NEEDED FOR ANXIETYAuthorizing Provider: BLANCA LUCIANO * Telephone Encounter - Rod Sloan [facility] - 04/26/2023 2:30 PM EDT Pending Prescriptions: Disp Refills ALPRAZolam 0.25 MG Oral Tablet [Pharmacy M*90 Tab*0 Sig: TAKE ONE TABLET BY MOUTH THREE TIMES A DAY (MORNING, NOON, EVENING) NEEDED FOR ANXIETY * Telephone Encounter - Rod Sloan [facility] - 04/26/2023 2:29 PM EDT I have reviewed the patients controlled substance dispensing history in the Prescription Drug Monitoring Program in compliance with the [facility] regulations before prescribing a controlled substance. PDMP checked on 04/26/2023. Pending Prescriptions: Disp Refills ALPRAZolam 0.25 MG Oral Tablet (xaNAX) [P*90 Tab*0 Sig: TAKE ONE TABLET BY MOUTH THREE TIMES A DAY (MORNING, NOON, EVENING) NEEDED FOR ANXIETY Last Visit: 01/26/2023 (in office), Visit date not found (telemedicine) Next Visit: 08/23/2023 Date medication was last filled: 03/24 Date medication is due for refill: 04/22 Pharmacy: [facility] [address] [place] [address] [address] [facility] Is this request for a controlled substance? Yes and Urine Drug Screen Not completed Toxicology results: No results found. However, due to the size of the patient record, not all encounters were searched.Please check Results Review for a complete set of results. Please approve if appropriate. Thanks, Rod Sloan, PharmD Clinical Pharmacist Centralized Clinical Pharmacy Services(formerly telepharmacy) [phone] 04/26/2023, 2:29 PM documented in this encounter Plan of Treatment Upcoming Encounters Date Type Department Care Team (Late st Contact Info) Description 05/25/2023 12:30 PM EST Office Visit Gastroenterology, [facility] [address] [place] [address] Renee Daniels CRNP [address] [place] [address] 06/03/2023 7:00 AM EST Pharmacy Cardiology, [facility] [address] [place] [address] [facility] Cardiology [facility] [address] [place] [address] 06/03/2023 11:00 AM EST Office Visit Cardiology, [facility] [address] [place] [address] Chai Houston PA-C [address] [place] [address] 08/23/2023 11:20 AM EST Office Visit Family Practice [address], [place] [address] [place] [address] Blanca Luciano, [address] [place] [address] 09/02/2023 11:30 AM EST Office Visit Sleep Disorders Ctr [facility] [address] [place] [phone] Sallie Wong CRNP [address] [place] [address] 10/26/2023 10:40 AM EDT Office Visit Nephrology, [place] [address] [facility] [place] [address] Evangelist Lyle MD [address] [place] [address] 01/31/2024 10:40 AM EDT Office Visit Dermatology [facility] [place] [address] [facility] [place] [address] Lucero Mercado PA-C [address] [facility] [place] [address] Scheduled Orders Name Type Priority Associated Diagnoses Orde r Schedule PAIN MANAGEMENT DRUG PANEL, URINE Lab Routine Anxiety state Expected: 04/26/2023 (Approximate), Expires: 04/25/2024 Scheduled Procedures Name Priority Associated Diagnoses Date/Ti [...] Ratio 06/09/2023 06/09/2022 CKD PHOS USE SMARTSET 42895 06/09/2023 06/09/2022, 1 08/17/2019 GFR 10/25/2023 04/25/2023, 08/0 03/2023, 06/09/2022, Additional history exists CKD HGB USE SMARTSET 85411 02/10/202402/09, 02/09/2023, 06/09/2022, Additional history exists TSH [...] the patient have Health Care Power of Account Service Associate? No Code Status History Code Status Date Activated Date Inactivated Comments Full Code 11/12/2015 7:57 PM 11/14/2015 3:07 PM This order reflects the patients wishes and were consensually agreed upon. Question Answer Comments Discussion of Advance Directives occurred with: Patient Does the patient have a Living Will? No Does the patient have Health Care Power of Account Service Associate? No Full Code 01/11/2008 9:52 AM 01/12/2008 1:19 PM Care Teams Teacher Of The Deaf Relationship Specialty Start Date End Date Blanca Luciano DO [address] [facility] [place] [address] PCP - General Family Medicine 04/06/21 documented as of this encounter
--- OUTSIDE RECORDS SUMMARY | 2023-08-19 10:19 | External Medical Summary | Summary of Care ---
Author Name Unknown Organization [facility] Address [address] [place] [address] Phone [phone] Care Team Providers Care Window Treatment Installer Name Role Phone Blanca Luciano DO Primary Care Provider [phone] Reason for Visit * Reason Comments eRx-Medication Refill Encounter Details Date Type Department Care Team Description 02/20[facility]2023 [facility] [address] [facility] [place] [address] Blanca Luciano DO [address] [place] [address] Anxiety state Allergies Active Allergy Reactions Severity Noted Date Comments Nitroglycerin Tachycardia 11/12/2020 Applies to NTG SL tablets only. Not Nitro paste. Not Imdur. 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 90 Tablet 3 3 Active Losartan Potassium 25 MG Oral Tablet (Cozaar) Take 0.5 Tablets by mouth in the morning. 45 Tablet 3 3 Active ALPRAZolam 0.25 MG Oral Tablet (xaNAX)Indication s:Anxiety state TAKE ONE TABLET BY MOUTH THREE TIMES A DAY (MORNING, NOON AND EVENING) NEEDED FOR ANXIETY 90 Tablet 0 3 Active ALPRAZolam 0.25 MG Oral Tablet (xaNAX)Indication s:Anxiety state TAKE ONE TABLET BY MOUTH THREE TIMES A DAY (MORNING,NOON AND EVENING) NEEDED FOR ANXIETY 90 Tablet 0 3 02/22/20 23 Discontinued Hospital, Clinic, or Other Facility Administered Medication Ordered Dose Route Frequency Start Date End Date Status albuterol sulfate (PROVENTIL) (2.5 MG/3ML) 0.083% inhalation solution 2.5 mgIndications:COPD, mild (HCC) 2.5 mg NEBULIZER Q4H PRN 03/22/2019 Active documented as of this encounter (statuses as of 02/21/2023) Active Problems Problem Noted Date COPD, group [...] LAD cor onary artery 06/14/2018 Overview: 06/05/2018 [place] 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 Encouraged to take nice deep breaths and rinse after steroid inhaler. Test performed by Vicky DIRECTOR OF CARDIAC REHABILITATION CPFT S/P right coronary artery (RCA) stent pl acement 11/16/2015 Coronary artery disease of n ative artery of [place] heart with stable angina pectoris 11/12/2015 IBS [...] as of this encounter (statuses as of 02/21/2023) Resolved Problems Problem Noted Date Resolved Date [...] Research Coordinator: Dipti Sanches SPIRIT IV Clinical Trial*[id number] 02/08/2008 11/27/2013 Overview: Renamed Per Clinical Trials Billing Project. SPIRIT IV clinical trial: Xience V Everolimus ALICIA vs. 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 [...] as of this encounter (statuses as of 02/21/2023) Immunizations Name Administration Dates Next Due Pneumococcal [...] Telephone Encounter - Blanca Luciano DO - 02/21/2023 10:05 AM EDTSigned Prescriptions: Disp Refills ALPRAZolam 0.25 MG Oral Tablet (xaNAX) 90 Tab*0 Sig: TAKE ONE TABLET BY MOUTH THREE TIMES A DAY (MORNING, NOON AND EVENING) NEEDED FOR ANXIETY Authorizing Provider: BLANCA LUCIANO * Telephone Encounter - Chip Alvarez [facility] - 02/21/2023 8:19 AM EDT Pending Prescriptions: Disp Refills ALPRAZolam 0.25 MG Oral Tablet [Pharmacy M*90 Tab*0 Sig: TAKE ONE TABLET BY MOUTH THREE TIMES A DAY (MORNING, NOON AND EVENING) NEEDED FOR ANXIETY * Telephone Encounter - Chip Alvarez [facility] - 02/21/2023 8:18 AM EDT I have reviewed the patients controlled substance dispensing history in the Prescription Drug Monitoring Program in compliance with the [facility] regulations before prescribing a controlled substance. PDMP checked on 02/21/2023. Pending Prescriptions: Disp Refills ALPRAZolam 0.25 MG Oral Tablet (xaNAX) [P*90 Tab*0 Sig: TAKE ONE TABLET BY MOUTH THREE TIMES A DAY (MORNING, NOON AND EVENING) NEEDED FOR ANXIETY Last Visit: 01/26/2023 (in office), Visit date not found (telemedicine) Next Visit: 08/23/2023 Date medication was last filled: 01/20/23 Date medication is due for refill: 02/17/23 Pharmacy: [facility] [address] [place] [address] Is this request for a controlled substance? Yes and Urine Drug Screen Not completed Toxicology results: No results found. However, due to the size of the patient record, not all encounters were searched.Please check Results Review for a complete set of results. Please approve if appropriate. Thanks, Chip Alvarez, PharmD Clinical Pharmacist Centralized Clinical Pharmacy Services (CCPS) (formerly Telepharmacy) [phone] 02/21/2023, 8:18 AM documented in this encounter Plan of Treatment Upcoming Encounters Date Type Specialty Care Team Description 02/25/2023 Office Visit Sleep Disorders Sallie Wong CRNP [address] [place] [address] 05/25/2023 Office Visit Gastroenterology Renee Daniels CRNP [address] [place] [address] 06/03/2023 Pharmacy Cardiology [facility] Cardiology [facility] [address] [place] [address] 06/03/2023 Office Visit Cardiology Chai Houston PA-C [address] [place] [address] 08/23/2023 Office Visit Family Medicine Blanca Luciano, [address] [facility] [place] [address] 10/26/2023 Office Visit Nephrology Evangelist Lyle MD [address] [place] [id number] 01/31/2024 Office Visit Dermatology Lucero Mercado PA-C [address] [facility] [place] [address] Scheduled Procedures Name Priority Associated Diagnoses Date/Ti [...] Ratio 06/09/2023 06/09/2022 CKD PHOS USE SMARTSET 20972 06/09/2023 06/09/2022, 1 08/17/2019 GFR 08/12/2023 02/09/2023, 120 01/2022, 03/22/2022, Additional history exists O2 ASSESSMENT COMPLETED IN PAST YEAR FOR COPD 01/27/2024 01/26/2023 CKD HGB USE SMARTSET 04506 02/10/202402/09, 02/09/2023, 06/09/2022, Additional history exists TSH 02/10/2024 02/09/2023, 12/0 01/2022, 03/22/2022, Additional history exists COLONOSCOPY-EVERY 5 YRS AGES 18-100 08/07/2025 08/07/2020, [...] the patient have Health Care Power of Resource Agent? No Code Status History Code Status Date Activated Date Inactivated Comments Full Code 11/12/2015 7:57 PM 11/14/2015 3:07 PM This order reflects the patients wishes and were consensually agreed upon. Question Answer Comments Discussion of Advance Directives occurred with: Patient Does the patient have a Living Will? No Does the patient have Health Care Power of Resource Agent? No Full Code 01/11/2008 9:52 AM 01/12/2008 1:19 PM Care Teams Window Treatment Installer Relationship Specialty Start Date End Date Blanca Luciano DO [address] [facility] [place] [address] PCP - General Family Medicine 04/06/21 documented as of this encounter
--- OUTSIDE RECORDS SUMMARY | 2023-08-19 10:19 | External Medical Summary | Summary of Care ---
Author Name Unknown Organization [facility] Address [address] [place] [address] Phone [phone] Care Team Providers Care Senior Enlisted Advisor Name Role Phone Blanca Luciano DO Primary Care Provider [phone] Reason for Visit * Reason Onset Date Comments Other 02/18/2023 Return call with pharmacy information Encounter Details Date Type Department Care Team Description 02/18/2023 Telephone Nephrology, [address] [address] Evangelist Lyle MD [address] [place] [phone] Other (Return call with pharmacy informati... Allergies Active Allergy Reactions Severity Noted Date [...] Hour (Cardizem CD)Indications:Cor onary artery disease of [place] artery of [place] heart with stable angina pectoris (HCC),Chronic ischemic [...] artery (RCA) stent placement,Coronary artery disease involving [place] heart without angina pectoris, unspecified vessel or lesion type Take 1 Tablet by mouth in the morning. 90 Tablet 3 11/22/2022 Active ALPRAZolam 0.25 MG Oral Tablet (xaNAX)Indications :Anxiety state TAKE ONE TABLET BY MOUTH THREE TIMES A DAY (MORNING,NOON AND EVENING) NEEDED FOR ANXIETY 90 Tablet 0 01/19/2023 Active Losartan Potassium 25 MG Oral Tablet (Cozaar) Take 0.5 Tablets by mouth in the morning. 45 Tablet 3 02/09/2023 Active Hospital, Clinic, or Other Facility Administered [...] Moderate persistent asthma without compl ication 12/11/2018 JUANA NTONIO (generalized anxiety disorder) 11/02 History of placement of stent in LAD cor onary artery 06/14/2018 Overview: 06/05/2018 [place] 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 Encouraged to take nice deep breaths and rinse after steroid inhaler. Test performed by Vicky PSYCH ASSISTANT CPFT S/P right coronary artery (RCA) stent pl acement 11/16/2015 Coronary artery disease of n ative artery of [place] heart with stable angina pectoris 11/12/2015 IBS [...] Research Coordinator: Dipti Sanches SPIRIT IV Clinical Trial*[id number] 02/08/2008 11/27/2013 Overview: Renamed Per Clinical Trials Billing Project. SPIRIT IV clinical trial: Xience V Everolimus ALICIA vs. 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 * Telephone Encounter - JAKE Ruiz - 02/18/2023 4:11 PM EDT Pt on the line stated return phone with the patient pharmacy information. [facility] in [place] ph. [phone] Thank You documented in this encounter Plan of Treatment Upcoming Encounters Date Type Specialty Care Team Description 02/25/2023 Office Visit Sleep Disorders Sallie Wong CRNP [address] [place] [address] 05/25/2023 Office Visit Gastroenterology Renee Daniels CRNP [address] [place] [address] 06/03/2023 Pharmacy Cardiology [facility] Cardiology [facility] [address] [place] [address] 06/03/2023 Office Visit Cardiology Chai Houston PA-C [address] [place] [address] 08/23/2023 Office Visit Family Medicine Blanca Luciano DO [address] [facility] [place] [address] 10/26/2023 Office Visit Nephrology Evangelist Lyle MD [address] [place] [address] [place] [address] 01/31/2024 Office Visit Dermatology Lucero Mercado PA-C [address] [facility] [place] [address] Scheduled Procedures Name Priority Associated Diagnoses Date/Ti [...] Ratio 06/09/2023 06/09/2022 CKD PHOS USE SMARTSET 76987 06/09/2023 06/09/2022, 1 08/17/2019 GFR 08/12/2023 02/09/2023, 01/2022, 03/22/2022, Additional history exists O2 ASSESSMENT COMPLETED IN PAST YEAR FOR COPD 01/27/2024 01/26/2023 CKD HGB USE SMARTSET 41900 02/10/202402/09, 02/09/2023, 06/09/2022, Additional history exists TSH 02/10/2024 02/09/2023, 01/2022, 03/22/2022, Additional history exists COLONOSCOPY-EVERY 5 [...] the patient have Health Care Power of Mortgage Loan Interviewer? No Code Status History Code Status Date Activated Date Inactivated Comments Full Code 11/12/2015 7:57 PM 11/14/2015 3:07 PM This order reflects the patients wishes and were consensually agreed upon. Question Answer Comments Discussion of Advance Directives occurred with: Patient Does the patient have a Living Will? No Does the patient have Health Care Power of Mortgage Loan Interviewer? No Full Code 01/11/2008 9:52 AM 01/12/2008 1:19 PM Care Teams Senior Enlisted Advisor Relationship Specialty Start Date End Date Blanca Luciano DO [address] [facility] [place] [address] PCP - General Family Medicine 04/06/21 documented as of this encounter
--- OUTSIDE RECORDS SUMMARY | 2023-08-19 10:19 | External Medical Summary | Summary of Care ---
Author Name Unknown Organization [facility] Address [address] [facility] [place] [address] Phone [phone] Care Team Providers Care Block Breaker Operator Name Role Phone Blanca Luciano DO Primary Care Provider [phone] Reason for Visit * Reason Comments Follow Up Encounter Details Date Type Department Care Team Description 02/25/2023 Office Visit Sleep Disorders Ctr [facility] [address] [place] [address] Sallie Wong CRNP [address] [place] [address] JAKE (obstructive sleep apnea)* Allergies Active Allergy Reactions Severity Noted Date Comments Nitroglycerin Tachycardia 11/12/2020 Applies to NTG SL tablets only. Not Nitro paste. Not Imdur. Rosuvastatin Medium 11/05/2018 Other reaction(s): ELEVATED ALT Simvastatin 11/05/2018 Other reaction(s): Unknown Simvastatin 02/02/2007 Elevated ALT documented as of this encounter (statuses as of 02/25/2023) Medications Medication Sig Dispensed Refills Start Date [...] Hour (Cardizem CD)Indications:Cor onary artery disease of viejas artery of viejas heart with stable angina pectoris (HCC),Chronic ischemic [...] artery (RCA) stent placement,Coronary artery disease involving viejas heart without angina pectoris, unspecified vessel or [...] as of this encounter (statuses as of 02/25/2023) Active Problems Problem Noted Date COPD, group [...] LAD cor onary artery 06/14/2018 Overview: 06/05/2018 [place] 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 Encouraged to take nice deep breaths and rinse after steroid inhaler. 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 SPIRIT IV clinical trial: Xience V Everolimus ALICIA vs. 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 [...] as of this encounter (statuses as of 02/25/2023) Immunizations Name Administration Dates Next Due Pneumococcal [...] Sign Reading Time Taken Comments Blood Pressure 116/76 02/25/2023 11:18 AM EDT Pulse 77 02/25/2023 11:18 AM EDT Temperature 36.7 C (98 F) 02/25/2023 11:18 AM EDT Respiratory Rate 24 02/25/2023 11:18 AM EDT Oxygen Saturation 98% 02/25/2023 11:18 AM EDT ra, rest Inhaled Oxygen Concentration - - Weight 109.3 kg (241 lb) 02/25/2023 11:18 AM EDT Height 176.5 cm (5' 9.5") 02/25/2023 11:18 AM ED T Body Mass Index 35.08 02/25/2023 11:18 AM EDT documented in this [...] as of this encounter Progress Notes * DARLYN Grimes - 02/25/2023 11:24 AM EDT [facility] Mario Burnett is a 67 year old male seen today for yearly follow-up. Sleep Testing/History: Initially presented for evaluation due to loud snoring, choking/gasping arousals and excessive daytime sleepiness. [place] 10 - HST 02/07/17 (wt 228 lbs): LUIS ALBERTO 6.9 (supine 13.8), no desats - Noct ox CPAP (wt 239) 07/2018: no desats, 6:44 hrs testing Interim History: CPAP used nightly, noting benefit with use. Gets a sore spot on the back of his head from the headgear for which he will use a triple antibiotic ointment at times. Otherwise, he is tolerating treatment well. Ongoing difficulties at night with falling asleep worsened by ruminating thoughts. Continues alprazolam 0.25 mg twice daily. recently diagnosed with breast cancer. If he has a bad night of sleep he may nap during the day which will then impact his sleep the following night. Since the spring he has been going to the gym 3 days a week, feeling good about this. Compliance Data: Last data 12/2020 Received refurbished unit from [employer] within the last 6-8 months Equipment: DME Provider: [employer] Device: CleanSlate Settings: 7-10 cmH20 Interface Type: FFM Cleaning: By hand routinely [place] Sleepiness Scale Question 02/25/2023 11:22 AM EDT - Filed by Patient What is the chance you will doze off in the following situation? Sitting and reading Slight chance of dozing Watching TV No chance of dozing Sitting inactive in a public place, such as a theater or meeting No chance of dozing As a passenger in a car for an hour without a break Slight chance of dozing Lying down to rest in the afternoon when circumstances permit High chance of dozing When sitting and talking to someone No chance of dozing When sitting quietly after lunch without alcohol No chance of dozing In a car, while stopped for a few minutes in traffic No chance of dozing Score (range: 0 - 24) 5 Problem List: Patient Active Problem List Diagnosis Code Benign neoplasm of colon D12.6 Displacement of lumbar intervertebral disc without myelopathy M51.26 Dyslipidemia E78.5 Gastroesophageal reflux disease with esophagitis K21.00 Severe obesity with body mass index (BMI) of 35.0 to 39.9 with serious comorbidity ([facility]) E66.01 Osteoarthritis of right knee M17.11 History of basal cell carcinoma Z85.828 IBS (irritable bowel syndrome) K58.9 NAFLD (nonalcoholic fatty liver disease) K76.0 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 ([facility]) I25.118 S/P right coronary artery (RCA) stent placement Z95.5 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 History of placement of stent in LAD coronary artery Z95.5 JUAN ANTONIO (generalized anxiety disorder) F41.1 Moderate persistent asthma without complication J45.40 Sensorineural hearing loss (SNHL) of left ear with unrestricted hearing of right ear H90.42 Stage 3a chronic kidney disease N18.31 CAD S/P percutaneous coronary angioplasty I25.10, Z98.61 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 Losartan Potassium 25 MG Oral Tablet (Cozaar) Take 0.5 Tablets by mouth in the morning. Isosorbide Mononitrate ER 30 MG Oral Tablet Extended Release 24 Hour (Imdur) Take 1 Tablet by mouthin the morning. Levothyroxine Sodium 50 MCG Oral Tablet (Levoxyl) TAKE ONE TABLET BY MOUTH EVERY MORNING AT LEAST 30 MINUTES PRIOR TO BREAKFAST OR OTHER MEDS Repatha SureClick 140 MG/ML Subcutaneous Solution Auto-injector (evolocumab) Inject 140 mg under the skin every 14 days. Remove from refrigerator 30 minutes prior to injection. Dicyclomine HCl 10 MG Oral Capsule (Bentyl) One tab twice daily as needed for lower abdomen pain/cramping Gabapentin 300 MG Oral Capsule (Neurontin) Take 1 Capsule by mouth at bedtime. Pantoprazole Sodium 40 MG Oral Tablet Delayed Release (Protonix) Take 1 Tablet (40 mg) by mouth in the morning. Clopidogrel Bisulfate 75 MG Oral Tablet (pLAVix) TAKE ONE TABLET BY MOUTH EVERY DAY dilTIAZem HCl ER Coated Beads 180 MG Oral Capsule Extended Release 24 Hour (Cardizem CD) TAKE ONE CAPSULE BY MOUTH EVERY DAY Ketoconazole 2 % External Cream APPLY TOPICALLY TO AFFECTED AREA TWO TIMES A DAY FOR 42 DAYS - APPLY TO ARMPIT RASH Align 4 MG Oral Capsule Take 1 Capsule by mouth every other day. CPAP 7 cm every night at bedtime . ASPIRIN 81 MG PO CHEW Take 1 Tablet by mouth in the morning. Current Facility-Administered Medications for the 02/25/23 encounter (Office Visit) with DARLYN Grimes Medication albuterol sulfate (PROVENTIL) (2.5 MG/3ML) 0.083% inhalation solution 2.5 mg Physical Exam: BP 116/76 | Pulse 77 | Temp 36.7 C (98 F) (Tympanic) | Resp 24 | Ht 1.765 m (5' 9.5") | Wt 109.3 kg (241 lb) | SpO2 98% Comment: ra, rest | BMI 35.08 kg/m | BSA 2.32 m Constitutional: Alert, oriented and in no acute distress Skin: No abnormal mask markings on face Cardio: Regular rate and rhythm. No murmur. Chest: Normal respiratory effort at rest, equal breath sounds, clear to auscultation anterior cortez Neuro: Fluent speech, follows commands without issue Psych: Appropriate mood and affect. Assessment & Plan: Encounter Diagnoses Name Primary? JAKE (obstructive sleep apnea) Yes Mild obstructive sleep apnea based on LUIS ALBERTO criteria associated with hypersomnia at the time of diagnosis. He is compliant and benefiting with PAP treatment. Replacement CPAP ordered as his unit is more than 5 years old and may not be working appropriately. Difficulty with sleep onset insomnia noting an irregular sleep-wake pattern and napping. I encouraged him to work towards having a routine sleep-wake schedule allowing for 7-9 hour of sleep and not deviating from that schedule by more than an hour. Avoid napping unless necessary for safety. Follow-up in 6 months to assess compliance intolerance on replacement CPAP. DARLYN [facility] I spent a total of 30-39 minutes (exact time 30 mins) on the date of service in preparation, delivery, and documentation of the care provided to Mario Burnett excluding any time spent in the performance of separately billed services. documented in this encounter Plan of Treatment Upcoming Encounters Date Type Specialty Care Team Description 05/25/2023 Office Visit Gastroenterology Renee Daniels CRNP [address] [place] [address] 06/03/2023 Pharmacy Cardiology [facility] Cardiology [facility] [address] [place] [address] 06/03/2023 Office Visit Cardiology Chai Houston PA-C [address] [place] [address] 08/23/2023 Office Visit Family Medicine Blanca Luciano DO [address] [place] [address] 09/02/2023 Office Visit Sleep Disorders Sallie Wong CRNP [address] [place] [address] 10/26/2023 Office Visit Nephrology Evangelist Lyle MD [address] [place] [id number] 01/31/2024 Office Visit Dermatology Lucero Mercado PA-C [address] [place] [address] Scheduled Procedures Name Priority Associated Diagnoses Date/Ti [...] Ratio 06/09/2023 06/09/2022 CKD PHOS USE SMARTSET 32438 06/09/2023 06/09/2022, 1 08/17/2019 GFR 08/12/2023 02/09/2023, 1201/2022, 03/22/2022, Additional history exists O2 ASSESSMENT COMPLETED IN PAST YEAR FOR COPD 01/27/2024 01/26/2023 CKD HGB USE SMARTSET 58565 02/10/202402/09, 02/09/2023, 06/09/2022, Additional history exists TSH 02/10/2024 02/09/2023, 120 01/2022, 03/22/2022, Additional history exists COLONOSCOPY-EVERY 5 [...] as of this encounter Visit Diagnoses Diagnosis JAKE (obstructive sleep apnea)- Primary Obstructive sleep apnea (adult) (pediatric) documented in this encounter Advance Directives Latest [...] the patient have Health Care Power of Hot Shot? No Code Status History Code Status Date Activated Date Inactivated Comments Full Code 11/12/2015 7:57 PM 11/14/2015 3:07 PM This order reflects the patients wishes and were consensually agreed upon. Question Answer Comments Discussion of Advance Directives occurred with: Patient Does the patient have a Living Will? No Does the patient have Health Care Power of Hot Shot? No Full Code 01/11/2008 9:52 AM 01/12/2008 1:19 PM Care Teams Block Breaker Operator Relationship Specialty Start Date End Date Blanca Luciano DO [address] [facility] [place] [address] PCP - General Family Medicine 04/06/21 documented as of this encounter
--- OUTSIDE RECORDS SUMMARY | 2023-08-19 10:19 | External Medical Summary | Summary of Care ---
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 90 Tablet 3 02/21/2023 Active Hospital, Clinic, or Other Facility [...] LAD cor onary artery 06/14/2018 Overview: 06/05/2018 [place] 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 Encouraged to take nice deep breaths and rinse after steroid inhaler. Test performed by Vicky AIRFRAME AND POWERPLANT TECHNICIAN CPFT S/P right coronary artery (RCA) stent pl acement 11/16/2015 Coronary artery disease of n ative artery of [place] heart with stable angina pectoris 11/12/2015 IBS [...] Research Coordinator: Dipti Sanches SPIRIT IV Clinical Trial*[id number] 02/08/2008 11/27/2013 Overview: Renamed Per Clinical Trials Billing Project. SPIRIT IV clinical trial: Xience V Everolimus ALICIA vs. TAXUS ALICIA PI: Jess More MD Research Coordinator: Dipti Sanches 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 Authorizing Provider: ALBERTA WILSON * Telephone Encounter - Liliana Gonsales LPN - 02/21/2023 8:24 AM EDTPending Prescriptions: Disp Refills Sodium Bicarbonate 650 MG Oral Tablet 90 Tab*3 Sig: Take 1 Tablet by mouth daily. * Telephone Encounter - Liliana Gonsales LPN - 02/21/2023 8:23 AM EDT Prescription refill request received . Pending as requested. Please authorize. * Telephone Encounter - Liliana Gonsales LPN - 02/21/2023 8:19 AM EDTPending Prescriptions: Disp Refills Sodium Bicarbonate 650 MG Oral Tablet 90 Tab*3 Sig: Take 1 Tablet by mouth daily. * Telephone Encounter - Liliana Gonsales LPN - 02/21/2023 8:19 AM EDT MyG read but no response. Will call pt. * Telephone Encounter - Liliana Gonsales LPN - 02/15/2023 9:57 AM EDT MyG not read. NA by phone. LMOM. * Telephone Encounter - Liliana Gonsales LPN - 02/11/2023 4:20 PM EDT My g sent. Awaiting confirmation of pharmacy from pt then will forward to provider for authorization. Med pending. . * Telephone Encounter - Liliana Gonsales LPN - 02/11/2023 4:06 PM EDT ----- Message from Alberta Wilson MD sent at 02/11/2023 3:42 PM EDT ----- Renal functions at baseline, bicarb low Start on sodium bicarb 650 mg daily. documented in this encounter Plan of Treatment Upcoming Encounters Date Type Specialty Care Team Description 02/25/2023 Office Visit Sleep Disorders Sallie Wong CRNP [address] [place] [address] 05/25/2023 Office Visit Gastroenterology Renee Daniels CRNP [address] [place] [address] 06/03/2023 Pharmacy Cardiology [facility] Cardiology Faby [address] [place] [address] 06/03/2023 Office Visit Cardiology Chai Houston PA-C [address] [place] [address] 08/23/2023 Office Visit Family Medicine Blanca Luciano, [address] [facility] [place] [address] 10/26/2023 Office Visit Nephrology Alberta Wilson MD [address] [place] [address] 01/31/2024 Office Visit Dermatology Lucero Mercado PA-C [address] [facility] [place] [address] Scheduled Procedures Name Priority Associated Diagnoses Date/Ti [...] Ratio 06/09/2023 06/09/2022 CKD PHOS USE SMARTSET 86223 06/09/2023 06/09/2022, 1 08/17/2019 GFR 08/12/2023 02/09/2023, 1201/2022, 03/22/2022, Additional history exists O2 ASSESSMENT COMPLETED IN PAST YEAR FOR COPD 01/27/2024 01/26/2023 CKD HGB USE SMARTSET 59774 02/10/202402/09, 02/09/2023, 06/09/2022, Additional history exists TSH [...] the patient have Health Care Power of Ne[facility] Service [facility] Director? No Code Status History Code Status Date Activated Date Inactivated Comments Full Code 11/12/2015 7:57 PM 11/14/2015 3:07 PM This order reflects the patients wishes and were consensually agreed upon. Question Answer Comments Discussion of Advance Directives occurred with: Patient Does the patient have a Living Will? No Does the patient have Health Care Power of Neighborhood Service Center Director? No Full Code 01/11/2008 9:52 AM 01/12/2008 1:19 PM Care Teams Field Coil Winder Relationship Specialty Start Date End Date Blanca Luciano DO [address] [facility] [place] [address] PCP - General Family Medicine 04/06/21 documented as of this encounter
--- NOTE | 2023-08-19 11:37 | Electrocardiogram Report ---
Test Reason : Blood Pressure : / mmHG Vent. Rate : 077 BPM Atrial Rate : 077 BPM P-R Int : 168 ms QRS Dur : 082 ms QT Int : 380 ms P-R-T Axes : 052 009 050 degrees QTc Int : 430 ms Normal sinus rhythm Cannot rule out Anterior infarct , age undetermined Abnormal ECG When compared with ECG of 14-OCT-2022 05:31, No significant change was found Confirmed by Mario Lindsey ([id number]) on 08/19/2023 11:37:47 AM Referred By: REFERRED SELF Confirmed By:Mario Lindsey
--- NOTE | 2023-08-19 11:50 | Electrocardiogram Report ---
Test Reason : Blood Pressure : / mmHG Vent. Rate : 064 BPM Atrial Rate : 064 BPM P-R Int : 170 ms QRS Dur : 098 ms QT Int : 422 ms P-R-T Axes : 057 -01 038 degrees QTc Int : 435 ms Normal sinus rhythm Early repolarization Normal ECG When compared with ECG of 18-AUG-2023 18:05, (unconfirmed) ST elevation now present in Anterior leads Confirmed by Mario Lindsey ([id number]) on 08/19/2023 11:50:34 AM Referred By: REFERRED SELF Confirmed By:Mario Lindsey
[2023-08-19] MEDS: ACETAMINOPHEN 325 MG TAB PO PRN (12:06)
[2023-08-19] MEDS: SODIUM CHLORIDE 0.9% 1,000 ML IV SCH ×2 (12:06→16:43)
--- NOTE | 2023-08-19 14:35 | Hospitalist Progress Note ---
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 Chest pain History of CAD s/p stents Patient presents with chest pain EKG on admission shows normal sinus rhythm with no ST or T wave changes High sensitive troponin negative Echocardiogram shows EF of 60 to 65%, aortic valve sclerosis mild. Mild concentric LVH. Discussed with cardiology;Patient to undergo cardiac cath today Continue on aspirin, Plavix along with Imdur, losartan Will follow-up on cardiology recommendation after cardiac cath History of CAD S/p stents 3 times On aspirin, Plavix and Imdur, continue History of paroxysmal supraventricular tachycardia On diltiazem, continue History of sleep apnea CPAP nightly, continue while inpatient Stage III chronic kidney disease Baseline creatinine 1.3-1.4 Will follow the labs Hyperlipidemia On Repatha Hypertension On diltiazem, Imdur and losartan Continue while inpatient. Anxiety On Ativan as needed DVT prophylaxis SCDs Disposition Observe in med/tele Full code Time spent evaluating patient, direct bedside care, chart review, placing orders, interpretation of diagnostic studies, discussion with consultants, patient, and family members, as well as other required patient management activities is 50 minutes Please note the above document was generated using voice recognition software. It may contain grammatical, syntax or spelling errors. Any formal questions or concerns about the content, text or information contained within the body of this dictation should be directly addressed to the provider for clarification Admission and Anticipated Discharge Date Admission Date: August 18, 2023 Subjective Patient seen and examined at bedside. He denies any chest pain or discomfort at the moment. Review of Systems Review of Systems: All systems reviewed & are unremarkable except as noted in Subjective Physical Exam Physical Exam: General- Not in distress Lungs- clear to auscultation no wheezing or crackles. Heart- regular rhythm; no murmur, no gallop. Abdomen- normal bowel sounds, soft, nontender, no distension. Extremities- no pretibial edema, no erythema seen. Neuro- alert, oriented x 3; PERRL, no facial palsy; no dysarthria; moves extremities. Skin- warm & dry Results & Data Results & Data Vital Signs (Past 12 Hours) Vital Signs Temp Pulse Pulse Resp BP Pulse Ox O2 Del Method 08/19/23 12:00 69 08/19/23 11:18 36.4 C L 71 16 138/80 96 Room Air 08/19/23 08:09 36.4 C L 69 16 138/77 97 Room Air 08/19/23 07:14 58 L 08/19/23 04:44 36.9 C 59 L 18 143/81 H 96 Room Air (1) Chest pain Chest pain type: unspecified Qualified Code(s): R07.9 - Chest pain, unspecified
--- NOTE | 2023-08-19 15:26 | Pre Anesthesia Assessment ---
Date of Service August 19, 2023 Pre Sedation Assessment Vital Signs Temp Pulse Pulse Resp BP BP Pulse Ox 08/19/23 14:53 98.2 F 75 18 156/90 H 94 08/19/23 12:00 69 08/19/23 11:18 97.5 F L 71 16 138/80 96 08/19/23 08:09 97.5 F L 69 16 138/77 97 08/19/23 07:14 58 L 08/19/23 04:44 98.4 F 59 L 18 143/81 H 96 08/19/23 02:15 98.6 F 71 17 147/91 H 96 08/19/23 01:36 70 08/19/23 01:23 98.6 F 67 17 147/91 H 97 08/19/23 01:08 47 L 08/19/23 00:00 55 L 16 138/86 94 08/18/23 21:56 96 08/18/23 21:30 72 20 148/94 H 96 08/18/23 21:13 84 18 97 08/18/23 21:12 73 16 08/18/23 21:12 70 08/18/23 20:15 78 18 132/86 95 08/18/23 17:59 98.1 F 79 18 149/97 H 96 O2 Del Method 08/19/23 14:53 Room Air 08/19/23 12:00 08/19/23 11:18 Room Air 08/19/23 08:09 Room Air 08/19/23 07:14 08/19/23 04:44 Room Air 08/19/23 02:15 Room Air 08/19/23 01:36 08/19/23 01:23 Room Air 08/19/23 01:08 08/19/23 00:00 Room Air 08/18/23 21:56 Room Air 08/18/23 21:30 08/18/23 21:13 08/18/23 21:12 08/18/23 21:12 08/18/23 20:15 Room Air 08/18/23 17:59 Room Air Cardiovascular + regular rate Respiratory + respiratory effort normal Pre-Sedation Airway Assessment Smoking Status: Never smoker Hx Sleep Apnea: Yes Hx Difficult Intubation: No Short, Thick Neck: No Thyromental Distance: > or= 3.5 Finger Breadths Oral Cavity: + WNL Mallampati Class: IV ASA: ASA3 Procedure Planning Contraindications for Sedation: none Current Medications Reviewed: Yes Notes The planned sedation has been discussed with the patient. Informed Consent was obtained. I have identified the patient, determined the appropriateness of sedation and have assessed the patient immediately prior to the procedure. All medicine(s) and interventions are by my order.
[2023-08-19] MEDS: HEPARIN (PORCINE) 1000 UNIT/ML 10 ML (CATH LAB USE ONLY) ONE (15:52)
[2023-08-19] MEDS: IODIXANOL (VISIPAQUE) 320 MG/ML 100ML IV ONE (15:53)
[2023-08-19] MEDS: MIDAZOLAM HCL 1 MG/ML 2ML VIAL ONE (15:53)
[2023-08-19] MEDS: fentaNYL citrate PF 100 MCG/2 ML VIAL ONE (15:53)
[2023-08-19] MEDS: niCARdipine HCL INJ 2.5 MG/ML 10 ML AMP ONE (15:53)
[2023-08-19] MEDS: NITROGLYCERIN/D5W 100MCG/ML 20ML SYR ONE (15:54)
--- NOTE | 2023-08-19 16:03 | Post Anesthesia Assessment ---
Date of Service August 19, 2023 Post Sedation Assessment Vital Signs Temp Pulse Pulse Resp BP BP Pulse Ox 08/19/23 15:45 76 16 151/90 H 93 08/19/23 14:53 98.2 F 75 18 156/90 H 94 08/19/23 12:00 69 08/19/23 11:18 97.5 F L 71 16 138/80 96 08/19/23 08:09 97.5 F L 69 16 138/77 97 08/19/23 07:14 58 L 08/19/23 04:44 98.4 F 59 L 18 143/81 H 96 08/19/23 02:15 98.6 F 71 17 147/91 H 96 08/19/23 01:36 70 08/19/23 01:23 98.6 F 67 17 147/91 H 97 08/19/23 01:08 47 L 08/19/23 00:00 55 L 16 138/86 94 08/18/23 21:56 96 08/18/23 21:30 72 20 148/94 H 96 08/18/23 21:13 84 18 97 08/18/23 21:12 73 16 08/18/23 21:12 70 08/18/23 20:15 78 18 132/86 95 08/18/23 17:59 98.1 F 79 18 149/97 H 96 O2 Del Method 08/19/23 15:45 Room Air 08/19/23 14:53 Room Air 08/19/23 12:00 08/19/23 11:18 Room Air 08/19/23 08:09 Room Air 08/19/23 07:14 08/19/23 04:44 Room Air 08/19/23 02:15 Room Air 08/19/23 01:36 08/19/23 01:23 Room Air 08/19/23 01:08 08/19/23 00:00 Room Air 08/18/23 21:56 Room Air 08/18/23 21:30 08/18/23 21:13 08/18/23 21:12 08/18/23 21:12 08/18/23 20:15 Room Air 08/18/23 17:59 Room Air Recovery Score Activity: Moves 4 extremities Respiration: Deep Breath/Cough Circulation: +/-20% PreAnes Value Consciousness: Fully Awake Oxygen Saturation: > 92% On Room Air Post Anesthesia Score: 10 Discharge Sedation Level of Care: Fast Track Phase II Post Sedation Plan On clinical assessment, the patient appears to have tolerated the sedation without complications. Patient is recovering as anticipated. Patient will continue to be monitored by nursing and may be discharged when sedation discharge criteria are met per below protocol. Upon Completions of procedure up to 15 minutes continue every 5 minute vital signs and the P.A.R. score; then discharge to a Phase I or Fast Track to Phase II per the following guidelines: * Discharge Patient to appropriate Phase II area if PAR is 8 or greater or return to pre- procedure baseline. The post - procedure orders will be as directed. * If PAR score is less than 8 or not return to pre-procedure baseline then patient will follow Phase I monitoring till PAR is reached for Phase II. The Phase I may be done in procedure room or may call to secure a Phase I area. * If naloxone or flumazenil are used for reversal, hold in Phase I for continued monitoring from when last reversal dose was given for a minimum of 60 minutes or longer pending the nurse and/or physician discretion of patient condition before discharge to Phase II. Please call the Sedation Physician to re-evaluate and complete post-note for discharge to Phase II area. Do NOT discharge from procedure sedation or Phase 1 until post- sedation evaluation note is complete by procedure /sedation MD Sedation Discharge Instructions to be given to the patient at discharge to home.
--- NOTE | 2023-08-19 16:14 | Cardiac Catheterization ---
[facility] Data: Flight Test Data Acquisition Technician Cardiac Status Clinical evaluation leading to the procedure CAD Presenation: Unstable angina Anginal Classification: CCS III Diagnostic Physicians Name: David Rao MD Closure Device Recommendations: Medical Therapy and/or Counseling Cardiac Cath Procedure Full Procedure Date August 19, 2023 Pre-Procedure Diagnosis Pre-Procedure Diagnosis: Angina and CAD AUC Score AUC Score: 7 Post-Procedure Diagnosis Post-Procedure Diagnosis: Mild CAD Procedure(s) Performed Procedure(s) Performed: Coronary Angiography, Left Heart Cath and Ultrasound Guided Vascular Access Post Doctoral Researcher David Rao MD Derrick Hand(s) Isabel Estimated Blood Loss Estimated Blood Loss: 5 Medication(s) Medication(s): Fentanyl, Heparin, Lidocaine 1%, Nicardipine, Nitroglycerin and Versed Summary of Findings Indication: History of CAD, suspected unstable angina Access: 6 Fr right radial artery under ultrasound guidance Catheters: Isaac Findings: LM -normal caliber, no significant disease LAD -medium caliber proximal to mid stents widely patent. 30 to 40% stenosis in mid segment and distal aspect of existing stent. Distal vessel with myocardial bridging and luminal irregularities as wraps around apex. Jailed medium D2 with mild ostial disease Circumflex -medium caliber, 20 to 30% proximal, mid segment luminal regularities, distal vessel without significant disease. Medium caliber OM 2, OM 3 and left PLB without significant disease. RCA -dominant, medium caliber, 30% earlymid disease, mid stent widely patent, distal vessel without significant disease. Medium PDA without disease. LVEDP -13 Arterial Closure: TR band Summary: 1. Mild nonobstructive coronary artery disease -Widely patent proximal to mid LAD stents, 30 to 40% mid stenosis at distal aspect of prior stents. 25% proximal circumflex 30% earlymid RCA. Prior mid RCA stent widely patent. 2. Normal intracardiac filling pressure Recommendations: No high risk or obstructive disease to explain patient's recent symptoms. Continued ASCVD risk factor modification Follow-up with Dr. Troy Hemodynamics Rest Ao:: 142/79/105 Final Ao: 131/80/104 LV: 130/13 Recommendations Recommendations: Medical Therapy and/or Counseling Specimens Specimens: None Radiation Exposure (mGy) 725 Contrast (mls) 45 Anesthesia Moderate [id number] Procedural Complication(s) None Disposition Flight Test Data Acquisition Technician Holding/Recovery I attest to the content of the Intraoperative Record and any orders documented therein. Any exceptions are noted below. [facility] Card Cath Procedure Codes Cardiac Catheterization Procedure 1: Cardiovascular Cath Procedures: 95524 Coronaries and LHC (+/-LV) Therapeutic Services & Ancillary Procedure 1: Cardiovascular Tx and Anc Procedures: 03949 Ultrasonic Guidance Vascular Access Moderate Sedation Procedure 1: Sedation/Anesthesia: 96968 Mod Sedation by the same physician;Init15 Min Child Age 5 & Up PG Care Time/CCT Total # of Minutes Spent Total Time Spent with Patient: Total time spent is greater than 50% in coordination of care (as documented) at patient's floor/unit and/or counseling patient:
--- NOTE | 2023-08-19 17:22 | Discharge Summary ---
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 Patient is having on and off chest pain radiating to left arm for sometime mostly happens before going to sleep and when he wakes up the pain is generally resolved. He is having his roof repaired. He was helping the contractor with carrying stuff up stairs. When he noticed chest pain dull aching type radiating to left arm 6/10 in severity today afternoon around 2 PM which lasted for 2 hours. Today's pain was more than his usual on and off chest pains. Also had some nausea and shortness of breath. Currently pain is resolved. Resting comfortably. Denies any headache. Has some dry cough. No fevers. No abdominal pain. Having dark stools but attributes to his irritable bowel syndrome. Afebrile. Hemodynamics are stable. Past medical history. As mentioned above Past surgical history. Cardiac cath and stent placement. Colonoscopy with biopsy. EGD. Right knee arthroscopy. Cyst drained of lumbar area. Tonsillectomy and adenoidectomy. Social history. No smoking. No alcohol use. No drug use. Family history. Father had colon polyps. Bypass surgery in his 60s. Mother had coronary bypass at age 44. Sister had PTCA and stenting of age 41 Admission Exam Per Admitting Provider General- Not in distress Head- atraumatic Eyes- PERRL. ENT- oropharynx clear Neck- supple, no JVD. Lungs- clear to auscultation no wheezing or crackles. Heart- regular rhythm; no murmur, no gallop. Abdomen- normal bowel sounds, soft, nontender, no distension. Extremities- no pretibial edema, no erythema seen. Neuro- alert, oriented x 3; PERRL, no facial palsy; no dysarthria; moves extremities. Skin- warm & dry Principal Diagnosis Chest pain, ACS rule out Discharge Exam General- Not in distress Lungs- clear to auscultation no wheezing or crackles. Heart- regular rhythm; no murmur, no gallop. Abdomen- normal bowel sounds, soft, nontender, no distension. Extremities- no pretibial edema, no erythema seen. Neuro- alert, oriented x 3; PERRL, no facial palsy; no dysarthria; moves extremities. Skin- warm & dry Discharge Data Allergies Allergy/AdvReac Type Severity Reaction Status Date / Time nitroglycerin AdvReac Intermediate TACHYCARDIA Verified 10/13/22 20:38 [From Nitrostat] WITH PILLS ONLY, PASTE IS OKAY. 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 EKG on admission shows normal sinus rhythm with no ST or T wave changes High sensitive troponin negative x 3 Echocardiogram shows EF of 60 to 65%, aortic valve sclerosis mild. Mild concentric LVH. Patient underwent left heart catheterization by Dr. Rao on August 19, 2023; found to have mild nonobstructive coronary artery disease. Losartan dose was increased from 12.5 mg to 25 mg once a day as per cardiology recommendation. Patient to follow-up with PCP after discharge. Please note the above document was generated using voice recognition software. It may contain grammatical, syntax or spelling errors. Any formal questions or concerns about the content, text or information contained within the body of this dictation should be directly addressed to the provider for clarification Total Time Total Time Spent Total Time Spent (In Minutes): 35 Total Time Includes: Examination of the Patient, Discharge Planning, Medication Reconciliation, Communication With Other Providers and Other Discharge Plan Discharge Items Patient Disposition: Home - Self-Care Reason For Visit: CHEST PAIN Discharge Diagnosis: Chest pain, ACS ruled out Activity: Resume your previous activity Non-emergency contact: Primary Care Provider Call non-emergency contact if: you have any medication questions and your symptoms worsen Follow-up/Referrals: Lilia Regan DO [Outside Practitioners] - (Date & Time 08/25/2023 2:00 PM Provider Christopher Quinones PA-C Department Family [facility] [place] ) Albert Ballard M.D. [Primary Care Provider] - Diet: Regular Addtl Attending Provider Instructions: You were admitted to the hospital due to chest pain. You underwent cardiac catheterization by Dr. Rao on August 19, 2023. You were found to have mild nonobstructive coronary artery disease. Please follow-up with your primary care doctor as scheduled. The losartan dosage is increased from 12.5 mg once a day to 25 mg once a day as per Dr. Troy's recommendation. No other medication changes were done Pending Studies at Discharge: No Stand-Alone Forms: My [facility] [employer], Smoking Cessation Medications and DC Order Prescriptions: Continued diltiazem HCl 180 mg capsule,extended release 24hr 180 mg PO DAILY isosorbide mononitrate 30 mg tablet extended release 24 hr 30 mg PO DAILY clopidogrel 75 mg tablet 75 mg PO DAILY alprazolam 0.25 mg tablet 0.25 mg PO TID PRN (Reason: Anxiety) sodium bicarbonate 650 mg tablet 650 mg PO DAILY levothyroxine 50 mcg tablet 50 mcg PO DAILY pantoprazole 40 mg tablet,delayed release (DR/EC) 40 mg PO DAILY gabapentin 300 mg capsule 300 mg PO HS dicyclomine 10 mg capsule 10 mg PO BID PRN (Reason: Abdominal Pain) Repatha SureClick 140 mg/mL pen injector 140 mg SUBCUT UD Rx Instructions: every 14days aspirin 81 mg Tablet,Delayed Release (Dr/Ec) 81 mg PO DAILY Changed losartan 25 mg tablet 25 mg PO DAILY Qty: 30 0RF Discharge Orders: Discharge Order (Routine); Ordered 08/19/23 Ordered By: Sagar Edwards Admission Data Admit Date/Time: 08/18/23 22:12 Attending Provider: Sagar Edwards Admit Provider: Aniceto Estrada Primary Care Provider: Albert Ballard Other Providers: Aniceto Estrada; Baldev Troy
--- NOTE | 2023-08-19 17:25 | Communication Note ---
Date of Service: August 19, 2023 Patient seen postcardiac catheterization. Right radial access site healing well Study demonstrated no significant obstructive disease with mild diffuse atherosclerosis and widely patent stents Recommendations: Increase antihypertensive regimen. Increase losartan to 25 mg p.o. daily continue prehospital meds otherwise. Follow-up with Dr. Troy 4 to 6-week
[2023-08-19] MEDS ORDERED: GABAPENTIN 300 MG CAP PO SCH (21:00)
[2023-08-20] MEDS ORDERED: LOSARTAN POTASSIUM 25 MG TAB PO SCH (09:00)
== END 2023-08-19 19:06 | disposition home or self-care (01) ==
LOC: ED 17:53 → 2N 17:53 → 4W 08-19 11:36

== ENCOUNTER 2025-06-23 21:36 | Observation (INO) ==
--- NOTE | 2025-06-23 22:02 | Emergency Department Note ---
History of Present Illness General Chief complaint: Cardiac Assessment Stated complaint: CHEST PAIN,L ARM PAIN,HEADACHE,164/95 BP Time Seen by Provider: 06/23/25 21:44 History of Present Illness Maximum Pain Intensity: 8 This is a 70-year-old male presenting to the emergency department for evaluation of chest pain symptoms. Patient has a history of cardiac disease with 3 stents. Patient will occasionally have episodes where he gets chest pain, left arm pain, and a headache. These are quite common and intermittent, however today symptoms are much worse than normal. He rates his overall discomfort an 8/10. Symptoms have been ongoing for most of the day today. He has not had any changes in medication. No recent travel, fevers, flulike symptoms, nausea, or vomiting. He has not taken anything [id number] for his symptoms. Home Medications Medication Instructions Recorded Confirmed Type alprazolam 0.25 mg tablet 0.25 mg PO TID PRN Anxiety 08/18/23 06/24/25 History aspirin 81 mg tablet,delayed 81 mg PO HS 08/18/23 06/24/25 History release clopidogrel 75 mg tablet 75 mg PO HS 08/18/23 06/24/25 History diltiazem HCl 180 mg 180 mg PO DAILY 08/18/23 06/24/25 History capsule,extended release 24 hr evolocumab 140 mg/mL subcutaneous 140 mg subcut Q14D 08/18/23 06/24/25 History pen injector (Chet Goyal) isosorbide mononitrate 30 mg 30 mg PO DAILY 08/18/23 06/24/25 History tablet,extended release 24 hr pantoprazole 40 mg tablet,delayed 40 mg PO DAILY 08/18/23 06/24/25 History release losartan 50 mg tablet 50 mg PO QAM 10/04/24 06/24/25 History zinc-magnesium aspart-vit B6 10 1 cap PO DAILY 10/04/24 06/24/25 History mg-150 mg-3.83 mg capsule Allergies Allergy/AdvReac Type Severity Reaction Status Date / Time nitroglycerin AdvReac Intermediate TACHYCARDIA Verified 06/24/25 01:07 [From Nitrostat] WITH PILLS ONLY, PASTE IS OKAY. rosuvastatin AdvReac Intermediate ELEVATED Verified 06/24/25 01:07 ALT simvastatin AdvReac Intermediate ELEVATED Verified 06/24/25 01:07 ALT Past Med/Surg History Problem List Chest pain Hypertensive urgency (Acute) Atypical chest pain (Acute) CAD S/P percutaneous coronary angioplasty (Chronic) Anxiety (Chronic) Dyslipidemia (Chronic) Steatohepatitis (Chronic) GERD (gastroesophageal reflux disease) (Chronic) S/P tonsillectomy and adenoidectomy (Acute) H/O colonoscopy (Acute) Medical History Chest pain Family History Mother Hx of CABG Father Hx of CABG Pancreatic cancer Other Pancreatic cancer metastasized to intra-abdominal lymph node Social History Smoking Status: Never smoker Second Hand Exposure: No; Do You Dip or Chew Tobacco: No; Hx Alcohol Use: No Hx Substance Use: No Preferred Language: Guyanese Communication Ability: Effective Principal Architect Required: No Beliefs That Will Affect Care: None Current Living Situation: Spouse and Family Current Living Situation Comment: Lives in a house with and son Feels Safe at Home: Yes Assistive Devices: Glasses Review of Systems A total of 10 systems reviewed and were otherwise negative Physical Exam Vital Signs Vital Signs - 24 hr 06/23/25 21:38 06/23/25 21:44 06/23/25 22:08 Temperature 36.9 C Temperature Source Temporal Artery Scan Pulse Rate 86 88 79 Pulse Rate [Apical] Pulse Rhythm Regular Pulse Rhythm [Apical] Pulse Strength [Apical] Respiratory Rate 19 14 Respiratory Effort / Characteristics Respiratory Depth Respiratory Pattern Blood Pressure 178/104 H Blood Pressure [Right Arm] Blood Pressure Mean 128 Blood Pressure Mean [Right Arm] Blood Pressure Position [Right Arm] Pulse Oximetry 98 96 Oxygen Delivery Method Room Air Room Air Sepsis Recent Fever Within 48 Hours No Sepsis New/Unexplained Change in Mental Status N/A Sepsis Action Taken by Nursing No Action Required 06/23/25 23:37 06/24/25 01:00 06/24/25 01:41 Temperature Temperature Source Pulse Rate 68 Pulse Rate [Apical] 70 75 Pulse Rhythm Pulse Rhythm [Apical] Regular Regular Pulse Strength [Apical] Normal Normal Respiratory Rate 18 18 Respiratory Effort / Characteristics Non-Labored Spontaneous Non-Labored Spontaneous Respiratory Depth Normal Normal Respiratory Pattern Regular Regular Blood Pressure Blood Pressure [Right Arm] 145/93 H 181/109 H Blood Pressure Mean Blood Pressure Mean [Right Arm] 110 133 Blood Pressure Position [Right Arm] Lying Lying Pulse Oximetry 96 98 Oxygen Delivery Method Room Air Room Air Sepsis Recent Fever Within 48 Hours Sepsis New/Unexplained Change in Mental Status Sepsis Action Taken by Nursing VITALS: Vitals are noted on the nurse's note and reviewed by myself. Vital signs stable. GENERAL: Well-developed, well-nourished, white male, who is in no acute distress and resting comfortably. Patient is cooperative with the examination. HEAD: Normocephalic atraumatic. NECK: Supple without nuchal rigidity. No lymphadenopathy. No thyromegaly. Cervical spine is nontender. HEART: Regular rate and rhythm without murmurs gallops or rubs. LUNGS: Clear to auscultation bilaterally without wheezes, rales or rhonchi. No retractions or accessory muscle use. ABDOMEN: Positive normal bowel sounds x 4. Soft, nontender, without masses or organomegaly. No guarding or rebound tenderness. MUSCULOSKELETAL: No muscle atrophy, erythema, or edema noted. Full range of motion in all extremities. Course Administered Medications Acetaminophen (Acetaminophen 325 Mg Tab) 650 mg PO Q4H PRN PRN Reason: Pain or Fever Stop: 07/24/25 03:34 Last Admin: 06/24/25 20:41 Dose: 650 mg Documented By: lindsay Admin: 06/24/25 16:28 Dose: 650 mg Documented By: emily Alprazolam (Alprazolam 0.25 Mg Tablet) 0.25 mg PO TID PRN PRN Reason: Anxiety Stop: 07/24/25 03:34 Last Admin: 06/24/25 20:41 Dose: 0.25 mg Documented By: lindsay Aspirin (Aspirin 81 Mg Ectab) 81 mg PO HS ANGEL LUIS Stop: 07/24/25 20:59 Last Admin: 06/24/25 20:42 Dose: 81 mg Documented By: lindsay Clopidogrel Bisulfate (Clopidogrel Bisulfate 75 Mg Tab) 75 mg PO HS ANGEL LUIS Stop: 07/24/25 20:59 Last Admin: 06/24/25 20:42 Dose: 75 mg Documented By: lindsay Diltiazem HCl (Diltiazem Hcl 180 Mg Capcr) 180 mg PO DAILY ANGEL LUIS Stop: 07/24/25 08:59 Last Admin: 06/24/25 08:51 Dose: 180 mg Documented By: REBECCA Losartan Potassium (Losartan Potassium 50 Mg Tab) 50 mg PO QAM ANGEL LUIS Stop: 07/24/25 08:59 Last Admin: 06/24/25 08:51 Dose: 50 mg Documented By: REBECCA Pantoprazole Sodium (Pantoprazole 40 Mg Tab) 40 mg PO DAILY ANGEL LUIS Stop: 07/24/25 08:59 Last Admin: 06/24/25 08:51 Dose: 40 mg Documented By: REBECCA Discontinued Medications Sodium Chloride (Nss) 1,000 mls @ 999 mls/hr IV .Q1H1M ONE Stop: 06/23/25 22:52 Last Infusion: 06/23/25 23:14 Dose: Infused Documented By: bob Admin: 06/23/25 22:06 Dose: 999 mls/hr Documented By: norma Acetaminophen (Ofirmev) 1,000 mg in 100 mls @ 400 mls/hr IV NOW STA Stop: 06/24/25 01:28 Last Infusion: 06/24/25 01:42 Dose: Infused Documented By: bob Admin: 06/24/25 01:19 Dose: 400 mls/hr Documented By: JAZZ Isosorbide Mononitrate (Isosorbide [place] Extended Rel 30 Mg Tabcr) 30 mg PO DAILY [facility] Stop: 07/24/25 08:59 Last Admin: 06/24/25 08:51 Dose: 30 mg Documented By: REBECCA Isosorbide Mononitrate (Isosorbide [place] Extended Rel 30 Mg Tabcr) 30 mg PO NOW ONE Stop: 06/24/25 10:44 Last Admin: 06/24/25 11:15 Dose: 30 mg Documented By: REBECCA Nitroglycerin (Nitroglycerin 2% Ointment 30gm Tube) 1 inch EXT NOW ONE Stop: 06/23/25 21:53 Last Admin: 06/23/25 22:06 Dose: 1 inch Documented By: norma Medical Decision Making Differential Diagnosis Differential diagnosis includes, but is not limited to: Myocardial infarction, dysrhythmia, pericarditis, pneumothorax, aortic aneurysm/dissection, DVT/PE, anxiety, GERD, PUD, electrolyte imbalance, thyroid disorder, pneumonia, bronchitis, pancreatitis, and others Laboratory Data 06/24/25 07:21 06/24/25 07:21 Lab Results 06/23/25 06/23/25 Range/Units 21:58 23:14 WBC 5.96 (4.8-10.8) K/ul RBC 5.34 (4.70-6.10) M/uL Hgb 17.2 (14.0-18.0) g/dL Hct 47.1 (42.0-52.0) % MCV 88.2 (80.0-100.0) fL MCH 32.2 (25.0-34.0) pg MCHC 36.5 H (32.0-36.0) g/dL RDW Std Deviation 39.7 (36.4-46.3) fL RDW Coeff of [place] 12.4 (11.5-14.5) % Plt Count 176 (130-400) K/uL MPV 8.4 L (9.4-12.4) fL Immature Gran % (Auto) 1.0 % Neut % (Auto) 54.9 % Lymph % (Auto) 32.9 % [place] % (Auto) 9.2 % Eos % (Auto) 1.7 % Baso % (Auto) 0.3 % Neut # (Auto) 3.27 (1.40-6.50) K/uL Lymph # (Auto) 1.96 (1.20-3.40) K/uL [place] # (Auto) 0.55 (0.11-0.59) K/uL Eos # (Auto) 0.10 (0.00-0.50) K/uL Baso # (Auto) 0.02 (0.00-0.20) K/uL Immature Gran # (Auto) 0.06 (0.01-0.20) K/uL Sodium 138 (136-145) mmol/L Potassium 4.0 (3.5-5.1) mmol/L Chloride 103 (98-107) mmol/L Carbon Dioxide 25 (21-32) mmol/L Anion Gap 10 (3-11) BUN 20 (6-23) mg/dl Creatinine 1.23 (0.6-1.4) mg/dl Est Cr Clr Drug Dosing 69.6 ml/min eGFR 63.95 BUN/Creatinine Ratio 16.3 (10-20) Glucose 100 H (70-99(Fasting)) mg/dl Calcium 9.4 (8.6-10.3) mg/dl Total Bilirubin 1.0 (0.2-1.0) mg/dl AST 39 (13-39) U/L ALT 77 H (7-52) U/L Alkaline Phosphatase 84 (34-104) U/L Troponin I High Sens 3.3 3.5 (0-20) pg/ml Total Protein 7.7 (6.0-8.3) gm/dl Albumin 4.9 (3.4-5.0) gm/dl Globulin 2.8 (2.5-4.0) gm/dl Albumin/Globulin Ratio 1.8 (0.9-2) Lipase 31 (11-82) U/L ECG Data Attestation: I personally reviewed and interpreted this ECG as follows: Indication: + chest pain Additional Comments: Normal sinus rhythm at [address] elevation No significant change when compared to EKG October 04, 2024 MDM Narrative Physical exam and history were performed. Nursing notes, EMR, and Medication List were personally reviewed. No social concerns were identified as barriers to patients care. History was provided by the Patient and who is at bedside. Patient appears to have chest pain bringing him to the ER. The patient has history of multivessel coronary artery disease with stenting. IV access was established and labs were obtained. Patient was hydrated with normal saline and given IV Tylenol. Nitropaste was applied. An order was placed for continuous cardiac monitoring. The monitor shows a rate of 74 with normal sinus rhythm. Patient's blood work is as above and was reviewed. He does not have a significant elevated white blood cell count, gross anemia, bandemia, or significant electrolyte imbalance. Transaminases not diagnostic. Troponin x 2 negative. Escalation of care was considered, and discussed at length with the patient. He did not get a significant improvement of symptoms with the Nitropaste. At this time I did not have a distinct explanation for his symptoms, and with his cardiac history, the case was discussed with the on-call hospitalist team. Please see their dictation for further patient course, plan, and disposition. The chart was completed utilizing [employer] Voice Recognition Software. Grammatical errors, random word insertions, pronoun errors, and incomplete sentences are an occasional consequence of this system due to software limitations, ambient noise, and hardware issues. Any formal questions or concerns about the content, text, or information contained within the body of this dictation should be directly addressed to the provider for clarification. Impression & Plan Atypical chest pain Discharge Plan Visit Data Chief Complaint: Cardiac Assessment Stated Complaint: CHEST PAIN,L ARM PAIN,HEADACHE,164/95 BP ED Provider: Willard Cooper ED Midlevel Provider: Joselito Thornton Discharge Problem: Atypical chest pain Patient Disposition: Admitted As Inpatient Condition: Good Discharge Instructions Interventions: ED Discharge Assessment Last Done: 06/24/25 15:22
[2025-06-23] MEDS: NITROGLYCERIN 2% OINTMENT 30GM TUBE EXT ONE (22:06)
[2025-06-23] MEDS: SODIUM CHLORIDE 0.9% 1,000 ML IV ONE (22:06)
[2025-06-23 22:12] LABS: Hematocrit (blood only) 47.1 % (42.0-52.0); Hemoglobin 17.2 g/dL (14.0-18.0); Immature Granulocytes # (auto) 0.06 K/uL (0.01-0.20); Immature Granulocytes % (auto) 1.0 %; Mean Corpuscular Hemoglobin 32.2 pg (25.0-34.0); Mean Corpuscular Volume 88.2 fL (80.0-100.0); Platelet Count 176 K/uL (130-400); RDW Standard Deviation 39.7 fL (36.4-46.3); Red Blood Count 5.34 M/uL (4.70-6.10); White Blood Count 5.96 K/ul (4.8-10.8)
[2025-06-23 22:29] LABS: Alanine Aminotransferase 77.0 U/L (7-52); Albumin Globulin Ratio 1.8 (0.9-2); Albumin Level 4.9 gm/dl (3.4-5.0); Alkaline Phosphatase 84.0 U/L (34-104); Anion Gap 10.0 (3-11); Bilirubin,Total 1.0 mg/dl (0.2-1.0); Blood Urea Nitrogen 20.0 mg/dl (6-23); Calcium 9.4 mg/dl (8.6-10.3); Carbon Dioxide 25.0 mmol/L (21-32); Chloride 103.0 mmol/L (98-107); Creatinine Clr Calc Pharmacy 69.6 ml/min; Globulin 2.8 gm/dl (2.5-4.0); Glucose 100.0 mg/dl (70-99(Fasting)); Lipase 31.0 U/L (11-82); Potassium 4.0 mmol/L (3.5-5.1); Sodium 138.0 mmol/L (136-145); Total Protein 7.7 gm/dl (6.0-8.3)
--- NOTE | 2025-06-23 23:46 | XRay Report ---
Exam(s): XR CXR 1 VIEW EXAM: XR Chest, 1 View CLINICAL HISTORY: Chest pain, nonspecific. TECHNIQUE: Frontal view of the chest. COMPARISON: XR Chest dated 10/04/2024 FINDINGS: Lungs: No focal consolidation. The pulmonary vasculature demonstrates no significant radiographic abnormality. Pleural space: No significant abnormality. No pneumothorax. No large pleural effusion. Heart: No significant abnormality. No cardiomegaly. Mediastinum: No significant abnormality identified. The trachea is midline. Bones/joints: No significant abnormality. No acute fracture. IMPRESSION: No acute cardiopulmonary process or significant alteration from the prior examination. Electronically signed by: Constantino Ramsay MD 06/23/25 23:46 PM
[2025-06-24] MEDS: ACETAMINOPHEN 1,000 MG/100 ML VIAL IV STA (01:19)
[2025-06-24] MEDS ORDERED: NITROGLYCERIN SL 0.4 MG/TAB TAB SL PRN (03:35)
[2025-06-24] MEDS ORDERED: MoRPHine SULFATE 2 MG/ML CARP IV PRN (03:35)
--- NOTE | 2025-06-24 04:33 | History & Physical Report ---
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 Patient states around 6:30 PM yesterday sitting in chair suddenly felt clammy, anxious ,sick to the stomach and some pain in the left arm and headache which made him very came to the ER. Patient states he gets angina symptoms but because of clamminess and not feeling good came to the ER. Currently symptoms improved. He thinks symptoms lasted about 20 minutes. Still not feeling back to normal. After Tylenol his headache improved. Vision is okay. No runny nose or sore throat. Has chronic cough. Chronic shortness of breath. Currently no nausea. No abdominal pain. Normal bowel and bladder movements. Is ambulating okay. Currently hemodynamics are okay. Chest pains History of CAD status post stents EKG okay Initial 2 sets of troponin negative Currently asymptomatic We will follow serial cardiac enzymes and echo Monitor admit/telemetry Cardiac consult for further recommendations History of CAD Status post ALICIA to LAD in 2017 Status post ALICIA to right mid coronary artery in 2015 Status post ALICIA to proximal LAD in 2017 Cardiac cath in August 2023 showed mild nonobstructive CAD On aspirin, Plavix, Imdur and Repatha Hypertension On diltiazem, Imdur and losartan Will monitor Hyperlipidemia Intolerant to multiple statin trials On Repatha History of steatohepatitis and chronic hepatic enzyme elevation History of SVT On diltiazem GERD On Protonix Obstructive sleep apnea On CPAP nightly CKD stage III Presented with creatinine 1.2 around baseline We will follow labs DVT prophylaxis SCDs for now Disposition Observation med/telemetry Full code Admission and Anticipated Discharge Date Admission Date: June 24, 2025 History of Present Illness Chief Complaint: Chest pain Primary Care Provider: Albert Ballard 70-year-old male with past medical history significant for hypertension, hypothyroidism,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 Patient states around 6:30 PM yesterday sitting in chair suddenly felt clammy, anxious ,sick to the stomach and some pain in the left arm and headache which made him very came to the ER. Patient states he gets angina symptoms but because of clamminess and not feeling good came to the ER. Currently symptoms improved. He thinks symptoms lasted about 20 minutes. Still not feeling back to normal. After Tylenol his headache impro joselo. Vision is okay. No runny nose or sore throat. Has chronic cough. Chronic shortness of breath. Currently no nausea. No abdominal pain. Normal bowel and bladder movements. Is ambulating okay. Currently hemodynamics are okay. Past med history. As mentioned above. Past surgical history. Cardiac angioplasty. Colonoscopy with biopsy. Left and right heart catheterization. EGD. Right knee arthroscopy. Cardiac cath with stent placements. Tonsillectomy adenoidectomy. Social history. . No smoking. No alcohol use. No drug use. Family history. Father colon polyps. Bypass surgery in his 60s. Mother had coronary bypass grafting age 44. Allergies Allergy/AdvReac Type Severity Reaction Status Date / Time nitroglycerin AdvReac Intermediate TACHYCARDIA Verified 06/24/25 01:07 [From Nitrostat] WITH PILLS ONLY, PASTE IS OKAY. rosuvastatin AdvReac Intermediate ELEVATED Verified 06/24/25 01:07 ALT simvastatin AdvReac Intermediate ELEVATED Verified 06/24/25 01:07 ALT Home Medications Medication Instructions Recorded Confirmed Type alprazolam 0.25 mg tablet 0.25 mg PO TID PRN Anxiety 08/18/23 06/24/25 History aspirin 81 mg tablet,delayed 81 mg PO HS 08/18/23 06/24/25 History release clopidogrel 75 mg tablet 75 mg PO HS 08/18/23 06/24/25 History diltiazem HCl 180 mg 180 mg PO DAILY 08/18/23 06/24/25 History capsule,extended release 24 hr evolocumab 140 mg/mL subcutaneous 140 mg subcut Q14D 08/18/23 06/24/25 History pen injector (Repatha [employer]) isosorbide mononitrate 30 mg 30 mg PO DAILY 08/18/23 06/24/25 History tablet,extended release 24 hr pantoprazole 40 mg tablet,delayed 40 mg PO DAILY 08/18/23 06/24/25 History release losartan 50 mg tablet 50 mg PO QAM 10/04/24 06/24/25 History zinc-magnesium aspart-vit B6 10 1 cap PO DAILY 10/04/24 06/24/25 History mg-150 mg-3.83 mg capsule Past Med/Surg History Problem List Chest pain Hypertensive urgency (Acute) Atypical chest pain (Acute) CAD S/P percutaneous coronary angioplasty (Chronic) Anxiety (Chronic) Dyslipidemia (Chronic) Steatohepatitis (Chronic) GERD (gastroesophageal reflux disease) (Chronic) S/P tonsillectomy and adenoidectomy (Acute) H/O colonoscopy (Acute) Medical History Chest pain Family History Mother Hx of CABG Father Hx of CABG Pancreatic cancer Other Pancreatic cancer metastasized to intra-abdominal lymph node Social History Smoking Status: Never smoker Second Hand Exposure: No; Do You Dip or Chew Tobacco: No; Hx Alcohol Use: No Hx Substance Use: No Preferred Language: Croatian Communication Ability: Effective Ui U[employer] Web Developer Required: No Beliefs That Will Affect Care: None Current Living Situation: Spouse and Family Current Living Situation Comment: Lives in a house with and son Feels Safe at Home: Yes Safety Concerns: Feels Safe At This Time Assistive Devices: Glasses Review of Systems Review of Systems: All systems reviewed & are unremarkable except as noted in HPI & below Physical Exam Physical Exam: General- Not in distress Head- atraumatic Eyes- PERRL. ENT- oropharynx clear Neck- supple, no JVD. Lungs- clear to auscultation no wheezing or crackles Heart- regular rhythm; no murmur, no gallop. Abdomen- normal bowel sounds, soft, nontender, no distension Extremities- no pretibial edema, no erythema seen Neuro- alert, oriented PERRL, no facial palsy; no dysarthria; moves extremities Results & Data Results & Data Vital Signs (Past 12 Hours) Vital Signs Temp Pulse Pulse Resp BP BP Pulse Ox 06/24/25 03:44 71 18 156/93 H 96 06/24/25 01:41 68 06/24/25 01:00 75 18 181/109 H 98 06/23/25 23:37 70 18 145/93 H 96 06/23/25 22:08 79 14 96 06/23/25 21:44 88 06/23/25 21:38 36.9 C 86 19 178/104 H 98 O2 Del Method 06/24/25 03:44 Room Air 06/24/25 01:41 06/24/25 01:00 Room Air 06/23/25 23:37 Room Air 06/23/25 22:08 Room Air 06/23/25 21:44 06/23/25 21:38 Room Air Diagnostic Findings Laboratory Results WBC 5.96 K/ul (4.8-10.8) 06/23/25 21:58 RBC 5.34 M/uL (4.70-6.10) 06/23/25 21:58 Hgb 17.2 g/dL (14.0-18.0) 06/23/25 21:58 Hct 47.1 % (42.0-52.0) 06/23/25 21:58 MCV 88.2 fL (80.0-100.0) 06/23/25 21:58 MCH 32.2 pg (25.0-34.0) 06/23/25 21:58 MCHC 36.5 g/dL (32.0-36.0) H 06/23/25 21:58 RDW Std Deviation 39.7 fL (36.4-46.3) 06/23/25 21:58 RDW Coeff of [place] 12.4 % (11.5-14.5) 06/23/25 21:58 Plt Count 176 K/uL (130-400) 06/23/25 21:58 MPV 8.4 fL (9.4-12.4) L 06/23/25 21:58 Immature Gran % (Auto) 1.0 % 06/23/25 21:58 Neut % (Auto) 54.9 % 06/23/25 21:58 Lymph % (Auto) 32.9 % 06/23/25 21:58 [place] % (Auto) 9.2 % 06/23/25 21:58 Eos % (Auto) 1.7 % 06/23/25 21:58 Baso % (Auto) 0.3 % 06/23/25 21:58 Neut # (Auto) 3.27 K/uL (1.40-6.50) 06/23/25 21:58 Lymph # (Auto) 1.96 K/uL (1.20-3.40) 06/23/25 21:58 [place] # (Auto) 0.55 K/uL (0.11-0.59) 06/23/25 21:58 Eos # (Auto) 0.10 K/uL (0.00-0.50) 06/23/25 21:58 Baso # (Auto) 0.02 K/uL (0.00-0.20) 06/23/25 21:58 Immature Gran # (Auto) 0.06 K/uL (0.01-0.20) 06/23/25 21:58 Sodium 138 mmol/L (136-145) 06/23/25 21:58 Potassium 4.0 mmol/L (3.5-5.1) 06/23/25 21:58 Chloride 103 mmol/L (98-107) 06/23/25 21:58 Carbon Dioxide 25 mmol/L (21-32) 06/23/25 21:58 Anion Gap 10 (3-11) 06/23/25 21:58 BUN 20 mg/dl (6-23) 06/23/25 21:58 Creatinine 1.23 mg/dl (0.6-1.4) 06/23/25 21:58 Est Cr Clr Drug Dosing 69.6 ml/min 06/23/25 21:58 eGFR 63.95 06/23/25 21:58 BUN/Creatinine Ratio 16.3 (10-20) 06/23/25 21:58 Glucose 100 mg/dl (70-99(Fasting)) H 06/23/25 21:58 Calcium 9.4 mg/dl (8.6-10.3) 06/23/25 21:58 Total Bilirubin 1.0 mg/dl (0.2-1.0) 06/23/25 21:58 AST 39 U/L (13-39) 06/23/25 21:58 ALT 77 U/L (7-52) H 06/23/25 21:58 Alkaline Phosphatase 84 U/L (34-104) 06/23/25 21:58 Troponin I High Sens 3.5 pg/ml (0-20) 06/23/25 23:14 Total Protein 7.7 gm/dl (6.0-8.3) 06/23/25 21:58 Albumin 4.9 gm/dl (3.4-5.0) 06/23/25 21:58 Globulin 2.8 gm/dl (2.5-4.0) 06/23/25 21:58 Albumin/Globulin Ratio 1.8 (0.9-2) 06/23/25 21:58 Lipase 31 U/L (11-82) 06/23/25 21:58 Impressions Chest X-Ray 06/23/25 21:44 Exam(s): XR CXR 1 VIEW EXAM: XR Chest, 1 View CLINICAL HISTORY: Chest pain, nonspecific. TECHNIQUE: Frontal view of the chest. COMPARISON: XR Chest dated 10/04/2024 FINDINGS: Lungs: No focal consolidation. The pulmonary vasculature demonstrates no significant radiographic abnormality. Pleural space: No significant abnormality. No pneumothorax. No large pleural effusion. Heart: No significant abnormality. No cardiomegaly. Mediastinum: No significant abnormality identified. The trachea is midline. Bones/joints: No significant abnormality. No acute fracture. IMPRESSION: No acute cardiopulmonary process or significant alteration from the prior examination. Electronically signed by: Constantino Ramsay MD 06/23/25 23:46 PM ECG Additional Comments: ECG. Normal sinus rhythm rate of 79. No acute ST changes seen. Code Status & VTE Plan VTE Prophylaxis Plan VTE Prophylaxis will be ordered: Yes
[2025-06-24 07:42] LABS: Hematocrit (blood only) 41.0 % (42.0-52.0); Hemoglobin 15.3 g/dL (14.0-18.0); Immature Granulocytes # (auto) 0.05 K/uL (0.01-0.20); Immature Granulocytes % (auto) 0.7 %; Mean Corpuscular Hemoglobin 32.5 pg (25.0-34.0); Mean Corpuscular Volume 87.0 fL (80.0-100.0); Platelet Count 148 K/uL (130-400); RDW Standard Deviation 39.0 fL (36.4-46.3); Red Blood Count 4.71 M/uL (4.70-6.10); White Blood Count 6.97 K/ul (4.8-10.8)
[2025-06-24 08:01] LABS: Anion Gap 7.0 (3-11); Blood Urea Nitrogen 18.0 mg/dl (6-23); Calcium 9.0 mg/dl (8.6-10.3); Carbon Dioxide 24.0 mmol/L (21-32); Chloride 107.0 mmol/L (98-107); Creatinine Clr Calc Pharmacy 73.2 ml/min; Glucose 100.0 mg/dl (70-99(Fasting)); Magnesium 2.1 mg/dl (1.7-2.4); Potassium 4.2 mmol/L (3.5-5.1); Sodium 138.0 mmol/L (136-145)
--- NOTE | 2025-06-24 08:46 | XCELERA ---
[id number] \\[id number]
[2025-06-24] MEDS: ISOSORBIDE MONO EXTENDED REL 30 MG TABCR PO SCH (08:51)
[2025-06-24] MEDS: LOSARTAN POTASSIUM 50 MG TAB PO SCH (08:51)
--- NOTE | 2025-06-24 09:01 | Cardiology Consultation ---
Date of Consultation June 24, 2025 Assessment & Plan (1) Hypertensive urgency: (2) Atypical chest pain: (3) CAD S/P percutaneous coronary angioplasty: Plan Patient is a 70 year old male with history of CAD s/p prior LAD and RCA stents. Last cath in 2023 with patent stents and mild non obstructive disease. Patient was admitted with symptoms of headache, left shoulder/arm pain, and hypertensive urgency with uncontrolled HTN due to non compliance with home medications. HS troponin negative x3 since admission. EKG demonstrating NSR without acute ischemic changes. Echo with normal LVEF and no wall motion abnormalities Uncontrolled hypertension on admission, improving with nitro paste. Unfortunately this worsened his headache and was removed. He tolerates oral isosorbide. Will increase to 60 mg daily. Continue home losartan and diltiazem Continue ASA and plavix At this time, patient is feeling better and BP tending lower. No further cardiac testing as an inpatient. Should he have recurrent left arm pain or concerns for angina, consider outpatient nuclear stress test. Patient agreeable. Case to be discussed with Dr. Ponce. I spent a total of 60 minutes on the date of service in preparation, delivery, and documentation of the care provided to this patient, excluding any time spent in the performance of separately billed services. Ngoc Huitron PA-C Department of Cardiology, [facility] This chart was completed in part utilizing Speech Voice Recognition Software. Grammatical errors, random word insertions, pronoun errors, and incomplete sentences are an occasional consequence of this system due to software limitations, ambient noise, and hardware issues. Any formal questions or concerns about the content, text, or information contained within the body of this dictation should be directly addressed to the provider for clarification. Supervising Physician Co-Signing Physician Notes Patient seen and examined. Past medical history, surgical history, social history and family history have been reviewed. The medical record and all the above studies have been reviewed. Case DW [place] including management. HTN urgency Chest pain - atypical, WI R/O CAD S/P PCI Asthma CKD HLD JAKE GERD Recommendations: increase Imdur continue DAPT continue anticoagulation adjust anti-HTN meds keeping systolic BP between 100-140 mmHg avoid hypovolemia keep patient euvolemic DVT prophylaxis salt restriction counseling dietary counseling given ECHO - no WMA, normal LVEF, LVDD Gd I Further cardiac w/u as OP after medical optimization History of Present Illness Reason for Consultation: HTN urgency; atypical left arm pain Requesting Physician: [facility] Attending Physician: Dr. Ponce History of Present Illness Patient is a 70 year old male who presented to [facility] with complaints of headache, hypertensive urgency, and intermittent left arm pain. Patient reports he was at home yesterday sitting at his desk and developed left shoulder "ache" with headache and 'clamminess'. Due to his symptoms and cardiac history, he came to the ER for evaluatin. He admits to missing/skipping his medications yesterday. He notes having a headache the last few weeks and wondered if his BP has been elevated. no exertional chest pain recently. Left arm and shoulder pain has not been with exertion. Since admission, EKG demonstrating NSR, no acute ischemic changes. HS troponin negative x3. Echo with normal LVEF, no wall motion abnormalities. BP was uncontrolled since admission. Nitro paste made his headache worse and was removed. He tolerates oral isosorbide at home. At time of consult, patient resting in bed feeling ok. No chest pain or left arm pain. Headache slowly improving. BP also improving. He admits to having intermittent Burning in his throat. Admits to eating spicy food yesterday and sauces which aggravates his GERD. History includes: 1. Atherosclerotic coronary disease -Status post prior PTCA and stenting of the left anterior descending January 2008 with drug-eluting stent. -Coronary intervention November 2015 receiving drug-eluting stent to the mid right coronary artery with residual moderate narrowing of 50% in the mid left anterior descending, not obstructively significant by FFR. -Coronary intervention on June 02, 2018, receiving 1 drug-eluting stent to the proximal left anterior descending coronary artery. -Cardiac Cath in 08/2023: Patient stents within the LAD and RCA; mild non obstructive disease elsewhere 2. Lower HDL dyslipidemia. 1. Poor statin tolerance of multiple statin trials. 2. History of steatohepatitis with chronic hepatic enzyme elevation. 3. Hypertension. 4. Paroxysmal supraventricular tachycardia 5. Sleep apnea, CPAP therapy. 6. 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 7. Stage IIIA chronic kidney disease Allergies Allergy/AdvReac Type Severity Reaction Status Date / Time nitroglycerin AdvReac Intermediate TACHYCARDIA Verified 06/24/25 01:07 [From Nitrostat] WITH PILLS ONLY, PASTE IS OKAY. rosuvastatin AdvReac Intermediate ELEVATED Verified 06/24/25 01:07 ALT simvastatin AdvReac Intermediate ELEVATED Verified 06/24/25 01:07 ALT Home Medications Medication Instructions Recorded Confirmed Type alprazolam 0.25 mg tablet 0.25 mg PO TID PRN Anxiety 08/18/23 06/24/25 History aspirin 81 mg tablet,delayed 81 mg PO HS 08/18/23 06/24/25 History release clopidogrel 75 mg tablet 75 mg PO HS 08/18/23 06/24/25 History diltiazem HCl 180 mg 180 mg PO DAILY 08/18/23 06/24/25 History capsule,extended release 24 hr evolocumab 140 mg/mL subcutaneous 140 mg subcut Q14D 08/18/23 06/24/25 History pen injector (Chet Goyal) isosorbide mononitrate 30 mg 30 mg PO DAILY 08/18/23 06/24/25 History tablet,extended release 24 hr pantoprazole 40 mg tablet,delayed 40 mg PO DAILY 08/18/23 06/24/25 History release losartan 50 mg tablet 50 mg PO QAM 10/04/24 06/24/25 History zinc-magnesium aspart-vit B6 10 1 cap PO DAILY 10/04/24 06/24/25 History mg-150 mg-3.83 mg capsule Patient History Medical History Chest pain Family History Mother Hx of CABG Father Hx of CABG Pancreatic cancer Other Pancreatic cancer metastasized to intra-abdominal lymph node Social History Smoking Status: Never smoker Second Hand Exposure: No; Do You Dip or Chew Tobacco: No; Hx Alcohol Use: No Hx Substance Use: No Preferred Language: Telugu Communication Ability: Effective Baby Nurse Required: No Beliefs That Will Affect Care: None Current Living Situation: Spouse and Family Current Living Situation Comment: Lives in a house with and son Feels Safe at Home: Yes Assistive Devices: Glasses Review of Systems Review of Systems: All systems reviewed & are unremarkable except as noted in HPI & below Physical Exam Constitutional: WD/WN, vitals as above no acute distress Neck: + thick neck Respiratory: normal respiratory effort, lungs clear to auscultation Cardiovascular: RRR, no murmur, no edema Gastrointestinal (Abdomen): normal bowel sounds, soft, nontender, no hepatosplenomegaly Neurologic: PERRL, EOMI, accommodation nl, no face palsy, no dysarthria Results & Data Vital Signs (Past 12 Hours) Vital Signs Temp Pulse Pulse Resp BP BP Pulse Ox 06/24/25 07:00 71 18 126/103 H 96 06/24/25 06:57 72 06/24/25 06:00 36.7 C 68 18 156/97 H 95 06/24/25 03:44 71 18 156/93 H 96 06/24/25 01:41 68 06/24/25 01:00 75 18 181/109 H 98 06/23/25 23:37 70 18 145/93 H 96 06/23/25 22:08 79 14 96 06/23/25 21:44 88 06/23/25 21:38 36.9 C 86 19 178/104 H 98 O2 Del Method 06/24/25 07:00 Room Air 06/24/25 06:57 06/24/25 06:00 Room Air 06/24/25 03:44 Room Air 06/24/25 01:41 06/24/25 01:00 Room Air 06/23/25 23:37 Room Air 06/23/25 22:08 Room Air 06/23/25 21:44 06/23/25 21:38 Room Air Laboratory Results Cardiac Enzymes 06/23/25 06/23/25 06/24/25 Range/Units 21:58 23:14 07:21 AST 39 (13-39) U/L Troponin I High Sens 3.3 3.5 4.2 (0-20) pg/ml CBC 06/23/25 06/24/25 Range/Units 21:58 07:21 WBC 5.96 6.97 (4.8-10.8) K/ul RBC 5.34 4.71 (4.70-6.10) M/uL Hgb 17.2 15.3 (14.0-18.0) g/dL Hct 47.1 41.0 L (42.0-52.0) % Plt Count 176 148 (130-400) K/uL Neut # (Auto) 3.27 3.69 (1.40-6.50) K/uL Lymph # (Auto) 1.96 2.49 (1.20-3.40) K/uL Metcalfe # (Auto) 0.55 0.57 (0.11-0.59) K/uL Eos # (Auto) 0.10 0.14 (0.00-0.50) K/uL Baso # (Auto) 0.02 0.03 (0.00-0.20) K/uL Comprehensive Metabolic Panel 06/23/25 06/24/25 Range/Units 21:58 07:21 Sodium 138 138 (136-145) mmol/L Potassium 4.0 4.2 (3.5-5.1) mmol/L Chloride 103 107 (98-107) mmol/L Carbon Dioxide 25 24 (21-32) mmol/L BUN 20 18 (6-23) mg/dl Creatinine 1.23 1.17 (0.6-1.4) mg/dl Glucose 100 H 100 H (70-99(Fasting)) mg/dl Calcium 9.4 9.0 (8.6-10.3) mg/dl AST 39 (13-39) U/L ALT 77 H (7-52) U/L Alkaline Phosphatase 84 (34-104) U/L Total Protein 7.7 (6.0-8.3) gm/dl Albumin 4.9 (3.4-5.0) gm/dl Intake and Output 06/23/25 06/24/25 06/24/25 22:59 06:59 14:59 Intake Total 1100 / 1100 Balance 1100 / 1100 Intake: IV 1100 / 1100 Acetaminophen 1,000 mg In 100 100 / 100 ml @ 400 mls/hr IV NOW STA Rx#: [id number] Sodium Chloride 0.9% 1,000 ml @ 1000 / 1000 999 mls/hr IV .Q1H1M ONE Rx#: [id number] Other: Other Intake Source npo Weight 108.1 kg Weight Measurement Method Chair Scale Diagnostic Findings Telemetry reviewed: NSR. No arrhythmias EKG reviewed from admission 06/23/25: NSR, normal EKG No significant change from previous in October 2024 Echo report reviewed from today 06/24: Normal LVEF at 55-60% NO wall motion abnormalities Mild MR Mild TR Mild pulmonic valvular regurgitation Prior data reviewed: Cardiac cath report reviewed from 08/2023: Summary: 1. Mild nonobstructive coronary artery disease -Widely patent proximal to mid LAD stents, 30 to 40% mid stenosis at distal aspect of prior stents. 25% proximal circumflex 30% earlymid RCA. Prior mid RCA stent widely patent. 2. Normal intracardiac filling pressure Medications Administered Current Inpatient Medications Acetaminophen (Acetaminophen 325 Mg Tab) 650 mg PO Q4H PRN PRN Reason: Pain or Fever Stop: 07/24/25 03:34 Alprazolam (Alprazolam 0.25 Mg Tablet) 0.25 mg PO TID PRN PRN Reason: Anxiety Stop: 07/24/25 03:34 Aspirin (Aspirin 81 Mg Ectab) 81 mg PO HS [facility] Stop: 07/24/25 20:59 Clopidogrel Bisulfate (Clopidogrel Bisulfate 75 Mg Tab) 75 mg PO HS [facility] Stop: 07/24/25 20:59 Diltiazem HCl (Diltiazem Hcl 180 Mg Capcr) 180 mg PO DAILY [facility] Stop: 07/24/25 08:59 Last Admin: 06/24/25 08:51 Dose: 180 mg Isosorbide Mononitrate (Isosorbide Metcalfe Extended Rel 30 Mg Tabcr) 30 mg PO DAILY [facility] Stop: 07/24/25 08:59 Last Admin: 06/24/25 08:51 Dose: 30 mg Losartan Potassium (Losartan Potassium 50 Mg Tab) 50 mg PO QAM [facility] Stop: 07/24/25 08:59 Last Admin: 06/24/25 08:51 Dose: 50 mg Morphine Sulfate (Morphine Sulfate 2 Mg/Ml Carp) 2 mg IV Q30M PRN PRN Reason: Chest Pain Stop: 07/08/25 03:34 Nitroglycerin (Nitroglycerin Sl 0.4 Mg/Tab Tab) 0.4 mg SL Q5M PRN PRN Reason: Chest Pain Stop: 07/24/25 03:34 Pantoprazole Sodium (Pantoprazole 40 Mg Tab) 40 mg PO DAILY [facility] Stop: 07/24/25 08:59 Last Admin: 06/24/25 08:51 Dose: 40 mg PG Care Time/CCT Total # of Minutes Spent Total Time Spent with Patient: Total time spent is greater than 50% in coordination of care (as documented) at patient's floor/unit and/or counseling patient: 60 minutes Coding Level of Care Code 71465 INT INP/OBS CARE 3/75MIN Diagnoses Hypertensive urgency I16.0 Atypical chest pain R07.89 CAD S/P percutaneous coronary angioplasty I25.10; Z98.61
[2025-06-24] MEDS: ISOSORBIDE MONO EXTENDED REL 30 MG TABCR PO ONE (11:15)
--- NOTE | 2025-06-24 13:43 | Hospitalist Progress Note ---
Date of Service June 24, 2025 Assessment & Plan (1) Chest pain: Plan: 70-year-old male with past medical history significant for hypertension, hypothyroidism,coal hauler's lung, granulomatous lung disease, history of moderate persistent asthma without complication, history of CAD s/p stents 3 times, history of obesity, obstructive sleep apnea on CPAP, GERD, irritable bowel syndrome, nonalcoholic fatty liver disease, stage III chronic kidney disease, osteoarthritis, sensorineural hearing loss, generalized anxiety disorder presents with chest pain. Chest pain History of CAD Status post ALICIA to LAD in 2018 Status post ALICIA to right mid coronary artery in 2015 Status post ALICIA to proximal LAD in 2017 Cardiac cath in August 2023 showed mild nonobstructive CAD Patient presents with left-sided arm and chest pain EKGnormal sinus rhythm Initial 2 sets of troponin negative Echocardiogram shows EF of 55 to 60%; grade 1 diastolic dysfunction. Continue on aspirin, Plavix, Imdur and Repatha Continue telemonitoring Monitor for chest pain Possible URTIreports sore throat, generalized fatigue. Will obtain respiratory Bio[employer]. Monitor for fever/chills. Hypertension On diltiazem, Imdur and losartan-continue Hyperlipidemia Intolerant to multiple statin trials On Repatha History of steatohepatitis and chronic hepatic enzyme elevation History of SVT On diltiazem-continue GERD On Protonix-continue Obstructive sleep apnea On CPAP nightly CKD stage III Presented with creatinine 1.2 around baseline We will follow labs DVT prophylaxis SCDs for now Disposition Observation med/telemetry Full code Please note the above document was generated using voice recognition software. It may contain grammatical, syntax or spelling errors. Any formal questions or concerns about the content, text or information contained within the body of this dictation should be directly addressed to the provider for clarification Admission and Anticipated Discharge Date Admission Date: June 24, 2025 Subjective Patient seen and examined at bedside. He reports some sore throat, some tiredness. No fever or chills. No complaint of chest pain, shortness of breath or abdominal discomfort. Review of Systems Review of Systems: All systems reviewed & are unremarkable except as noted in Subjective Physical Exam Physical Exam: General- Not in distress Head- atraumatic Eyes- PERRL. ENT- oropharynx clear Neck- supple, no JVD. Lungs- clear to auscultation no wheezing or crackles Heart- regular rhythm; no murmur, no gallop. Abdomen- normal bowel sounds, soft, nontender, no distension Extremities- no pretibial edema, no erythema seen Neuro- alert, oriented PERRL, no facial palsy; no dysarthria; moves extremities Results & Data Results & Data Vital Signs (Past 12 Hours) Vital Signs Temp Pulse Pulse Resp BP Pulse Ox O2 Del Method 06/24/25 11:00 67 18 133/82 94 Room Air 06/24/25 09:30 76 18 127/86 97 Room Air 06/24/25 07:00 71 18 126/103 H 96 Room Air 06/24/25 06:57 72 06/24/25 06:00 36.7 C 68 18 156/97 H 95 Room Air 06/24/25 03:44 71 18 156/93 H 96 Room Air 06/24/25 01:41 68
--- NOTE | 2025-06-24 14:21 | Electrocardiogram Report ---
Test Reason : Blood Pressure : */* mmHG Vent. Rate : 79 BPM Atrial Rate : 79 BPM P-R Int : 172 ms QRS Dur : 88 ms QT Int : 368 ms P-R-T Axes : 44 -20 36 degrees QTcB Int : 421 ms Normal sinus rhythm Normal ECG When compared with ECG of 04-Oct-2024 11:29, No significant change was found Confirmed by David Barron ([id number]) on 06/24/2025 2:20:54 PM Referred By: REFERRED SELF Confirmed By: David Barron
[2025-06-24 15:10] LABS: Chlamydia pneumoniae PCR Not Detected (NotDetected); Coronavirus 229E PCR Not Detected (NotDetected); Coronavirus CoV-2 (COVID19)PCR Not Detected (NotDetected); Coronavirus HKU1 PCR Not Detected (NotDetected); Coronavirus NL63 PCR Not Detected (NotDetected); Coronavirus OC43PCR Not Detected (NotDetected); Human Metapneumovirus PCR Not Detected (NotDetected); Parainfluenza Virus 1 PCR Not Detected (NotDetected); Parainfluenza Virus 2 PCR Not Detected (NotDetected); Parainfluenza Virus 3 PCR Not Detected (NotDetected); Parainfluenza Virus 4 PCR Not Detected (NotDetected); Respiratory Syncytial VirusPCR Not Detected (NotDetected); Rhinovirus/Enterovirus PCR Not Detected (NotDetected)
[2025-06-24] MEDS: ACETAMINOPHEN 325 MG TAB PO PRN (16:28)
[2025-06-24] MEDS: CLOPIDOGREL BISULFATE 75 MG TAB PO SCH (20:42)
[2025-06-24] MEDS: ASPIRIN 81 MG ECTAB PO SCH (20:42)
[2025-06-25] MEDS: ISOSORBIDE MONO EXTENDED REL 60 MG TABCR PO SCH (08:25)
[2025-06-25 12:20] VITALS: BP 109/68; PULSE 64; RESP 19; TEMP 97.5; O2SAT 95
--- NOTE | 2025-06-25 12:42 | Cardiology Progress Note ---
Date of Service June 25, 2025 Assessment & Plan (1) Hypertensive urgency: (2) Atypical chest pain: (3) CAD S/P percutaneous coronary angioplasty: Plan Patient is a 70 year old male with history of CAD s/p prior LAD and RCA stents. Last cath in 2023 with patent stents and mild non obstructive disease. Patient was admitted with symptoms of headache, left shoulder/arm pain, and hypertensive urgency with uncontrolled HTN due to non compliance with home medications. HS troponin negative x3 since admission. EKG demonstrating NSR without acute ischemic changes. Echo with normal LVEF and no wall motion abnormalities HTN urgency Chest pain - atypical, [place] R/O CAD S/P PCI Asthma CKD HLD JAKE GERD Recommendations: increased Imdur continue DAPT continue anticoagulation adjust anti-HTN meds keeping systolic BP between 100-140 mmHg avoid hypovolemia keep patient euvolemic DVT prophylaxis salt restriction counseling given dietary counseling given ECHO - no WMA, normal LVEF, LVDD Gd I Further cardiac w/u as OP after medical optimization stable from cardiac standpoint f/u with primary hydroelectric systems technician post discharge Admission and Anticipated Discharge Date Admission Date: June 24, 2025 Subjective Patient on exam is lying in bed in NAD; no c/o cp, sob, palpitations, dizziness, LOC, leg swelling Review of Systems Review of Systems: as per hpi Physical Exam Constitutional: WD/WN, vitals as above no acute distress Neck: + thick neck Respiratory: normal respiratory effort, lungs clear to auscultation Cardiovascular: RRR, no murmur, no edema Gastrointestinal (Abdomen): normal bowel sounds, soft, nontender, no hepatosplenomegaly Neurologic: PERRL, EOMI, accommodation nl, no face palsy, no dysarthria Results & Data Vital Signs (Past 12 Hours) Vital Signs Vital Signs Temp 36.4 C L 06/25/25 12:19 Pulse 64 06/25/25 12:19 Resp 19 06/25/25 12:19 BP 109/68 06/25/25 12:19 Pulse Ox 95 06/25/25 12:19 O2 Del Method Room Air 06/25/25 12:19 Intake & Output 06/24/25 06/25/25 06/25/25 18:59 06:59 18:59 Intake Total 360 / 360 Balance 360 / 360 Weight 106.8 kg Intake: Oral 360 / 360 Other: Weight Measurement Method Built in Bedscale Temp Pulse Resp BP BP Pulse Ox O2 Del Method 06/25/25 12:19 36.4 C L 64 19 109/68 95 Room Air 06/25/25 08:36 36.7 C 63 18 119/74 96 Room Air 06/25/25 08:00 Room Air 06/25/25 03:01 36.4 C L 64 18 116/72 98 Room Air Laboratory Results Laboratory Results WBC 6.97 K/ul (4.8-10.8) 06/24/25 07:21 RBC 4.71 M/uL (4.70-6.10) 06/24/25 07:21 Hgb 15.3 g/dL (14.0-18.0) 06/24/25 07:21 Hct 41.0 % (42.0-52.0) L 06/24/25 07:21 MCV 87.0 fL (80.0-100.0) 06/24/25 07:21 MCH 32.5 pg (25.0-34.0) 06/24/25 07:21 MCHC 37.3 g/dL (32.0-36.0) H 06/24/25 07:21 RDW Std Deviation 39.0 fL (36.4-46.3) 06/24/25 07:21 RDW Coeff of [place] 12.3 % (11.5-14.5) 06/24/25 07:21 Plt Count 148 K/uL (130-400) 06/24/25 07:21 MPV 8.4 fL (9.4-12.4) L 06/24/25 07:21 Immature Gran % (Auto) 0.7 % 06/24/25 07:21 Neut % (Auto) 53.0 % 06/24/25 07:21 Lymph % (Auto) 35.7 % 06/24/25 07:21 [place] % (Auto) 8.2 % 06/24/25 07:21 Eos % (Auto) 2.0 % 06/24/25 07:21 Baso % (Auto) 0.4 % 06/24/25 07:21 Neut # (Auto) 3.69 K/uL (1.40-6.50) 06/24/25 07:21 Lymph # (Auto) 2.49 K/uL (1.20-3.40) 06/24/25 07:21 [place] # (Auto) 0.57 K/uL (0.11-0.59) 06/24/25 07:21 Eos # (Auto) 0.14 K/uL (0.00-0.50) 06/24/25 07:21 Baso # (Auto) 0.03 K/uL (0.00-0.20) 06/24/25 07:21 Immature Gran # (Auto) 0.05 K/uL (0.01-0.20) 06/24/25 07:21 Sodium 138 mmol/L (136-145) 06/24/25 07:21 Potassium 4.2 mmol/L (3.5-5.1) 06/24/25 07:21 Chloride 107 mmol/L (98-107) 06/24/25 07:21 Carbon Dioxide 24 mmol/L (21-32) 06/24/25 07:21 Anion Gap 7 (3-11) 06/24/25 07:21 BUN 18 mg/dl (6-23) 06/24/25 07:21 Creatinine 1.17 mg/dl (0.6-1.4) 06/24/25 07:21 Est Cr Clr Drug Dosing 73.2 ml/min 06/24/25 07:21 eGFR 67.90 06/24/25 07:21 BUN/Creatinine Ratio 15.4 (10-20) 06/24/25 07:21 Glucose 100 mg/dl (70-99(Fasting)) H 06/24/25 07:21 Calcium 9.0 mg/dl (8.6-10.3) 06/24/25 07:21 Magnesium 2.1 mg/dl (1.7-2.4) 06/24/25 07:21 Total Bilirubin 1.0 mg/dl (0.2-1.0) 06/23/25 21:58 AST 39 U/L (13-39) 06/23/25 21:58 ALT 77 U/L (7-52) H 06/23/25 21:58 Alkaline Phosphatase 84 U/L (34-104) 06/23/25 21:58 Troponin I High Sens 2.9 pg/ml (0-20) 06/24/25 19:23 Total Protein 7.7 gm/dl (6.0-8.3) 06/23/25 21:58 Albumin 4.9 gm/dl (3.4-5.0) 06/23/25 21:58 Globulin 2.8 gm/dl (2.5-4.0) 06/23/25 21:58 Albumin/Globulin Ratio 1.8 (0.9-2) 06/23/25 21:58 Lipase 31 U/L (11-82) 06/23/25 21:58 Adenovirus (PCR) Not Detected (NotDetected) 06/24/25 13:40 B. pertussis DNA (PCR) Not Detected (NotDetected) 06/24/25 13:40 B.parapertussis DNA PCR Not Detected (NotDetected) 06/24/25 13:40 C. pneumoniae DNA (PCR) Not Detected (NotDetected) 06/24/25 13:40 Coronavirus OC43 (PCR) Not Detected (NotDetected) 06/24/25 13:40 Coronavirus HKU1 (PCR) Not Detected (NotDetected) 06/24/25 13:40 Coronavirus 229E (PCR) Not Detected (NotDetected) 06/24/25 13:40 SARS-CoV-2 (PCR) Not Detected (NotDetected) 06/24/25 13:40 Coronavirus NL63 (PCR) Not Detected (NotDetected) 06/24/25 13:40 Human Metapneumovir PCR Not Detected (NotDetected) 06/24/25 13:40 Influenza Type A (PCR) Not Detected (NotDetected) 06/24/25 13:40 Influenza Type B (PCR) Not Detected (NotDetected) 06/24/25 13:40 M. pneumoniae (PCR) Not Detected (NotDetected) 06/24/25 13:40 Parainfluenza 1 (PCR) Not Detected (NotDetected) 06/24/25 13:40 Parainfluenza 2 (PCR) Not Detected (NotDetected) 06/24/25 13:40 Parainfluenza 3 (PCR) Not Detected (NotDetected) 06/24/25 13:40 Parainfluenza 4 (PCR) Not Detected (NotDetected) 06/24/25 13:40 RSV (PCR) Not Detected (NotDetected) 06/24/25 13:40 Entero/Rhino (PCR) Not Detected (NotDetected) 06/24/25 13:40 Impressions Chest X-Ray 06/23/25 21:44 Exam(s): XR CXR 1 VIEW EXAM: XR Chest, 1 View CLINICAL HISTORY: Chest pain, nonspecific. TECHNIQUE: Frontal view of the chest. COMPARISON: XR Chest dated 10/04/2024 FINDINGS: Lungs: No focal consolidation. The pulmonary vasculature demonstrates no significant radiographic abnormality. Pleural space: No significant abnormality. No pneumothorax. No large pleural effusion. Heart: No significant abnormality. No cardiomegaly. Mediastinum: No significant abnormality identified. The trachea is midline. Bones/joints: No significant abnormality. No acute fracture. IMPRESSION: No acute cardiopulmonary process or significant alteration from the prior examination. Electronically signed by: Constantino Ramsay MD 06/23/25 23:46 PM Diagnostic Findings Cardiac Enzymes 06/24/25 06/24/25 Range/Units 13:01 19:23 Troponin I High Sens 2.6 2.9 (0-20) pg/ml Intake and Output 06/24/25 06/25/25 06/25/25 22:59 06:59 14:59 Intake Total 240 / 360 120 / 360 Balance 240 / 360 120 / 360 Intake: Oral 240 / 360 120 / 360 Other: Weight 106.8 kg Weight Measurement Method Built in [facility] Medications Administered Home Medications Medication Instructions Recorded Confirmed Last Taken alprazolam 0.25 mg tablet 0.25 mg PO TID PRN Anxiety 08/18/23 06/24/25 10/04/24 aspirin 81 mg tablet,delayed 81 mg PO HS 08/18/23 06/24/25 10/03/24 release clopidogrel 75 mg tablet 75 mg PO HS 08/18/23 06/24/25 10/03/24 diltiazem HCl 180 mg 180 mg PO DAILY 08/18/23 06/24/25 10/04/24 capsule,extended release 24 hr evolocumab 140 mg/mL subcutaneous 140 mg subcut Q14D 08/18/23 06/24/25 2 Weeks Ago pen injector (Chet Goyal) ~09/20/24 isosorbide mononitrate 30 mg 30 mg PO DAILY 08/18/23 06/24/25 10/04/24 tablet,extended release 24 hr pantoprazole 40 mg tablet,delayed 40 mg PO DAILY 08/18/23 06/24/25 10/04/24 release losartan 50 mg tablet 50 mg PO QAM 10/04/24 06/24/25 10/04/24 zinc-magnesium aspart-vit B6 10 1 cap PO DAILY 10/04/24 06/24/25 10/04/24 mg-150 mg-3.83 mg capsule Active Medications Generic Name Dose Route Start Last Admin Trade Name Freq PRN Reason Stop Dose Admin Acetaminophen 650 mg 06/24/25 03:35 06/25/25 12:35 Acetaminophen 325 Mg Tab PO 07/24/25 03:34 650 mg Q4H PRN Administration Pain or Fever Alprazolam 0.25 mg 06/24/25 03:35 06/25/25 08:34 Alprazolam 0.25 Mg Tablet PO 07/24/25 03:34 0.25 mg TID PRN Administration Anxiety Aspirin 81 mg 06/24/25 21:00 06/24/25 20:42 Aspirin 81 Mg Ectab PO 07/24/25 20:59 81 mg HS ANGEL LUIS Administration Clopidogrel Bisulfate 75 mg 06/24/25 21:00 06/24/25 20:42 Clopidogrel Bisulfate 75 Mg Tab PO 07/24/25 20:59 75 mg HS ANGEL LUIS Administration Diltiazem HCl 180 mg 06/24/25 09:00 06/25/25 08:26 Diltiazem Hcl 180 Mg Capcr PO 07/24/25 08:59 180 mg DAILY ANGEL LUIS Administration Isosorbide Mononitrate 60 mg 06/25/25 09:00 06/25/25 08:25 Isosorbide [place] Extended Rel 60 Mg Tabcr PO 07/25/25 08:59 60 mg DAILY ANGEL LUIS Administration Losartan Potassium 50 mg 06/24/25 09:00 06/25/25 08:26 Losartan Potassium 50 Mg Tab PO 07/24/25 08:59 50 mg QAM ANGEL LUIS Administration Pantoprazole Sodium 40 mg 06/24/25 09:00 06/25/25 08:26 Pantoprazole 40 Mg Tab PO 07/24/25 08:59 40 mg DAILY ANGEL LUIS Administration PG Care Time/CCT Total # of Minutes Spent Total Time Spent with Patient: Total time spent is greater than 50% in coordination of care (as documented) at patient's floor/unit and/or counseling patient: Coding Level of Care Code 61311 SUB INP/OBS CARE 350MIN Diagnoses Hypertensive urgency I16.0 Atypical chest pain R07.89 CAD S/P percutaneous coronary angioplasty I25.10; Z98.61
--- NOTE | 2025-06-25 13:17 | Discharge Summary ---
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 Patient states around 6:30 PM yesterday sitting in chair suddenly felt clammy, anxious ,sick to the stomach and some pain in the left arm and headache which made him very came to the ER. Patient states he gets angina symptoms but because of clamminess and not feeling good came to the ER. Currently symptoms improved. He thinks symptoms lasted about 20 minutes. Still not feeling back to normal. After Tylenol his headache improved. Vision is okay. No runny nose or sore throat. Has chronic cough. Chronic shortness of breath. Currently no nausea. No abdominal pain. Normal bowel and bladder movements. Is ambulating okay. Currently hemodynamics are okay. Past med history. As mentioned above. Past surgical history. Cardiac angioplasty. Colonoscopy with biopsy. Left and right heart catheterization. EGD. Right knee arthroscopy. Cardiac cath with stent placements. Tonsillectomy adenoidectomy. Social history. . No smoking. No alcohol use. No drug use. Family history. Father colon polyps. Bypass surgery in his 60s. Mother had coronary bypass grafting age 44. Admission Exam Per Admitting Provider General- Not in distress Head- atraumatic Eyes- PERRL. ENT- oropharynx clear Neck- supple, no JVD. Lungs- clear to auscultation no wheezing or crackles Heart- regular rhythm; no murmur, no gallop. Abdomen- normal bowel sounds, soft, nontender, no distension Extremities- no pretibial edema, no erythema seen Neuro- alert, oriented PERRL, no facial palsy; no dysarthria; moves extremities Principal Diagnosis Chest pain, rule out ACS Possible URTI Discharge Exam General- Not in distress Head- atraumatic Eyes- PERRL. ENT- oropharynx clear Neck- supple, no JVD. Lungs- clear to auscultation no wheezing or crackles Heart- regular rhythm; no murmur, no gallop. Abdomen- normal bowel sounds, soft, nontender, no distension Extremities- no pretibial edema, no erythema seen Neuro- alert, oriented PERRL, no facial palsy; no dysarthria; moves extremities Discharge Data Allergies Allergy/AdvReac Type Severity Reaction Status Date / Time nitroglycerin AdvReac Intermediate TACHYCARDIA Verified 06/24/25 01:07 [From Nitrostat] WITH PILLS ONLY, PASTE IS OKAY. 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 Chest pain History of CAD Status post ALICIA to LAD in 2017 Status post ALICIA to right mid coronary artery in 2015 Status post ALICIA to proximal LAD in 2017 Cardiac cath in August 2023 showed mild nonobstructive CAD Patient presents with left-sided arm and chest pain EKGnormal sinus rhythm Initial 2 sets of troponin negative Echocardiogram shows EF of 55 to 60%; grade 1 diastolic dysfunction. Continue on aspirin, Plavix, Imdur and Repatha Continue telemonitoring Monitor for chest pain Possible URTIreports sore throat, generalized fatigue. Will obtain respiratory BioFire. Monitor for fever/chills. Hypertension On diltiazem, Imdur and losartan-continue Hyperlipidemia Intolerant to multiple statin trials On Repatha History of steatohepatitis and chronic hepatic enzyme elevation History of SVT On diltiazem-continue GERD On Protonix-continue Obstructive sleep apnea On CPAP nightly CKD stage III Presented with creatinine 1.2 around baseline We will follow labs DVT prophylaxis SCDs for now Disposition Observation med/telemetry Full code Addendum 06/25/2025: Patient was seen and examined at bedside for follow-up of chest pain. Patient denies further chest pain, reports overall improvement in his symptoms. BioFire panel was negative. Patient is hemodynamically stable and would like to go home. Cardiology evaluated the patient, okay for discharge from their standpoint. Patient advised to follow-up with cardiology closely upon discharge. Patient is being discharged with following instructions at the point of discharge: Follow-up with your primary care physician within a week time and likely you will need labs CBC/CMP/magnesium/phosphorus. Your evaluated by cardiology while in hospital. Your Imdur has been increased. Follow-up with cardiology in 2 to 4 weeks time upon discharge. Maintain low-sodium diet [less than 2 g a day] and heart healthy diet. Recommend daily exercise regimen and weight loss. Taking medications as prescribed. Please make sure that you are able to get your medications today by calling your pharmacy before you leave the hospital so that your treatment continuity is not broken. Please note the above document was generated using voice recognition software. It may contain grammatical, syntax or spelling errors. Any formal questions or concerns about the content, text or information contained within the body of th is dictation should be directly addressed to the provider for clarification Home Health Attestation I certify that this patient is under my care and that I, or a physicians assistant city attorney working with me, had a face to-face encounter that meets the home health [id number] encounter requirements with this patient. The encounter with the patient was in whole, or in part, for the following medical condition, which is the primary reason for home health care (list medical condition): I certify that, based on my findings, the following services are medically necessary home health services: My clinical findings support the need for the above services because: Further, I certify that my clinical findings support that this patient is homebound (i.e. absences from home require considerable and taxing effort and are for medical reasons or anglican services or infrequently or of short duration when for other reasons) because: Certification for Home Health Services: Based on the above findings, I certify that this patient is confined to the home and needs intermittent jail care, physical therapy and/or speech therapy or continues to need occupational therapy. The patient is under my care, and I have initiated the establishment of the plan of care. This patient will be followed by a physician who will periodically review the plan of care. Total Time Total Time Spent Total Time Spent (In Minutes): 35 Discharge Plan Discharge Items Patient Disposition: Home - Self-Care Reason For Visit: CHEST PAIN Discharge Diagnosis: Chest pain, rule out ACS Possible URTI Condition on Discharge: Good Activity: Resume your previous activity Non-emergency contact: Primary Care Provider Call non-emergency contact if: you have any medication questions and your symptoms worsen Follow-up/Referrals: Albert Ballard M.D. [Primary Care Provider] - (Date & Time 06/28/2025 11:20 AM Provider: Christopher Quinones PA-C [facility] [place] ) Diet: Heart Healthy and Low Sodium (2gm) Addtl Attending Provider Instructions: Follow-up with your primary care physician within a week time and likely you will need labs CBC/CMP/magnesium/phosphorus. Your evaluated by cardiology while in hospital. Your Imdur has been increased. Follow-up with cardiology in 2 to 4 weeks time upon discharge. Maintain low-sodium diet [less than 2 g a day] and heart healthy diet. Recommend daily exercise regimen and weight loss. Taking medications as prescribed. Please make sure that you are able to get your medications today by calling your pharmacy before you leave the hospital so that your treatment continuity is not broken. Pending Studies at Discharge: No Stand-Alone Forms: My [employer], Smoking Cessation Medications and DC Order Prescriptions: New isosorbide mononitrate 60 mg Tablet Extended Release 24 Hr 60 mg PO DAILY Qty: 30 0RF Continued diltiazem HCl 180 mg capsule,extended release 24hr 180 mg PO DAILY clopidogrel 75 mg tablet 75 mg PO HS alprazolam 0.25 mg tablet 0.25 mg PO TID PRN (Reason: Anxiety) pantoprazole 40 mg tablet,delayed release (DR/EC) 40 mg PO DAILY Repatha SureClick 140 mg/mL pen injector 140 mg SUBCUT Q14D Rx Instructions: every 14days aspirin 81 mg Tablet,Delayed Release (Dr/Ec) 81 mg PO HS losartan 50 mg tablet 50 mg PO QAM Zinc Magnesium Aspartate 10-150-3.83 mg Capsule 1 cap PO DAILY Discontinued isosorbide mononitrate 30 mg tablet extended release 24 hr 30 mg PO DAILY Discharge Orders: Discharge Order (Routine); Ordered 06/25/25 Ordered By: Veronique Thomas Admission Data Admit Date/Time: 06/24/25 03:20 Attending Provider: Veronique Thomas Admit Provider: Aniceto Estrada Primary Care Provider: Albert Ballard Other Providers: Aniceto Estrada; Aster Clark; Joselito Mace; Baldev Troy; Lenny Wayne; Gabriel Marino; Chai Houston; Kelly Preciado; Ngoc Huitron; Betzy Sutherland; Rosemarie Villalta; Aster Archibald; Cole Holcomb; Javad Vaz; Gayathri Viera; Noa Pineda; Fabi Ngo; Tamara Zarate; Maynor Lawson; Renita Troy; Margaret Pham; David Weems; Glenn Ponce; Leela Kaufman
--- NOTE | 2025-06-26 09:08 | Coding Query ---
CODING QUERY To promote full compliance with coding requirements relating to patient care, provider participation is requested in all cases of label coder uncertainty. Please assist us with the question(s) below: Coding Question(s): The Discharge Summary documents, "Chest pain, rule out ACS". The Cardiology Consult and 06/25 Cardiology Progress Note document, "Chest pain - atypical, DC R/O". ACS is not a valid abbreviation. Please specify below, in your opinion, regarding the most likely source of the chest pain: ( ) Chest pain, rule out ACS, with NO DC. Please Specify the meaning of ACS: ( x ) Chest pain, rule out DC (Myocardial infarction) ( ) Other: Please Specify Physician's Response(s): Thank you Brenda Newsome Principal Diagnosis: "that condition established after study, to be chiefly responsible for occasioning the admission of the patient to the hospital for care." Co-Existing Principal Diagnosis: "when two or more diagnoses equally meet the criteria for principal diagnosis as determined by the circumstances of admission, diagnostic work up, and/or therapy provided, and the Alphabetic Index, Tabular List, or another coding guideline does not provide sequencing direction, any one of the diagnoses may be sequenced first." "When the physician has documented what appears to be a current diagnosis in the body of the record, but has not included the diagnosis in the final diagnostic statement, the physician should be asked whether the diagnosis should be added." (Source Coding Clinic 2 QTR90. p3-4) KURT
--- NOTE | 2025-06-26 09:15 | Coding Query ---
CODING QUERY To promote full compliance with coding requirements relating to patient care, provider participation is requested in all cases of cut off man uncertainty. Please assist us with the question(s) below: Coding Question(s): Possible URTI is documented. URTI is not a valid abbreviation. Please specify below, the meaning of URTI: ( ) URTI means: upper resp tract infxn ( ) Unknown meaning of URTI Physician's Response(s): Thank you Brenda Newsome Principal Diagnosis: "that condition established after study, to be chiefly responsible for occasioning the admission of the patient to the hospital for care." Co-Existing Principal Diagnosis: "when two or more diagnoses equally meet the criteria for principal diagnosis as determined by the circumstances of admission, diagnostic work up, and/or therapy provided, and the Alphabetic Index, Tabular List, or another coding guideline does not provide sequencing direction, any one of the diagnoses may be sequenced first." "When the physician has documented what appears to be a current diagnosis in the body of the record, but has not included the diagnosis in the final diagnostic statement, the physician should be asked whether the diagnosis should be added." (Source Coding Clinic 2 QTR90. p3-4) KURT
--- NOTE | 2025-06-26 15:08 | Electrocardiogram Report ---
Test Reason : Blood Pressure : */* mmHG Vent. Rate : 68 BPM Atrial Rate : 68 BPM P-R Int : 186 ms QRS Dur : 88 ms QT Int : 408 ms P-R-T Axes : 47 -12 26 degrees QTcB Int : 433 ms Normal sinus rhythm Normal ECG When compared with ECG of 23-Jun-2025 21:44, No significant change was found Confirmed by David Barron ([id number]) on 06/26/2025 3:07:48 PM Referred By: REFERRED SELF Confirmed By: David Barron
== END 2025-06-25 15:05 | disposition home or self-care (01) | DRG 281 ==
LOC: ED 21:36 → SUATTDRO 06-24 03:20 → EDINP 06-24 03:20 → INTOOBSV 06-24 03:20 → 2N 06-24 15:16